=== PATIENT | male | born 1960 | race Caucasian/White ===

== ENCOUNTER 2019-05-02 03:11 | Emergency (ER) | payer OTHER, SELFPAY ==
--- NOTE | ~2019-05-02 | CT_ITS ---
EXAMINATION: CT soft tissue neck w con EXAM DATE: 05/02/2019 04:17 INDICATION: Left facial swelling. TECHNIQUE: Spiral CT of the neck was performed following intravenous injection of 75 mL Omnipaque 350 . Axial, coronal and sagittal images were reviewed. The dose-length product (DLP) for this examinat ion was 674.71 mGy-cm. The exposure was tailored according to patient size (auto mA exposure control ), and iterative reconstruction (ASIR) was used as additional dose reduction technique. There is no prior study for comparison. FINDINGS: The thyroid gland is unremarkable. There is edema within and surrounding the left parotid gland. The parotid duct is normal in caliber, no evidence of parotic duct stone. There are bilateral parotid calcifications. No abscess. There is no cervical lymphadenopathy. There are no masses iden tified. The airway is unremarkable. Parapharyngeal and pre-glottic fat planes are preserved. The arteries and veins enhance normally. There is mild bilateral carotid bulb arterial sclerosis without stenosis, no evidence of venous thrombosis. The orbits are unremarkable. Visualized sinuses and ma stoid air cells are well aerated. Borderline size prevascular and right lower paratracheal lymph nodes, some with calcifications. Also scattered numerous peribronchovascular distribution lung nodules along with regions of pleural thicke zaynab with calcification, scarring. Overall findings most consistent with sarcoidosis. There is mild e mphysema. There is cervical spondylosis. IMPRESSION: 1. Left parotiditis. Scattered parotid calcifications but no obstructing stone. 2. Lung findings suspicious for sarcoidosis, or possibly other granulomatous process. Reviewed, dictated and finalized at location [facility]. ET PLATE PREPARATION SUPERVISOR IMPRESSION: 1. Left parotiditis. Scattered parotid calcifications but no obstructing stone . 2. Lung findings suspicious for sarcoidosis, or possibly other granulomatous p rocess.
[2019-05-02 03:20] VITALS: BP 184/93; PULSE 102; RESP 20; TEMP 36.5; O2SAT 99
[2019-05-02] MEDS: MORPHINE SULFATE 4 MG/ML INJ IV PUSH (03:44)
[2019-05-02 04:02] LABS: Estimated CRCL calculation 162 ml/min; Estimated Glomerular Filt Rate > 60
[2019-05-02 04:14] VITALS: TEMP 36.5
--- NOTE | 2019-05-02 04:20 | ED.GENADULT ---
HPI - General Adult General Chief complaint: Skin/Abscess/Foreign Body Stated complaint: LEFT SIDE FACIAL SWELLING Time Seen by Provider: 05/02/19 03:33 History of Present Illness HPI narrative: Patient is a 58-year-old male who presents ER with left-sided facial swelling. Sudden onset this evening. Associated with pain. Denies any discomfort in his teeth or sensitivity to food/water.. No difficulty breathing or swallowing. He does have known esophageal varices so will be banded next few days. Denies fever/chills/sweats. Left-sided facial swelling and pain is worsened by opening his mouth and with direct palpation. No erythema. Has not had similar symptoms. Related Data Home Medications Medication Instructions Recorded Confirmed albuterol sulfate INHALATION 04/06/19 budesonide-formoterol [Symbicort] INHALATION 04/06/19 bumetanide 04/06/19 diclofenac sodium PO 04/06/19 furosemide 04/06/19 gabapentin 04/06/19 insulin glargine [Basaglar KwikPen unit SUBCUT 04/06/19 U-100 Insulin] tiotropium bromide [Spiriva with INHALATION 04/06/19 HandiHaler] Allergies Allergy/AdvReac Type Severity Reaction Status Date / Time No Known Allergies Allergy Verified 05/02/19 03:26 Review of Systems Review of Systems: All systems reviewed & are unremarkable except as noted in HPI and below Constitutional: Constitutional: Denies chills, Denies fever(s) and Denies weakness ENT: Denies dysphagia and Denies sore throat Comments: left facial swelling. No dental pain Respiratory: Respiratory: Denies cough and Denies dyspnea Gastrointestinal: Gastrointestinal: Denies nausea and Denies vomiting [facility] Past Medical History Medical History (Updated 05/02/19 @ 05:50 by Rob Liao MD) Cirrhosis of liver COPD (chronic obstructive pulmonary disease) Diabetes type 2, controlled Esophageal varices Hepatitis C Surgical History Surgical History (Updated 05/02/19 @ 04:22 by Rob Liao MD) History of esophagogastroduodenoscopy (EGD) Social History Social History Smoking status: Current every day smoker Alcohol intake: current Gender identity (if verbalized by the patient): Male Exam Narrative: Exam Narrative: GENERAL: Well-appearing, well-nourished, and in no acute distress. HEAD: Normocephalic, atraumatic. ENT: Mucous membranes moist. No tenderness around the teeth with direct palpation. Normal posterior oropharynx with midline uvula no edema. Left facial swelling and tenderness near the parotid and angle of the mandible. Mild left submandibular discomfort. NECK: Supple. EXTREMITIES: Normal range of motion. Normal strength. NEURO: Alert and oriented x3. Course Course Emergency Course: Informed of results. Cefazolin IV given. D/c with norco and augmentin. F/u with PCP. Vital Signs Vital signs: Vital Signs Temperature 97.7 F 05/02/19 03:20 Pulse Rate 102 H 05/02/19 03:20 Respiratory Rate 20 05/02/19 03:20 Blood Pressure 184/93 H 05/02/19 03:20 Pulse Oximetry 99 05/02/19 03:20 Temperature 97.7 F 05/02/19 04:14 Pulse Rate 102 H 05/02/19 03:20 Respiratory Rate 05/02/19 03:20 Blood Pressure 184/93 H 05/02/19 03:20 Pulse Oximetry 99 05/02/19 03:20 Medical Decision Making Vital Signs Vital Signs: Vital Signs Temperature 97.7 F 05/02/19 03:20 Pulse Rate 102 H 05/02/19 03:20 Respiratory Rate 20 05/02/19 03:20 Blood Pressure 184/93 H 05/02/19 03:20 Pulse Oximetry 99 05/02/19 03:20 Temperature 97.7 F 05/02/19 04:14 Pulse Rate 102 H 05/02/19 03:20 Respiratory Rate 05/02/19 03:20 Blood Pressure 184/93 H 05/02/19 03:20 Pulse Oximetry 99 05/02/19 03:20 Lab Data Result diagrams: 05/02/19 03:43 Labs: Lab Results 05/02/19 Range/Units 03:43 Creatinine 0.60 L (0.7-1.3) mg/dL Estim Creat Clear Calc 162 ml/min Estimated GFR > 60 (
[2019-05-02] MEDS: SODIUM CHLORIDE 0.9% IV 500 ML 999 ML IV CONT (04:56)
[2019-05-02 06:04] VITALS: BP 178/91; PULSE 91; RESP 16; O2SAT 100
== END 2019-05-02 06:06 | disposition home or self-care (01) ==
PROVIDERS: Emergency Provider Emergency Medicine
DX: K11.20 Sialoadenitis, unspecified (principal); K74.60 Unspecified cirrhosis of liver; J44.9 Chronic obstructive pulmonary disease, unspecified; E11.9 Type 2 diabetes mellitus without complications; I85.00 Esophageal varices without bleeding; F17.200 Nicotine dependence, unspecified, uncomplicated; Z79.4 Long term (current) use of insulin; Z86.19 Personal history of other infectious and parasitic diseases
CPT/HCPCS: 36415; 70491; 82565; 96365; 96375; 99284; J0690; J2270; J7040; Q9967

== ENCOUNTER 2019-09-04 10:47 | Outpatient (CLI) | payer OTHER, SELFPAY ==
[2019-09-04 11:36] LABS: Basophils Percent Auto 0.5 % (0.2-1.2); Eosinophils Absolute Auto 0.1 K/mm3 (0-0.3); Eosinophils Percent Auto 3.5 % (0-4.4); Hematocrit 33.5 % (42.0-52.0); Hemoglobin 10.1 g/dL (14.0-18.0); Immature Granulocyte Absolute 0.02 K/mm3 (0.00-0.031); Immature Granulocyte Percent A 0.5 % (0-0.5); Immature Platelet Fraction Pct 5.3 % (0.9-11.2); Lymphocytes Absolute Auto 0.46 K/mm3 (0.9-3.2); Lymphocytes Percent Auto 12.4 % (18.3-44.2); Mean Corpuscular HGB Conc 30.1 g/dl (32-36); Mean Corpuscular Hemoglobin 22.1 pg (26-34); Mean Corpuscular Volume 73.1 fl (80-100); Mean Platelet Volume 10.5 fl (7.4-10.4); Monocytes Absolute Auto 0.4 K/mm3 (0.1-0.6); Monocytes Percent Auto 11.6 % (2.6-8.5); Neutrophils Absolute Auto 2.7 K/mm3 (1.3-6.7); Neutrophils Percent Auto 71.5 % (45.5-73.1); Platelet Count Result 136 k/mm3 (150-375); Red Blood Count 4.58 M/mm3 (4.6-6.20); Red Cell Distribution Width 17.4 % (11.5-14.5); White Blood Count 3.7 K/mm3 (4.5-10.0)
== END 2019-09-04 10:48 | disposition home or self-care (01) ==
LOC: ANHLAB 10:50
PROVIDERS: PCP Emergency Medicine; Visit Provider Internal Medicine Hematology & Oncology
DX: D61.818 Other pancytopenia (principal)
CPT/HCPCS: 36415; 85025; 85055

== ENCOUNTER 2019-09-13 21:44 | Emergency (ER) | payer OTHER, SELFPAY ==
[2019-09-13 21:52] VITALS: BP 151/94; PULSE 103; RESP 28; TEMP 37.7; O2SAT 98
--- NOTE | 2019-09-13 21:52 | PC.NURSE ---
Addendum entered by Aneta Mercado RN 09/13/19 21:58: pt friend winston states hes not interested in any updates on pt but states if we NEED to call him for any reason we can. [phone] Original Note: with any updates, call pt's friend winston [phone].
--- NOTE | 2019-09-13 22:00 | ECG_ITS ---
Measurements Intervals Christine Rate: 99 P: 58 NH: 191 QRS: -87 QRSD: 153 T: 63 QT: 356 QTc: 459 Interpretive Statements SINUS RHYTHM LEFT AXIS DEVIATION RIGHT BUNDLE BRANCH BLOCK BASELINE ARTIFACT- I, II ABNORMAL ECG Electronically Signed On 09-14-2019 7:10:07 CDT by Shahid Mcginnis D.O.
--- NOTE | 2019-09-13 22:00 | ED.GENADULT ---
HPI - General Adult General Chief complaint: Unspecified Stated complaint: been on a sanders Time Seen by Provider: 09/13/19 21:48 History of Present Illness HPI narrative: He reports that he is here because he used methamphatamines. I then asked how I could help him and he pretended to fall asleep. After a brief period He then turned to me and said he was here for an anxiety attack. is that good enough? Then he started intentionally hyperventilating. He then began pretending to sleep again. History limited by cooperation. Related Data Home Medications Medication Instructions Recorded Confirmed albuterol sulfate INHALATION 04/06/19 budesonide-formoterol [Symbicort] INHALATION 04/06/19 bumetanide 04/06/19 diclofenac sodium PO 04/06/19 furosemide 04/06/19 gabapentin 04/06/19 insulin glargine [Basaglar KwikPen unit SUBCUT 04/06/19 U-100 Insulin] tiotropium bromide [Spiriva with INHALATION 04/06/19 HandiHaler] Allergies Allergy/AdvReac Type Severity Reaction Status Date / Time No Known Allergies Allergy Verified 05/02/19 03:26 Review of Systems Review of Systems: ROS unobtainable: Yes other (patient cooperation) PMFSH Past Medical History Medical History Cirrhosis of liver COPD (chronic obstructive pulmonary disease) Diabetes type 2, controlled Esophageal varices Hepatitis C Surgical History Surgical History History of esophagogastroduodenoscopy (EGD) Family History Family History Father Family history of pancreatic cancer Other Diabetes mellitus Hypertension Social History Social History Smoking status: Current every day smoker Alcohol intake: current Gender identity (if verbalized by the patient): Male Exam Const: General: no acute distress and alert Nutritional Appearance: well nourished Orientation/consciousness: patient oriented x3 HENMT: Head: normal to inspection Eyes: Pupils: Equal, round and reactive pupils present EOM: EOMs intact bilaterally Resp: Effort & Inspection: normal respiratory effort Auscultation: clear to auscultation bilaterally Cardio: Rate: regular rate Rhythm: regular rhythm Neuro: General: patient oriented x3, moves all extremities and CN's II-XI intact bilaterally Speech: normal speech Gait exam (Neuro): Normal gait present Extrem: General: edema bilateral Course Vital Signs Vital signs: Vital Signs Temperature 37.7 C H 09/13/19 21:52 Pulse Rate 103 H 09/13/19 21:52 Respiratory Rate 28 H 09/13/19 21:52 Blood Pressure 151/94 H 09/13/19 21:52 Pulse Oximetry 98 09/13/19 21:52 Temperature 37.7 C H 09/13/19 21:52 Pulse Rate 92 09/13/19 23:20 Respiratory Rate 09/13/19 23:20 Blood Pressure 154/84 H 09/13/19 23:20 Pulse Oximetry 98 09/13/19 23:20 Medical Decision Making MDM Narrative Medical decision making narrative: He does not seem to have any particular complain that needs to be evaluated. He appears to be looking for a place to sleep. Medical Records Medical records reviewed: Yes I reviewed the patient's medical records. Vital Signs Vital Signs: Vital Signs Temperature 37.7 C H 09/13/19 21:52 Pulse Rate 103 H 09/13/19 21:52 Respiratory Rate 28 H 09/13/19 21:52 Blood Pressure 151/94 H 09/13/19 21:52 Pulse Oximetry 98 09/13/19 21:52 Temperature 37.7 C H 09/13/19 21:52 Pulse Rate 92 09/13/19 23:20 Respiratory Rate 09/13/19 23:20 Blood Pressure 154/84 H 09/13/19 23:20 Pulse Oximetry 98 09/13/19 23:20 Lab Data Lab results reviewed: Yes I reviewed the patient's lab results. Discharge Plan Discharge Clinical Impression: Malingering Patient Disposition: Home, Self-Care Condition: Stable Prescriptions: No Action
[2019-09-13 23:20] VITALS: BP 154/84; PULSE 92; RESP 20; O2SAT 98
--- NOTE | 2019-09-13 23:30 | PC.NURSE ---
Pt taken to car via wheelchair by ED security.
== END 2019-09-13 23:20 | disposition home or self-care (01) ==
PROVIDERS: Emergency Provider Emergency Medicine; PCP Emergency Medicine
DX: Z76.5 Malingerer [conscious simulation] (principal); K74.60 Unspecified cirrhosis of liver; J44.9 Chronic obstructive pulmonary disease, unspecified; E11.9 Type 2 diabetes mellitus without complications; Z86.19 Personal history of other infectious and parasitic diseases; I45.10 Unspecified right bundle-branch block; Z79.4 Long term (current) use of insulin; Z79.84 Long term (current) use of oral hypoglycemic drugs
CPT/HCPCS: 93005; 99283

== ENCOUNTER 2020-05-01 15:07 | Inpatient (IN) | payer OTHER, SELFPAY ==
[2020-05-01] VITALS (16 sets, daily range): BP systolic 94–136; BP diastolic 49–78; PULSE 87–120; RESP 16–35; TEMP 36.3–38.5; O2SAT 92–99; BMI 34.9
--- NOTE | ~2020-05-01 | CT_ITS ---
EXAMINATION: CTA chest PE protocol EXAM DATE: 05/02/2020 11:28 INDICATION: Shortness of breath. COVID positive. Pneumonia. TECHNIQUE: Spiral CTA of the chest (pulmonary arteries) was performed with 200 cc Omnipaque 350 intr avenous contrast injection. Images were acquired during the pulmonary arterial phase. The patient w as injected and reimaged due to suboptimal pulmonary arterial opacification on the initial scan Coron al maximum intensity projection 3D-reconstructions were created by the technologist on dedicated work station. Axial, coronal and sagittal reformatted images were reviewed. The dose-length product (DLP ) for this examination was 1460.49 mGy-cm. The exposure was tailored according to patient size (aut o mA exposure control), and iterative reconstruction (ASIR) was used as additional dose reduction douglas hnique. Comparison is made to prior examination from 11/02/2018. FINDINGS: There are no pulmonary emboli in the 1st through 3rd order (central and interlobar) pulmon yasmani arteries. Some loss of attenuation in the left basilar segmental pulmonary arteries without evid ence of respiratory motion in these areas. No Intraluminal filling defects suspected. No thoracic ao rtic dissection. There is extensive left basilar, small to moderate right basilar patchy airspace disease, regions of confluence and substantially more regions of groundglass density, consistent with acute infectious pr ocess such as COVID pneumonia. There is subsegmental airspace disease in the right upper lobe which i s new compared to 2016, but most likely chronic process, likely different etiology from the basilar o pacities. Differential diagnosis for this includes silicosis, bronchoalveolar cell cancer, cryptogeni c organizing pneumonia, bacterial pneumonia. The numerous tree-in-bud distribution nodules which were previously present appear unchanged, chronic. There are scattered bilateral pleural plaques. There is trace left pleural effusion. Tracheobronchia l tree is patent. Mediastinal lymphadenopathy, largest probably in the paratracheal location but th is is obscured by dense artifact from the SVC contrast. Lymph nodes likely up to about 2 cm in size. Mildly enlarged prevascular lymph nodes as well. There is no pneumothorax. Heart normal in size. There is mild coronary arterial calcification, arterial sclerosis. Nodular cirrhotic liver. Cholecys tectomy. Splenomegaly. Portal vein measuring up to 20 mm, consistent with portal hypertension. There is moderate thoracic spondylosis without osteoblastic or osteolytic lesions identified. IMPRESSION: 1. Limited left basilar segmental evaluation, but no pulmonary emboli are suspected. 2. Extensive left basilar linear, small to moderate right basilar airspace disease likely acute infe ctious process. Could be COVID pneumonia. 3. Right upper lobe airspace disease with large region of confluence than on prior study. Reticulono dular opacities. Could be silicosis. Right upper lobe cryptogenic organizing pneumonia or bronchoalve olar cell cancer not excludable. 4. Chronic mediastinal lymphadenopathy with mild interval increase which could be superimposed react dari enlargement. Can't exclude malignancy. 5. Scattered bilateral pleural plaques. Possible asbestos exposure. 6. Trace left pleural effusion. 7. Cirrhosis, splenomegaly and portal hypertension. Reviewed, dictated and finalized at location A. TECHNICIAN IMPRESSION: 1. Limited left basilar segmental evaluation, but no pulmonary emboli are susp ected. 2. Extensive left basilar linear, small to moderate right basilar airspace dis ease likely acute infectious process. Could be COVID pneumonia. 3. Right upper lobe airspace disease with large region of confluence than on p rior study. R
--- NOTE | ~2020-05-01 | CT_ITS ---
EXAMINATION: CT brain wo con DATE: 05/01/2020 16:21 INDICATION: Altered mental state TECHNIQUE: Computed tomography (CT) of the head was performed without intravenous contrast. The mA wa s adjusted according to patient size. Iterative reconstruction technique was employed. Exam dose: 60 5.33 mGy-cm total exam DLP. COMPARISON: 07/14/2016 CT brain FINDINGS: There are chronic prominent bilateral frontal areas of encephalomalacia. No intracranial mass lesion or hemorrhage, midline shift or mass effect is evident. No subdural or ep idural hematoma is detected. Intracranial cerebral atherosclerosis. There is nonspecific diminished attenuation of the cerebral wh ite matter, likely due to chronic small vessel ischemic changes. No fracture or bone destruction of the cranial vault. There is patchy bilateral ethmoid soft tissue thickening. The mastoid air cells are normally develope d and aerated. IMPRESSION: Bilateral chronic frontal encephalomalacia; no acute intracranial finding or significant change since 07/14/2016 Reviewed, dictated and finalized at Location [facility]. Reviewed, dictated and finalized at location A. CULTURAL ENGINEERING TECHNICIANS
--- NOTE | ~2020-05-01 | XR_ITS ---
EXAMINATION: XR chest 1V portable DATE: 05/01/2020 15:36 INDICATION: Shortness of breath. Cough. TECHNIQUE: A single frontal view of the chest was obtained on 2 radiographs. COMPARISON: Chest 2 views 04/06/2019, neck CT 05/02/2019, chest CT 11/02/2018, 10/23/2015 FINDINGS: There are widespread nodules in the lungs, many of which are chronic, but some of which may be new. There are chronic airspace opacities in right upper lobe. There are new airspace opacities a t left lung base. No pleural effusion or pneumothorax. The heart size is normal. Calcified hilar and mediastinal lymph nodes are consistent with old granulomatous disease. IMPRESSION: 1. Worsened diffuse lung disease, worst at left lung base, consistent with pneumonia superimposed on chronic lung disease. Reviewed, dictated and finalized at location A. BENCH OPERATOR HELPER IMPRESSION: 1. Worsened diffuse lung disease, worst at left lung base, consistent with pneu monia superimposed on chronic lung disease.
--- NOTE | 2020-05-01 15:14 | ECG_ITS ---
Measurements Intervals Mozelle Rate: 119 P: 64 CO: 155 QRS: 270 QRSD: 157 T: 73 QT: 334 QTc: 471 Interpretive Statements SINUS TACHYCARDIA EXTREME RIGHT AXIS DEVIATION RIGHT BUNDLE BRANCH BLOCK ABNORMAL ECG Electronically Signed On 05-01-2020 15:46:37 VENDING MACHINE ASSEMBLER by Shahid Mcginnis D.O.
[2020-05-01 15:36] LABS: Basophils Percent Auto 0.2 % (0.2-1.2); Hematocrit 40.6 % (42.0-52.0); Hemoglobin 12.5 g/dL (14.0-18.0); Immature Granulocyte Absolute 0.03 K/mm3 (0.00-0.031); Immature Granulocyte Percent A 0.5 % (0-0.5); Immature Platelet Fraction Pct 5.8 % (0.9-11.2); Lymphocytes Absolute Auto 0.22 K/mm3 (0.9-3.2); Mean Corpuscular HGB Conc 30.8 g/dl (32-36); Mean Corpuscular Hemoglobin 22.6 pg (26-34); Mean Corpuscular Volume 73.4 fl (80-100); Monocytes Absolute Auto 0.4 K/mm3 (0.1-0.6); Monocytes Percent Auto 6.8 % (2.6-8.5); Neutrophils Absolute Auto 4.9 K/mm3 (1.3-6.7); Neutrophils Percent Auto 88.5 % (45.5-73.1); Platelet Count Result 87 k/mm3 (150-375); Red Blood Count 5.53 M/mm3 (4.6-6.20); Red Cell Distribution Width 19.7 % (11.5-14.5); White Blood Count 5.5 K/mm3 (4.5-10.0)
--- NOTE | 2020-05-01 15:41 | ED.SOB ---
HPI - SOB/Dyspnea General Chief Complaint: Shortness of Breath/Dyspnea Stated Complaint: SOB, CP Time Seen by Provider: 05/01/20 15:27 History of Present Illness HPI Narrative: 59 yo male w/ h/o htn, DM, COPD brought in by EMS from urgent care for SOB. He has reportedly been SOB for a few days. He was seen at urgent care today and found to have low O2 saturation. Additionally he has been having pleuritic chest pain. Found to be febrile during triage. He has been homeless and living in his truck. He has not taken any of his medications for quite some time. He is a very poor historian. Related Data Home Medications Medication Instructions Recorded Confirmed albuterol sulfate INHALATION 04/06/19 budesonide-formoterol [Symbicort] INHALATION 04/06/19 bumetanide 04/06/19 diclofenac sodium PO 04/06/19 furosemide 04/06/19 gabapentin 04/06/19 insulin glargine [Basaglar KwikPen unit SUBCUT 04/06/19 U-100 Insulin] tiotropium bromide [Spiriva with INHALATION 04/06/19 HandiHaler] Allergies Allergy/AdvReac Type Severity Reaction Status Date / Time No Known Allergies Allergy Verified 05/01/20 15:32 Review of Systems Review of Systems: ROS unobtainable: Yes unobtainable due to mental status Constitutional: Constitutional: Reports fever(s) and Reports weakness Cardiovascular: Cardiovascular: Reports chest pain Respiratory: Respiratory: Reports cough and Reports dyspnea Gastrointestinal: Gastrointestinal: Reports nausea Neurologic: Reports weakness [facility] Past Medical History Medical History (Updated 05/01/20 @ 17:10 by Brad Chatterjee MD) Cirrhosis of liver COPD (chronic obstructive pulmonary disease) Diabetes type 2, controlled Esophageal varices Hepatitis C Surgical History Surgical History History of esophagogastroduodenoscopy (EGD) Family History Family History Father Family history of pancreatic cancer Other Diabetes mellitus Hypertension Social History Social History Smoking status: Current every day smoker Alcohol intake: current Gender identity (if verbalized by the patient): Male Sexual Orientation (if Verbalized by the Patient): Straight or Heterosexual Exam Const: General: alert and ill appearing Nutritional Appearance: obese Other: Oriented x2 . HENMT: Head: normal to inspection Eyes: Pupils: Equal, round and reactive pupils present Neck: Neck: normal visual inspection Chest: Chest palpation & inspection: normal inspection of the chest Resp: Effort & Inspection: tachypneic Auscultation: crackles Cardio: Rate: tachycardic Rhythm: regular rhythm GI: Inspection: non-distended GI Palp: Yes Soft to palpation Skin: General skin exam: normal color Neuro: General: moves all extremities, no focal motor deficits and CN's II-XI intact bilaterally Speech: Abnormal speech present slurred Extrem: General: edema bilateral Course Vital Signs Vital signs: Vital Signs Temperature 38.5 C H 05/01/20 15:06 Pulse Rate 120 H 05/01/20 15:06 Respiratory Rate 16 05/01/20 15:06 Blood Pressure 136/78 05/01/20 15:06 Pulse Oximetry 94 05/01/20 15:06 Temperature 38.5 C H 05/01/20 15:06 Pulse Rate 107 H 05/01/20 16:49 Respiratory Rate 35 H 05/01/20 16:49 Blood Pressure 104/57 L 05/01/20 16:49 Pulse Oximetry 97 05/01/20 16:49 MDM - SOB/Dyspnea Differential Diagnosis Differential diagnosis: Likely acute exacerbation of chronic obstructive airways disease, congestive heart failure, community acquired pneumonia and other (COVID-19) Medical Records Attestation: I reviewed the patient's medical records. Lab Data Attestation: I reviewed the patient's lab results. Result diagrams: 05/01/20 15:24 05/01/20 15:24 Labs: Lab Results 04/05
[2020-05-01] MEDS: SODIUM CHLORIDE 0.9% IV 1,000 ML 999 ML IV CONT ×2 (15:46→20:48)
[2020-05-01 15:48] LABS: Alanine Aminotransferase 31 U/L (4-50); Albumin Level 2.8 g/dL (3.5-5.1); Alkaline Phosphatase 123 U/L (38-126); Anion Gap 3 mmol/L (8-16); Aspartate Amino Transferase 57 U/L (17-59); Blood Urea Nitrogen 16 mg/dL (9-20); Calcium 7.8 mg/dL (8.4-10.2); Carbon Dioxide 29 mmol/L (22-30); Chloride 91 mmol/L (98-107); Estimated CRCL calculation 117 ml/min; Estimated Glomerular Filt Rate > 60; Ethanol < 10 mg/dL (<10); Glucose 302 mg/dL (75-110); Potassium 4.1 mmol/L (3.4-5.0); Sodium 123 mmol/L (137-145)
--- NOTE | 2020-05-01 15:49 | PC.NURSE ---
Pt states he is unable to provide a u/a at this time, declines straight cath. Fluids infusing and given urinal, pt states he will continue to try and alert RN when he is able to provide one.
[2020-05-01 15:50] LABS: Ovalocytes 1+ (NORMAL); Platelet Estimate Decreased (Adequate)
[2020-05-01 15:52] LABS: Prothrombin Time 14.1 Seconds (11.1-14.7)
[2020-05-01 15:54] LABS: Partial Thromboplastin Time 38.8 SECONDS (22.3-36.8)
[2020-05-01 15:57] LABS: Alveolar/Arterial O2 Gradient 87.3 mmHg; Base Excess ABG 0.9 mEq/l (+/-2.0); Fractional Inspired Oxygen 28 %; HCO3 ABG 24.7 mEq/l (22.0-26.0); Oxygen Content ABG 15.6 %vol (16.0-22.0); Oxygen Saturation ABG 94.6 % (95.0-100.0); Oxyhemoglobin 93.2 % THb (90.0-100.0); PCO2 ABG 36.8 mmHg (35.0-45.0); PO2 ABG 68.9 mmHg (80.0-100.0); PO2 FiO2 Ratio Arterial Blood 2.46 %; Total Hemoglobin 11.9 g/dL (12.0-18.0); pH ABG 7.445 (7.350-7.450)
[2020-05-01 15:58] LABS: Device NASAL CANNULA; Site Drawn LEFT BRACHIAL
[2020-05-01 16:01] LABS: NT Pro B Type Natriuretic Pept 2690 PG/ML (5-100); Troponin I 0.066 ng/mL (0.000-0.034)
[2020-05-01 16:09] LABS: CRP 16.6 mg/dL (<1.0)
[2020-05-01 16:21] LABS: Add Urine Microscopic? YES; Appearance Urine Clear (Clear); Bilirubin Urine Negative (Negative); Blood Urine 1+ (Negative); Color Urine Amber (Yellow); Glucose Urine UA 3+ mg/dL (Negative); Ketones Urine Negative (Negative); Leukocyte Esterase Ur Negative LEU/UL (Negative); Mucus Urine Rare /lpf; Nitrate Urine Negative (Negative); Protein Urine 3+ mg/dL (Negative); Specific Grav Ur 1.028 (1.001-1.035); Squamous Epithelial Cell Urine Rare /hpf (Few)
[2020-05-01 17:49] LABS: Ammonia 41 umol/L (9-30)
[2020-05-01 18:32] LABS: Reflex Lactic Acid Yes or No Add Lactic
[2020-05-01 19:33] LABS: Lactic Acid 2.3 mmol/L (0.7-2.1)
--- NOTE | 2020-05-01 20:28 | PC.NURSE ---
advised hospitalist of pt bp.and dr. ragsdale
[2020-05-01 20:58] LABS: Troponin I 0.093 ng/mL (0.000-0.034)
[2020-05-01 21:42] LABS: SARS-CoV-2 RNA PCR Positive
[2020-05-01 22:57] LABS: Glucose Point of Care 211 (65-105)
--- NOTE | 2020-05-01 23:32 | PM.IMHP ---
H&P: HPI History of Present Illness Date/Time: 05/01/20 23:32 Chief Complaint: Shortness of breath Narrative: Maxim Babb is a 59 year old male who has a history liver disease with cirrhosis of the liver and chronic thrombocytopenia. Is reported that the patient is homeless and lives in his truck. The patient denies having any exposure to COVID and stated that his symptoms started approximately 5 days ago. From urgent care due to his shortness of breath. He was found to have low oxygen levels. He has been having pleuritic chest pain he was found to be afebrile during triage. The patient was a very poor historian however his ammonia levels found to be 41. Patient's 1st troponin was 0.093 Accu-Chek was 211 lactic 2.3. BNP was noted to be 2690. Patient was tested for COVID-19 and found to be positive today. Platelets 87. The patient went answer some questions and then fall back asleep. Were drawn his pH was normal PO2 was low at 60.9. Patient had been placed on O2 2 L per nasal cannula. Azithromycin and Rocephin in the emergency room he was given 2 L of IV fluids IV Tylenol and albuterol inhaler. The patient is being admitted to inpatient on 05/01/2020. Review of Systems Review of Systems: All systems reviewed & are unremarkable except as noted in HPI and below Constitutional: Constitutional: Reports as per HPI and Reports no additional constitutional complaints Eyes: Eyes: Reports as per HPI and Reports no additional eye complaints ENT: Reports system reviewed and no additional complaints, except as documented and Reports Normal hearing present Cardiovascular: Cardiovascular: Reports no additional cardiovascular complaints Respiratory: Respiratory: Reports no additional respiratory complaints and Reports no additional respiratory complaints Gastrointestinal: Gastrointestinal: Reports as per HPI and Reports no additional gastrointestinal complaints Musculoskeletal: Musculoskeletal: Reports no additional musculoskeletal complaints Integumentary/Breasts: Skin/Breast: Reports system reviewed and no additional complaints, except as docu and Reports as per HPI Neurologic: Reports system reviewed and no additional complaints, except as documented, Reports as per HPI and Reports Normal hearing present Psychiatric: Psychiatric: Reports no additional psychiatric complaints and Reports as per HPI Endocrine: Endocrine: Reports no additional endocrine complaints Hematologic/Lymphatic: Hematologic/Lymphatic: Reports no additional hematologic/lymphatic complaints Allergic/Immunologic: Allergic/Immunologic: Reports no additional allergic/immunologic complaints [facility] Past Medical History Medical History (Updated 05/02/20 @ 00:00 by Lashawn Pope NP) Cirrhosis of liver COPD (chronic obstructive pulmonary disease) Diabetes type 2, controlled Esophageal varices Hepatitis C Thrombocytopenia Surgical History Surgical History (Updated 05/01/20 @ 23:50 by Lashawn Pope NP) H/O cardiac catheterization H/O hernia repair History of esophagogastroduodenoscopy (EGD) Family History Family History Father Family history of pancreatic cancer Other Diabetes mellitus Hypertension Social History Social History Smoking status: Former smoker Tobacco type: cigarettes Alcohol intake: never Substance use: never Gender identity (if verbalized by the patient): Male Sexual Orientation (if Verbalized by the Patient): Straight or Heterosexual Spiritual care concerns: No Meds Home Medications and Allergies Home Medications Medication Instructions Recorded Confirmed Type albuterol sulfate 2 puff INHALATION TID 04/06/19 05/01/20 History budesonide-formoterol [Symbicort] 2 puff INHALATION BID 04/06/19 05/01/20 History bumetanide 2 mg PO BID 04/06/19 05/01/20 History insulin glargine [Basaglar AnaisPen
[2020-05-02] VITALS (18 sets, daily range): BP systolic 103–146; BP diastolic 53–79; PULSE 79–108; RESP 18–22; TEMP 36.1–36.6; O2SAT 75–100
[2020-05-02 00:06] LABS: Troponin I 0.078 ng/mL (0.000-0.034)
--- NOTE | 2020-05-02 00:55 | ADMIMU ---
This patient, Maxim Babb, was admitted to IMU status, and placed in IMU Room 213-01 on05/01/20 at 2205. Patient/family oriented to hospital policies and general routines including ID bracelet, bed and alarms, visiting hours, pain management, procedures, bathroom and other care routines, personal items, smoking policy, room service/diet, and visiting hours. Information on how to activate the Rapid Response Team has been discussed. Patient/Family are encouraged to report perceived risks to care and to ask questions if they do not understand what they are told or what they should do.
[2020-05-02] MEDS: guaiFENesin/DEXTROMETHORPHAN 10 ML UDC PO (01:43)
[2020-05-02] MEDS: LACTULOSE 20 GM/30 ML UDC PO ×2 (01:43→17:58)
[2020-05-02] MEDS: ALBUTEROL SULFATE (*SP) AEROSOL 1 PUFF 2 PUFF INHALATION ×4 (03:12→20:25)
[2020-05-02] MEDS: SALINE 0.65% NAS SOLN 44 ML BTL 1 SPRAY NASAL ×2 (03:29→10:19)
--- NOTE | 2020-05-02 08:06 | PC.NURSE ---
05/02/20 0500 Incentive spirometer placed in room. Attempted to explain usage to patient but pt requests to sleep. Elvia in respiratory notified.
[2020-05-02 08:15] LABS: Glucose Point of Care 172 (65-105)
--- NOTE | 2020-05-02 09:00 | PC.NURSE ---
0900 Patient's oxygen saturation decreased to 75% Patient drowsy and mumbling words. Placed patient on 5L nasal cannula and saturation increased to 91%. Dr Rodriguez called and made aware of patient's change in mentation and oxygen needs. ABG ordered.
[2020-05-02 09:19] LABS: Alveolar/Arterial O2 Gradient 148.7 mmHg; Base Excess ABG 4.1 mEq/l (+/-2.0); Fractional Inspired Oxygen 40 %; HCO3 ABG 28.5 mEq/l (22.0-26.0); Oxygen Saturation ABG 97.1 % (95.0-100.0); Oxyhemoglobin 95.7 % THb (90.0-100.0); PCO2 ABG 41.9 mmHg (35.0-45.0); PO2 ABG 88.3 mmHg (80.0-100.0); PO2 FiO2 Ratio Arterial Blood 2.21 %; Total Hemoglobin 11.8 g/dL (12.0-18.0)
[2020-05-02 09:20] LABS: Device NASAL CANNULA; Modified Allen's Test Pass; Site Drawn RIGHT RADIAL
[2020-05-02] MEDS: INSULIN GLARGINE (*BKC) 100 UNITS/ML 50 UNITS SUB-Q ×2 (10:20→17:58)
[2020-05-02] MEDS: DEXAMETHASONE SOD PHOS INJ 4 MG/ML VIAL 6 MG IV PUSH (10:21)
[2020-05-02] MEDS: BUMETANIDE 1 MG TABLET 2 MG PO ×2 (10:22→17:58)
[2020-05-02 12:03] LABS: Glucose Point of Care 160 (65-105)
--- NOTE | 2020-05-02 14:08 | PM.IMPN ---
Progress Note: A&P Assessment and Plan (1) Confusion: Code(s): R41.0 - Disorientation, unspecified Status: Acute Assessment and Plan: Multifactorial secondary to acute metabolic encephalopathy most likely related hepatic encephalopathy and COVID-19 infection Lactulose avoid high-protein diet (2) Pneumonia due to COVID-19 virus: Code(s): U07.1 - COVID-19; J12.82 - Pneumonia due to coronavirus disease 2019 Status: Acute Assessment and Plan: Was not started on remdesivir at this time due to his history of cirrhosis of the liver. Continue with Decadron. Robitussin and incentive spirometer. Encourage the patient to bob a prone position for 30 minutes to 2 hours rotating [id number] non the back. Will get ID evaluation may benefit from convalescent plasma (3) COPD (chronic obstructive pulmonary disease): Code(s): J44.9 - Chronic obstructive pulmonary disease, unspecified Status: Acute Assessment and Plan: With acute exacerbation inhaler treatment steroid (4) Diabetes type 2, controlled: Code(s): E11.9 - Type 2 diabetes mellitus without complications Status: Acute Assessment and Plan: Continue with Glyburide and hold metformin. Uncontrolled adjust the dose of insulin (5) Elevated troponin: Code(s): R77.8 - Other specified abnormalities of plasma proteins Status: Acute Assessment and Plan: High risk for fall anticoagulation as patient also has thrombocytopenia Currently does not have chest pain most likely elevated troponin secondary to demand ischemia NSTEMI type 2 Echo once hemodynamically stable (6) Thrombocytopenia: Code(s): D69.6 - Thrombocytopenia, unspecified Status: Chronic Assessment and Plan: Probably related to liver cirrhosis monitor. (7) Sepsis: Code(s): A41.9 - Sepsis, unspecified organism Status: Acute Assessment and Plan: Patient's lactic was elevated. Most likely related to COVID-19 improved (8) Acute respiratory failure with hypoxia: Code(s): J96.01 - Acute respiratory failure with hypoxia Status: Acute Assessment and Plan: Multifactorial secondary to COVID-19 pneumonia and COPD exacerbation inhaler treatment management as above Subjective Date/time seen: 05/02/20 14:08 Interval history: Patient seen and examined Patient is homeless have history of liver cirrhosis diabetes presented to the urgent care which shortness of breath was found to have hypoxia patient also has pleuritic chest pain COVID-19 test was done was positive patient received steroid but did not receive remdisever due to liver cirrhosis Patient feels weak short of breath Patient denies fever headache chest pain I am seeing the patient for shortness of breath Exam Narrative: Exam Narrative: Alert Chest scattered crackles Abdomen nontender nondistended CVS S1 + S2 Minimal Lower extremity edema Objective Data Vital Signs Vital Signs: Vital Signs - 24 hr 05/01/20 15:06 05/01/20 15:16 05/01/20 15:46 Temperature 101.3 F H Pulse Rate 120 H 120 H 113 H Respiratory Rate 16 27 H Blood Pressure 136/78 121/70 Pulse Oximetry 94 92 97 05/01/20 16:49 05/01/20 16:59 05/01/20 17:01 Temperature Pulse Rate 107 H 109 H 108 H Respiratory Rate 35 H 21 H 20 Blood Pressure 104/57 L 104/57 L 94/66 L Pulse Oximetry 97 96 96 05/01/20 17:16 05/01/20 18:15 05/01/20 18:41 Temperature 97.4 F L 97.4 F L Pulse Rate 100 105 H Respiratory Rate 20 32 H Blood Pressure 111/75 103/50 L Pulse Oximetry 94 94 05/01/20 19:30 05/01/20 20:27 05/01/20 20:48 Temperature Pulse Rate 96 95 91 Respiratory Rate 22 H 24 H 22 H Blood Pressure 98/61 L 96/61 L 100/61 Pulse Oximetry 97 96 95 05/01/20 21:04 05/01/20 22:05 05/01/20 22:58 Temperature 97.8 F Pulse Rate 87 93 89 Respiratory Rate 21 H 18 Blood Pressure 116/69 Pulse Oximetry 97 99 05/01/20 23:40 05/02/20
[2020-05-02 16:50] LABS: Glucose Point of Care 314 (65-105)
--- NOTE | 2020-05-02 17:22 | WPDINFPN2 ---
Progress Note: A&P Assessment and Plan (1) Pneumonia due to COVID-19 virus: Code(s): U07.1 - COVID-19; J12.82 - Pneumonia due to coronavirus disease 2019 Status: Acute Assessment and Plan: Viral pneumonia due to CoVid 19 REC Dexamethasone # 2/10, remdesivir # 1/5, no CCP Subjective Date/time seen: 05/02/20 17:22 Objective Data Vital Signs Vital Signs: Vital Signs - 24 hr 05/01/20 18:15 05/01/20 18:41 05/01/20 19:30 Temperature 36.3 C L Pulse Rate 105 H 96 Respiratory Rate 32 H 22 H Blood Pressure 103/50 L 98/61 L Pulse Oximetry 94 97 05/01/20 20:27 05/01/20 20:48 05/01/20 21:04 Temperature Pulse Rate 95 91 87 Respiratory Rate 24 H 22 H 21 H Blood Pressure 96/61 L 100/61 Pulse Oximetry 96 95 97 05/01/20 22:05 05/01/20 22:58 05/01/20 23:40 Temperature 36.6 C 36.4 C Pulse Rate 93 89 94 Respiratory Rate 18 18 Blood Pressure 116/69 101/49 L Pulse Oximetry 99 96 05/02/20 00:00 05/02/20 02:00 05/02/20 02:45 Temperature Pulse Rate 94 93 Respiratory Rate Blood Pressure Pulse Oximetry 95 05/02/20 03:13 05/02/20 03:20 05/02/20 03:34 Temperature Pulse Rate 89 89 Respiratory Rate 20 Blood Pressure Pulse Oximetry 99 95 05/02/20 04:00 05/02/20 06:00 05/02/20 08:00 Temperature 36.3 C L 36.1 C L Pulse Rate 87 88 83 Respiratory Rate 18 20 Blood Pressure 109/60 103/53 L Pulse Oximetry 99 97 05/02/20 09:00 05/02/20 09:15 05/02/20 10:00 Temperature Pulse Rate 80 Respiratory Rate Blood Pressure Pulse Oximetry 75 L 94 05/02/20 12:00 05/02/20 14:00 05/02/20 16:00 Temperature 36.6 C 36.1 C L Pulse Rate 106 H 108 H 90 Respiratory Rate 20 20 Blood Pressure 140/79 130/61 Pulse Oximetry 100 100 Intake/Output Intake/Output: Intake & Output 04/29/20 04/30/20 05/01/20 05/02/20 23:59 23:59 23:59 23:59 Intake Total 1400 730 Output Total 3665 Balance 1400 -2935 Meds/Results Medications: Active Medications Generic Name Dose Route Start Last Admin Trade Name Freq PRN Reason Stop Dose Admin Albuterol 2 puff 05/02/20 02:00 05/02/20 13:48 Albuterol Sulfate (*Sp) Aerosol 1 Puff INHALATION 2 puff Q6HRT WILTON Administration Budesonide/Formoterol Fumarate 2 puff 05/02/20 08:00 05/02/20 10:20 Budesonide/Form 160-4.5 Mcg (*Sp) INHALATION 2 puff Q12HRT WILTON Administration Bumetanide 2 mg 05/02/20 09:00 05/02/20 10:22 Bumetanide 1 Mg Tablet PO 2 mg BID WILTON Administration Dexamethasone Sodium Phosphate 6 mg 05/02/20 09:00 05/02/20 10:21 Dexamethasone Sod Phos Inj 4 Mg/Ml Vial IV PUSH 05/11/20 09:01 6 mg DAILY WILTON Administration Dextrose 12.5 gm 05/01/20 23:22 Dextrose 50% 25 Gm/50 Ml Syringe IV PUSH PRN PRN Hypoglycemia Protocol Glucagon 1 mg 05/01/20 23:22 Glucagon For Inj 1 Mg Vial IM PRN PRN Hypoglycemia Protocol Glucose 15 gm 05/01/20 23:22 Glucose Oral Gel 15 Gm Of Glucse In 37.5 Gm Tube PO PRN PRN Hypoglycemia Protocol Glyburide 10 mg 05/02/20 08:00 05/02/20 09:50 Glyburide 5 Mg Tablet PO Not Given BIDWM WILTON Guaifenesin/Dextromethorphan 10 ml 05/02/20 00:03 05/02/20 01:43 Guaifenesin/Dextromethorphan 10 Ml Udc PO 10 ml Q4H PRN Administration Cough Dextrose 1,000 mls @ 100 mls/hr 05/01/20 23:22 Dextrose 5% 1,000 Ml IVPB PRN PRN Hypoglycemia Protocol Insulin Aspart 3 - 6 units 05/02/20 08:00 05/02/20 12:01 Insulin Aspart (*Bkc) 100 Units/Ml SUB-Q Not Given TIDWM WILTON Protocol Insulin Aspart 5 units 05/02/20 17:00 Insulin Aspart (*Bkc) 100 Units/Ml SUB-Q TIDWM WILTON Insulin Glargine 50 units 05/02/20 09:00 05/02/20 10:20 Insulin Glargine (*Bkc) 100 Units/Ml SUB-Q 50 units BID WILTON Administration Lactulose 20 gm 05/02/20 00:25 05/02/20 01:43 Lactulose 20 Gm/30 Ml Udc PO 20 gm QAM WILTON Administration
[2020-05-02] MEDS: glyBURIDE 5 MG TABLET 10 MG PO (17:58)
[2020-05-02] MEDS: REMDESIVIR 200 MG/NS 250 ML 200 MG/250 ML BAG 250 MG IVPB (17:59)
[2020-05-02] MEDS: INSULIN ASPART (*BKC) 100 UNITS/ML SUB-Q ×2 (17:59)
--- NOTE | 2020-05-02 18:05 | CONS_ITS ---
DATE OF CONSULTATION: 05/02/2020 REASON FOR CONSULTATION: Coronavirus infection. HISTORY OF PRESENT ILLNESS: A 59-year-old male who has not had prior coronavirus testing. He presented to the hospital yesterday with 5 days of dyspnea, cough, loss of taste and smell, generalized weakness. No sputum production. His assay was positive. He has been given dexamethasone and consultation requested regarding convalescent plasma. He has been on no antimicrobials for any purpose. He has also had chest pain. ALLERGIES: NONE KNOWN. PRESENT MEDICATIONS: Home medication list reviewed. He is on no other immunosuppressants. HABITS: No alcohol. Ex-smoker. PAST MEDICAL HISTORY: Cirrhosis, hernia repair, EGD, type 2 diabetes mellitus, COPD, esophageal varices. He reports 5 separate treatment courses for hepatitis C, but cannot provide me any details about his most recent treatment course or the outcome. He reports he was to have an appointment with his specialist, not me, about 2 weeks ago, but could not keep that appointment. REVIEW OF SYSTEMS: Respiratory, constitutional, ENT, GI, skin otherwise negative. FAMILY HISTORY: Not pertinent to his present illness. SOCIAL HISTORY: He is homeless and unemployed. PHYSICAL EXAMINATION: GENERAL: Middle-aged male, appears older than his actual age. Mild respiratory distress. VITAL SIGNS: Afebrile today, but on arrival here was 38.5, 90, 20, 130/61, saturation 100%, but earlier today was down to 75%, on presentation was 94%. SKIN: No generalized rashes. NODES: He has no cervical adenopathy. EENT: Conjunctivae are clear and mucous membranes well hydrated. NECK: No meningismus. LUNGS: Coarse breath sounds at both lung bases. Otherwise, clear. CARDIAC: Regular rate and rhythm. No murmur, gallop, or rub. ABDOMEN: Nontender, soft. No organomegaly. No masses. EXTREMITIES: No clubbing, cyanosis, edema. LABORATORY DATA: His coronavirus assay was positive. White count was 5.5, hemoglobin 12.5, platelets 87. His transaminases normal. Differential is normal. Prothrombin time normal. Blood gases reviewed. He has hyponatremia. Glucose 302, A1c 9.0%. CRP 17. BNP 2690. Albumin 2.8. Urinalysis does not suggest infection. ASSESSMENT: 1. Acute coronavirus infection with viral pneumonia and hypoxemia, although transient. 2. Chronic hepatitis C. 3. Diabetes mellitus, not optimally controlled. RECOMMENDATIONS: 1. We will add remdesivir to his medication regimen. 2. Agree with corticosteroids. 3. Not in need of any antibacterials. He was given single doses of ceftriaxone and azithromycin. Thank you very much for asking me to see him. JHONATAN REGAN M.D. CONSTRUCTION INSPECTOR CONSTRUCTION INSPECTOR D I MT: Melvi
[2020-05-02 21:02] LABS: Glucose Point of Care 363 (65-105)
[2020-05-03] VITALS (15 sets, daily range): BP systolic 107–132; BP diastolic 43–78; PULSE 79–147; RESP 18–21; TEMP 36–36.6; O2SAT 88–97
[2020-05-03] MEDS: ALBUTEROL SULFATE (*SP) AEROSOL 1 PUFF 2 PUFF INHALATION ×4 (02:42→20:40)
[2020-05-03 04:50] LABS: Immature Granulocyte Absolute 0.01 K/mm3 (0.00-0.031); Immature Granulocyte Percent A 0.4 % (0-0.5); Lymphocytes Absolute Auto 0.21 K/mm3 (0.9-3.2); Lymphocytes Percent Auto 9.1 % (18.3-44.2); Mean Corpuscular HGB Conc 31.4 g/dl (32-36); Mean Corpuscular Hemoglobin 22.7 pg (26-34); Mean Corpuscular Volume 72.3 fl (80-100); Monocytes Absolute Auto 0.2 K/mm3 (0.1-0.6); Monocytes Percent Auto 8.7 % (2.6-8.5); Neutrophils Absolute Auto 1.9 K/mm3 (1.3-6.7); Neutrophils Percent Auto 81.8 % (45.5-73.1); Platelet Count Result 78 k/mm3 (150-375); Red Blood Count 4.84 M/mm3 (4.6-6.20); Red Cell Distribution Width 19.3 % (11.5-14.5); White Blood Count 2.3 K/mm3 (4.5-10.0)
--- NOTE | 2020-05-03 05:12 | ECG_ITS ---
Measurements Intervals [place] Rate: 145 P: 96 DE: 89 QRS: -83 QRSD: 157 T: 80 QT: 317 QTc: 493 Interpretive Statements SINUS TACHYCARDIA WITH SHORT DE INTERVAL, POSSIBLE ATRIAL FLUTTER RIGHT BUNDLE BRANCH BLOCK LEFT ANTERIOR FASCICULAR BLOCK ABNORMAL ECG Electronically Signed On 05-03-2020 6:57:44 COMPOSING MACHINE OPERATOR by Shahid Mcginnis D.O.
[2020-05-03 05:27] LABS: Lactic Acid Reflex 1.5 mmol/L (0.7-2.1)
[2020-05-03 05:31] LABS: Alanine Aminotransferase 21 U/L (4-50); Albumin Level 2.4 g/dL (3.5-5.1); Alkaline Phosphatase 92 U/L (38-126); Anion Gap -1 mmol/L (8-16); Aspartate Amino Transferase 30 U/L (17-59); Bilirubin,Total 0.4 mg/dL (0.2-1.3); Blood Urea Nitrogen 22 mg/dL (9-20); CRP 18.6 mg/dL (<1.0); Calcium 7.5 mg/dL (8.4-10.2); Carbon Dioxide 36 mmol/L (22-30); Chloride 95 mmol/L (98-107); Estimated CRCL calculation 129 ml/min; Estimated Glomerular Filt Rate > 60; Glucose 213 mg/dL (75-110); Lactate Dehydrogenase 585 U/L (313-618); Lipase 82 U/L (23-300); Magnesium 1.2 mg/dL (1.6-2.3); Potassium 3.1 mmol/L (3.4-5.0); Sodium 130 mmol/L (137-145)
[2020-05-03] MEDS: SODIUM CHLORIDE 0.9% IV 500 ML IV CONT (05:40)
--- NOTE | 2020-05-03 05:57 | ECG_ITS ---
Measurements Intervals [place] Rate: 91 P: SD: 0 QRS: -79 QRSD: 160 T: 68 QT: 385 QTc: 474 Interpretive Statements ECTOPIC ATRIAL RHYTHM ATRIAL PREMATURE COMPLEXES RIGHT BUNDLE BRANCH BLOCK LEFT ANTERIOR FASCICULAR BLOCK BASELINE ARTIFACT- I, II, AVR, AVL, AVF, V3 ABNORMAL ECG Electronically Signed On 05-03-2020 7:01:46 HOG RAISER by Shahid Mcginnis D.O.
[2020-05-03 06:36] LABS: Thyroid Stimulating Hormone Reflex 0.325 uIU/mL (0.465-4.68)
[2020-05-03 07:30] LABS: Free T4 Free Thyroxine Reflex 1.12 ng/dL (0.78-2.19)
[2020-05-03] MEDS: DEXAMETHASONE SOD PHOS INJ 4 MG/ML VIAL 6 MG IV PUSH (08:04)
[2020-05-03] MEDS: LACTULOSE 20 GM/30 ML UDC PO (08:08)
[2020-05-03] MEDS: glyBURIDE 5 MG TABLET 10 MG PO ×2 (08:10→16:13)
[2020-05-03] MEDS: guaiFENesin/DEXTROMETHORPHAN 10 ML UDC PO (08:14)
[2020-05-03 08:24] LABS: Glucose Point of Care 141 (65-105)
[2020-05-03 08:50] LABS: Total Triiodothyronine (T3) 0.67 NG/ML (0.97-1.69)
--- NOTE | 2020-05-03 09:10 | PC.NURSE ---
Around 0500, pt's heart rate elevated to 140's (no clear p wave, but regular) when he had been SR in the 80's prior with occasional pac's, EKG obtained and Dr Becker notified. Upon his review of the EKG, he ordered a 500 ml bolus. By the time RN began bolus, HR was back in 80's but looked more irregular. EKG obtained per MD order after notifying Dr Becker again and MD notified that repeat EKG was at desk for review. No further orders at this time. Pt had no complaints.
[2020-05-03] MEDS: BUMETANIDE 1 MG TABLET 2 MG PO ×2 (09:19→16:13)
[2020-05-03] MEDS: INSULIN ASPART (*BKC) 100 UNITS/ML SUB-Q ×5 (09:25→17:34)
[2020-05-03] MEDS: INSULIN GLARGINE (*BKC) 100 UNITS/ML 25 UNITS SUB-Q ×2 (09:26→17:34)
[2020-05-03] MEDS: oxyCODONE/ACETAMINOPHEN (*CRX) 5-325 MG TABLET 1 TABLET PO ×2 (10:28→18:50)
--- NOTE | 2020-05-03 11:25 | PM.IMPN ---
Progress Note: A&P Assessment and Plan (1) Confusion: Code(s): R41.0 - Disorientation, unspecified Status: Acute Assessment and Plan: Multifactorial secondary to acute metabolic encephalopathy most likely related hepatic encephalopathy and COVID-19 infection Lactulose avoid high-protein diet (2) Pneumonia due to COVID-19 virus: Code(s): U07.1 - COVID-19; J12.82 - Pneumonia due to coronavirus disease 2018 Status: Acute Assessment and Plan: remdesivir started on 05/02/2020. Continue with 05/02/2020 Decadron. Robitussin and incentive spirometer. Encourage the patient to bob a prone position for 30 minutes to 2 hours rotating [id number] non the back. ID recommendation appreciated (3) COPD (chronic obstructive pulmonary disease): Code(s): J44.9 - Chronic obstructive pulmonary disease, unspecified Status: Acute Assessment and Plan: With acute exacerbation inhaler treatment steroid (4) Diabetes type 2, controlled: Code(s): E11.9 - Type 2 diabetes mellitus without complications Status: Acute Assessment and Plan: Continue with Glyburide and hold metformin. Better control patient was homeless unsure about the dose of insulin decrease the dose of Lantus to 25 units from 50 units (5) Elevated troponin: Code(s): R77.8 - Other specified abnormalities of plasma proteins Status: Acute Assessment and Plan: High risk for fall anticoagulation as patient also has thrombocytopenia Currently does not have chest pain most likely elevated troponin secondary to demand ischemia NSTEMI type 2 Echo once hemodynamically stable (6) Thrombocytopenia: Code(s): D69.6 - Thrombocytopenia, unspecified Status: Chronic Assessment and Plan: Probably related to liver cirrhosis monitor. (7) Sepsis: Code(s): A41.9 - Sepsis, unspecified organism Status: Acute Assessment and Plan: Patient's lactic was elevated. Most likely related to COVID-19 improved (8) Acute respiratory failure with hypoxia: Code(s): J96.01 - Acute respiratory failure with hypoxia Status: Acute Assessment and Plan: Multifactorial secondary to COVID-19 pneumonia and COPD exacerbation inhaler treatment management as above Subjective Date/time seen: 05/03/20 11:25 Interval history: Patient seen and examined Patient is homeless have history of liver cirrhosis diabetes presented to the urgent care which shortness of breath was found to have hypoxia patient also has pleuritic chest pain COVID-19 test was done was positive patient received steroid remdisever infectious disease recommendation appreciated Patient feels weak short of breath Patient denies fever headache chest pain I am seeing the patient for shortness of breath Exam Narrative: Exam Narrative: Alert Chest scattered crackles Abdomen nontender nondistended CVS S1 + S2 Minimal Lower extremity edema Objective Data Vital Signs Vital Signs: Vital Signs - 24 hr 05/02/20 12:00 05/02/20 14:00 05/02/20 16:00 Temperature 97.9 F 96.9 F L Pulse Rate 106 H 108 H 88 Respiratory Rate 20 20 Blood Pressure 140/79 130/61 Pulse Oximetry 100 100 05/02/20 18:00 05/02/20 20:00 05/02/20 22:00 Temperature 97.5 F L Pulse Rate 79 83 102 H Respiratory Rate 22 H Blood Pressure 146/69 H Pulse Oximetry 91 05/03/20 00:00 05/03/20 02:00 05/03/20 04:00 Temperature 97.5 F L 97.5 F L Pulse Rate 88 79 84 Respiratory Rate 21 H 20 Blood Pressure 109/60 115/43 L Pulse Oximetry 96 97 05/03/20 05:00 05/03/20 05:15 05/03/20 06:00 Temperature Pulse Rate 147 H 89 Respiratory Rate Blood Pressure 107/77 Pulse Oximetry 88 L 05/03/20 08:00 Temperature 97 F L Pulse Rate 94 Respiratory Rate 20 Blood Pressure 115/78 Pulse Oximetry 97 Intake/Output Intake/Output: Intake & Output 04/30/20 05/01/20 05/02/20 05/03/20 23:59 23:59 23:59 23:59
[2020-05-03 11:44] LABS: Glucose Point of Care 286 (65-105)
[2020-05-03] MEDS: POTASSIUM CHLORIDE 20 MEQ PACKET (FOR LIQUID) 40 MEQ PO ×2 (11:53→15:47)
[2020-05-03 15:16] LABS: Magnesium 1.2 mg/dL (1.6-2.3)
[2020-05-03] MEDS: METOPROLOL SUCCINATE EXT REL 50 MG TABCR PO (15:48)
[2020-05-03] MEDS: MAGNESIUM SULF 2 GM/WATER 50ML 2 GM/50 ML BAG IVPB (17:34)
[2020-05-03 17:44] LABS: Glucose Point of Care 399 (65-105)
[2020-05-03 20:09] LABS: Glucose Point of Care 420 (65-105)
[2020-05-03] MEDS: APIXABAN 5 MG TABLET PO (20:38)
[2020-05-03] MEDS: REMDESIVIR 100 MG/NS 250 ML 100 MG/250 ML BAG 250 MG IVPB (20:39)
[2020-05-03] MEDS: PREGABALIN (*CRX) 75 MG CAPSULE 150 MG PO (20:39)
[2020-05-03] MEDS: INSULIN ASPART (*BKC) 100 UNITS/ML 8 UNITS SUB-Q (21:28)
[2020-05-03 23:36] LABS: Glucose Point of Care 395 (65-105)
[2020-05-04] VITALS (13 sets, daily range): BP systolic 106–141; BP diastolic 64–86; PULSE 61–100; RESP 18–20; TEMP 36.2–36.9; O2SAT 93–98
[2020-05-04] MEDS: ALBUTEROL SULFATE (*SP) AEROSOL 1 PUFF 2 PUFF INHALATION ×4 (02:18→22:15)
[2020-05-04] MEDS: guaiFENesin/DEXTROMETHORPHAN 10 ML UDC PO ×2 (03:18→08:55)
[2020-05-04 03:55] LABS: Glucose Point of Care 226 (65-105)
[2020-05-04 04:57] LABS: Alanine Aminotransferase 21 U/L (4-50); Estimated CRCL calculation 128 ml/min; Estimated Glomerular Filt Rate > 60
[2020-05-04 08:02] LABS: Glucose Point of Care 219 (65-105)
[2020-05-04] MEDS: APIXABAN 5 MG TABLET PO (08:54)
[2020-05-04] MEDS: glyBURIDE 5 MG TABLET 10 MG PO ×2 (08:54→17:19)
[2020-05-04] MEDS: BUMETANIDE 1 MG TABLET 2 MG PO ×2 (08:54→17:19)
[2020-05-04] MEDS: DEXAMETHASONE SOD PHOS INJ 4 MG/ML VIAL 6 MG IV PUSH (08:55)
[2020-05-04] MEDS: METOPROLOL SUCCINATE EXT REL 50 MG TABCR PO (08:55)
[2020-05-04] MEDS: LACTULOSE 20 GM/30 ML UDC PO (08:55)
[2020-05-04] MEDS: PREGABALIN (*CRX) 75 MG CAPSULE 150 MG PO ×2 (09:00→22:15)
[2020-05-04] MEDS: oxyCODONE/ACETAMINOPHEN (*CRX) 5-325 MG TABLET 1 TABLET PO ×2 (09:00→22:40)
[2020-05-04] MEDS: INSULIN GLARGINE (*BKC) 100 UNITS/ML 25 UNITS SUB-Q ×2 (09:12→17:16)
[2020-05-04] MEDS: INSULIN ASPART (*BKC) 100 UNITS/ML SUB-Q ×6 (09:13→17:15)
[2020-05-04 09:30] LABS: Anion Gap 0 mmol/L (8-16); Blood Urea Nitrogen 21 mg/dL (9-20); Calcium 7.5 mg/dL (8.4-10.2); Carbon Dioxide 33 mmol/L (22-30); Chloride 97 mmol/L (98-107); Estimated CRCL calculation 148 ml/min; Estimated Glomerular Filt Rate > 60; Glucose 247 mg/dL (75-110); Magnesium 1.2 mg/dL (1.6-2.3); Potassium 3.6 mmol/L (3.4-5.0); Sodium 130 mmol/L (137-145)
[2020-05-04] MEDS: POTASSIUM CHLORIDE 20 MEQ TABLET 40 MEQ PO (10:54)
[2020-05-04] MEDS: MAGNESIUM SULF 4 GM/WATER100ML 4 GM/100 ML BAG IVPB (11:05)
[2020-05-04 11:23] LABS: Glucose Point of Care 250 (65-105)
--- NOTE | 2020-05-04 11:43 | PM.CNCAR ---
Assessment and Plan Assessment and plan (1) Atrial fibrillation: Code(s): I48.91 - Unspecified atrial fibrillation Status: Acute Assessment and Plan: New diagnosis post admission. Heart rate reasonably controlled on Toprol XL 50 mg daily. CHADS2 Vasc score 2, Ideally, systemic A/C advised, however, patient high risk for bleeding due to pancytopenia, significant thrombocytopenia, reported history of esophageal varices, cirrhosis as well as limited social network and homeless status. -follow platelet count, H&H. Would hold off on systemic anticoagulation and anti platelet therapy for now until further clarification with regards to etiology of pancytopenia and more directly thrombocytopenia. Patient at significant risk for bleeding. Given circumstances, cardioversion would not be best management due to bleeding complication risk. As such, heart rate control strategy with beta-ashlyn therapy advised. Discussed with patient embolic stroke risk, bleeding risk with medical therapy. Patient verbalized understanding. Continue telemetry for now. Monitor Mg and K+ closely and keep around 2.0 and 4.0 respectively. Pt remains at elevated CVA risk if A.Fib persists yet likely even higher bleeding risk. COVID isolation precautions. 2D echo. (2) Pneumonia due to COVID-19 virus: Code(s): U07.1 - COVID-19; J12.82 - Pneumonia due to coronavirus disease 2018 Status: Acute Assessment and Plan: Close clinical observation and management per primary service. No doubt COVID contributing to atrial fibrillation yet pt has traditional risk factors as well. On Remdesivir, Dexamethasone started today. (3) Elevated troponin: Code(s): R77.8 - Other specified abnormalities of plasma proteins Status: Acute Assessment and Plan: Most likely non [place] troponin elevation secondary to COVID-19 although coronary status remains unknown unlikely acute coronary syndrome and/or plaque rupture given relatively flat trend without clear ischemic symptoms. Depending on patient's clinical course and response to therapy may consider ischemic evaluation in the future. 2D echocardiogram to assess LV function, wall motion abnormalities, chamber size, valve pathology pulmonary pressures. (4) Acute respiratory failure with hypoxia: Code(s): J96.01 - Acute respiratory failure with hypoxia Status: Acute Assessment and Plan: Close clinical observation. Currently relatively stable at present but I am worried may change rapidly depending upon his response to therapy and his comorbidities. Management per primary service. (5) Thrombocytopenia: Code(s): D69.6 - Thrombocytopenia, unspecified Status: Chronic Assessment and Plan: Severe, and downward trend increasing bleeding risk. Hold off on antiplatelet and anticoagulant therapy. Discontinue apixaban for now. INR 1.0 at admission. (6) Pancytopenia: Code(s): D61.818 - Other pancytopenia Status: Acute Assessment and Plan: Risk for bleeding complication and life-threatening consequences exceed embolic stroke risk at this time from atrial fibrillation. Discontinue apixaban. Hold off on aspirin until trend clarified. (7) Hypomagnesemia: Code(s): E83.42 - Hypomagnesemia Status: Acute Assessment and Plan: Quite low at 1.2 at presentation contributing to development of arrhythmias. Replete to keep around 2.0. Likely secondary to chronic Bumex. Follow potassium closely, stable at 3.6. (8) Cirrhosis of liver: Code(s): K74.60 - Unspecified cirrhosis of liver Status: Acute Assessment and Plan: CTA at presentation reveals cirrhosis with splenomegaly and portal hypertension. Given reported history of esophageal varices risk for subsequent bleed with anticoagulation likely exceeds benefit at this time. Details of this history unknown at present. (9) Diabetes type 2, controlled: Code(s): E11.9
--- NOTE | 2020-05-04 15:24 | PM.IMPN ---
Progress Note: A&P Assessment and Plan (1) Confusion: Code(s): R41.0 - Disorientation, unspecified Status: Acute Assessment and Plan: Multifactorial secondary to acute metabolic encephalopathy most likely related hepatic encephalopathy and COVID-19 infection Lactulose avoid high-protein diet 05/04/20 15:24 Patient is a 59-year-old male with history of liver cirrhosis secondary to alcohol abuse which he stop drinking 7 years ago unfortunately patient is homeless and lives in his truck developed shortness of breath initially was seen at an urgent care and was sent to emergency department for further evaluation his positive COVID-19 patient was started on dexamethasone on 05/02 and patient was seen by Dr. fernandes and started the patient Remdesivir on 05/03 patient states is feeling much better compared to when he arrived is not a short of breath, patient is found to new onset atrial fibrillation patient seen by apple checker rate is controlled with Toprol 50 mg XL, patient CHADS2 Vasc score 2 requiring systematic anticoagulation however patient has a thrombocytopenia most likely secondary to liver cirrhosis, patient is high risk of bleeding with anticoagulation, patient is aware of risk of bleeding and cerebral stroke, will continue to monitor the patient, while in the hospital patient remains afebrile and on room air will continue to monitor and further recommendation to follow (2) Pneumonia due to COVID-19 virus: Code(s): U07.1 - COVID-19; J12.82 - Pneumonia due to coronavirus disease 2018 Status: Acute Assessment and Plan: remdesivir started on 05/02/2020. Continue with 05/02/2020 Decadron. Robitussin and incentive spirometer. Encourage the patient to bob a prone position for 30 minutes to 2 hours rotating [id number] non the back. ID recommendation appreciated (3) COPD (chronic obstructive pulmonary disease): Code(s): J44.9 - Chronic obstructive pulmonary disease, unspecified Status: Acute Assessment and Plan: With acute exacerbation inhaler treatment steroid (4) Diabetes type 2, controlled: Code(s): E11.9 - Type 2 diabetes mellitus without complications Status: Acute Assessment and Plan: Continue with Glyburide and hold metformin. Better control patient was homeless unsure about the dose of insulin decrease the dose of Lantus to 25 units from 50 units (5) Elevated troponin: Code(s): R77.8 - Other specified abnormalities of plasma proteins Status: Acute Assessment and Plan: High risk for fall anticoagulation as patient also has thrombocytopenia Currently does not have chest pain most likely elevated troponin secondary to demand ischemia NSTEMI type 2 Echo once hemodynamically stable (6) Thrombocytopenia: Code(s): D69.6 - Thrombocytopenia, unspecified Status: Chronic Assessment and Plan: Probably related to liver cirrhosis monitor. (7) Sepsis: Code(s): A41.9 - Sepsis, unspecified organism Status: Acute Assessment and Plan: Patient's lactic was elevated. Most likely related to COVID-19 improved (8) Acute respiratory failure with hypoxia: Code(s): J96.01 - Acute respiratory failure with hypoxia Status: Acute Assessment and Plan: Multifactorial secondary to COVID-19 pneumonia and COPD exacerbation inhaler treatment management as above Subjective Date/time seen: 05/04/20 15:24 Patient is a 59-year-old male with history of liver cirrhosis secondary to alcohol abuse which he stop drinking 7 years ago unfortunately patient is homeless and lives in his truck developed shortness of breath initially was seen at an urgent care and was sent to emergency department for further evaluation his positive COVID-19 patient was started on dexamethasone on 05/02 and patient was seen by Dr. fernandes and started the patient Remdesivir on 05/03 patient states is feeling much better compared to when he arrive
--- NOTE | 2020-05-04 16:15 | PC.NURSE ---
This patient, Maxim Babb, was transferred to [324 ] on 05/04/20 at 1605. Personal belongings sent with patient. Report given to [Damaris ]. Appropriate documentation sent with patient.
[2020-05-04 16:56] LABS: Anion Gap 1 mmol/L (8-16); Blood Urea Nitrogen 22 mg/dL (9-20); Calcium 7.6 mg/dL (8.4-10.2); Carbon Dioxide 34 mmol/L (22-30); Chloride 95 mmol/L (98-107); Estimated CRCL calculation 128 ml/min; Estimated Glomerular Filt Rate > 60; Glucose 421 mg/dL (75-110); Magnesium 1.6 mg/dL (1.6-2.3); Potassium 3.8 mmol/L (3.4-5.0); Sodium 130 mmol/L (137-145)
[2020-05-04 18:03] LABS: Glucose Point of Care 426 (65-105)
--- NOTE | 2020-05-04 18:45 | PC.NURSE ---
1610 pt arrived from [facility], a/o x3, on r/a. no distress noted placed in room 324 on droplet isolation.
[2020-05-04] MEDS: REMDESIVIR 100 MG/NS 250 ML 100 MG/250 ML BAG 250 MG IVPB (22:16)
[2020-05-04 22:51] LABS: Glucose Point of Care 279 (65-105)
[2020-05-05] VITALS (8 sets, daily range): BP systolic 116–130; BP diastolic 63–84; PULSE 73–97; RESP 18–20; TEMP 36.1–37.1; O2SAT 90–98
[2020-05-05] MEDS: ALBUTEROL SULFATE (*SP) AEROSOL 1 PUFF 2 PUFF INHALATION ×4 (02:03→20:55)
[2020-05-05 06:53] LABS: Hematocrit 37.6 % (42.0-52.0); Hemoglobin 11.5 g/dL (14.0-18.0); Immature Granulocyte Absolute 0.01 K/mm3 (0.00-0.031); Immature Granulocyte Percent A 0.5 % (0-0.5); Immature Platelet Fraction Pct 5.6 % (0.9-11.2); Lymphocytes Percent Auto 15.1 % (18.3-44.2); Mean Corpuscular HGB Conc 30.6 g/dl (32-36); Mean Corpuscular Volume 71.9 fl (80-100); Mean Platelet Volume 10.4 fl (7.4-10.4); Monocytes Absolute Auto 0.2 K/mm3 (0.1-0.6); Monocytes Percent Auto 10.6 % (2.6-8.5); Neutrophils Absolute Auto 1.5 K/mm3 (1.3-6.7); Neutrophils Percent Auto 73.8 % (45.5-73.1); Platelet Count Result 100 k/mm3 (150-375); Red Blood Count 5.23 M/mm3 (4.6-6.20); Red Cell Distribution Width 19.3 % (11.5-14.5)
[2020-05-05 07:04] LABS: Alanine Aminotransferase 32 U/L (4-50); Albumin Level 2.6 g/dL (3.5-5.1); Alkaline Phosphatase 114 U/L (38-126); Anion Gap 1 mmol/L (8-16); Aspartate Amino Transferase 43 U/L (17-59); Bilirubin,Total 0.4 mg/dL (0.2-1.3); Blood Urea Nitrogen 22 mg/dL (9-20); Calcium 7.7 mg/dL (8.4-10.2); Carbon Dioxide 36 mmol/L (22-30); Chloride 98 mmol/L (98-107); Estimated CRCL calculation 147 ml/min; Estimated Glomerular Filt Rate > 60; Glucose 161 mg/dL (75-110); Magnesium 1.2 mg/dL (1.6-2.3); Potassium 3.3 mmol/L (3.4-5.0); Sodium 135 mmol/L (137-145)
[2020-05-05 07:46] LABS: Anisocytosis 1+ (NORMAL); Ovalocytes 1+ (NORMAL); Platelet Estimate Decreased (Adequate)
[2020-05-05] MEDS: MAGNESIUM SULF 2 GM/WATER 50ML 2 GM/50 ML BAG IVPB (09:09)
[2020-05-05] MEDS: PREGABALIN (*CRX) 75 MG CAPSULE 150 MG PO ×2 (09:10→20:16)
[2020-05-05] MEDS: POTASSIUM CHLORIDE 20 MEQ TABLET 40 MEQ PO (09:10)
[2020-05-05] MEDS: MAGNESIUM OXIDE 400 MG TABLET PO (09:11)
[2020-05-05] MEDS: DEXAMETHASONE SOD PHOS INJ 4 MG/ML VIAL 6 MG IV PUSH (09:11)
[2020-05-05] MEDS: LACTULOSE 20 GM/30 ML UDC PO (09:11)
[2020-05-05] MEDS: BUMETANIDE 1 MG TABLET 2 MG PO ×2 (09:11→17:27)
[2020-05-05] MEDS: glyBURIDE 5 MG TABLET 10 MG PO ×2 (09:11→17:26)
[2020-05-05] MEDS: METOPROLOL SUCCINATE EXT REL 50 MG TABCR PO (09:14)
[2020-05-05 09:18] LABS: Glucose Point of Care 162 (65-105)
[2020-05-05] MEDS: INSULIN ASPART (*BKC) 100 UNITS/ML SUB-Q ×6 (09:19→21:11)
[2020-05-05] MEDS: INSULIN GLARGINE (*BKC) 100 UNITS/ML 25 UNITS SUB-Q ×2 (09:20→17:28)
--- NOTE | 2020-05-05 11:47 | WPDINFPN2 ---
Progress Note: A&P Assessment and Plan (1) Pneumonia due to COVID-19 virus: Code(s): U07.1 - COVID-19; J12.82 - Pneumonia due to coronavirus disease 2019 Status: Acute Assessment and Plan: 1. Viral pneumonia due to CoVid 19, doing well 2. DM 3. Obesity REC Dexamethasone # 5/10, remdesivir # 4/5, through tomorrow evening dose. He is tolerating his remdesivir. no CCP Subjective Date/time seen: 05/05/20 11:47 Interval history: no dyspnea , no sputum, no f/c/s Exam Narrative: Exam Narrative: afebrile Const: General: no acute distress Resp: Effort & Inspection: normal respiratory effort Auscultation: clear to auscultation bilaterally Cardio: Rate: regular rate Rhythm: regular rhythm Heart sounds: no gallops and no murmurs GI: Inspection: non-distended GI Palp: Yes Soft to palpation, No Tenderness to palpation present (GI) and No Guarding due to palpation present (GI) Skin: General skin exam: normal color and no rashes or lesions noted Objective Data Vital Signs Vital Signs: Vital Signs - 24 hr 05/04/20 12:00 05/04/20 14:00 05/04/20 16:00 Temperature 36.9 C Pulse Rate 82 87 86 Respiratory Rate 20 Blood Pressure 141/79 H Pulse Oximetry 93 05/04/20 18:00 05/04/20 20:00 05/04/20 23:54 Temperature 36.3 C L 36.2 C L Pulse Rate 61 84 85 Respiratory Rate 18 18 Blood Pressure 126/81 106/64 Pulse Oximetry 95 95 05/05/20 00:00 05/05/20 04:00 05/05/20 08:00 Temperature 36.1 C L 37.1 C Pulse Rate 84 82 76 Respiratory Rate 18 20 Blood Pressure 122/72 117/65 Pulse Oximetry 96 97 05/05/20 09:14 05/05/20 10:20 Temperature Pulse Rate 80 Respiratory Rate Blood Pressure Pulse Oximetry 90 Intake/Output Intake/Output: Intake & Output 05/02/20 05/03/20 05/04/20 05/05/20 23:59 23:59 23:59 23:59 Intake Total 730 3785 2874 650 Output Total 4090 3500 1625 400 Balance -3360 285 1249 250 Meds/Results Medications: Active Medications Generic Name Dose Route Start Last Admin Trade Name Freq PRN Reason Stop Dose Admin Albuterol 2 puff 05/02/20 02:00 05/05/20 09:14 Albuterol Sulfate (*Sp) Aerosol 1 Puff INHALATION 2 puff Q6HRT WILTON Administration Budesonide/Formoterol Fumarate 2 puff 05/02/20 08:00 05/05/20 09:12 Budesonide/Form 160-4.5 Mcg (*Sp) INHALATION 2 puff Q12HRT WILTON Administration Bumetanide 2 mg 05/02/20 09:00 05/05/20 09:11 Bumetanide 1 Mg Tablet PO 2 mg BID WILTON Administration Dexamethasone Sodium Phosphate 6 mg 05/02/20 09:00 05/05/20 09:11 Dexamethasone Sod Phos Inj 4 Mg/Ml Vial IV PUSH 05/11/20 09:01 6 mg DAILY WILTON Administration Dextrose 12.5 gm 05/01/20 23:22 Dextrose 50% 25 Gm/50 Ml Syringe IV PUSH PRN PRN Hypoglycemia Protocol Glucagon 1 mg 05/01/20 23:22 Glucagon For Inj 1 Mg Vial IM PRN PRN Hypoglycemia Protocol Glucose 15 gm 05/01/20 23:22 Glucose Oral Gel 15 Gm Of Glucse In 37.5 Gm Tube PO PRN PRN Hypoglycemia Protocol Glyburide 10 mg 05/02/20 08:00 05/05/20 09:11 Glyburide 5 Mg Tablet PO 10 mg BIDWM WILTON Administration Guaifenesin/Dextromethorphan 10 ml 05/02/20 00:03 05/04/20 08:55 Guaifenesin/Dextromethorphan 10 Ml Udc PO 10 ml Q4H PRN Administration Cough Dextrose 1,000 mls @ 100 mls/hr 05/01/20 23:22 Dextrose 5% 1,000 Ml IVPB PRN PRN Hypoglycemia Protocol Remdesivir 100 mg in 250 mls @ 250 mls/hr 05/03/20 22:00 05/04/20 23:16 IVPB 05/06/20 22:01 Infused Q24H WILTON Infusion Insulin Aspart 3 - 6 units 05/02/20 08:00 05/05/20 09:18 Insulin Aspart (*Bkc) 100 Units/Ml SUB-Q Not Given TIDWM [facility] Protocol Insulin Aspart 5 units 05/02/20 17:00 05/05/20 09:19 Insulin Aspart (*Bkc) 100 Units/Ml SUB-Q 5 units TIDWM [facility] Administration Insulin Glargine 25 units 05/03/20 09:10 05/05/20 09:20 Insulin Glargine (*Bkc) 100 Units/Ml SUB-Q 25 u
[2020-05-05 12:25] LABS: Glucose Point of Care 243 (65-105)
--- NOTE | 2020-05-05 14:32 | PM.IMPN ---
Progress Note: A&P Assessment and Plan (1) Confusion: Code(s): R41.0 - Disorientation, unspecified Status: Acute Assessment and Plan: Multifactorial secondary to acute metabolic encephalopathy most likely related hepatic encephalopathy and COVID-19 infection Lactulose avoid high-protein diet 05/05/20 14:32 Patient is a 59-year-old male with history of liver cirrhosis secondary to alcohol abuse which he stop drinking 7 years ago unfortunately patient is homeless and lives in his truck developed shortness of breath initially was seen at an urgent care and was sent to emergency department for further evaluation his positive COVID-19 patient was started on dexamethasone on 05/02 and patient was seen by Dr. fernandes and started the patient Remdesivir on 05/03 patient states is feeling much better compared to when he arrived is not a short of breath, patient is found to new onset atrial fibrillation patient seen by welt rander rate is controlled with Toprol 50 mg XL, patient CHADS2 Vasc score 2 requiring systematic anticoagulation however patient has a thrombocytopenia most likely secondary to liver cirrhosis, patient is high risk of bleeding with anticoagulation, patient is aware of risk of bleeding and cerebral stroke, will continue to monitor the patient, while in the hospital patient remains afebrile and on room air will continue to monitor and further recommendation to follow. 05/05 patient with new onset atrial fibrillation his rate is controlled with Toprol 50 mg XL, patient is positive for COVID-19 is being treated with dexamethasone 07/21 and Remdesivir 06/06, he has not a any fever while in the hospital however his required 4 L of oxygen, patient states is feeling tired and low energy, denies any fever or chills denies any shortness of breath, will continue to monitor patient, the patient remains clinically stable, if patient does not have any fever for 2 days and does not require oxygen more than 6 L we may discharge the patient is okay with Dr. fernandes, however patient is homeless and home day care provider is working to find the placed for the patient. (2) Pneumonia due to COVID-19 virus: Code(s): U07.1 - COVID-19; J12.82 - Pneumonia due to coronavirus disease 2019 Status: Acute Assessment and Plan: remdesivir started on 05/02/2020. Continue with 05/02/2020 Decadron. Robitussin and incentive spirometer. Encourage the patient to bob a prone position for 30 minutes to 2 hours rotating [id number] non the back. ID recommendation appreciated (3) COPD (chronic obstructive pulmonary disease): Code(s): J44.9 - Chronic obstructive pulmonary disease, unspecified Status: Acute Assessment and Plan: With acute exacerbation inhaler treatment steroid (4) Diabetes type 2, controlled: Code(s): E11.9 - Type 2 diabetes mellitus without complications Status: Acute Assessment and Plan: Continue with Glyburide and hold metformin. Better control patient was homeless unsure about the dose of insulin decrease the dose of Lantus to 25 units from 50 units (5) Elevated troponin: Code(s): R77.8 - Other specified abnormalities of plasma proteins Status: Acute Assessment and Plan: High risk for fall anticoagulation as patient also has thrombocytopenia Currently does not have chest pain most likely elevated troponin secondary to demand ischemia NSTEMI type 2 Echo once hemodynamically stable (6) Thrombocytopenia: Code(s): D69.6 - Thrombocytopenia, unspecified Status: Chronic Assessment and Plan: Probably related to liver cirrhosis monitor. (7) Sepsis: Code(s): A41.9 - Sepsis, unspecified organism Status: Acute Assessment and Plan: Patient's lactic was elevated. Most likely related to COVID-19 improved (8) Acute respiratory failure with hypoxia: Code(s): J96.01 - Acute respiratory failure with hypoxia Status: Acute Assessm
[2020-05-05 17:17] LABS: Anion Gap 5 mmol/L (8-16); Blood Urea Nitrogen 22 mg/dL (9-20); Calcium 7.8 mg/dL (8.4-10.2); Carbon Dioxide 34 mmol/L (22-30); Chloride 93 mmol/L (98-107); Estimated CRCL calculation 128 ml/min; Estimated Glomerular Filt Rate > 60; Glucose 402 mg/dL (75-110); Magnesium 1.2 mg/dL (1.6-2.3); Potassium 3.6 mmol/L (3.4-5.0); Sodium 132 mmol/L (137-145)
[2020-05-05 17:48] LABS: Glucose Point of Care 342 (65-105)
[2020-05-05] MEDS: oxyCODONE/ACETAMINOPHEN (*CRX) 5-325 MG TABLET 1 TABLET PO (20:21)
[2020-05-05 20:30] LABS: Glucose Point of Care 433 (65-105)
[2020-05-05] MEDS: REMDESIVIR 100 MG/NS 250 ML 100 MG/250 ML BAG 250 MG IVPB (21:09)
[2020-05-06] VITALS (7 sets, daily range): BP systolic 103–139; BP diastolic 68–85; PULSE 77–102; RESP 18–20; TEMP 36.3–36.7; O2SAT 96–100
[2020-05-06] MEDS: ALBUTEROL SULFATE (*SP) AEROSOL 1 PUFF 2 PUFF INHALATION ×4 (01:24→21:19)
[2020-05-06 01:26] LABS: Glucose Point of Care 239 (65-105)
[2020-05-06 06:28] LABS: Hematocrit 39.5 % (42.0-52.0); Hemoglobin 12.4 g/dL (14.0-18.0); Immature Granulocyte Absolute 0.04 K/mm3 (0.00-0.031); Immature Granulocyte Percent A 1.7 % (0-0.5); Immature Platelet Fraction Pct 6.7 % (0.9-11.2); Lymphocytes Absolute Auto 0.33 K/mm3 (0.9-3.2); Lymphocytes Percent Auto 13.9 % (18.3-44.2); Mean Corpuscular HGB Conc 31.4 g/dl (32-36); Mean Corpuscular Volume 73.4 fl (80-100); Monocytes Absolute Auto 0.3 K/mm3 (0.1-0.6); Monocytes Percent Auto 10.5 % (2.6-8.5); Neutrophils Absolute Auto 1.8 K/mm3 (1.3-6.7); Neutrophils Percent Auto 73.9 % (45.5-73.1); Platelet Count Result 119 k/mm3 (150-375); Red Blood Count 5.38 M/mm3 (4.6-6.20); Red Cell Distribution Width 19.2 % (11.5-14.5); White Blood Count 2.4 K/mm3 (4.5-10.0)
[2020-05-06 06:36] LABS: Alanine Aminotransferase 45 U/L (4-50); Albumin Level 2.5 g/dL (3.5-5.1); Alkaline Phosphatase 122 U/L (38-126); Anion Gap 3 mmol/L (8-16); Aspartate Amino Transferase 51 U/L (17-59); Bilirubin,Total 0.5 mg/dL (0.2-1.3); Blood Urea Nitrogen 20 mg/dL (9-20); Calcium 7.4 mg/dL (8.4-10.2); Carbon Dioxide 36 mmol/L (22-30); Chloride 97 mmol/L (98-107); Estimated CRCL calculation 147 ml/min; Estimated Glomerular Filt Rate > 60; Glucose 165 mg/dL (75-110); Potassium 3.3 mmol/L (3.4-5.0); Sodium 136 mmol/L (137-145)
[2020-05-06] MEDS: LACTULOSE 20 GM/30 ML UDC PO (07:48)
[2020-05-06] MEDS: BUMETANIDE 1 MG TABLET 2 MG PO ×2 (07:48→16:45)
[2020-05-06] MEDS: DEXAMETHASONE SOD PHOS INJ 4 MG/ML VIAL 6 MG IV PUSH (07:48)
[2020-05-06] MEDS: MAGNESIUM OXIDE 400 MG TABLET PO (07:48)
[2020-05-06] MEDS: METOPROLOL SUCCINATE EXT REL 50 MG TABCR PO (07:49)
[2020-05-06] MEDS: PREGABALIN (*CRX) 75 MG CAPSULE 150 MG PO ×2 (07:54→21:14)
[2020-05-06] MEDS: glyBURIDE 5 MG TABLET 10 MG PO ×2 (07:54→16:45)
[2020-05-06] MEDS: INSULIN GLARGINE (*BKC) 100 UNITS/ML 30 UNITS SUB-Q ×2 (07:58→17:18)
[2020-05-06] MEDS: INSULIN ASPART (*BKC) 100 UNITS/ML SUB-Q ×5 (08:00→17:18)
[2020-05-06] MEDS: POTASSIUM CHLORIDE 20 MEQ TABLET 40 MEQ PO (08:44)
[2020-05-06] MEDS: MAGNESIUM SULFATE 3GM/D5W100ML 3 GM/100 ML BAG IVPB (08:44)
[2020-05-06] MEDS: oxyCODONE/ACETAMINOPHEN (*CRX) 5-325 MG TABLET 1 TABLET PO ×3 (09:46→21:15)
--- NOTE | 2020-05-06 11:37 | WPDINFPN2 ---
Progress Note: A&P Assessment and Plan (1) Pneumonia due to COVID-19 virus: Code(s): U07.1 - COVID-19; J12.82 - Pneumonia due to coronavirus disease 2019 Status: Acute Assessment and Plan: 1. Viral pneumonia due to CoVid 19, doing well. LFTs normal except for low albumin 2. DM 3. Obesity REC Dexamethasone # 6/10, remdesivir # 5/5, through todays's evening dose. He is tolerating his remdesivir. no CCP. He is homeless, but I reassured him that Social Service will do as much as possible for him. Will sign off, thanks Subjective Date/time seen: 05/06/20 11:37 Interval history: upset about perceived lack of discharge planning Exam Narrative: Exam Narrative: afebrile. Room air Const: General: comfortable and no acute distress Eyes: General: appearance normal, both eyes and all related structures Resp: Effort & Inspection: normal respiratory effort Auscultation: clear to auscultation bilaterally Cardio: Rate: regular rate Rhythm: regular rhythm Heart sounds: no gallops and no murmurs Skin: General skin exam: normal color and no rashes or lesions noted Objective Data Vital Signs Vital Signs: Vital Signs - 24 hr 05/05/20 12:00 05/05/20 16:00 05/05/20 20:00 Temperature 36.1 C L 36.6 C 37.1 C Pulse Rate 88 96 73 Respiratory Rate 20 20 18 Blood Pressure 116/71 130/63 127/84 Pulse Oximetry 97 98 97 05/06/20 00:00 05/06/20 03:47 05/06/20 04:00 Temperature 36.7 C 36.5 C Pulse Rate 87 84 77 Respiratory Rate 18 18 Blood Pressure 125/71 105/68 Pulse Oximetry 97 96 05/06/20 08:00 Temperature 36.6 C Pulse Rate 91 Respiratory Rate 20 Blood Pressure 119/70 Pulse Oximetry 97 Intake/Output Intake/Output: Intake & Output 05/03/20 05/04/20 05/05/20 05/06/20 23:59 23:59 23:59 23:59 Intake Total 3785 2874 3860 820 Output Total 3500 1625 400 Balance 285 1249 3460 820 Meds/Results Medications: Active Medications Generic Name Dose Route Start Last Admin Trade Name Freq PRN Reason Stop Dose Admin Albuterol 2 puff 05/02/20 02:00 05/06/20 07:54 Albuterol Sulfate (*Sp) Aerosol 1 Puff INHALATION 2 puff Q6HRT WILTON Administration Budesonide/Formoterol Fumarate 2 puff 05/02/20 08:00 05/06/20 07:54 Budesonide/Form 160-4.5 Mcg (*Sp) INHALATION 2 puff Q12HRT WILTON Administration Bumetanide 2 mg 05/02/20 09:00 05/06/20 07:48 Bumetanide 1 Mg Tablet PO 2 mg BID WILTON Administration Dexamethasone Sodium Phosphate 6 mg 05/02/20 09:00 05/06/20 07:48 Dexamethasone Sod Phos Inj 4 Mg/Ml Vial IV PUSH 05/11/20 09:01 6 mg DAILY WILTON Administration Dextrose 12.5 gm 05/01/20 23:22 Dextrose 50% 25 Gm/50 Ml Syringe IV PUSH PRN PRN Hypoglycemia Protocol Glucagon 1 mg 05/01/20 23:22 Glucagon For Inj 1 Mg Vial IM PRN PRN Hypoglycemia Protocol Glucose 15 gm 05/01/20 23:22 Glucose Oral Gel 15 Gm Of Glucse In 37.5 Gm Tube PO PRN PRN Hypoglycemia Protocol Glyburide 10 mg 05/02/20 08:00 05/06/20 07:54 Glyburide 5 Mg Tablet PO 10 mg BIDWM WILTON Administration Guaifenesin/Dextromethorphan 10 ml 05/02/20 00:03 05/04/20 08:55 Guaifenesin/Dextromethorphan 10 Ml Udc PO 10 ml Q4H PRN Administration Cough Dextrose 1,000 mls @ 100 mls/hr 05/01/20 23:22 Dextrose 5% 1,000 Ml IVPB PRN PRN Hypoglycemia Protocol Remdesivir 100 mg in 250 mls @ 250 mls/hr 05/03/20 22:00 05/05/20 22:09 IVPB 05/06/20 22:01 Infused Q24H WILTON Infusion Insulin Aspart 3 - 6 units 05/02/20 08:00 05/06/20 07:59 Insulin Aspart (*Bkc) 100 Units/Ml SUB-Q Not Given TIDWM [facility] Protocol Insulin Aspart 5 units 05/02/20 17:00 05/06/20 08:00 Insulin Aspart (*Bkc) 100 Units/Ml SUB-Q 5 units TIDWM WIL[facility] Administration Insulin Glargine 30 units 05/06/20 09:00 05/06/20 07:58 Insulin Glargine (*Bkc) 100 Units/Ml SUB-Q 30 units BID WILTON Administration Lactulose 2
[2020-05-06 12:04] LABS: Glucose Point of Care 224 (65-105)
[2020-05-06 13:35] LABS: Anion Gap 2 mmol/L (8-16); Blood Urea Nitrogen 24 mg/dL (9-20); Calcium 7.7 mg/dL (8.4-10.2); Carbon Dioxide 36 mmol/L (22-30); Chloride 94 mmol/L (98-107); Estimated CRCL calculation 113 ml/min; Estimated Glomerular Filt Rate > 60; Glucose 258 mg/dL (75-110); Magnesium 1.3 mg/dL (1.6-2.3); Potassium 4.2 mmol/L (3.4-5.0); Sodium 132 mmol/L (137-145)
--- NOTE | 2020-05-06 13:41 | ECG_ITS ---
Measurements Intervals [place] Rate: 92 P: TN: 0 QRS: -78 QRSD: 140 T: 21 QT: 376 QTc: 466 Interpretive Statements ATRIAL FIBRILLATION RIGHT BUNDLE BRANCH BLOCK ANTERIOR INFARCT, AGE INDETERMINATE BASELINE ARTIFACT- I, II, III, AVR, AVL, AVF ABNORMAL ECG Electronically Signed On 05-06-2020 16:46:16 WAITER by Shahid Mcginnis D.O.
[2020-05-06] MEDS: MAGNESIUM SULF 2 GM/WATER 50ML 2 GM/50 ML BAG IVPB (14:40)
--- NOTE | 2020-05-06 15:59 | PM.IMPN ---
Progress Note: A&P Assessment and Plan (1) Confusion: Code(s): R41.0 - Disorientation, unspecified Status: Acute Assessment and Plan: Multifactorial secondary to acute metabolic encephalopathy most likely related hepatic encephalopathy and COVID-19 infection Lactulose avoid high-protein diet 05/06/20 15:59 Patient is a 59-year-old male with history of liver cirrhosis secondary to alcohol abuse which he stop drinking 7 years ago unfortunately patient is homeless and lives in his truck developed shortness of breath initially was seen at an urgent care and was sent to emergency department for further evaluation his positive COVID-19 patient was started on dexamethasone on 05/02 and patient was seen by Dr. fernandes and started the patient Remdesivir on 05/03 patient states is feeling much better compared to when he arrived is not a short of breath, patient is found to new onset atrial fibrillation patient seen by cardroom manager rate is controlled with Toprol 50 mg XL, patient CHADS2 Vasc score 2 requiring systematic anticoagulation however patient has a thrombocytopenia most likely secondary to liver cirrhosis, patient is high risk of bleeding with anticoagulation, patient is aware of risk of bleeding and cerebral stroke, will continue to monitor the patient, while in the hospital patient remains afebrile and on room air will continue to monitor and further recommendation to follow. 2/ patient with new onset atrial fibrillation his rate is controlled with Toprol 50 mg XL, patient is positive for COVID-19 is being treated with dexamethasone 07/21 and Remdesivir 06/06, he has not a any fever while in the hospital however his required 4 L of oxygen, patient states is feeling tired and low energy, denies any fever or chills denies any shortness of breath, will continue to monitor patient, the patient remains clinically stable, if patient does not have any fever for 2 days and does not require oxygen more than 6 L we may discharge the patient is okay with Dr. fernandes, however patient is homeless and care clinician is working to find the placed for the patient. 2/ patient with new onset atrial fibrillation rate is controlled with Toprol 50 mg XL, patient be seen by cardroom manager, patient continue to hypokalemia and hypomagnesemia it seems patient has total body depletion potassium and magnesium patient is being supplemented will continue to monitor, patient with thrombocytopenia most likely secondary to liver cirrhosis with long history of alcohol abuse, patient is platelets are trending up while in the hospital, patient is COVID positive on dexamethasone /10 and Remdesivir 4/5 patient remains on room air and no fever, patient was seen by Dr. fernandes recommending continue dexamethasone and will complete the 5 day course of remdesivir, if patient remains clinically stable will discharge the patient tomorrow, unfortunately patient is homeless and care clinician is working to find him a place will continue to monitor and further recommendation to follow (2) Pneumonia due to COVID-19 virus: Code(s): U07.1 - COVID-19; J12.82 - Pneumonia due to coronavirus disease 2019 Status: Acute Assessment and Plan: remdesivir started on 05/02/2020. Continue with 05/02/2020 Decadron. Robitussin and incentive spirometer. Encourage the patient to bob a prone position for 30 minutes to 2 hours rotating [id number] non the back. ID recommendation appreciated (3) COPD (chronic obstructive pulmonary disease): Code(s): J44.9 - Chronic obstructive pulmonary disease, unspecified Status: Acute Assessment and Plan: With acute exacerbation inhaler treatment steroid (4) Diabetes type 2, controlled: Code(s): E11.9 - Type 2 diabetes mellitus without complications Status: Acute Assessment and Plan: Continue with Glyburide and hold metformin. Better control patient was homeless unsure about the dose of insulin decrease the dos
[2020-05-06 17:35] LABS: Glucose Point of Care 398 (65-105)
[2020-05-06] MEDS: REMDESIVIR 100 MG/NS 250 ML 100 MG/250 ML BAG 250 MG IVPB (21:16)
[2020-05-06 21:29] LABS: Glucose Point of Care 349 (65-105)
[2020-05-06 22:15] LABS: Glucose Point of Care 152 (65-105)
[2020-05-07] VITALS (8 sets, daily range): BP systolic 105–118; BP diastolic 68–76; PULSE 65–87; RESP 18; TEMP 36.3–37.1; O2SAT 95–100
[2020-05-07] MEDS: ALBUTEROL SULFATE (*SP) AEROSOL 1 PUFF 2 PUFF INHALATION ×3 (02:27→15:55)
[2020-05-07 06:46] LABS: Basophils Percent Auto 0.4 % (0.2-1.2); Eosinophils Percent Auto 1.1 % (0-4.4); Hematocrit 38.2 % (42.0-52.0); Hemoglobin 11.7 g/dL (14.0-18.0); Immature Granulocyte Absolute 0.05 K/mm3 (0.00-0.031); Immature Granulocyte Percent A 1.8 % (0-0.5); Immature Platelet Fraction Pct 6.1 % (0.9-11.2); Lymphocytes Absolute Auto 0.39 K/mm3 (0.9-3.2); Mean Corpuscular HGB Conc 30.6 g/dl (32-36); Mean Corpuscular Volume 71.8 fl (80-100); Mean Platelet Volume 10.3 fl (7.4-10.4); Monocytes Absolute Auto 0.3 K/mm3 (0.1-0.6); Monocytes Percent Auto 9.4 % (2.6-8.5); Neutrophils Percent Auto 73.3 % (45.5-73.1); Platelet Count Result 141 k/mm3 (150-375); Red Blood Count 5.32 M/mm3 (4.6-6.20); Red Cell Distribution Width 18.6 % (11.5-14.5); White Blood Count 2.8 K/mm3 (4.5-10.0)
[2020-05-07 06:54] LABS: Alanine Aminotransferase 41 U/L (4-50); Albumin Level 2.4 g/dL (3.5-5.1); Alkaline Phosphatase 124 U/L (38-126); Anion Gap 2 mmol/L (8-16); Aspartate Amino Transferase 37 U/L (17-59); Bilirubin,Total 0.5 mg/dL (0.2-1.3); Blood Urea Nitrogen 19 mg/dL (9-20); Calcium 7.6 mg/dL (8.4-10.2); Carbon Dioxide 37 mmol/L (22-30); Chloride 98 mmol/L (98-107); Estimated CRCL calculation 127 ml/min; Estimated Glomerular Filt Rate > 60; Glucose 91 mg/dL (75-110); Magnesium 1.5 mg/dL (1.6-2.3); Potassium 3.3 mmol/L (3.4-5.0); Sodium 137 mmol/L (137-145)
[2020-05-07] MEDS: MAGNESIUM SULF 2 GM/WATER 50ML 2 GM/50 ML BAG IVPB (08:35)
[2020-05-07] MEDS: POTASSIUM CHLORIDE 20 MEQ TABLET 40 MEQ PO (08:36)
[2020-05-07] MEDS: PREGABALIN (*CRX) 75 MG CAPSULE 150 MG PO (08:36)
[2020-05-07 08:38] LABS: Glucose Point of Care 52 (65-105)
[2020-05-07 08:38] LABS: Glucose Point of Care 47 (65-105)
[2020-05-07] MEDS: BUMETANIDE 1 MG TABLET 2 MG PO (08:49)
[2020-05-07] MEDS: MAGNESIUM OXIDE 400 MG TABLET PO (08:49)
[2020-05-07] MEDS: DEXAMETHASONE SOD PHOS INJ 4 MG/ML VIAL 6 MG IV PUSH (08:50)
[2020-05-07] MEDS: LACTULOSE 20 GM/30 ML UDC PO (08:53)
[2020-05-07] MEDS: METOPROLOL SUCCINATE EXT REL 50 MG TABCR PO (08:53)
[2020-05-07] MEDS: glyBURIDE 5 MG TABLET 10 MG PO (08:54)
[2020-05-07] MEDS: oxyCODONE/ACETAMINOPHEN (*CRX) 5-325 MG TABLET 1 TABLET PO (09:00)
[2020-05-07 09:04] LABS: Glucose Point of Care 83 (65-105)
--- NOTE | 2020-05-07 09:16 | PC.NURSE ---
Called Dr Gonzalez. Notified him of low blood sugar this moring from bedside check of 52,Pt stated he felt fine. Gave 8oz of oragne juice and rechecked in 15 min. Blood sugar increased to 83 and breakfast tray arrived. Pt is alert and asymptomatic for hypoglycemia. Orders recieved to hold all morning insulin.
[2020-05-07 13:00] LABS: Glucose Point of Care 214 (65-105)
[2020-05-07 13:31] LABS: Anion Gap 2 mmol/L (8-16); Blood Urea Nitrogen 21 mg/dL (9-20); Calcium 7.6 mg/dL (8.4-10.2); Carbon Dioxide 36 mmol/L (22-30); Chloride 94 mmol/L (98-107); Estimated CRCL calculation 112 ml/min; Estimated Glomerular Filt Rate > 60; Glucose 226 mg/dL (75-110); Magnesium 1.6 mg/dL (1.6-2.3); Potassium 4.3 mmol/L (3.4-5.0); Sodium 132 mmol/L (137-145)
[2020-05-07] MEDS: INSULIN ASPART (*BKC) 100 UNITS/ML SUB-Q ×2 (13:36→13:37)
--- NOTE | 2020-05-07 13:53 | PM.DS ---
DS: Admitting Diagnosis Admitting Diagnosis Admitting Diagnosis: Chief Complaint: Shortness of breath DS: Discharge Diagnosis Discharge Diagnosis (1) Confusion: Code(s): R41.0 - Disorientation, unspecified Status: Acute Assessment and Plan: Multifactorial secondary to acute metabolic encephalopathy most likely related hepatic encephalopathy and COVID-19 infection Lactulose avoid high-protein diet 05/06/20 15:59 Patient is a 59-year-old male with history of liver cirrhosis secondary to alcohol abuse which he stop drinking 7 years ago unfortunately patient is homeless and lives in his truck developed shortness of breath initially was seen at an urgent care and was sent to emergency department for further evaluation his positive COVID-19 patient was started on dexamethasone on 05/02 and patient was seen by Dr. fernandes and started the patient Remdesivir on 05/03 patient states is feeling much better compared to when he arrived is not a short of breath, patient is found to new onset atrial fibrillation patient seen by housekeeper hospital rate is controlled with Toprol 50 mg XL, patient CHADS2 Vasc score 2 requiring systematic anticoagulation however patient has a thrombocytopenia most likely secondary to liver cirrhosis, patient is high risk of bleeding with anticoagulation, patient is aware of risk of bleeding and cerebral stroke, will continue to monitor the patient, while in the hospital patient remains afebrile and on room air will continue to monitor and further recommendation to follow. 2/ patient with new onset atrial fibrillation his rate is controlled with Toprol 50 mg XL, patient is positive for COVID-19 is being treated with dexamethasone 07/21 and Remdesivir 06/06, he has not a any fever while in the hospital however his required 4 L of oxygen, patient states is feeling tired and low energy, denies any fever or chills denies any shortness of breath, will continue to monitor patient, the patient remains clinically stable, if patient does not have any fever for 2 days and does not require oxygen more than 6 L we may discharge the patient is okay with Dr. fernandes, however patient is homeless and healthcare science specialist is working to find the placed for the patient. 2 patient with new onset atrial fibrillation rate is controlled with Toprol 50 mg XL, patient be seen by housekeeper hospital, patient continue to hypokalemia and hypomagnesemia it seems patient has total body depletion potassium and magnesium patient is being supplemented will continue to monitor, patient with thrombocytopenia most likely secondary to liver cirrhosis with long history of alcohol abuse, patient is platelets are trending up while in the hospital, patient is COVID positive on dexamethasone /10 and Remdesivir / patient remains on room air and no fever, patient was seen by Dr. fernandes recommending continue dexamethasone and will complete the 5 day course of remdesivir, if patient remains clinically stable will discharge the patient tomorrow, unfortunately patient is homeless and healthcare science specialist is working to find him a place will continue to monitor and further recommendation to follow (2) Pneumonia due to COVID-19 virus: Code(s): U07.1 - COVID-19; J12.82 - Pneumonia due to coronavirus disease 2018 Status: Acute Assessment and Plan: remdesivir started on 05/02/2020. Continue with 05/02/2020 Decadron. Robitussin and incentive spirometer. Encourage the patient to bob a prone position for 30 minutes to 2 hours rotating [id number] non the back. ID recommendation appreciated (3) COPD (chronic obstructive pulmonary disease): Code(s): J44.9 - Chronic obstructive pulmonary disease, unspecified Status: Acute Assessment and Plan: With acute exacerbation inhaler treatment steroid (4) Diabetes type 2, controlled: Code(s): E11.9 - Type 2 diabetes mellitus without complications Status: Acute Assessment and Plan: Continue with Glyb
--- NOTE | 2020-05-07 14:17 | PC.NURSE ---
Dr. Gonzalez requesting copy of discharge summary to be sent to primary doctor. Dr. Caceres's office notified. They state that he is no longer a patient there since October 2019. Keely in case coordination states that patient is to go through [facility] and she will help patient with follow up and appointments. Patient has [facility] number in his phone. Dr. Gonzalez notified. ok to discharge. No new orders.
== END 2020-05-07 16:40 | disposition home or self-care (01) | DRG 720 ==
LOC: ANHED 17:10 → ANHIMU 20:10 → ANH3MEDSUR 05-04 16:41
PROVIDERS: Emergency Medicine; Family Medicine; Internal Medicine; Internal Medicine Infectious Disease; Nurse Practitioner; Admitting Provider Family Medicine; Emergency Provider Emergency Medicine; PCP Emergency Medicine; Visit Provider Family Medicine
DX: A41.89 Other specified sepsis (principal); U07.1 COVID-19; J12.82 Pneumonia due to coronavirus disease 2019; R65.21 Severe sepsis with septic shock; J96.01 Acute respiratory failure with hypoxia; D69.6 Thrombocytopenia, unspecified; J44.0 Chronic obstructive pulmonary disease with (acute) lower respiratory infection; J44.1 Chronic obstructive pulmonary disease with (acute) exacerbation; R77.8 Other specified abnormalities of plasma proteins; E11.9 Type 2 diabetes mellitus without complications; R41.0 Disorientation, unspecified; K74.60 Unspecified cirrhosis of liver; B18.2 Chronic viral hepatitis C; Z79.4 Long term (current) use of insulin; Z79.899 Other long term (current) drug therapy
CPT/HCPCS: 36415; 36600; 70450; 71045; 71275; 80048; 80053; 80307; 81001; 82140; 82565; 82805; 82948; 83036; 83605; 83615; 83690; 83735; 83880; 84439; 84443; 84460; 84480; 84484; 85025; 85055; 85610; 85730; 86140; 87040; 93005; 94640; 96365; 96367; 96375; 99291; A9270; C9803; J0131; J0456; J0696; J1100; J1815; J3475; J7030; J7040; Q9967; U0003; U0005

== ENCOUNTER 2020-06-20 11:51 | Emergency (ER) | payer OTHER, SELFPAY ==
[2020-06-20 11:54] VITALS: BP 173/99; PULSE 100; RESP 18; TEMP 36.5; O2SAT 96
[2020-06-20 11:57] VITALS: BP 165/104; PULSE 102; RESP 18; TEMP 36.6; O2SAT 99
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
[2020-06-20 12:47] LABS: Basophils Percent Auto 1.2 % (0.2-1.2); Eosinophils Absolute Auto 0.2 K/mm3 (0-0.3); Eosinophils Percent Auto 6.2 % (0-4.4); Hematocrit 33.4 % (42.0-52.0); Hemoglobin 10.3 g/dL (14.0-18.0); Lymphocytes Absolute Auto 0.34 K/mm3 (0.9-3.2); Mean Corpuscular HGB Conc 30.8 g/dl (32-36); Mean Corpuscular Hemoglobin 23.5 pg (26-34); Mean Corpuscular Volume 76.1 fl (80-100); Mean Platelet Volume 9.3 fl (7.4-10.4); Monocytes Absolute Auto 0.4 K/mm3 (0.1-0.6); Monocytes Percent Auto 15.2 % (2.6-8.5); Neutrophils Absolute Auto 1.5 K/mm3 (1.3-6.7); Neutrophils Percent Auto 63.4 % (45.5-73.1); Platelet Count Result 138 k/mm3 (150-375); Red Blood Count 4.39 M/mm3 (4.6-6.20); Red Cell Distribution Width 17.3 % (11.5-14.5); White Blood Count 2.4 K/mm3 (4.5-10.0)
[2020-06-20 12:50] LABS: Add Urine Microscopic? YES; Appearance Urine Clear (Clear); Bacteria Urine Trace /hpf; Bilirubin Urine Negative (Negative); Blood Urine 1+ (Negative); Color Urine Yellow (Yellow); Glucose Urine UA 3+ mg/dL (Negative); Ketones Urine Negative (Negative); Leukocyte Esterase Ur Negative LEU/UL (Negative); Nitrate Urine Negative (Negative); Protein Urine 2+ mg/dL (Negative); Specific Grav Ur 1.014 (1.001-1.035); Urobilinogen Urine Negative mg/dL (<2.0); WBC Urine 0-3 /hpf
[2020-06-20 13:04] LABS: Alanine Aminotransferase 24 U/L (4-50); Albumin Level 3.1 g/dL (3.5-5.1); Alkaline Phosphatase 135 U/L (38-126); Anion Gap 2 mmol/L (8-16); Aspartate Amino Transferase 33 U/L (17-59); Bilirubin,Total 0.7 mg/dL (0.2-1.3); Blood Urea Nitrogen 13 mg/dL (9-20); Calcium 8.3 mg/dL (8.4-10.2); Carbon Dioxide 30 mmol/L (22-30); Chloride 98 mmol/L (98-107); Estimated CRCL calculation 129 ml/min; Estimated Glomerular Filt Rate > 60; Glucose 403 mg/dL (75-110); Sodium 130 mmol/L (137-145)
[2020-06-20 13:17] LABS: Potassium 4.3 mmol/L (3.4-5.0)
[2020-06-20 13:42] VITALS: BP 146/92; PULSE 111; RESP 18; O2SAT 100
[2020-06-20] MEDS: INSULIN HUMAN REGULAR (*BKC) 100 UNITS/ML 8 UNITS SUB-Q (14:01)
[2020-06-20] MEDS: SODIUM CHLORIDE 0.9% IV 1,000 ML 999 ML IV CONT (14:09)
[2020-06-20 15:21] LABS: Glucose Point of Care 266 (65-105)
[2020-06-20 15:36] VITALS: BP 155/105; PULSE 105; RESP 16; O2SAT 100
== END 2020-06-20 15:36 | disposition home or self-care (01) ==
PROVIDERS: Emergency Provider Emergency Medicine; PCP Emergency Medicine
DX: E11.65 Type 2 diabetes mellitus with hyperglycemia (principal); R30.0 Dysuria; Z91.14 Patient's other noncompliance with medication regimen; J44.9 Chronic obstructive pulmonary disease, unspecified; K74.60 Unspecified cirrhosis of liver; Z86.19 Personal history of other infectious and parasitic diseases; Z87.891 Personal history of nicotine dependence; Z79.4 Long term (current) use of insulin
CPT/HCPCS: 36415; 80053; 81001; 82948; 85025; 96360; 99283; J1815; J7030

== ENCOUNTER 2020-10-18 04:36 | Emergency (ER) | payer OTHER, SELFPAY ==
--- NOTE | ~2020-10-18 | XR_ITS ---
EXAMINATION: XR chest 2V DATE: 10/18/2020 05:21 INDICATION: Shortness of breath. TECHNIQUE: frontal and lateral views of the chest were obtained. COMPARISON: Chest radiograph dated and CT dated 05/02/2020 FINDINGS: Again seen are bilateral patchy regions of reticulonodular opacities at the periphery of both lungs w hich appears similar in distribution and appearance but with some decrease since the prior study most likely representing residual chronic COVID lung disease. No pleural effusion or pneumothorax. Small calcified nodule at the right posterior sulcus consistent with old granulomatous disease. Cardiomedia stinal silhouette is normal. Mild thoracic spondylosis with chronic mild anterior wedging at T11 and T12. IMPRESSION: 1. Similar appearance and distribution but with significant interval improvement of patchy regions of reticulonodular opacities at the periphery of both lungs most likely representing residual chronic C OVID lung disease. Reviewed, dictated and finalized at location A. IMPRESSION: 1. Similar appearance and distribution but with significant interval improvemen t of patchy regions of reticulonodular opacities at the periphery of both lungs most likely representing residual chronic COVID lung disease.
[2020-10-18 04:38] VITALS: BP 133/80; PULSE 88; RESP 22; TEMP 36.6
--- NOTE | 2020-10-18 05:00 | ECG_ITS ---
Measurements Intervals [place] Rate: 102 P: 72 [place]: 204 QRS: -82 QRSD: 156 T: 86 QT: 375 QTc: 490 Interpretive Statements SINUS TACHYCARDIA ATRIAL PREMATURE COMPLEXES LEFT AXIS DEVIATION BORDERLINE AV CONDUCTION DELAY RIGHT BUNDLE BRANCH BLOCK BASELINE ARTIFACT- I, II, AVR, AVL ABNORMAL ECG Electronically Signed On 10-19-2020 20:41:45 CDT by Shahid Mcginnis D.O.
--- NOTE | 2020-10-18 05:09 | PC.NURSE ---
screaming at fuel quality tech, did not want any test finally agreed for CXR
[2020-10-18 05:30] LABS: Hemoglobin 10.4 g/dL (14.0-18.0); Mean Corpuscular HGB Conc 30.6 g/dL (32.0-36.0); Mean Corpuscular Hemoglobin 23.7 pg (27.0-31.0); Mean Corpuscular Volume 77.6 fL (78.0-102.0); Mean Platelet Volume 9.2 fl (8.7-11.0); Platelet Count Result 133 K/mm3 (150-420); Red Blood Count 4.38 M/mm3 (4.70-6.10); Red Cell Distribution Width 17.1 % (11.6-14.4); White Blood Count 2.8 K/mm3 (4.8-10.8)
--- NOTE | 2020-10-18 05:35 | PC.NURSE ---
EKG completed, patient refusing to have collected, verbally abusive to staff
--- NOTE | 2020-10-18 05:36 | ED.LOWEXIN ---
HPI - Extremity Injury (Lower) General Chief Complaint: Extremity Injury, Lower Stated Complaint: SWOLLEN LEGS Source: patient Mode of arrival: ambulatory Limitations: no limitations and other (he appears to be intoxicated. ) History of Present Illness HPI Narrative: Patient comes in with swollen legs requesting a refill on his bumex, which he takes for swelling. Legs have been swollen bilaterally moderately severely in an ongoing fashion for the past several days as he has been out of his diuretic. Place: home Severity: moderate Relieving factors: rest and other (elevation of legs) Exacerbating factors: other (hanging legs in dependent fashion causes edema to increase) Related Data Home Medications Medication Instructions Recorded Confirmed Basaglar KwikPen U-100 Insulin 50 unit SUBCUT BID 04/06/19 10/18/20 Spiriva with HandiHaler 1 cap INHALATION DAILY 04/06/19 10/18/20 albuterol sulfate 2 puff INHALATION TID 04/06/19 10/18/20 budesonide-formoterol [Symbicort] 2 puff INHALATION BID 04/06/19 10/18/20 bumetanide 2 mg PO BID 04/06/19 10/18/20 glyburide 10 mg PO BID 05/01/20 10/18/20 Allergies Allergy/AdvReac Type Severity Reaction Status Date / Time No Known Allergies Allergy Verified 06/20/20 11:58 Review of Systems Constitutional: Constitutional: Reports no additional constitutional complaints Eyes: Eyes: Reports no additional eye complaints ENT: Reports system reviewed and no additional complaints, except as documented Cardiovascular: Cardiovascular: Reports no additional cardiovascular complaints Respiratory: Respiratory: Reports no additional respiratory complaints Gastrointestinal: Gastrointestinal: Reports no additional gastrointestinal complaints Genitourinary: Genitourinary: Reports no additional male genitourinary complaints Musculoskeletal: Musculoskeletal: Reports no additional musculoskeletal complaints Integumentary/Breasts: Skin/Breast: Reports system reviewed and no additional complaints, except as docu Neurologic: Reports system reviewed and no additional complaints, except as documented Psychiatric: Psychiatric: Reports no additional psychiatric complaints Endocrine: Endocrine: Reports no additional endocrine complaints Hematologic/Lymphatic: Hematologic/Lymphatic: Reports no additional hematologic/lymphatic complaints Allergic/Immunologic: Allergic/Immunologic: Reports no additional allergic/immunologic complaints PMFSH Past Medical History Medical History Cirrhosis of liver COPD (chronic obstructive pulmonary disease) Diabetes type 2, controlled Esophageal varices Hepatitis C Thrombocytopenia Surgical History Surgical History H/O cardiac catheterization H/O hernia repair History of esophagogastroduodenoscopy (EGD) Family History Family History Father Family history of pancreatic cancer Other Diabetes mellitus Hypertension Social History Social History Smoking status: Former smoker Tobacco type: cigarettes Alcohol intake: former Substance use: never Gender identity (if verbalized by the patient): Male Spiritual care concerns: No Exam Const: General: no acute distress and alert Limitations: altered mental status HENMT: Head: normal to inspection Ears: external ears normal General nose exam: Normal external nose present Mouth: Yes Normal oral and palatal mucosa present Throat: posterior oropharynx normal Eyes: Conjunctivae: conjunctivae normal Neck: Neck: no lymphadenopathy Chest: Chest palpation & inspection: normal inspection of the chest Resp: Effort & Inspection: normal respiratory effort Auscultation: clear to auscultation bilaterally Cardio: Rate: regular rate Rhythm: regular rhythm GI: GI Palp: Yes Soft to palpation (nontender)
[2020-10-18 05:41] LABS: Ammonia 23 umol/L (11-32)
[2020-10-18 05:47] LABS: Lactic Acid Reflex 1.1 mmol/L (0.4-2.0)
[2020-10-18 05:50] LABS: Anisocytosis 1+ (NORMAL); Band Neutrophils Percent 0 % (0-6); Eosinophils Absolute Manual 0.16 K/mm3 (0.02-0.5); Eosinophils Percent Manual 6 % (1-6); Lymphocytes Absolute Manual 0.33 K/mm3 (1.1-4.5); Lymphocytes Percent Manual 12 % (18-44); Monocytes Absolute Manual 0.22 K/mm3 (0.1-0.90); Monocytes Percent Manual 8 % (3-9); Neutrophils Absolute Manual 2.07 K/mm3 (1.3-6.7); Neutrophils Percent Manual 74 % (46-73); Total Cells Counted 100
[2020-10-18 05:51] LABS: Microcytosis 1+ (NORMAL)
[2020-10-18 05:54] LABS: Alanine Aminotransferase 41 U/L (16-63); Albumin Level 2.6 g/dL (3.4-5.0); Alkaline Phosphatase 142 U/L (46-116); Anion Gap 6 mmol/L (8-16); Aspartate Amino Transferase 30 U/L (15-37); Bilirubin,Total 0.5 mg/dL (0.00-1.00); Blood Urea Nitrogen 23 mg/dL (7-18); Carbon Dioxide 28 mmol/L (21-32); Chloride 106 mmol/L (98-108); Estimated CRCL calculation 97 ml/min; Estimated Glomerular Filt Rate > 60; Glucose 217 mg/dL (70-99); NT Pro B Type Natriuretic Pept 374 pg/mL (0-125); Osmolality Calculated 300 mOsm/kg (285-295); Potassium 4.6 mmol/L (3.5-5.1); Sodium 140 mmol/L (136-145); Total Protein 6.9 g/dL (6.4-8.2); Troponin I 21.8 ng/L (0.00-60.4)
[2020-10-18 05:55] LABS: Ethanol < 3 mg/dL (0-6); Magnesium 1.6 mg/dL (1.8-2.4)
[2020-10-18 06:49] VITALS: BP 132/80; PULSE 88; RESP 18; TEMP 36.1; O2SAT 94
== END 2020-10-18 06:50 | disposition home or self-care (01) ==
PROVIDERS: Emergency Provider Emergency Medicine
DX: R60.9 Edema, unspecified (principal)
CPT/HCPCS: 36415; 71046; 80053; 80307; 82140; 83605; 83735; 83880; 84484; 85025; 93005; 99283; 99284

== ENCOUNTER 2020-10-27 15:23 | Emergency (ER) | payer OTHER, SELFPAY ==
[2020-10-27] VITALS (8 sets, daily range): BP systolic 108–168; BP diastolic 77–117; PULSE 77–108; RESP 12–20; TEMP 37.4; O2SAT 98–99
--- NOTE | 2020-10-27 15:39 | ECG_ITS ---
Measurements Intervals [place] Rate: 105 P: 47 [place]: 186 QRS: -88 QRSD: 166 T: 74 QT: 383 QTc: 507 Interpretive Statements SINUS TACHYCARDIA ATRIAL PREMATURE COMPLEX RIGHT BUNDLE BRANCH BLOCK LEFT ANTERIOR FASCICULAR BLOCK ABNORMAL ECG Electronically Signed On 10-28-2020 8:06:07 CDT by Shahid Mcginnis D.O.
[2020-10-27 15:42] LABS: Glucose Point of Care 167 mg/dl (65-105)
[2020-10-27 15:53] LABS: Basophils Percent Auto 0.3 % (0.2-1.2); Eosinophils Absolute Auto 0.1 K/mm3 (0-0.3); Eosinophils Percent Auto 1.9 % (0-4.4); Hematocrit 33.9 % (42.0-52.0); Hemoglobin 10.4 g/dL (14.0-18.0); Immature Granulocyte Absolute 0.01 K/mm3 (0.00-0.031); Immature Granulocyte Percent A 0.3 % (0-0.5); Lymphocytes Absolute Auto 0.24 K/mm3 (0.9-3.2); Lymphocytes Percent Auto 7.6 % (18.3-44.2); Mean Corpuscular HGB Conc 30.7 g/dl (32-36); Mean Corpuscular Hemoglobin 23.7 pg (26-34); Mean Corpuscular Volume 77.2 fl (80-100); Mean Platelet Volume 9.4 fl (7.4-10.4); Monocytes Absolute Auto 0.4 K/mm3 (0.1-0.6); Monocytes Percent Auto 12.9 % (2.6-8.5); Neutrophils Absolute Auto 2.4 K/mm3 (1.3-6.7); Platelet Count Result 150 k/mm3 (150-375); Red Blood Count 4.39 M/mm3 (4.6-6.20); Red Cell Distribution Width 17.3 % (11.5-14.5); White Blood Count 3.2 K/mm3 (4.5-10.0)
[2020-10-27 16:07] LABS: Anion Gap 7 mmol/L (8-16); Blood Urea Nitrogen 23 mg/dL (9-20); Calcium 8.8 mg/dL (8.4-10.2); Carbon Dioxide 29 mmol/L (22-30); Chloride 104 mmol/L (98-107); Estimated CRCL calculation 96 ml/min; Estimated Glomerular Filt Rate > 60; Glucose 165 mg/dL (65-110); Potassium 3.7 mmol/L (3.4-5.0); Sodium 140 mmol/L (137-145)
--- NOTE | 2020-10-27 18:59 | ED.GENADULT ---
HPI - General Adult General Chief complaint: Syncope Stated complaint: CONFUSION/NEAR SYNCOPE Time Seen by Provider: 10/27/20 15:28 History of Present Illness HPI narrative: Patient is a 60-year-old male who presents ER with reports of dizziness. Patient reports he has been outside in the heat and may have been overwhelmed by it. He reports he did get lightheaded while he was at the [employer] store. He cannot report any aggravating or alleviating factors related to this. He denies fevers or chills or sweats. No productive cough or chest pain or chest pressure. No racing the heart. No focal weakness of an arm or leg. Patient is not particularly active and participating with his history and physical. Related Data Home Medications Medication Instructions Recorded Confirmed Basaglar KwikPen U-100 Insulin 50 unit SUBCUT BID 04/06/19 10/18/20 Spiriva with HandiHaler 1 cap INHALATION DAILY 04/06/19 10/18/20 albuterol sulfate 2 puff INHALATION TID 04/06/19 10/18/20 budesonide-formoterol [Symbicort] 2 puff INHALATION BID 04/06/19 10/18/20 bumetanide 2 mg PO BID 04/06/19 10/18/20 glyburide 10 mg PO BID 05/01/20 10/18/20 Allergies Allergy/AdvReac Type Severity Reaction Status Date / Time No Known Allergies Allergy Verified 06/20/20 11:58 Review of Systems Review of Systems: All systems reviewed & are unremarkable except as noted in HPI and below Constitutional: Constitutional: Denies chills, Denies fever(s) and Denies weakness Eyes: Eyes: Denies change in vision ENT: Denies nasal congestion and Denies sore throat Cardiovascular: Cardiovascular: Denies chest pain, Denies rapid heart rate and Denies radiating jaw, neck or arm pain Respiratory: Respiratory: Denies cough, Denies dyspnea and Denies wheezing Gastrointestinal: Gastrointestinal: Denies abdominal pain, Denies nausea and Denies vomiting Neurologic: Denies dizziness, Denies headache(s), Denies focal weakness and Denies numbness PMFSH Past Medical History Medical History Cirrhosis of liver COPD (chronic obstructive pulmonary disease) Diabetes type 2, controlled Esophageal varices Hepatitis C Thrombocytopenia Surgical History Surgical History H/O cardiac catheterization H/O hernia repair History of esophagogastroduodenoscopy (EGD) Family History Family History Father Family history of pancreatic cancer Other Diabetes mellitus Hypertension Social History Social History Smoking status: Former smoker Tobacco type: cigarettes Alcohol intake: former Substance use: never Gender identity (if verbalized by the patient): Male Spiritual care concerns: No Exam Narrative: Exam Narrative: GENERAL: Well-appearing, well-nourished, and in no acute distress. HEAD: Normocephalic, atraumatic. EYES: PERRL and EOMI. CHEST: Clear to auscultation. No respiratory distress. HEART: Regular rate and rhythm. Normal peripheral pulses. ABDOMEN: Soft, nontender, nondistended, normal active bowel sounds. EXTREMITIES: Normal range of motion. 3+ edema. SKIN: Warm, dry, no rash. NEURO: Alert and oriented x3. PSYCH: Normal mood and affect. Course Course Emergency Course: Patient resting comfortably. No longer reporting dizziness. No orthostasis. Discharge home. Vital Signs Vital signs: Vital Signs Temperature 99.4 F 10/27/20 15:44 Pulse Rate 105 H 10/27/20 15:44 Respiratory Rate 14 10/27/20 15:44 Blood Pressure 108/84 10/27/20 15:44 Pulse Oximetry 99 10/27/20 15:44 Temperature 99.4 F 10/27/20 15:44 Pulse Rate 99 10/27/20 18:25 Respiratory Rate 12 10/27/20 18:25 Blood Pressure 150/100 H 10/27/20 18:25 Pulse Oximetry 99 10/27/20 18:25 Medical Decision Making Vital Signs Vital Signs: Vital Signs Temperature 9
== END 2020-10-27 19:23 | disposition home or self-care (01) ==
PROVIDERS: Emergency Provider Emergency Medicine
DX: R42 Dizziness and giddiness (principal); K74.60 Unspecified cirrhosis of liver; J44.9 Chronic obstructive pulmonary disease, unspecified; E11.9 Type 2 diabetes mellitus without complications; Z86.19 Personal history of other infectious and parasitic diseases; Z79.4 Long term (current) use of insulin; Z87.891 Personal history of nicotine dependence; R00.0 Tachycardia, unspecified; I49.1 Atrial premature depolarization; I45.2 Bifascicular block
CPT/HCPCS: 36415; 80048; 82948; 85025; 93005; 99284

== ENCOUNTER 2020-11-11 21:27 | Emergency (ER) | payer OTHER, SELFPAY ==
--- NOTE | ~2020-11-11 | XR_ITS ---
EXAMINATION: XR chest 1V portable DATE: 11/11/2020 23:16 INDICATION: Shortness of breath and weakness TECHNIQUE: frontal view of the chest was obtained. COMPARISON: Chest radiograph dated 10/18/2020 FINDINGS: And seen is a subtle reticulonodular pattern at the periphery of both lungs which can be seen dating back to CT and radiographs dated 10/23/2015. No new airspace opacities, pulmonary edema, pleural effus ion or pneumothorax. The cardiomediastinal silhouette is normal. IMPRESSION: 1. Chronic subtle peripheral predominant reticulonodular pattern at both lungs which as detailed on C T report dated 10/23/2015 with differential including silicosis, sarcoidosis or other atheromatous dis ease. Reviewed, dictated and finalized at location A. IMPRESSION: 1. Chronic subtle peripheral predominant reticulonodular pattern at both lungs which as detailed on CT report dated 10/23/2015 with differential including sili cosis, sarcoidosis or other atheromatous disease.
--- NOTE | ~2020-11-11 | CT_ITS ---
EXAMINATION: CT brain wo con DATE: 11/11/2020 23:15 INDICATION: Altered mental status with headache, confusion and dizziness TECHNIQUE: Computed tomography (CT) of the head was performed without intravenous contrast. Sagittal and coronal reconstructions were performed. The mA was adjusted according to patient size. Iterative reconstruction technique was employed. The dose-length product was 681.00 mGy-cm. COMPARISON: head CT dated 05/01/2020 FINDINGS: Again seen are regions of encephalomalacia along the anterior aspect of the bilateral frontal lobes, likely sequela of chronic infarcts. No acute intracranial hemorrhage, acute infarction or abnormal ex tra axial fluid collection. Ventricles are normal and symmetric. No mass/mass effect. Moderate mucosa l thickening the left maxillary sinus and mild mucosal thickening the bilateral ethmoid sinuses. The orbits and mastoid air cells are normal. IMPRESSION: 1. No acute intracranial process. 2. Regions of encephalomalacia at the anterior aspect of the bilateral frontal lobes likely sequela o f chronic infarcts. Reviewed, dictated and finalized at location A. IMPRESSION: 1. No acute intracranial process. 2. Regions of encephalomalacia at the anterior aspect of the bilateral frontal lobes likely sequela of chronic infarcts.
[2020-11-11 21:40] VITALS: PULSE 88
[2020-11-11 21:46] VITALS: BP 137/87; PULSE 88; RESP 24; TEMP 36.1; O2SAT 93
--- NOTE | 2020-11-11 22:34 | ECG_ITS ---
Measurements Intervals [place] Rate: 86 P: 51 [place]: 184 QRS: -82 QRSD: 176 T: 80 QT: 427 QTc: 511 Interpretive Statements SINUS RHYTHM POSSIBLE LEFT ATRIAL ENLARGEMENT LEFT AXIS DEVIATION RIGHT BUNDLE BRANCH BLOCK ABNORMAL ECG Electronically Signed On 11-12-2020 7:44:24 CDT by Shahid Mcginnis D.O.
[2020-11-11 22:35] VITALS: BP 148/91; PULSE 88; RESP 22; O2SAT 100
--- NOTE | 2020-11-11 22:36 | PC.NURSE ---
Patient awakes to voice, remains in a stupor. VSS, pt now 100% on 2 L NC compared to 88% on RA while sleeping. patient stated he was unable to urinate and was OK with straight cath, urine returned is orange in color, ERP made aware. Continue to await ERP orders
[2020-11-11] MEDS: methylPREDNISolone SOD SUCC 125 MG VIAL IV PUSH (22:56)
[2020-11-11] MEDS: SODIUM CHLORIDE 0.9% IV 500 ML 999 ML IV CONT (22:56)
[2020-11-11 22:59] LABS: Base Excess ABG 1.6 mmol/L (0-2); HCO3 ABG 28.8 mmol/L (23-29); Oxygen Content ABG 16.5 %vol (16.0-22.0); Oxygen Saturation ABG 95.4 % (95-97); Oxyhemoglobin 94.6 % (94-100); PCO2 ABG 57.1 mmHg (35-45); PO2 ABG 88.6 mmHg (80-90); Total Hemoglobin 12.3 g/dL (12.0-18.0); pH ABG 7.32 (7.35-7.45)
[2020-11-11 23:02] LABS: Device NASAL CANNULA; Modified Allen's Test Pass; Site Drawn RIGHT RADIAL
[2020-11-11 23:03] LABS: Hematocrit 37.4 % (40.0-54.0); Hemoglobin 11.4 g/dL (14.0-18.0); Mean Corpuscular HGB Conc 30.5 g/dL (32.0-36.0); Mean Corpuscular Hemoglobin 24.7 pg (27.0-31.0); Mean Platelet Volume 9.4 fl (8.7-11.0); Platelet Count Result 159 K/mm3 (150-420); Red Blood Count 4.62 M/mm3 (4.70-6.10); White Blood Count 3.9 K/mm3 (4.8-10.8)
[2020-11-11 23:06] LABS: Add Urine Microscopic? YES; Appearance Urine Cloudy (Clear); Bilirubin Urine 2+ (Negative); Blood Urine 1+ (Negative); Color Urine Dark Yellow (Yellow); Glucose Urine UA Negative (Negative); Ketones Urine Negative (Negative); Leukocyte Esterase Ur Negative (Negative); Nitrate Urine Positive (Negative); Protein Urine 3+ (Negative); Specific Grav Ur >= 1.030 (1.010-1.020); pH Urine 6.5 (5.0-8.0)
[2020-11-11 23:14] LABS: Bacteria Urine 3+ /hpf
[2020-11-11 23:17] VITALS: BP 168/85; PULSE 88; RESP 22; O2SAT 98
[2020-11-11 23:23] LABS: Lactic Acid Reflex 0.9 mmol/L (0.4-2.0)
[2020-11-11 23:25] LABS: Band Neutrophils Percent 0 % (0-6); Basophils Absolute Manual 0.03 K/mm3 (0-0.1); Basophils Percent Manual 1 % (0-1); Eosinophils Percent Manual 0 % (1-6); Lymphocytes Absolute Manual 0.39 K/mm3 (1.1-4.5); Lymphocytes Percent Manual 10 % (18-44); Monocytes Absolute Manual 0.35 K/mm3 (0.1-0.90); Monocytes Percent Manual 9 % (3-9); Neutrophils Absolute Manual 3.12 K/mm3 (1.3-6.7); Neutrophils Percent Manual 80 % (46-73); Platelet Estimate Adequate (Adequate); Total Cells Counted 100
--- NOTE | 2020-11-11 23:27 | PC.NURSE ---
Report received, pt sleeping, VSS.
[2020-11-11 23:28] LABS: Alanine Aminotransferase 33 U/L (16-63); Albumin Level 2.8 g/dL (3.4-5.0); Alkaline Phosphatase 145 U/L (46-116); Anion Gap 8 mmol/L (8-16); Aspartate Amino Transferase 23 U/L (15-37); Bilirubin,Total 0.9 mg/dL (0.00-1.00); Blood Urea Nitrogen 30 mg/dL (7-18); Calcium 8.6 mg/dL (8.5-10.1); Carbon Dioxide 28 mmol/L (21-32); Chloride 107 mmol/L (98-108); Creatine Kinase 81 U/L (39-308); Estimated Glomerular Filt Rate 46; Glucose 178 mg/dL (70-99); Osmolality Calculated 306 mOsm/kg (285-295); Potassium 4.2 mmol/L (3.5-5.1); Sodium 143 mmol/L (136-145); Total Protein 7.6 g/dL (6.4-8.2); Troponin I 39.5 ng/L (0.00-60.4)
[2020-11-11 23:29] LABS: Amphetamine Screen Urine Positive (Negative); Barbiturate Screen Urine Negative (Negative); Benzodiazepines Screen Urine Negative (Negative); Cannabinoid Screen Urine Negative (Negative); Cocaine Screen Urine Negative (Negative); Methadone Screen Urine Negative (Negative); Opiate Screen Urine Negative (Negative); Phencyclidine Screen Urine Negative (Negative)
[2020-11-11 23:30] LABS: Ethanol < 3 mg/dL (0-6)
[2020-11-11 23:45] VITALS: PULSE 98; RESP 18; O2SAT 97
[2020-11-11] MEDS: IPRATROPIUM 0.5 MG/ALBUTEROL SULFATE 2.5 MG AMPUL.NEB 3 ML INHALATION (23:52)
[2020-11-12] VITALS: PULSE 90; RESP 20; O2SAT 99
--- NOTE | 2020-11-12 00:34 | ED.AMS ---
HPI - Altered Mental Status General Chief Complaint: Altered Mental Status Stated Complaint: AMB Time Seen by Provider: 11/11/20 21:29 Source: patient, EMS and RN notes reviewed Mode of arrival: EMS Limitations: no limitations History of Present Illness HPI narrative: Pt came via ambulance for being very sleepy. Pt denied any acute pain or SOB. Onset (ago): unknown Severity: mild Context: drug abuse Associated symptoms: denies other symptoms Related Data Allergies Allergy/AdvReac Type Severity Reaction Status Date / Time No Known Allergies Allergy Verified 06/20/20 11:58 Review of Systems Review of Systems: All systems reviewed & are unremarkable except as noted in HPI and below Constitutional: Constitutional: Reports as per HPI and Reports no additional constitutional complaints Eyes: Eyes: Reports as per HPI and Reports no additional eye complaints ENT: Reports system reviewed and no additional complaints, except as documented and Reports as per HPI Cardiovascular: Cardiovascular: Reports as per HPI and Reports no additional cardiovascular complaints Respiratory: Respiratory: Reports as per HPI and Reports no additional respiratory complaints Gastrointestinal: Gastrointestinal: Reports as per HPI and Reports no additional gastrointestinal complaints Genitourinary: Genitourinary: Reports no additional male genitourinary complaints and Reports as per HPI Musculoskeletal: Musculoskeletal: Reports no additional musculoskeletal complaints and Reports as per HPI Integumentary/Breasts: Skin/Breast: Reports system reviewed and no additional complaints, except as docu and Reports as per HPI Neurologic: Reports system reviewed and no additional complaints, except as documented and Reports as per HPI Psychiatric: Psychiatric: Reports no additional psychiatric complaints and Reports as per HPI Endocrine: Endocrine: Reports no additional endocrine complaints and Reports as per HPI Hematologic/Lymphatic: Hematologic/Lymphatic: Reports no additional hematologic/lymphatic complaints and Reports as per HPI Allergic/Immunologic: Allergic/Immunologic: Reports no additional allergic/immunologic complaints and Reports as per HPI PMFSH Past Medical History Medical History Cirrhosis of liver COPD (chronic obstructive pulmonary disease) Diabetes type 2, controlled Esophageal varices Hepatitis C Thrombocytopenia Surgical History Surgical History H/O cardiac catheterization H/O hernia repair History of esophagogastroduodenoscopy (EGD) Family History Family History Father Family history of pancreatic cancer Other Diabetes mellitus Hypertension Social History Social History Smoking status: Former smoker Tobacco type: cigarettes Alcohol intake: former Substance use: never Gender identity (if verbalized by the patient): Male Spiritual care concerns: No Exam Const: General: no acute distress and alert (Pt was sleepy but arousable and conversational. He participated in his exa) Nutritional Appearance: obese Orientation/consciousness: patient oriented x3 HENMT: Head: normal to inspection Ears: external ears normal and TM's normal bilaterally General nose exam: Normal external nose present and Normal nares present Mouth: Yes lip normal and Yes moist mucous membranes Teeth and gingiva: dentition normal (no acute abnormality.) Throat: posterior oropharynx normal Eyes: Conjunctivae: conjunctivae normal Pupils: Equal, round and reactive pupils present EOM: EOMs intact bilaterally Neck: Neck: normal visual inspection and no lymphadenopathy Chest: Chest palpation & inspection: normal inspection of the chest Resp: Effort & Inspection: normal respiratory effort Auscultation: clear to
[2020-11-12] MEDS: cefTRIAXone 1 GM VIAL IM (00:59)
[2020-11-12 01:00] VITALS: BP 144/75; PULSE 90; RESP 20; TEMP 36.6; O2SAT 97
[2020-11-13 01:01] LABS: Glucose Point of Care 199 mg/dl (65-105)
== END 2020-11-12 01:20 | disposition home or self-care (01) ==
PROVIDERS: Emergency Provider Emergency Medicine
DX: N39.0 Urinary tract infection, site not specified (principal); J44.9 Chronic obstructive pulmonary disease, unspecified
CPT/HCPCS: 36415; 36600; 70450; 71045; 80053; 80307; 81001; 82550; 82805; 82948; 83605; 84484; 85025; 93005; 94640; 96361; 96372; 96374; 99283; 99284; J0696; J2930; J7040

== ENCOUNTER 2020-11-30 16:33 | Inpatient (IN) | payer OTHER, SELFPAY ==
--- NOTE | ~2020-11-30 | XR_ITS ---
XR foot RT min 3V DATE: 11/30/2020 18:47 INDICATION: Right foot pain. Diabetes mellitus. TECHNIQUE: Portable three-view examination COMPARISON: None FINDINGS: Soft tissue swelling. Plantar calcaneal enthesopathy. No fracture or dislocation, periosteal reaction or bone destruction. IMPRESSION: Soft tissue swelling Plantar calcaneal enthesopathy Reviewed, dictated and finalized at location A.
--- NOTE | ~2020-11-30 | CT_ITS ---
EXAMINATION: CT foot RT wo/w con DATE: 12/02/2020 15:31 INDICATION: Right foot osteomyelitis. TECHNIQUE: Computed tomography (CT) of the right foot and ankle was performed without and with 100 mL Omnipaque 350 intravenous contrast. Automated exposure control and iterative reconstruction techniqu e were employed. The dose-length product was 188.31 mGy-cm. COMPARISON: Right foot MRI 12/01/2020, radiograph 09/30/2020 FINDINGS: Bone alignment is normal. There is an old fracture of anterior process of calcaneus with no nunion. There is mild osteoarthritis of first metatarsophalangeal joint, subtalar joint, ankle joint, and many of the midfoot joints and interphalangeal joints. There are erosions in talus and calcaneus bordering the sinus tarsi. There is an enthesophyte at plantar aspect of the canal tuberosity. There is widespread subcutaneous edema of the foot. IMPRESSION: 1. Erosions in talus and calcaneus bordering the sinus tarsi, consistent with gout versus osteomyelit is. Reviewed, dictated and finalized at location A. IMPRESSION: 1. Erosions in talus and calcaneus bordering the sinus tarsi, consistent with g out versus osteomyelitis.
--- NOTE | ~2020-11-30 | MR_ITS ---
EXAMINATION: MR foot RT wo/w con DATE: 12/01/2020 12:20 INDICATION: Right foot pain with puncture wound TECHNIQUE: Magnetic resonance imaging (MRI) of the right mid and hind foot was performed without and with 20 mL Multihance intravenous contrast. Sequences included axial, sagittal and coronal T1-weighte d FSE and T2-weighted FS FSE, axial T1-weighted FS FSE and postcontrast T1-weighted FS FSE. COMPARISON: None FINDINGS: Some degree of motion artifact on all sequences which overall moderately limits evaluation. There is marrow edema and enhancement at the talus and calcaneus centered about the sinus Tarsi and subtalar j oint. There is geographic loss of T1 fat signal throughout the sustentaculum cesar. There is a small t ibiotalar and subtalar joint effusion. Additional small joint effusion at the talonavicular and calca neocuboid joints. Subarticular cystic change along the proximal articular surface of the cuboid. Serge tional marrow edema and enhancement without definitive loss of T1 fat signal at the base of the third metatarsal. Small amount of fluid extending along the normal-appearing peroneal and posterior tibial tendons consistent with mild tenosynovitis. Evaluation of the stabilizing ligaments is significantly limited by motion however the anterior talofibular ligament does appear attenuated and likely sequel a of chronic partial tear. No abscess. There is prominent subcutaneous edema about the ankle and visu alized mid and hindfoot relatively sparing the plantar aspect of the foot. IMPRESSION: 1. Evaluation moderately limited by significant motion artifact on multiple sequences. 2. Prominent marrow signal changes at the talus and calcaneus centered about the sinus Tarsi and subt alar joint suggestive marrow fat signal loss which is suspicious for osteomyelitis. Given the limitat ions due to motion artifact would consider CT for further assessment for cortical erosion or osteolys is which would improve specificity. 3. Nonspecific tibiotalar, subtalar and to a lesser degree talonavicular and calcaneocuboid joint eff usions. Cannot exclude septic arthritis particularly at the subtalar joint given the associated marro w signal changes. 4. Marrow edema at the base of the fourth metatarsal without definitive T1 signal loss to more specif ically suggest osteomyelitis this could be related to either reactive edema related to osteoarthritis at the tarsometatarsal joint or insufficiency fracture. No definitive fracture line appreciated waterman bob assessment is significantly limited by motion. CT would also be helpful to assess for fracture at this location. 5. Likely osteoarthritis related subarticular cystic change along the proximal articular surface of t he cuboid. 6. Mild tibialis posterior and peroneal tenosynovitis. 7. 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 Reviewed, dictated and finalized at location A. IMPRESSION: 1. Evaluation moderately limited by significant motion artifact on multiple seq uences. 2. Prominent marrow signal changes at the talus and calcaneus centered about th e sinus Tarsi and subtalar joint suggestive marrow fat signal loss which is natalie picious for osteomyelitis. Given the limitations due to motion artifact would c onsider CT for further assessment for cortical erosion or osteolysis which woul d improve specificity. 3. Nonspecific tibiotalar, subtalar and to a lesser degree talonavicular and ca lcaneocuboid joint effusions. Cannot exclude septic arthritis particularly at t he subtalar joint given the associated marrow signal changes. 4. Marrow edema at the base of the fourth metatarsal without definitive T1 sign al loss to more specifically suggest osteomyelitis this could be related to eit her reactive edema r
[2020-11-30 16:39] VITALS: BP 154/77; PULSE 91; RESP 20; TEMP 36.9; O2SAT 100
--- NOTE | 2020-11-30 18:01 | PC.NURSE ---
pt refuses to put on a gown or be hooked to a monitor. states I am just here for you to look at my foot and tell me if it infected. If it is get me antibiotics! pt education on process. verbalizes understanding.
[2020-11-30 18:26] LABS: Basophils Percent Auto 0.7 % (0.2-1.2); Eosinophils Absolute Auto 0.1 K/mm3 (0-0.3); Eosinophils Percent Auto 7.9 % (0-4.4); Hematocrit 31.6 % (42.0-52.0); Hemoglobin 9.4 g/dL (14.0-18.0); Lymphocytes Absolute Auto 0.29 K/mm3 (0.9-3.2); Lymphocytes Percent Auto 19.1 % (18.3-44.2); Mean Corpuscular HGB Conc 29.7 g/dl (32-36); Mean Corpuscular Hemoglobin 24.2 pg (26-34); Mean Corpuscular Volume 81.2 fl (80-100); Mean Platelet Volume 10.1 fl (7.4-10.4); Monocytes Absolute Auto 0.2 K/mm3 (0.1-0.6); Monocytes Percent Auto 12.5 % (2.6-8.5); Neutrophils Absolute Auto 0.9 K/mm3 (1.3-6.7); Neutrophils Percent Auto 59.8 % (45.5-73.1); Platelet Count Result 103 k/mm3 (150-375); Red Blood Count 3.89 M/mm3 (4.6-6.20); Red Cell Distribution Width 16.7 % (11.5-14.5)
--- NOTE | 2020-11-30 18:28 | ED.EXTPRO ---
HPI - Extremity Problem General Chief complaint: Wound/Laceration Stated complaint: swelling in legs/wound infection Time Seen by Provider: 11/30/20 17:58 Source: patient Mode of arrival: ambulatory Limitations: no limitations History of Present Illness HPI Narrative: Patient is a 60-year-old male complaining of right foot wound, states that he noticed drainage yesterday but does not know when the wound started since he claims that he is not able to see the bottom of his foot because I am fat . Patient states that he is diabetic but was unable to fill his Lantus for weeks until today. Denies any chest pain, shortness of breath, abdominal pain, nausea, vomiting, fever or chills. Related Data Allergies Allergy/AdvReac Type Severity Reaction Status Date / Time No Known Allergies Allergy Verified 11/30/20 17:53 Review of Systems Review of Systems: All systems reviewed & are unremarkable except as noted in HPI and below Constitutional: Constitutional: Denies body ache(s), Denies chills, Denies excessive sweating, Denies fatigue, Denies fever(s), Denies headache(s), Denies lethargy, Denies malaise, Denies weakness and Denies weight loss Eyes: Eyes: Denies blurry vision, Denies change in vision and Denies loss of vision ENT: Denies dizziness, Denies ear discharge, Denies headache(s), Denies lip swelling, Denies epistaxis, Denies nasal congestion, Denies neck pain, Denies throat swelling and Denies tongue swelling Cardiovascular: Cardiovascular: Denies chest pain, Denies chest pain at rest, Denies chest pain with activity, Denies diaphoresis, Denies rapid heart rate, Denies edema, Denies irregular heart rhythm, Denies lightheadedness, Denies palpitations, Denies dyspnea and Denies dyspnea on exertion Respiratory: Respiratory: Denies chest congestion, Denies cough, Denies hemoptysis, Denies dyspnea and Denies dyspnea on exertion Gastrointestinal: Gastrointestinal: Denies abdominal pain, Denies melena, Denies hematochezia, Denies diarrhea, Denies nausea, Denies vomiting and Denies hematemesis Musculoskeletal: Musculoskeletal: Denies abnormal gait, Denies deformity, Denies limited range of motion, Denies neck pain and Denies numbness Neurologic: Denies Abnormal speech present, Denies abnormal gait, Denies confusion, Denies dizziness, Denies headache(s), Denies focal weakness, Denies loss of vision, Denies numbness, Denies Other visual disturbances, Denies Sensory deficit (Neuro) and Denies weakness Psychiatric: Psychiatric: Denies confusion, Denies depression, Denies auditory hallucinations, Denies homicidal ideation and Denies suicidal ideation Endocrine: Endocrine: Denies cold intolerance, Denies excessive sweating, Denies fatigue, Denies heat intolerance and Denies palpitations Hematologic/Lymphatic: Hematologic/Lymphatic: Denies easy bleeding and Denies easy bruising Allergic/Immunologic: Allergic/Immunologic: Denies lip swelling, Denies throat swelling and Denies tongue swelling PMFSH Past Medical History Medical History Cirrhosis of liver COPD (chronic obstructive pulmonary disease) Diabetes type 2, controlled Esophageal varices Hepatitis C Thrombocytopenia Surgical History Surgical History H/O cardiac catheterization H/O hernia repair History of esophagogastroduodenoscopy (EGD) Family History Family History Father Family history of pancreatic cancer Other Diabetes mellitus Hypertension Social History Social History Smoking status: Former smoker Tobacco type: cigarettes Alcohol intake: former Substance use: never Gender identity (if verbalized by the patient): Male Spiritual care concerns: No Exam Const: General: cooperative, comfortable, no acute distress, well developed, alert
[2020-11-30 18:33] LABS: White Blood Count 1.5 K/mm3 (4.5-10.0)
[2020-11-30 18:34] LABS: Hypochromasia 1+ (NORMAL); Platelet Estimate Adequate (Adequate)
[2020-11-30 18:35] LABS: Alanine Aminotransferase 24 U/L (4-50); Albumin Level 2.9 g/dL (3.5-5.1); Alkaline Phosphatase 118 U/L (38-126); Anion Gap 4 mmol/L (8-16); Aspartate Amino Transferase 31 U/L (17-59); Bilirubin,Total 0.5 mg/dL (0.2-1.3); Blood Urea Nitrogen 19 mg/dL (9-20); Calcium 7.8 mg/dL (8.4-10.2); Carbon Dioxide 26 mmol/L (22-30); Chloride 106 mmol/L (98-107); Estimated CRCL calculation 115 ml/min; Estimated Glomerular Filt Rate > 60; Glucose 166 mg/dL (65-110); Potassium 3.7 mmol/L (3.4-5.0); Sodium 136 mmol/L (137-145)
--- NOTE | 2020-11-30 19:45 | PC.NURSE ---
this rn went into room to introduce self to pt. pt immediately states i have a list of concerns and needs. he then states dari been here 4 fucking hours without a pillow and i need to be raised up in bed. this rn states sorry, sir, i just got here 10 minutes ago but i will gladly get you a pillow. this rn raised him up in bed and left room to find pillow at this time.
--- NOTE | 2020-11-30 20:00 | PC.NURSE ---
pt given pillow at this time. pt refused to dress into gown or vitals.
--- NOTE | 2020-11-30 20:17 | PM.IMHP ---
H&P: HPI History of Present Illness Date/Time: 11/30/20 20:17 this is a 60-year-old male homeless diabetic patient who presented to the emergency room today with complaints of right foot pain. The patient stated that he has right foot pain and had some drainage coming from his foot today. Patient also stated that he has some neuropathy and typically cannot feel his foot but today he felt pain on that foot. The patient did not notice any blister on the right foot although it looks like there may have been a blister there. The patient has pancytopenia and there is no redness noted to his right foot. I did speak to my collaborative concerning the wound and even though it is not very convincing for an infection it looks like there may be a puncture wound there and it was felt that it was best to admit the patient overnight as he has leukopenia. It is felt that the patient could not be discharged to home on oral medication as he is homeless and tells me that he probably would not follow-up with a physician. The patient is also diabetic and he stated that he has not been able to fill his Lantus until today. The patient has a malodorous scent coming from his body however it is difficult to determine if his his body habitus or foot. His white count is 1.5. The patient does have a history of pancytopenia felt that this is due to his past history of alcoholism. His H&H is 9.4 and 31.6. Platelet count 103. His blood sugar was noted to be 166. The patient stated that he feels achy and fatigued. Patient was recently here and treated for urinary tract infection and was sent home on a 10 day course of Bactrim. The patient finished at Bactrim approximately 9 days ago. The patient was given Zosyn in the emergency room. As per antibiotic stewardship the patient was placed on Primaxin and vancomycin. The foot x-ray was read as soft tissue swelling. Plantar calcaneal enthesopathy. The patient is being admitted to inpatient services on the date of service of 11/30/2020. Chief Complaint: right foot pain Review of Systems Review of Systems: All systems reviewed & are unremarkable except as noted in HPI and below Constitutional: Constitutional: Reports as per HPI and Reports no additional constitutional complaints Eyes: Eyes: Reports as per HPI and Reports no additional eye complaints ENT: Reports system reviewed and no additional complaints, except as documented and Reports Normal hearing present Cardiovascular: Cardiovascular: Reports no additional cardiovascular complaints Respiratory: Respiratory: Reports no additional respiratory complaints and Reports no additional respiratory complaints Gastrointestinal: Gastrointestinal: Reports as per HPI and Reports no additional gastrointestinal complaints Musculoskeletal: Musculoskeletal: Reports no additional musculoskeletal complaints Integumentary/Breasts: Skin/Breast: Reports system reviewed and no additional complaints, except as docu and Reports as per HPI Neurologic: Reports system reviewed and no additional complaints, except as documented, Reports as per HPI and Reports Normal hearing present Psychiatric: Psychiatric: Reports no additional psychiatric complaints and Reports as per HPI Endocrine: Endocrine: Reports no additional endocrine complaints Hematologic/Lymphatic: Hematologic/Lymphatic: Reports no additional hematologic/lymphatic complaints Allergic/Immunologic: Allergic/Immunologic: Reports no additional allergic/immunologic complaints [facility] Past Medical History Medical History (Updated 11/30/20 @ 20:47 by Lashawn Pope NP) Cirrhosis of liver COPD (chronic obstructive pulmonary disease) Diabetes type 2, controlled Esophageal varices Hepatitis C Pancytopenia Thrombocytopenia Surgical History Surgical History H/O cardiac catheterization H/O hernia repair History of esophagogastroduodenoscopy (EGD) Family History Fami
--- NOTE | 2020-11-30 20:45 | PC.NURSE ---
this rn went into pt room to start IV and start antibiotic. when this RN asked pt to lay on his back to i could place IV he states fuck you. this RN then said excuse me? pt then states again fuck you even louder. I then tell pt that thats inappropriate and uncalled for. pt then states what? I said francisco caballero. this RN again asked pt to lay on his back to place IV. he states fucking finally. youd think you would have done that when i first got here. this rn again informed pt that i gopt here at [address] and was[address] to place IV. This RN placed IV in pt's right AC. pt yelled OW and stated that hurt, you did that on fucking purpose, you're out to get me, take that shit out! 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 this RN took IV out per pt request, left the room. charge nurse was told of situation and went into pt room to talk to pt.
[2020-11-30 21:40] VITALS: BP 143/84; PULSE 91; RESP 18; TEMP 36.4; O2SAT 99; BMI 35.8
[2020-11-30 21:41] VITALS: BMI 36.0
--- NOTE | 2020-11-30 21:55 | ADMGEN ---
This patient, Maxim Babb, was admitted to [facility] Surg Room 301-01. Patient/family oriented to hospital policies and general routines including ID bracelet, bed and alarms, visiting hours, pain management, procedures, bathroom and other care routines, personal items, smoking policy, room service/diet, and visiting hours. Information on how to activate the Rapid Response Team has been discussed. Patient/Family are encouraged to report perceived risks to care and to ask questions if they do not understand what they are told or what they should do.
[2020-11-30 22:00] VITALS: O2SAT 96
[2020-12-01] MEDS: LACTATED RINGERS 1,000 ML 125 ML IV CONT ×3 (00:05→20:28)
--- NOTE | 2020-12-01 05:34 | PC.NURSE ---
Pt. has been noncompliant and refusing care. Pt. gets upset when anyone walks in the room.
[2020-12-01 05:46] VITALS: BP 148/77; PULSE 76; RESP 18; TEMP 36.7; O2SAT 100
[2020-12-01 06:42] LABS: Basophils Percent Auto 0.5 % (0.2-1.2); Eosinophils Absolute Auto 0.1 K/mm3 (0-0.3); Eosinophils Percent Auto 6.9 % (0-4.4); Hematocrit 34.3 % (42.0-52.0); Hemoglobin 10.2 g/dL (14.0-18.0); Immature Granulocyte Absolute 0.01 K/mm3 (0.00-0.031); Immature Granulocyte Percent A 0.5 % (0-0.5); Lymphocytes Percent Auto 15.9 % (18.3-44.2); Mean Corpuscular HGB Conc 29.7 g/dl (32-36); Mean Corpuscular Hemoglobin 24.2 pg (26-34); Mean Corpuscular Volume 81.3 fl (80-100); Mean Platelet Volume 10.4 fl (7.4-10.4); Monocytes Absolute Auto 0.3 K/mm3 (0.1-0.6); Monocytes Percent Auto 13.2 % (2.6-8.5); Neutrophils Absolute Auto 1.2 K/mm3 (1.3-6.7); Platelet Count Result 110 k/mm3 (150-375); Red Blood Count 4.22 M/mm3 (4.6-6.20); Red Cell Distribution Width 16.8 % (11.5-14.5)
[2020-12-01 07:02] LABS: Lactic Acid Reflex 0.9 mmol/L (0.7-2.1)
[2020-12-01 07:07] LABS: Alanine Aminotransferase 27 U/L (4-50); Albumin Level 2.9 g/dL (3.5-5.1); Alkaline Phosphatase 128 U/L (38-126); Anion Gap 3 mmol/L (8-16); Aspartate Amino Transferase 38 U/L (17-59); Bilirubin,Total 0.6 mg/dL (0.2-1.3); Blood Urea Nitrogen 14 mg/dL (9-20); Calcium 7.7 mg/dL (8.4-10.2); Carbon Dioxide 28 mmol/L (22-30); Chloride 106 mmol/L (98-107); Estimated CRCL calculation 130 ml/min; Estimated Glomerular Filt Rate > 60; Glucose 174 mg/dL (65-110); Lactate Dehydrogenase 497 U/L (313-618); Magnesium 1.8 mg/dL (1.6-2.3); Potassium 4.1 mmol/L (3.4-5.0); Sodium 137 mmol/L (137-145)
[2020-12-01 07:30] LABS: White Blood Count 1.9 K/mm3 (4.5-10.0)
[2020-12-01 07:31] LABS: Ovalocytes 1+ (NORMAL)
[2020-12-01 07:52] LABS: Glucose Point of Care 140 mg/dl (65-105)
[2020-12-01 12:36] LABS: Glucose Point of Care 156 mg/dl (65-105)
--- NOTE | 2020-12-01 13:18 | PM.IMPN ---
Progress Note: A&P Assessment and Plan (1) Diabetic infection of right foot: Code(s): E11.628 - Type 2 diabetes mellitus with other skin complications; L08.9 - Local infection of the skin and subcutaneous tissue, unspecified Status: Acute Assessment and Plan: lymphedema to BLE plus leukopenia /pancytopenia Lactate normal, LDH normal, No financial means to treat his infection or get follow-up visits physicians to ensure healing. patient is homeless and has already stated that he cannot get the appropriate treatment. The patient stated that he felt some drainage from his foot. None noted at this time - unable to get a wound culture. Patient on Primaxin and vancomycin IV wound nurse consulted Skin care instructions placed for lotion to BLE and bacitracin to cracks on bottom of right foot. Blood and urine cultures pending. RIGHT FOOT MRI: Small amount of fluid extending along the normal-appearing peroneal and posterior tibial tendons consistent with mild tenosynovitis. Evaluation of the stabilizing ligaments is significantly limited by motion however the anterior talofibular ligament does appear attenuated and likely sequela of chronic partial tear. There is prominent subcutaneous edema about the ankle and visualized mid and hindfoot relatively sparing the plantar aspect of the foot. IMPRESSION: 1. Evaluation moderately limited by significant motion artifact on multiple sequences. 2. Prominent marrow signal changes at the talus and calcaneus centered about the sinus Tarsi and subtalar joint suggestive marrow fat signal loss which is suspicious for osteomyelitis. Given the limitations due to motion artifact would consider CT for further assessment for cortical erosion or osteolysis which would improve specificity. 3. Nonspecific tibiotalar, subtalar and to a lesser degree talonavicular and calcaneocuboid joint effusions. Cannot exclude septic arthritis particularly at the subtalar joint given the associated marrow signal changes. 4. Marrow edema at the base of the fourth metatarsal without definitive T1 signal loss to more specifically suggest osteomyelitis this could be related to either reactive edema related to osteoarthritis at the tarsometatarsal joint or insufficiency fracture. No definitive fracture line appreciated however assessment is significantly limited by motion. CT would also be helpful to assess for fracture at this location. 5. Likely osteoarthritis related subarticular cystic change along the proximal articular surface of the cuboid. 6. Mild tibialis posterior and peroneal tenosynovitis. 7. 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 Ordered CT w/wo right foot (2) Pancytopenia: Code(s): D61.818 - Other pancytopenia Status: Chronic Assessment and Plan: This appears to be chronic. Improved from 1.5-1.9 today Patient's leukocytes are lower than typical. Most likely related to his history of alcoholism. Discuss with patient if he wants a hematology/oncology consultation if not improving to normal. Did have a recent UTI and was receiving Bactrim (3) Cirrhosis of liver: Code(s): K74.60 - Unspecified cirrhosis of liver Status: Acute Assessment and Plan: History of alcoholism. and positive amphetamines. Head CT:1.No acute intracranial process.2.Regions of encephalomalacia at the anterior aspect of the bilateral frontal lobes likely sequela of chronic infarcts. No sign of DTs at this time, no tachycardia, no anxiety LFTs normal (4) COPD (chronic obstructive pulmonary disease): Qualifiers: COPD type: unspecified COPD Qualified Code(s): J44.9 - Chronic obstructive pulmonary disease, unspecified Code(s): J44.9 - Chronic obstructive pulmonary disease, unspecified Status: Chronic Assessment and Plan: Continue with patient's inhalers. Stable respiratory status at this time on room with no shortness of breath or dyspnea CXR showed:1. Chr
[2020-12-01 14:00] VITALS: BP 163/94; PULSE 74; RESP 16; TEMP 35.8; O2SAT 100
[2020-12-01 16:28] VITALS: O2SAT 93
[2020-12-01] MEDS: ALBUTEROL SULFATE (*SP) INHALER 2 PUFF INHALATION (16:37)
[2020-12-01 16:42] LABS: Glucose Point of Care 162 mg/dl (65-105)
[2020-12-01] MEDS: BACITRACIN/POLYMYXIN B OINT 15 GM TUBE 1 APPLIC TOPICAL (16:43)
[2020-12-01] MEDS: BUMETANIDE 1 MG TABLET 2 MG PO (16:43)
[2020-12-01] MEDS: INSULIN GLARGINE (*BKC) 100 UNITS/ML 10 UNITS SUB-Q (20:34)
[2020-12-01 21:07] LABS: Add Urine Microscopic? YES; Appearance Urine Clear (Clear); Bilirubin Urine Negative (Negative); Blood Urine 1+ (Negative); Color Urine Colorless (Yellow); Glucose Urine UA 1+ mg/dL (Negative); Ketones Urine Negative (Negative); Leukocyte Esterase Ur Negative LEU/UL (NEGATIVE); Mucus Urine Rare /lpf; Nitrate Urine Negative (Negative); Protein Urine 1+ mg/dL (Negative); Urobilinogen Urine Negative mg/dL (<2.0); WBC Urine 0-3 /hpf (0-3)
[2020-12-01 21:09] LABS: Specific Grav Ur 1.004 (1.001-1.035)
[2020-12-01 21:47] VITALS: BP 161/93; PULSE 89; RESP 18; TEMP 36.4; O2SAT 100
[2020-12-01 22:00] LABS: Glucose Point of Care 207 mg/dl (65-105)
[2020-12-02 05:58] VITALS: BP 114/57; PULSE 84; RESP 18; TEMP 36.7; O2SAT 96
[2020-12-02] MEDS: THIAMINE HCL 100 MG TABLET PO (08:01)
[2020-12-02] MEDS: BUMETANIDE 1 MG TABLET 2 MG PO ×2 (08:01→16:28)
[2020-12-02] MEDS: THERAPEUTIC MULTIVITAMINS/MINERALS TAB (*BKC) 1 TABLET PO (08:01)
[2020-12-02 08:02] VITALS: PULSE 100
[2020-12-02] MEDS: METOPROLOL SUCCINATE EXT REL 50 MG TABCR PO (08:02)
[2020-12-02] MEDS: FOLIC ACID 1 MG TABLET PO (08:03)
[2020-12-02] MEDS: BACITRACIN/POLYMYXIN B OINT 15 GM TUBE 1 APPLIC TOPICAL (08:03)
[2020-12-02 08:18] LABS: Glucose Point of Care 174 mg/dl (65-105)
[2020-12-02 09:12] LABS: Hematocrit 36.3 % (42.0-52.0); Hemoglobin 11.1 g/dL (14.0-18.0); Mean Corpuscular HGB Conc 30.6 g/dl (32-36); Mean Corpuscular Hemoglobin 24.6 pg (26-34); Mean Corpuscular Volume 80.3 fl (80-100); Mean Platelet Volume 10.2 fl (7.4-10.4); Platelet Count Result 118 k/mm3 (150-375); Red Blood Count 4.52 M/mm3 (4.6-6.20); Red Cell Distribution Width 16.5 % (11.5-14.5); White Blood Count 2.2 K/mm3 (4.5-10.0)
[2020-12-02 09:30] LABS: Anion Gap 4 mmol/L (8-16); Blood Urea Nitrogen 12 mg/dL (9-20); Calcium 8.3 mg/dL (8.4-10.2); Carbon Dioxide 32 mmol/L (22-30); Chloride 99 mmol/L (98-107); Estimated CRCL calculation 149 ml/min; Estimated Glomerular Filt Rate > 60; Glucose 222 mg/dL (65-110); Potassium 3.9 mmol/L (3.4-5.0); Sodium 135 mmol/L (137-145)
[2020-12-02 09:41] LABS: Vancomycin Trough 12.6 ug/mL (10.0-20.0)
--- NOTE | 2020-12-02 11:17 | PM.IMPN ---
Progress Note: A&P Assessment and Plan (1) Diabetic infection of right foot: Code(s): E11.628 - Type 2 diabetes mellitus with other skin complications; L08.9 - Local infection of the skin and subcutaneous tissue, unspecified Status: Acute Assessment and Plan: Patient is a 60-year-old man who is homeless with a history of diabetes, liver cirrhosis, COPD, pancytopenia, who presents to the emergency room with complaints of right foot pain, drainage from a wound on the bottom of his foot. Patient was recently here on 11/12/2020 and diagnosed with a urinary tract infection and sent with 10 days of Bactrim which the patient states he took in full and finished 9 days ago. Foot XR showed Soft tissue swelling. Plantar calcaneal enthesopathy. Concerned with the patient's foot symptoms, open wounds, leukopenia and was admitted for IV antibiotics. MRI foot was completed which showed moderate limitation due to motion artifact. It did show prominent marrow signal changes at the talus and calcaneus centered about the sinus Tarsi and subtalar joint suggestive marrow fat signal loss which is suspicious for osteomyelitis. Recommended CT for further evaluation. Nonspecific tibiotalar, subtalar and to a lesser degree talonavicular and calcaneocuboid joint effusions. Cannot exclude septic arthritis particularly at the subtalar joint given the associated marrow signal changes. Marrow edema at the base of the fourth metatarsal without definitive T1 signal loss to more specifically suggest osteomyelitis this could be related to either reactive edema related to osteoarthritis at the tarsometatarsal joint or insufficiency fracture. No definitive fracture line appreciated however assessment is significantly limited by motion. CT would also be helpful to assess for fracture at this location. Patient states his foot is feeling better with broad-spectrum IV antibiotics since arrival. Leukopenia is improving with a white count 2200 today. Surgery was consulted and I have discussed with her nurse practitioner plans for CT scan of the patient's foot at this time. Will talk to her about what the CT scan shows to see if this patient would be better evaluated by an orthopedic surgeon instead of surgery. Continue monitoring. (2) Pancytopenia: Code(s): D61.818 - Other pancytopenia Status: Chronic Assessment and Plan: This appears to be chronic in nature and possibly due to his history of alcoholism. Pancytopenia improved to: WBC 2200, H&H 11/36%, Plt 118,000 today. Continue IV antibiotics. He will need follow-up with a concession worker as an outpatient. Continue monitoring. (3) Cirrhosis of liver: Code(s): K74.60 - Unspecified cirrhosis of liver Status: Acute Assessment and Plan: History of alcoholism. and positive amphetamines. No sign of DTs at this time, no tachycardia, no anxiety LFTs normal. No need for further monitoring at this time. (4) COPD (chronic obstructive pulmonary disease): Qualifiers: COPD type: unspecified COPD Qualified Code(s): J44.9 - Chronic obstructive pulmonary disease, unspecified Code(s): J44.9 - Chronic obstructive pulmonary disease, unspecified Status: Chronic Assessment and Plan: Continue with patient's inhalers. Stable respiratory status at this time on room with no shortness of breath or dyspnea Continue monitoring. (5) Diabetes type 2, controlled: Code(s): E11.9 - Type 2 diabetes mellitus without complications Status: Chronic Assessment and Plan: Patient's hemoglobin A1c is 8%. Continue patient's Lantus 10 units at night. Continue monitoring glucose ACHS. Sliding scale insulin. Hypoglycemic protocol in place.
[2020-12-02 11:59] LABS: Glucose Point of Care 266 mg/dl (65-105)
[2020-12-02] MEDS: INSULIN ASPART (*BKC) 100 UNITS/ML SUB-Q (11:59)
[2020-12-02 14:00] VITALS: BP 139/86; PULSE 86; RESP 14; TEMP 37.4; O2SAT 98
[2020-12-02 16:49] LABS: Glucose Point of Care 118 mg/dl (65-105)
[2020-12-02] MEDS: INSULIN GLARGINE (*BKC) 100 UNITS/ML 10 UNITS SUB-Q (20:50)
[2020-12-02 21:27] VITALS: BP 118/71; PULSE 85; RESP 18; TEMP 36.7; O2SAT 97
[2020-12-02 22:59] LABS: Glucose Point of Care 195 mg/dl (65-105)
[2020-12-03 05:30] VITALS: BP 118/72; PULSE 72; RESP 18; TEMP 37.1; O2SAT 95
[2020-12-03 08:23] VITALS: PULSE 64
[2020-12-03] MEDS: THERAPEUTIC MULTIVITAMINS/MINERALS TAB (*BKC) 1 TABLET PO (08:23)
[2020-12-03] MEDS: THIAMINE HCL 100 MG TABLET PO (08:23)
[2020-12-03] MEDS: BUMETANIDE 1 MG TABLET 2 MG PO (08:23)
[2020-12-03] MEDS: FOLIC ACID 1 MG TABLET PO (08:23)
[2020-12-03] MEDS: METOPROLOL SUCCINATE EXT REL 50 MG TABCR PO (08:23)
[2020-12-03] MEDS: BACITRACIN/POLYMYXIN B OINT 15 GM TUBE 1 APPLIC TOPICAL (08:23)
[2020-12-03] MEDS: ENOXAPARIN 40 MG/0.4 ML SYRINGE SUB-Q (08:23)
[2020-12-03 08:35] LABS: Glucose Point of Care 163 mg/dl (65-105)
[2020-12-03 08:59] LABS: Basophils Percent Auto 0.9 % (0.2-1.2); Eosinophils Absolute Auto 0.2 K/mm3 (0-0.3); Eosinophils Percent Auto 6.6 % (0-4.4); Hemoglobin 12.7 g/dL (14.0-18.0); Immature Granulocyte Absolute 0.01 K/mm3 (0.00-0.031); Immature Granulocyte Percent A 0.3 % (0-0.5); Lymphocytes Absolute Auto 0.66 K/mm3 (0.9-3.2); Lymphocytes Percent Auto 18.9 % (18.3-44.2); Mean Corpuscular HGB Conc 30.2 g/dl (32-36); Mean Corpuscular Hemoglobin 24.4 pg (26-34); Mean Corpuscular Volume 80.6 fl (80-100); Mean Platelet Volume 10.1 fl (7.4-10.4); Monocytes Absolute Auto 0.4 K/mm3 (0.1-0.6); Monocytes Percent Auto 11.4 % (2.6-8.5); Neutrophils Absolute Auto 2.2 K/mm3 (1.3-6.7); Neutrophils Percent Auto 61.9 % (45.5-73.1); Platelet Count Result 184 k/mm3 (150-375); Red Blood Count 5.21 M/mm3 (4.6-6.20); Red Cell Distribution Width 16.5 % (11.5-14.5); White Blood Count 3.5 K/mm3 (4.5-10.0)
[2020-12-03 09:08] LABS: Anion Gap 4 mmol/L (8-16); Blood Urea Nitrogen 15 mg/dL (9-20); Calcium 8.5 mg/dL (8.4-10.2); Carbon Dioxide 34 mmol/L (22-30); Chloride 96 mmol/L (98-107); Estimated CRCL calculation 115 ml/min; Estimated Glomerular Filt Rate > 60; Glucose 167 mg/dL (65-110); Potassium 3.7 mmol/L (3.4-5.0); Sodium 134 mmol/L (137-145)
[2020-12-03 10:26] LABS: Uric Acid 7.4 mg/dL (3.5-8.5)
[2020-12-03 11:04] LABS: Vancomycin Trough 20.7 ug/mL (10.0-20.0)
[2020-12-03 12:34] LABS: Glucose Point of Care 251 mg/dl (65-105)
[2020-12-03] MEDS: INSULIN ASPART (*BKC) 100 UNITS/ML SUB-Q (12:34)
[2020-12-03 14:00] VITALS: BP 136/88; PULSE 69; RESP 24; TEMP 36.4; O2SAT 96
--- NOTE | 2020-12-03 14:06 | PM.CNGS ---
Assessment and Plan Assessment and plan (1) Wound of foot: Code(s): S91.309A - Unspecified open wound, unspecified foot, initial encounter Status: Acute Assessment and Plan: Right foot without any signs of cellulitis or open infected wounds. There is a small crack in the midfoot that is superficial, stable, dry, and does not have any signs of infection. No indications for surgery or debridement. Reviewed imaging. Would recommend treating for gout, and Orthopedic referral. Thank you for the consultation. (2) Lymphedema: Code(s): I89.0 - Lymphedema, not elsewhere classified Status: Acute Assessment and Plan: Lymphedema could be managed by outpatient wound clinic at [facility]. Wound care at [facility] does not manage lymphedema. Would recommend compression and follow-up with PCP for further referral. (3) Type 2 diabetes mellitus: Code(s): E11.9 - Type 2 diabetes mellitus without complications Status: Acute (4) Pancytopenia: Code(s): D61.818 - Other pancytopenia Status: Chronic (5) Cirrhosis of liver: Code(s): K74.60 - Unspecified cirrhosis of liver Status: Acute (6) COPD (chronic obstructive pulmonary disease): Qualifiers: COPD type: unspecified COPD Qualified Code(s): J44.9 - Chronic obstructive pulmonary disease, unspecified Code(s): J44.9 - Chronic obstructive pulmonary disease, unspecified Status: Chronic Additional Plan I have discussed the patient's case and plan of care with Dr. Garcia. History of Present Illness Consult details Consult date: 12/03/20 Reason for consult: wound care (Right foot wound) Requesting physician: Razia Yancey PA-C Narrative: This is a 60-year-old homeless uncontrolled diabetic patient who presented to the emergency room with complaints of right foot pain. Denies any recent trauma or known previous wounds. He does not recall stepping on anything or noticing wounds previously. He reports living out of his truck. Due to the right foot pain, he came to the ER for evaluation. Labs in the ER showed leukopenia and anemia. He does have a past history of alcoholism. He was admitted primarily for the leukopenia and further evaluation of the right foot. Foot x-ray showed soft tissue swelling and plantar calcaneal enthesopathy. Our service has been consulted for the right foot wound. Wound care nurses were consulted and saw the patient. Right foot MRI was limited due to significant motion artifact and CT was recommended. Therefore, CT was done yesterday and suggested erosions in talus and calcaneus bordering the sinus tarsi. WBC count has come up to 3.5. He was started on IV antibiotics for potential infected right foot wound. Our service was consulted for surgical evaluation of the right foot wound. He is now seen on the medical floor. He reports pain and only has pain on palpation of the plantar aspect of the forefoot. He has no other complaints. Review of Systems Review of Systems: All systems reviewed & are unremarkable except as noted in HPI and below PMFSH Past Medical History Medical History Cirrhosis of liver COPD (chronic obstructive pulmonary disease) Diabetes type 2, controlled Esophageal varices Hepatitis C Pancytopenia Thrombocytopenia Surgical History Surgical History H/O cardiac catheterization H/O hernia repair History of esophagogastroduodenoscopy (EGD) Family History Family History Father Family history of pancreatic cancer Other Diabetes mellitus Hypertension Social History Social History Social History: The patient is homeless and states that he lives in his truck. The patient stated he has raised 7 children. The patient is a recovering alcoholic Smoking pa
--- NOTE | 2020-12-03 15:22 | PM.DS ---
DS: Admitting Diagnosis Admitting Diagnosis Foot wound DS: Discharge Diagnosis Discharge Diagnosis (1) Diabetic infection of right foot: Code(s): E11.628 - Type 2 diabetes mellitus with other skin complications; L08.9 - Local infection of the skin and subcutaneous tissue, unspecified Status: Acute Assessment and Plan: Patient is a 60-year-old man who is homeless with a history of diabetes, liver cirrhosis, COPD, pancytopenia, who presents to the emergency room with complaints of right foot pain, drainage from a wound on the bottom of his foot. Patient was recently here on 11/12/2020 and diagnosed with a urinary tract infection and sent with 10 days of Bactrim which the patient states he took in full and finished 9 days ago. Foot XR showed Soft tissue swelling. Plantar calcaneal enthesopathy. Concerned with the patient's foot symptoms, open wounds, leukopenia and was admitted for IV antibiotics. MRI foot was completed which showed moderate limitation due to motion artifact. It did show prominent marrow signal changes at the talus and calcaneus centered about the sinus Tarsi and subtalar joint suggestive marrow fat signal loss which is suspicious for osteomyelitis. Recommended CT for further evaluation. Nonspecific tibiotalar, subtalar and to a lesser degree talonavicular and calcaneocuboid joint effusions. Cannot exclude septic arthritis particularly at the subtalar joint given the associated marrow signal changes. Marrow edema at the base of the fourth metatarsal without definitive T1 signal loss to more specifically suggest osteomyelitis this could be related to either reactive edema related to osteoarthritis at the tarsometatarsal joint or insufficiency fracture. No definitive fracture line appreciated however assessment is significantly limited by motion. CT scan of foot showed Erosions in talus and calcaneus bordering the sinus tarsi, consistent with gout versus osteomyelitis. Discussed with Surgery who was consulted and they feel after reviewing imaging and discussing with the patient that this appears to be Gout. Recommend treatment for gout and further evaluation with orthopedic provider at discharge. At this time, the patient has been able to get around without much pain or discomfort. No signs of infection during my examination, warmth or erythema. IV Abx will be stopped at this time. Given information for Ortho suggestion clerk to follow up with. The patient did have some tenderness with palpation of his 1st metatarsaophalangeal joint which is not where the possible Osteomyelitis was stated on MRI/CT. He has no tenderness to palpation of heel, ankle at this time. Started on Allopurinol and Prednisone taper for acute gout flare. Discussed refraining from alcohol and staying hydrated which could cause more gout flares. Follow-up with primary care provider within 1 week. Return to ER warnings given. Patient understands and agrees the plan all questions answered. during my encounter with the patient he told me that prior to coming in he has been living in his truck and is homeless for last 9 months. He states he had an encounter with the police and decided to come to the emergency room. He said he tried telling them anything so I could be admitted and get off my feet for few days. He has been walking to the bathroom multiple times today without any issues. Denies any worsening pain at this time. (2) Pancytopenia: Code(s): D61.818 - Other pancytopenia Status: Chronic Assessment and Plan: This appears to be chronic in nature and possibly due to his history of alcoholism. Pancytopenia improved to: WBC 3400, H&H 12/42%, Plt 184,000 today. (3) Cirrhosis of liver: Code(s): K74.60 - Unspecified cirrhosis of liver Status: Acute Assessment and Plan: History of alcoholism. and positive amphetamines. Recomm
== END 2020-12-03 15:33 | disposition home or self-care (01) | DRG 420 ==
LOC: ANHED 19:42 → ANH3MED 20:12 → ANH3MEDSUR 20:13
PROVIDERS: Nurse Practitioner; Admitting Provider Internal Medicine Nephrology; Emergency Provider Emergency Medicine; Visit Provider Physician Assistant
DX: E11.628 Type 2 diabetes mellitus with other skin complications (principal); L08.9 Local infection of the skin and subcutaneous tissue, unspecified; S91.301A Unspecified open wound, right foot, initial encounter; I89.0 Lymphedema, not elsewhere classified; M10.9 Gout, unspecified; D61.818 Other pancytopenia; J44.9 Chronic obstructive pulmonary disease, unspecified; K74.60 Unspecified cirrhosis of liver; F10.21 Alcohol dependence, in remission; E66.9 Obesity, unspecified; R31.29 Other microscopic hematuria; Z59.0 Homelessness; Z79.4 Long term (current) use of insulin; Z79.899 Other long term (current) drug therapy; Z87.891 Personal history of nicotine dependence
CPT/HCPCS: 36415; 73630; 73702; 73720; 80048; 80053; 80202; 81001; 82948; 83036; 83605; 83615; 83735; 84443; 84550; 85025; 85027; 85060; 87086; 94640; 96361; 96365; 96366; 96367; 99285; A9270; A9577; G0378; G0379; J0743; J1650; J1815; J2543; J3370; J7120; Q9967

== ENCOUNTER 2020-12-10 23:07 | Emergency (ER) | payer OTHER, SELFPAY ==
--- NOTE | ~2020-12-10 | XR_ITS ---
EXAMINATION: XR chest 1V portable DATE: 12/11/2020 01:28 INDICATION: Pulmonary edema. TECHNIQUE: A single frontal view of the chest was obtained. COMPARISON: Chest single view 11/11/2020, chest CT 05/02/2020, 11/02/18 FINDINGS: There are innumerable chronic nodules throughout the lungs bilaterally with a peripheral an d upper lung predominance. There is chronic nodular pleural thickening on the left. There is a superi mposed acute interstitial pattern in the lungs. No pleural effusion or pneumothorax. The heart size i s normal. IMPRESSION: 1. Acute interstitial pattern in the lungs which may be mild pulmonary edema. 2. Chronic nodules in the lungs with a peripheral and upper lung predominance and chronic left-sided nodular pleural thickening. The differential diagnosis includes silicosis/pneumoconiosis and sarcoid. Reviewed, dictated and finalized at location A. IMPRESSION: 1. Acute interstitial pattern in the lungs which may be mild pulmonary edema. 2. Chronic nodules in the lungs with a peripheral and upper lung predominance a nd chronic left-sided nodular pleural thickening. The differential diagnosis in cludes silicosis/pneumoconiosis and sarcoid.
[2020-12-10 23:09] VITALS: BP 154/86; PULSE 83; RESP 16; TEMP 36.5; O2SAT 96
--- NOTE | 2020-12-10 23:20 | PC.NURSE ---
pt repeatedly asking for food. pt informed that he may not eat or drink until he is seen by a provider. pt states My blood sugar is low, i need to eat. slate splitter offered to check his blood sugar and patient stated They already took it, it 144 thats low i need food
[2020-12-11 00:34] VITALS: BP 145/91; PULSE 95; RESP 18; O2SAT 99
--- NOTE | 2020-12-11 00:35 | PC.NURSE ---
Pt states he was in this hospital a few days ago and released. Diag w/ fluid on the legs and concern for bone infection. Pt falling asleep during assessment, snoring, equal chest rise and fall. VSS.
--- NOTE | 2020-12-11 01:05 | ECG_ITS ---
Measurements Intervals [place] Rate: 102 P: 41 IA: 187 QRS: -83 QRSD: 161 T: 85 QT: 392 QTc: 512 Interpretive Statements SINUS TACHYCARDIA ATRIAL PREMATURE COMPLEXES RIGHT BUNDLE BRANCH BLOCK LEFT ANTERIOR FASCICULAR BLOCK ANTEROSEPTAL INFARCT, AGE INDETERMINATE ABNORMAL ECG Electronically Signed On 12-11-2020 6:31:41 CDT by Shahid Mcginnis D.O.
--- NOTE | 2020-12-11 01:15 | ED.GENADULT ---
HPI - General Adult General Chief complaint: Unspecified Stated complaint: walking x 3 days, sob, tired, so Time Seen by Provider: 12/11/20 00:56 Source: patient History of Present Illness HPI narrative: Patient presents with fatigue shortness of breath and foot pain. Patient was recently admitted and discharged few days ago for COPD exacerbation. He reports he is homeless and has been walking around feels tired and has increasing shortness of breath. Reports his bilateral legs hurt starting from his feet. Pain is achy, constant, worse with walking around. He denies fever, cough, chest pain Related Data Home Medications Medication Instructions Recorded Confirmed Lantus Solostar U-100 Insulin 54 unit SUBCUT HS 12/01/20 12/01/20 bumetanide 2 mg PO BID 12/01/20 12/01/20 glyburide 10 mg PO BID 12/01/20 12/01/20 metformin 1,000 mg PO BID 12/01/20 12/01/20 metoprolol succinate 50 mg PO DAILY 12/01/20 12/01/20 pen needle, diabetic [TRUEplus Pen 12/01/20 12/01/20 Needle] Allergies Allergy/AdvReac Type Severity Reaction Status Date / Time No Known Allergies Allergy Verified 12/11/20 00:37 Review of Systems Review of Systems: CONSTITUTIONAL: Denies fever, chills, or sweats. EYES: Denies visual changes, redness, or discharge. ENT: Denies rhinorrhea, congestion, sore throat, or otalgia. CARDIOVASCULAR: Denies chest pain, palpitations, or edema. RESPIRATORY: Patient reports shortness of breath GASTROINTESTINAL: Denies abdominal pain, nausea, vomiting, or diarrhea. GENITOURINARY: Denies dysuria or hematuria. SKIN: Denies rash or itching. MUSCULOSKELETAL: Denies back pain, joint pain, or myalgia. NEUROLOGIC: Denies headache, numbness, dizziness, or weakness. PSYCHIATRIC: Denies anxiety or depression. All systems reviewed & are unremarkable except as noted in HPI and below PMFSH Past Medical History Medical History Cirrhosis of liver COPD (chronic obstructive pulmonary disease) Diabetes type 2, controlled Esophageal varices Hepatitis C Pancytopenia Thrombocytopenia Surgical History Surgical History H/O cardiac catheterization H/O hernia repair History of esophagogastroduodenoscopy (EGD) Family History Family History Father Family history of pancreatic cancer Other Diabetes mellitus Hypertension Social History Social History Social History: The patient is homeless and states that he lives in his truck. The patient stated he has raised 7 children. The patient is a recovering alcoholic Smoking packs per day: 0.5 Smoking cigarettes per day: 10.0 Smoking status: Former smoker Tobacco type: cigarettes Alcohol intake: never Substance use: never Substance use type: does not use Gender identity (if verbalized by the patient): Male Spiritual care concerns: No Exam Narrative: GENERAL: Well-appearing, well-nourished, and in no acute distress. HEAD: Normocephalic, atraumatic. EYES: PERRLA and EOMI. ENT: Nares clear, no rhinorrhea or epistaxis. Mucous membranes moist. NECK: Supple. No masses. No JVD CHEST: Clear to auscultation. No respiratory distress. No wheezes rales or rhonchi HEART: Regular rate and rhythm. No murmur heard. Normal peripheral pulses. ABDOMEN: Soft, nontender, nondistended, normal active bowel sounds. EXTREMITIES: Normal range of motion. 3+ pitting edema symmetric up to the knees SKIN: Warm, dry, no rash. NEURO: No focal deficits. Alert and oriented x3. PSYCH: Normal mood and affect. Course Reevaluation(s) Reevaluation #1: Patient is sleeping comfortably easily woken. Results reviewed with patient. His work-up is similar to his recent blood work does not appear to be any acute changes. Chest x-ray was clinically unremarkable. Patient reports he i
[2020-12-11 01:19] VITALS: BP 144/95; PULSE 99; RESP 17; O2SAT 100
--- NOTE | 2020-12-11 01:19 | PC.NURSE ---
Discussed u/a order w/ pt and he states he is unable to void at this time, will cont to try. Given urinal and call light. Declined straight cath.
[2020-12-11 01:22] LABS: Basophils Percent Auto 0.6 % (0.2-1.2); Eosinophils Absolute Auto 0.2 K/mm3 (0-0.3); Hematocrit 34.5 % (42.0-52.0); Hemoglobin 10.9 g/dL (14.0-18.0); Immature Granulocyte Absolute 0.01 K/mm3 (0.00-0.031); Immature Granulocyte Percent A 0.3 % (0-0.5); Lymphocytes Absolute Auto 0.43 K/mm3 (0.9-3.2); Lymphocytes Percent Auto 13.6 % (18.3-44.2); Mean Corpuscular HGB Conc 31.6 g/dl (32-36); Mean Corpuscular Volume 79.1 fl (80-100); Mean Platelet Volume 10.2 fl (7.4-10.4); Monocytes Absolute Auto 0.4 K/mm3 (0.1-0.6); Monocytes Percent Auto 12.3 % (2.6-8.5); Neutrophils Absolute Auto 2.2 K/mm3 (1.3-6.7); Neutrophils Percent Auto 68.2 % (45.5-73.1); Platelet Count Result 121 k/mm3 (150-375); Red Blood Count 4.36 M/mm3 (4.6-6.20); Red Cell Distribution Width 15.6 % (11.5-14.5); White Blood Count 3.2 K/mm3 (4.5-10.0)
[2020-12-11 01:37] LABS: Alanine Aminotransferase 32 U/L (4-50); Albumin Level 3.1 g/dL (3.5-5.1); Alkaline Phosphatase 149 U/L (38-126); Anion Gap 2 mmol/L (8-16); Aspartate Amino Transferase 48 U/L (17-59); Bilirubin,Total 0.7 mg/dL (0.2-1.3); Blood Urea Nitrogen 25 mg/dL (9-20); Calcium 8.4 mg/dL (8.4-10.2); Carbon Dioxide 33 mmol/L (22-30); Chloride 100 mmol/L (98-107); Estimated CRCL calculation 91 ml/min; Estimated Glomerular Filt Rate > 60; Glucose 208 mg/dL (65-110); Potassium 3.6 mmol/L (3.4-5.0); Sodium 135 mmol/L (137-145)
[2020-12-11 01:46] LABS: NT Pro B Type Natriuretic Pept 516 pg/mL (5-100)
[2020-12-11 01:48] LABS: Troponin I 0.024 ng/mL (0.000-0.034)
[2020-12-11] MEDS: SODIUM CHLORIDE 0.9% IV 500 ML 999 ML IV CONT (02:55)
[2020-12-11 03:09] VITALS: BP 155/99; PULSE 79; RESP 17; O2SAT 98
[2020-12-11 03:18] LABS: Add Urine Microscopic? YES; Appearance Urine Clear (Clear); Bilirubin Urine Negative (Negative); Blood Urine 2+ (Negative); Color Urine Yellow (Yellow); Glucose Urine UA Negative (Negative); Ketones Urine Negative (Negative); Leukocyte Esterase Ur Negative LEU/UL (Negative); Nitrate Urine Negative (Negative); Protein Urine 2+ mg/dL (Negative); RBC Urine 0-2 /hpf (0-2); Specific Grav Ur 1.008 (1.001-1.035); Urobilinogen Urine Negative mg/dL (<2.0); WBC Urine 0-3 /hpf
[2020-12-11 04:33] VITALS: BP 154/101; PULSE 70; RESP 18; O2SAT 96
[2020-12-11 05:54] VITALS: BP 149/97; PULSE 88; RESP 15; O2SAT 9
== END 2020-12-11 07:25 | disposition home or self-care (01) ==
PROVIDERS: Emergency Provider Emergency Medicine
DX: M79.605 Pain in left leg (principal); R60.9 Edema, unspecified; D64.9 Anemia, unspecified; I10 Essential (primary) hypertension; J44.9 Chronic obstructive pulmonary disease, unspecified; E11.9 Type 2 diabetes mellitus without complications; Z86.19 Personal history of other infectious and parasitic diseases; Z87.891 Personal history of nicotine dependence; Z59.0 Homelessness
CPT/HCPCS: 36415; 71045; 80053; 81001; 83880; 84484; 85025; 93005; 96360; 99284; J7040

== ENCOUNTER 2020-12-31 11:12 | Emergency (ER) | payer OTHER, SELFPAY ==
--- NOTE | ~2020-12-31 | XR_ITS ---
XR chest 1V portable 12/31/2020 12:06 Indication: Shortness of breath Procedure: AP portable chest Comparison: 12/11/2020 Findings: Improving patchy bilateral airspace disease, compatible with resolving pneumonia. No signif icant effusion. No pneumothorax. Heart size normal. No acute osseous abnormality. Impression: 1: Improving patchy bilateral pneumonia. Reviewed, dictated and finalized at location A. Impression: 1: Improving patchy bilateral pneumonia.
[2020-12-31 11:11] VITALS: BP 165/87; PULSE 96; RESP 16; TEMP 36.9; O2SAT 96
--- NOTE | 2020-12-31 11:20 | ECG_ITS ---
Measurements Intervals [place] Rate: 86 P: 65 IN: 191 QRS: -83 QRSD: 148 T: 70 QT: 393 QTc: 472 Interpretive Statements SINUS RHYTHM LEFT AXIS DEVIATION RIGHT BUNDLE BRANCH BLOCK ABNORMAL ECG Electronically Signed On 12-31-2020 12:10:55 CDT by Shahid Mcginnis D.O.
--- NOTE | 2020-12-31 11:29 | ED.PSYCH ---
HPI - Psych General Chief Complaint: Psychiatric Symptoms <Emerson Coronel MD - Last Filed: 01/02/21 05:32> Stated Complaint: SI/HI <Emerson Coronel MD - Last Filed: 01/02/21 05:32> Time Seen by Provider: 12/31/20 11:16 <Emerson Coronel MD - Last Filed: 01/02/21 05:32> History of Present Illness HPI Narrative: Patient referred to the ER by police for SI and HI. Patient was has been feeling unwell for very long time does not know what else to do. He states he just does not want to wake up or even be around anymore. Has had the symptoms over the past 5 days and is getting progressively worse. He reports he does want to hurt himself and came here for help <Emerson Coronel MD - Last Filed: 01/02/21 05:32> Related Data Home Medications: Home Medications Medication Instructions Recorded Confirmed Lantus Solostar U-100 Insulin 54 unit SUBCUT HS 12/01/20 12/01/20 bumetanide 2 mg PO BID 12/01/20 12/01/20 glyburide 10 mg PO BID 12/01/20 12/01/20 metformin 1,000 mg PO BID 12/01/20 12/01/20 metoprolol succinate 50 mg PO DAILY 12/01/20 12/01/20 pen needle, diabetic [TRUEplus Pen 12/01/20 12/01/20 Needle] <Emerson Coronel MD - Last Filed: 01/02/21 05:32> Allergies/Adverse Reactions: Allergies Allergy/AdvReac Type Severity Reaction Status Date / Time No Known Allergies Allergy Verified 12/11/20 00:37 <Emerson Coronel MD - Last Filed: 01/02/21 05:32> Review of Systems Review of Systems: CONSTITUTIONAL: Denies fever, chills, or sweats. EYES: Denies visual changes, redness, or discharge. ENT: Denies rhinorrhea, congestion, sore throat, or otalgia. CARDIOVASCULAR: Denies chest pain, palpitations, or edema. RESPIRATORY: Denies cough or dyspnea. GASTROINTESTINAL: Denies abdominal pain, nausea, vomiting, or diarrhea. GENITOURINARY: Denies dysuria or hematuria. SKIN: Denies rash or itching. MUSCULOSKELETAL: Denies back pain, joint pain, or myalgia. NEUROLOGIC: Denies headache, numbness, dizziness, or weakness. PSYCHIATRIC: Denies anxiety or depression. <Emerson Coronel MD - Last Filed: 01/02/21 05:32> All systems reviewed & are unremarkable except as noted in HPI and below <Emerson Coronel MD - Last Filed: 01/02/21 05:32> [facility] Past Medical History Medical History: Medical History Cirrhosis of liver COPD (chronic obstructive pulmonary disease) Diabetes type 2, controlled Esophageal varices Hepatitis C Pancytopenia Thrombocytopenia <Emerson Coronel MD - Last Filed: 01/02/21 05:32> Surgical History Surgical History: Surgical History H/O cardiac catheterization H/O hernia repair History of esophagogastroduodenoscopy (EGD) <Emerson Coronel MD - Last Filed: 01/02/21 05:32> Family History Family History: Family History Father Family history of pancreatic cancer Other Diabetes mellitus Hypertension <Emerson Coronel MD - Last Filed: 01/02/21 05:32> Social History Social History: Social History Social History: The patient is homeless and states that he lives in his truck. The patient stated he has raised 7 children. The patient is a recovering alcoholic Smoking packs per day: 0.5 Smoking cigarettes per day: 10.0 Smoking status: Former smoker Tobacco type: cigarettes Alcohol intake: never Substance use: never Substance use type: amphetamines Gender identity (if verbalized by the patient): Male Spiritual care concerns: No <Emerson Coronel MD - Last Filed: 01/02/21 05:32> Exam Narrative: GENERAL: Disheveled no acute distress HEAD: Normocephalic, atraumatic. EYES: PERRLA and EOMI. ENT: Nares clear, no rhinorrhea or epistaxis. Mucous membranes moist. NECK: Supple. No masses. No JVD CHEST
[2020-12-31 12:20] LABS: Basophils Percent Auto 0.4 % (0.2-1.2); Eosinophils Absolute Auto 0.1 K/mm3 (0-0.3); Eosinophils Percent Auto 3.1 % (0-4.4); Hematocrit 37.1 % (42.0-52.0); Hemoglobin 11.8 g/dL (14.0-18.0); Immature Granulocyte Absolute 0.02 K/mm3 (0.00-0.031); Immature Granulocyte Percent A 0.8 % (0-0.5); Lymphocytes Absolute Auto 0.28 K/mm3 (0.9-3.2); Lymphocytes Percent Auto 10.8 % (18.3-44.2); Mean Corpuscular HGB Conc 31.8 g/dl (32-36); Mean Corpuscular Hemoglobin 25.6 pg (26-34); Mean Corpuscular Volume 80.5 fl (80-100); Mean Platelet Volume 10.2 fl (7.4-10.4); Monocytes Absolute Auto 0.2 K/mm3 (0.1-0.6); Monocytes Percent Auto 8.1 % (2.6-8.5); Neutrophils Percent Auto 76.8 % (45.5-73.1); Platelet Count Result 124 k/mm3 (150-375); Red Blood Count 4.61 M/mm3 (4.6-6.20); Red Cell Distribution Width 16.3 % (11.5-14.5); White Blood Count 2.6 K/mm3 (4.5-10.0)
[2020-12-31 12:27] LABS: Alanine Aminotransferase 62 U/L (4-50); Albumin Level 3.2 g/dL (3.5-5.1); Alkaline Phosphatase 144 U/L (38-126); Anion Gap 3 mmol/L (8-16); Aspartate Amino Transferase 66 U/L (17-59); Bilirubin,Total 0.6 mg/dL (0.2-1.3); Blood Urea Nitrogen 17 mg/dL (9-20); Calcium 8.5 mg/dL (8.4-10.2); Carbon Dioxide 34 mmol/L (22-30); Chloride 100 mmol/L (98-107); Estimated CRCL calculation 106 ml/min; Estimated Glomerular Filt Rate > 60; Glucose 308 mg/dL (65-110); Potassium 3.8 mmol/L (3.4-5.0); Sodium 137 mmol/L (137-145)
[2020-12-31 12:29] LABS: Acetaminophen < 10 ug/mL (10-30); Ethanol < 10 mg/dL (<10); Salicylate < 1.0 mg/dL (2-20)
[2020-12-31 12:30] LABS: Add Urine Microscopic? YES; Appearance Urine Clear (Clear); Bilirubin Urine Negative (Negative); Blood Urine 1+ (Negative); Color Urine Yellow (Yellow); Glucose Urine UA 3+ mg/dL (Negative); Ketones Urine Negative (Negative); Leukocyte Esterase Ur Negative LEU/UL (Negative); Mucus Urine Rare /lpf; Nitrate Urine Negative (Negative); Protein Urine 2+ mg/dL (Negative); Specific Grav Ur 1.021 (1.001-1.035); WBC Urine 0-3 /hpf
[2020-12-31 12:37] LABS: Amphetamine Screen Urine Negative (Negative); Barbiturate Screen Urine Negative (Negative); Benzodiazepines Screen Urine Negative (Negative); Cannabinoid Screen Urine Negative (Negative); Cocaine Screen Urine Negative (Negative); Methadone Screen Urine Negative (Negative); Opiate Screen Urine Negative (Negative); Phencyclidine Screen Urine Negative (Negative)
[2020-12-31 12:58] LABS: Thyroid Stimulating Hormone 0.768 uIU/mL (0.465-4.680)
[2020-12-31] MEDS: ACETAMINOPHEN 500 MG TABLET 1000 MG PO (17:13)
--- NOTE | 2020-12-31 17:30 | PC.NURSE ---
Received a phone call from [facility] inquiring about our PCR covid test. [facility] requires a PCR test and an open medical bed along with a psych incase the patient should test positive at [facility]. We are to call back in the morning to see if there is a medical bed available. [phone].
--- NOTE | 2020-12-31 18:16 | PC.NURSE ---
Received call from Kwadwo at [facility] requesting patient's chart and negative covid test to be faxed over.
[2020-12-31 18:51] LABS: EDCOVIDSCREEN Negative (Negative)
--- NOTE | 2020-12-31 20:53 | PC.NURSE ---
Spoke to Rosanne from crisis checking in on bed placement status. She will check back in tomorrow.
[2020-12-31 23:00] VITALS: BP 140/77; PULSE 99; RESP 14; O2SAT 97
--- NOTE | 2020-12-31 23:35 | PC.NURSE ---
Assumed care of pt. at this time. Report from SANJEEV Khoury
[2021-01-01 00:33] VITALS: BP 140/90; PULSE 88; RESP 19; O2SAT 97
[2021-01-01 01:00] VITALS: BP 139/88; PULSE 68; RESP 14; O2SAT 94
[2021-01-01 04:00] VITALS: BP 147/89; PULSE 68; RESP 14; O2SAT 95
--- NOTE | 2021-01-01 09:15 | PC.NURSE ---
Addendum entered by Candelaria Ferrell RN 01/01/21 10:10: Continuation of note: RN apologized that he feels that way, explained that the room dedicated as a safe room for patients experiencing suicidal thoughts and that the door must stay open with a sitter in view for his safety as well. staff psychiatrist made aware that patient is wanting to move rooms however none available. RN apologized to patient and explained this. Recliner chair removed from room for patient safety after stating that he would find a way to kill himself in that room. Original Note: RN was called to room per patient request. Pt expressed feelings of being belittled and on display due to being in a psych-safe room. States he came here for help and doesn't feel like he is getting it. Patient reports he would rather be than stay in that room. Patient reports that he is not going to kill himself and wants to be in a different room. Patient then proceeded to say if he had to stay in that room, that he is extremely resourceful and promises that he can find a way to kill himself in his current room.
[2021-01-01 17:17] VITALS: BP 169/105; PULSE 82; RESP 17; TEMP 37; O2SAT 99
[2021-01-01 17:46] VITALS: BP 129/98
[2021-01-01] MEDS: IBUPROFEN 600 MG TABLET PO (20:51)
--- NOTE | 2021-01-01 21:44 | PC.NURSE ---
Talked to [facility] and faxed over labs, negative covid test, and doctor note stating pt is medically cleared per request.
[2021-01-02 06:11] VITALS: BP 141/85; PULSE 88; RESP 16; O2SAT 97
--- NOTE | 2021-01-02 08:44 | PC.NURSE ---
Pt requesting placement at a drug rehabilitation center. Pt told that could be possible at a later time but he is being placed for his suicidal thoughts at this time. Pt states well that can change in 12 hours. Pt states he is no longer suicidal.
[2021-01-02 08:49] VITALS: BP 147/96; PULSE 92; RESP 18; TEMP 36.9; O2SAT 100
--- NOTE | 2021-01-02 11:50 | PC.NURSE ---
Pt accepted at [facility] by Dr. Garcia. Report called to [place] room number [id number]
[2021-01-02 13:15] VITALS: BP 158/93; PULSE 87; RESP 18; TEMP 36.6; O2SAT 98
== END 2021-01-02 13:17 ==
PROVIDERS: Emergency Medicine; Emergency Provider Emergency Medicine
DX: R45.851 Suicidal ideations (principal); Z20.822 Contact with and (suspected) exposure to COVID-19; K74.60 Unspecified cirrhosis of liver; J44.9 Chronic obstructive pulmonary disease, unspecified; E11.9 Type 2 diabetes mellitus without complications; Z86.19 Personal history of other infectious and parasitic diseases; Z87.891 Personal history of nicotine dependence; Z59.0 Homelessness; I45.10 Unspecified right bundle-branch block; Z79.4 Long term (current) use of insulin
CPT/HCPCS: 36415; 71045; 80053; 80307; 81001; 84443; 85025; 87426; 93005; 99285; A9270; C9803

== ENCOUNTER 2021-02-01 21:10 | Emergency (ER) | payer OTHER, SELFPAY ==
--- NOTE | ~2021-02-01 | CT_ITS ---
EXAMINATION: CT brain wo con INDICATION: Headache COMPARISON: 11/11/2020 TECHNIQUE: Standard unenhanced head CT. The dose-length product (DLP) was 681.00 mGy-cm. The mA was a djusted according to patient size. Iterative reconstruction technique was employed. FINDINGS: There is no intracranial hemorrhage, acute infarction, or abnormal mass lesion. There are a reas of prior infarction in the frontal lobes. The ventricles are normal. There is no abnormal mass e ffect or midline shift. The patterson-white matter differentiation is normal. The basal cisterns are paten t. The orbits are normal. There is mild mucosal thickening of the paranasal sinuses. IMPRESSION: 1. Areas of prior infarction without acute intracranial abnormality. Reviewed, dictated and finalized at location B.
[2021-02-01 21:12] VITALS: PULSE 108; RESP 20; TEMP 37; O2SAT 99
[2021-02-01 21:17] VITALS: BP 127/80
--- NOTE | 2021-02-01 22:56 | ED.LOWEXIN ---
HPI - Extremity Injury (Lower) General Chief Complaint: Extremity Injury, Lower Stated Complaint: headache, feet pain s/p walking 12 hours Time Seen by Provider: 02/01/21 21:13 Source: patient and EMS History of Present Illness HPI Narrative: 60-year-old male states bilateral foot pain after walking for 12 hours and 25 miles prior to arrival. Patient states he went to [place] but he got beat up and when the police were called they sent him here. Patient complaining of left eye contusion, no LOC, no other complaints except sore feet. No fever, no vomiting, no headache, no new onset of focal weakness. Facial pain worse with palpation improves with nothing. Denies other injury. Related Data Home Medications Medication Instructions Recorded Confirmed Lantus Solostar U-100 Insulin 54 unit SUBCUT HS 12/01/20 12/01/20 bumetanide 2 mg PO BID 12/01/20 12/01/20 glyburide 10 mg PO BID 12/01/20 12/01/20 metformin 1,000 mg PO BID 12/01/20 12/01/20 metoprolol succinate 50 mg PO DAILY 12/01/20 12/01/20 pen needle, diabetic [TRUEplus Pen 12/01/20 12/01/20 Needle] Allergies Allergy/AdvReac Type Severity Reaction Status Date / Time No Known Allergies Allergy Verified 12/11/20 00:37 Review of Systems Review of Systems: CONSTITUTIONAL: no fever, no confusion EYES: no vision changes, R suborbital contusion, pain ENT: no rhinorrhea, no sore throat, no difficulty swallowing CARDIOVASCULAR: no chest pain, positive B foot edema, no palpitations RESPIRATORY: no cough, no shortness of breath, no hemoptysis GASTROINTESTINAL: no abdominal pain, no nausea, no vomiting, no diarrhea GENITOURINARY: no flank pain, no dysuria, no hematuria SKIN: no rash, facial contusion MUSCULOSKELETAL: no back pain, no trauma. NEUROLOGIC: positive headache, no dizziness, no focal weakness PSYCHIATRIC: No hallucinations, no suicidal ideation [facility] Past Medical History Medical History Cirrhosis of liver COPD (chronic obstructive pulmonary disease) Diabetes type 2, controlled Esophageal varices Hepatitis C Pancytopenia Thrombocytopenia Surgical History Surgical History H/O cardiac catheterization H/O hernia repair History of esophagogastroduodenoscopy (EGD) Family History Family History Father Family history of pancreatic cancer Other Diabetes mellitus Hypertension Social History Social History Social History: The patient is homeless and states that he lives in his truck. The patient stated he has raised 7 children. The patient is a recovering alcoholic Smoking packs per day: 0.5 Smoking cigarettes per day: 10.0 Smoking status: Former smoker Tobacco type: cigarettes Alcohol intake: never Substance use: never Substance use type: amphetamines Gender identity (if verbalized by the patient): Male Spiritual care concerns: No Exam Narrative: General: alert, afebrile, answering all questions Head: normocephalic, L suborbital contusion, no orbital stepoffs Eyes: EOMI bilaterally, anicteric, B injection ENT: dry mucous membranes, oropharynx patent, no rhinorrhea Neck: supple, trachea midline Chest: equal chest rise bilaterally, no chest wall trauma noted CV: tachycardia, regular rate, no LIZET B, calf size equal bilaterally EXT: B foot edema without erythema or rubor DP 2+ B no deformity noted, moving all extremities equally Skin: warm, dry, no pallor Neuro: alert, oriented x 3; CN 2-12 grossly intact Psych: affect appropriate, thought content normal Course Course Emergency Course: 60-year-old male sent by PD for facial contusion and complaints of bilateral foot pain. Patient has a history of walking miles at a time and foot swelling. Complaining of left periorbital contusion without any other complaint.
[2021-02-01 23:28] VITALS: BP 128/87; PULSE 106; RESP 18; O2SAT 96
[2021-02-02 00:17] VITALS: BP 124/86; PULSE 106; RESP 18; O2SAT 98
== END 2021-02-02 00:21 | disposition home or self-care (01) ==
PROVIDERS: Emergency Provider Emergency Medicine
DX: S05.12XA Contusion of eyeball and orbital tissues, left eye, initial encounter (principal); K74.60 Unspecified cirrhosis of liver; J44.9 Chronic obstructive pulmonary disease, unspecified; E11.9 Type 2 diabetes mellitus without complications; Z86.19 Personal history of other infectious and parasitic diseases; Z79.84 Long term (current) use of oral hypoglycemic drugs; Z79.4 Long term (current) use of insulin; Z87.891 Personal history of nicotine dependence; F10.20 Alcohol dependence, uncomplicated; Z59.00 Homelessness unspecified; Y09 Assault by unspecified means; Y90.9 Presence of alcohol in blood, level not specified
CPT/HCPCS: 70450; 99284

== ENCOUNTER 2021-03-30 23:34 | Emergency (ER) | payer OTHER, SELFPAY ==
[2021-03-30 23:51] VITALS: BP 168/96; PULSE 100; RESP 20; TEMP 36.1; O2SAT 95
--- NOTE | 2021-03-31 01:19 | PC.NURSE ---
Pt gathered his belongings and ambulated out of ED c steady, even, unassisted gait. no s/s of distress. speech clear. resps even/nonlabored.
== END 2021-03-31 01:21 | disposition left against medical advice (07) ==
LOC: ANHED 03-31 01:19
DX: R06.02 Shortness of breath (principal)
CPT/HCPCS: 99199

== ENCOUNTER 2021-08-09 18:56 | Inpatient (IN) | payer OTHER, SELFPAY ==
[2021-08-09] VITALS (8 sets, daily range): BP systolic 100–183; BP diastolic 49–106; PULSE 95–117; RESP 14–30; TEMP 36.9–39.5; O2SAT 92–100; BMI 33.9
--- NOTE | ~2021-08-09 | NM_ITS ---
EXAMINATION: NM karo stress w perfusion DATE: 08/12/2021 10:02 INDICATION: Cardiac wall motion abnormality TECHNIQUE: Rest images were obtained following intravenous administration of 11.2 mCi Tc99m tetrofosm in (Myoview). The patient was infused intravenously with Lexiscan (Regadenoson). Then, 35.2 mCi Tc99m tetrofosmin (Myoview) was administered intravenously, and stress images were obtained. Data was mary nstructed into short axis and horizontal and vertical long axis SPECT images. Gated SPECT images were also obtained. COMPARISON: None. FINDINGS: Small mild to moderate perfusion defect at the apical inferior and mid inferoseptal segment s which appears more prominent on the rest than on the stress images which could represent either inf arct or diaphragmatic attenuation artifact. No reversible ischemia. There is left ventricular enlarge ment with calculated end-diastolic volume of 193 mm. No wall motion abnormalities identified with bor derline decreased left ventricular ejection fraction measuring 44%. IMPRESSION: 1. Equivocal small mild to moderate severity infarct versus diaphragmatic attenuation artifact at the apical inferior and mid inferoseptal segments. 2. Mild left ventricular enlargement with borderline decreased left ventricular ejection fraction amarilys suring 44%. Reviewed, dictated and finalized at location A. IMPRESSION: 1. Equivocal small mild to moderate severity infarct versus diaphragmatic atten uation artifact at the apical inferior and mid inferoseptal segments. 2. Mild left ventricular enlargement with borderline decreased left ventricular ejection fraction measuring 44%.
--- NOTE | ~2021-08-09 | US_ITS ---
US renal BI DATE: 08/10/2021 14:03 INDICATION: Hematuria TECHNIQUE: Real-time imaging of kidneys and urinary bladder COMPARISON: 12/21/2018 CT abdomen FINDINGS: Right kidney measures 12.4 cm length, left kidney 13.8 cm length. No renal mass lesion or h ydronephrosis is detected. Ascites is noted. The bladder is unremarkable. IMPRESSION: No significant abnormality Reviewed, dictated and finalized at Location A. Reviewed, dictated and finalized at location B. IMPRESSION: No significant abnormality
--- NOTE | ~2021-08-09 | XR_ITS ---
XR foot RT 2V DATE: 08/10/2021 13:25 INDICATION: Wound to the third metatarsal, third toe TECHNIQUE: 2 views COMPARISON: None FINDINGS: There is diffuse osteopenia. Prominent plantar calcaneal enthesopathy, without associated erosive change or periostitis. There is mild osteoarthritis at the first metatarsophalangeal joint and at the calcaneocuboid joint. No fracture or dislocation, periosteal reaction or bone destruction is evident. There is soft tissue swelling of the third digit. No radiopaque foreign body is detected. IMPRESSION: Soft tissue swelling of third digit Osteopenia Osteoarthritis Plantar calcaneal enthesopathy Reviewed, dictated and finalized at location B.
--- NOTE | ~2021-08-09 | XR_ITS ---
EXAMINATION: XR chest 1V portable Exam Date/Time: 08/09/2021 19:13 CDT CLINICAL HISTORY: sob Comparison: X-ray chest 12/31/2020, CTA chest 05/02/2020. RESULT: Lines, tubes, and devices: None. Lungs and pleura: Increased diffuse reticular pattern, increased linear atelectasis/scar in the righ t lung base. Right lateral costophrenic angle blunting. Stable peripheral plaques, nodular and subseg mental opacities. Cardiomediastinal silhouette: Stable cardiomediastinal silhouette. Other: No acute osseous or upper abdominal finding. IMPRESSION: Pulmonary findings may represent interstitial edema and a small right pleural effusion, overlying chr onic reticulonodular disease. Reviewed, dictated and finalized at location K. IMPRESSION: Pulmonary findings may represent interstitial edema and a small right pleural e ffusion, overlying chronic reticulonodular disease.
--- NOTE | ~2021-08-09 | US_ITS ---
EXAMINATION: US soft tissue upper back DATE: 08/10/2021 14:04 INDICATION: Right posterior back pain in the region of the scapula TECHNIQUE: Multiple grayscale and Doppler ultrasound images of the region of concern at the posterior right thorax were obtained. COMPARISON: None FINDINGS/IMPRESSION: Normal appearance to the soft tissues at the posterior right chest wall at the region of concern. No abnormal masses or fluid collections identified. Reviewed, dictated and finalized at location A.
--- NOTE | ~2021-08-09 | US_ITS ---
EXAMINATION: US abdomen limited DATE: 08/13/2021 14:57 INDICATION: Elevated transaminase, history of hepatitis C TECHNIQUE: Multiple grayscale and Doppler ultrasound images of the abdomen were obtained. COMPARISON: None available FINDINGS: The pancreas is obscured by bowel gas. The liver demonstrates increased echogenicity and he terogeneous echotexture. There is nodularity of the liver surface. Normal hepatopetal flow in the joe n portal vein. The gallbladder is surgically absent. The normal common bile duct measures 6 mm. There is a small volume of ascites. Incidental splenomegaly is noted with the spleen measuring 22.5 cm. IMPRESSION: 1. Cirrhosis with splenomegaly and small lipoma of ascites. Reviewed, dictated and finalized at location A.
--- NOTE | ~2021-08-09 | CT_ITS ---
EXAMINATION: CT lumbar spine wo con DATE: 08/10/2021 13:34 INDICATION: Low back pain TECHNIQUE: Computed tomography (CT) of the lumbar spine was performed without intravenous contrast. T he dose-length product (DLP) was 1344.83 mGy-cm. Iterative reconstruction was used. COMPARISON: MRI, 11/28/2018 FINDINGS: There are 2 mm of retrolisthesis of L5 on S1. There is severe loss of intervertebral disc s pace height at L5-S1. There is mild loss of intervertebral disc space height at L1-2. The vertebral b erin heights are normal. There is no fracture. There is moderate facet osteoarthritis at L4-5 and L5-S 1. There are moderate posterior disc bulges at L4-5 and L5-S1. A small volume of ascites is noted. Th ere is mild retroperitoneal lymphadenopathy. IMPRESSION: 1. Severe lumbar spondylosis without acute findings or significant interval change. 2. Small volume of ascites and mild retroperitoneal lymphadenopathy of unclear etiology. Reviewed, dictated and finalized at location A. IMPRESSION: 1. Severe lumbar spondylosis without acute findings or significant interval shanti nge. 2. Small volume of ascites and mild retroperitoneal lymphadenopathy of unclear etiology.
--- NOTE | 2021-08-09 19:09 | ECG_ITS ---
Measurements Intervals [place] Rate: 120 P: 67 OR: 150 QRS: -80 QRSD: 161 T: 83 QT: 342 QTc: 484 Interpretive Statements SINUS TACHYCARDIA RIGHT BUNDLE BRANCH BLOCK LEFT ANTERIOR FASCICULAR BLOCK BASELINE ARTIFACT- I, AVL, V3 ABNORMAL ECG Electronically Signed On 08-10-2021 16:45:30 CDT by Shahid Mcginnis D.O.
[2021-08-09 19:32] LABS: Basophils Percent Auto 0.4 % (0.2-1.2); Eosinophils Absolute Auto 0.2 K/mm3 (0-0.3); Eosinophils Percent Auto 4.5 % (0-4.4); Hematocrit 38.4 % (42.0-52.0); Hemoglobin 11.6 g/dL (14.0-18.0); Immature Granulocyte Absolute 0.02 K/mm3 (0.00-0.031); Immature Granulocyte Percent A 0.4 % (0-0.5); Lymphocytes Absolute Auto 0.32 K/mm3 (0.9-3.2); Lymphocytes Percent Auto 6.3 % (18.3-44.2); Mean Corpuscular HGB Conc 30.2 g/dl (32-36); Mean Corpuscular Hemoglobin 24.4 pg (26-34); Mean Corpuscular Volume 80.7 fl (80-100); Monocytes Absolute Auto 0.3 K/mm3 (0.1-0.6); Monocytes Percent Auto 6.7 % (2.6-8.5); Neutrophils Absolute Auto 4.2 K/mm3 (1.3-6.7); Neutrophils Percent Auto 81.7 % (45.5-73.1); Platelet Count Result 159 k/mm3 (150-375); Red Blood Count 4.76 M/mm3 (4.6-6.20); Red Cell Distribution Width 16.8 % (11.5-14.5); White Blood Count 5.1 K/mm3 (4.5-10.0)
[2021-08-09 19:34] LABS: Appearance Urine Clear (Clear); Bilirubin Urine 2+ (Negative); Blood Urine 2+ (Negative); Color Urine Amber (Yellow); Glucose Urine UA 3+ mg/dL (Negative); Ketones Urine Negative (Negative); Leukocyte Esterase Ur Negative LEU/UL (Negative); Nitrate Urine Negative (Negative); Protein Urine 3+ mg/dL (Negative); Specific Grav Ur 1.025 (1.001-1.035); Urobilinogen Urine >=8.0 mg/dL (<2.0)
[2021-08-09 19:42] LABS: Alanine Aminotransferase 28 U/L (6-50); Albumin Level 2.8 g/dL (3.5-5.1); Alkaline Phosphatase 231 U/L (38-126); Anion Gap 4 mmol/L (8-16); Aspartate Amino Transferase 37 U/L (17-59); Bilirubin,Total 1.1 mg/dL (0.2-1.3); Blood Urea Nitrogen 20 mg/dL (9-20); Calcium 7.5 mg/dL (8.4-10.2); Carbon Dioxide 27 mmol/L (22-30); Chloride 97 mmol/L (98-107); Estimated Glomerular Filt Rate > 60; Glucose 329 mg/dL (65-110); INR 1.2; Lactic Acid Reflex 2.5 mmol/L (0.7-2.0); Potassium 4.2 mmol/L (3.4-5.0); Prothrombin Time 14.4 Seconds (11.1-14.7); Sodium 128 mmol/L (137-145)
[2021-08-09 19:43] LABS: Lipase 193 U/L (23-300); Partial Thromboplastin Time 34.2 SECONDS (22.3-36.8)
[2021-08-09 19:44] LABS: Add Urine Microscopic? YES; CRP 5.8 mg/dL (<1.0); Mucus Urine Rare /lpf; RBC Urine 21-50 /hpf (0-2); Squamous Epithelial Cell Urine Rare /hpf (Few); WBC Urine 0-3 /hpf
--- NOTE | 2021-08-09 19:51 | ED.GENADULT ---
HPI - General Adult General Chief complaint: Fever Stated complaint: heart racing, sob Time Seen by Provider: 08/09/21 19:21 Source: patient and RN notes reviewed Mode of arrival: ambulatory Limitations: no limitations History of Present Illness HPI narrative: 61-year-old male presented to the emergency department for worsening febrile illness over the last 4 to 5 days. Patient states he began feeling sick approximately 5 days ago. Patient does report decreased p.o. intake and subjective fever. Patient does report increased shortness of breath but denies any chest pain. Patient states his legs are less swollen than normal. Patient states that he had previously been on Bumex and was switched to Lasix and feels this is not working as well. The switch occurred a few months ago. Patient states he has not taken any of his home medications in the last 5 to 6 days due to not feeling well. Related Data Home Medications Medication Instructions Recorded Confirmed Lantus Solostar U-100 Insulin 54 unit SUBCUT HS 12/01/20 08/09/21 bumetanide 2 mg PO BID 12/01/20 08/09/21 glyburide 10 mg PO BID 12/01/20 08/09/21 metformin 1,000 mg PO BID 12/01/20 08/09/21 metoprolol succinate 50 mg PO DAILY 12/01/20 08/09/21 pen needle, diabetic [TRUEplus Pen 12/01/20 08/09/21 Needle] Allergies Allergy/AdvReac Type Severity Reaction Status Date / Time No Known Allergies Allergy Verified 03/30/21 23:54 Review of Systems Review of Systems: CONSTITUTIONAL: Subjective fever. EYES: Denies visual changes, redness, or discharge. ENT: Denies rhinorrhea, congestion, sore throat, or otalgia. CARDIOVASCULAR: Denies chest pain, palpitations, or edema. RESPIRATORY: Shortness of breath GASTROINTESTINAL: Denies abdominal pain, nausea, vomiting, or diarrhea. GENITOURINARY: Denies dysuria or hematuria. SKIN: Denies rash or itching. MUSCULOSKELETAL: Denies back pain, joint pain, or myalgia. NEUROLOGIC: Denies headache, numbness, or weakness. [facility] Past Medical History Medical History Cirrhosis of liver COPD (chronic obstructive pulmonary disease) Diabetes type 2, controlled Esophageal varices Hepatitis C Pancytopenia Thrombocytopenia Surgical History Surgical History H/O cardiac catheterization H/O hernia repair History of esophagogastroduodenoscopy (EGD) Family History Family History Father Family history of pancreatic cancer Other Diabetes mellitus Hypertension Social History Social History Social History: The patient is homeless and states that he lives in his truck. The patient stated he has raised 7 children. The patient is a recovering alcoholic Smoking status: Former smoker Second hand tobacco smoke exposure: Yes Alcohol intake: never Substance use: current Substance use type: amphetamines Last use: pt states last use about 5 days ago Gender identity (if verbalized by the patient): Male Spiritual care concerns: No Exam Narrative: APPEARANCE: Ill-appearing HEAD: normocephalic, atraumatic. EYES: PERRLA/EOMI, conjunctivae clear. NOSE: Normal no drainage NECK: Supple. No adenopathy, no masses. RESPIRATORY: Airway patent, respirations nonlabored. Clear to auscultation bilaterally, no rales, rhonchi, wheezing. CARDIOVASCULAR: Tachycardia ABDOMINAL: Soft, nontender, nondistended, normal bowel sounds MUSCULOSKELETAL: Moves all extremities. Strength/ROM intact. Lower extremity edema (better than baseline per patient) NEURO: Alert. Cranial nerves II through XII intact. Grossly intact SKIN: Warm, dry. Normal Color Course Course Emergency Course: Upon arrival to the ED patient had a temperature of 103.1. Patient was treated with p.o. ibuprofen and IV Tylenol. Patient's sodium was 128, patie
[2021-08-09 19:53] LABS: NT Pro B Type Natriuretic Pept 4740 pg/mL (5-100)
[2021-08-09 20:01] LABS: Troponin I 0.036 ng/mL (0.000-0.034)
[2021-08-09] MEDS: SODIUM CHLORIDE 0.9% IV 1,000 ML 150 ML IV CONT (20:06)
[2021-08-09] MEDS: HYDROmorphone HCL INJ (*CRX) 1 MG/ML SYR 0.5 MG IV PUSH (20:24)
[2021-08-09 20:27] LABS: SARS-CoV-2 RNA PCR Negative
[2021-08-09] MEDS: IBUPROFEN 400 MG TABLET 800 MG PO (21:02)
[2021-08-09] MEDS: FUROSEMIDE INJ 40 MG/4 ML VIAL IV PUSH (21:36)
[2021-08-09 22:29] LABS: Reflex Lactic Acid Yes or No Add Lactic
--- NOTE | 2021-08-09 23:29 | ADMGEN ---
This patient, Maxim Babb, was admitted to [facility] Surg Room 324-02. Patient/family oriented to hospital policies and general routines including ID bracelet, bed and alarms, visiting hours, pain management, procedures, bathroom and other care routines, personal items, smoking policy, room service/diet, and visiting hours. Information on how to activate the Rapid Response Team has been discussed. Patient/Family are encouraged to report perceived risks to care and to ask questions if they do not understand what they are told or what they should do.
[2021-08-09 23:30] LABS: Lactic Acid 1.4 mmol/L (0.7-2.0)
[2021-08-09 23:55] LABS: Glucose Point of Care 254 mg/dl (65-105)
[2021-08-10] VITALS (14 sets, daily range): BP systolic 116–133; BP diastolic 57–73; PULSE 77–97; RESP 16–21; TEMP 36.7–37.4; O2SAT 81–97
--- NOTE | 2021-08-10 | ECHO_ITS ---
Patient Info Name: Maxim Babb Age: 61 years : 1960 Gender: Male Ht: 73 in Wt: 257 lbs BSA: 2.49 m2 HR: 86 bpm BP: 116 / 57 mmHg Heart Rhythm: Sinus Rhythm Technical Quality: Good Exam Date: 08/10/2021 3:35 PM Exam Location: [facility] Pulmonary Exam Room: 303 Patient Status: Outpatient Admit Date: 08/09/2021 Staff Ordering Physician: Eber Rossi MD [employer] Architect: Vivi Atkins RDCS Attending Provider: Eber Rossi MD Referring Physician: Flo NEW; Exam Type: CA echo doppler color flow Study Info Indications - chf Complete two-dimensional, color flow and Doppler transthoracic echocardiogram is performed. Summary 1. Complete two-dimensional, color flow and Doppler transthoracic echocardiogram is performed. 2. Left ventricular chamber dimension is normal. 3. Left ventricular systolic function is mildly reduced, estimated at 50-55% with hypokinesis of the apical lateral wall.. 4. There is moderately increased left ventricular wall thickness. 5. Left ventricular septal wall motion is abnormal with septal motion related to bundle branch block. 6. The left ventricular diastolic function is grade II diastolic dysfunction. 7. Right ventricular systolic function is [id number] reduced. 8. Right ventricular chamber dimension is normal. 9. Left atrial chamber dimension is severely enlarged. 10. There is mild aortic valve stenosis with a peak velocity of 235 cm/s, mean gradient of 13 mmHg, and aortic valve area of 1.6 cm2. 11. There is mild mitral valve regurgitation. 12. There is trace tricuspid valve regurgitation. 13. Mild pulmonary hypertension, estimated pulmonary arterial systolic pressure is 36 mmHg. Left Ventricle Left ventricular chamber dimension is normal. Left ventricular systolic function is mildly reduced, estimated at 50-55% with hypokinesis of the apical lateral wall.. There is moderately increased left ventricular wall thickness. Left ventricular septal wall motion is abnormal with septal motion related to bundle branch block. The left ventricular diastolic function is grade II diastolic dysfunction. Right Ventricle Right ventricular chamber dimension is normal. Right ventricular systolic function is [id number] reduced. Linear artifact in right ventricle suggestive of catheter(s), pacemaker lead(s), or ICD lead(s). Left Atria Left atrial chamber dimension is severely enlarged. Right Atria Right atrial chamber dimension is mildly enlarged. Aortic Valve The aortic valve is probable trileaflet. There is mild aortic valve stenosis with a peak velocity of 235 cm/s, mean gradient of 13 mmHg, and aortic valve area of 1.6 cm2. There is no aortic valve regurgitation. There is mild aortic valve calcification. Pulmonic Valve The pulmonic valve is not well visualized. Mitral Valve The mitral valve has thickened leaflets. There is mild mitral valve regurgitation. The mitral valve annulus is moderately calcified. Tricuspid Valve The tricuspid valve leaflets are normal. There is trace tricuspid valve regurgitation. Mild pulmonary hypertension, estimated pulmonary arterial systolic pressure is 36 mmHg. Pericardium/Pleural The pericardium appears normal. There is no pericardial effusion. Inferior Vena Cava Normal inferior vena cava with >50% collapse upon inspiration consistent with normal right atrial pressure, 5 mmHg. Aorta The aortic root size at the sinus of Valsalva is normal. Th
--- NOTE | 2021-08-10 01:54 | PM.IMHP ---
H&P: HPI History of Present Illness Date/Time: 08/10/21 01:54 Chief Complaint: Shortness of breath. Narrative: This is a 61-year-old male with past medical history significant for COPD/emphysema, hypertension, type 2 diabetes mellitus, tobacco dependence, PANCYTOPENIA, CHRONIC ELEVATION OF TROPONINS, FORMER ALCOHOLIC, CHRONIC BILATERAL LOWER EXTREMITY LYMPHEDEMA, former IV drug user, methamphetamine, paroxysmal atrial fibrillation. Patient is also homeless. Patient presents to the emergency room due to fevers, chills, generalized malaise ,body aches and pains, shortness of breath, cough ,for the last 3 days or so. In emergency room patient had a fever of 103. Preliminary workup was significant for an elevated brain natriuretic peptide of 4,000, sodium of 128, chest x-ray was significant for reticulonodular pattern and interstitial pulmonary edema patient tested negative for COVID-19. Decision was made to admit the patient for further evaluation, management and treatment. Review of Systems Review of Systems: Fevers, chills, shortness of breath, muscle aches and pains, generalized malaise. Constitutional: Constitutional: Reports chills, Reports fatigue, Reports fever(s), Reports lethargy, Reports malaise, Reports poor appetite and Reports weakness Eyes: Eyes: Denies change in vision ENT: Denies dysphagia, Denies vertigo, Denies dizziness, Denies nasal congestion, Denies nasal discharge, Denies nasal obstruction and Denies odynophagia Cardiovascular: Cardiovascular: Reports leg edema, Denies radiating jaw, neck or arm pain, Denies palpitations and Reports dyspnea on exertion Respiratory: Respiratory: Reports cough and Reports dyspnea Gastrointestinal: Gastrointestinal: Denies abdominal pain, Denies dyspepsia, Denies heartburn, Denies diarrhea, Denies nausea and Denies vomiting Genitourinary: Genitourinary: Denies dysuria Musculoskeletal: Musculoskeletal: Reports back pain, Reports myalgias and Denies arthralgias Integumentary/Breasts: Skin/Breast: Denies rash Neurologic: Denies focal weakness and Denies Sensory deficit (Neuro) Psychiatric: Psychiatric: Reports no additional psychiatric complaints and Reports as per HPI Endocrine: Endocrine: Denies cold intolerance, Denies flushing, Denies heat intolerance, Denies polyphagia, Denies polydipsia and Denies palpitations Hematologic/Lymphatic: Hematologic/Lymphatic: Reports no additional hematologic/lymphatic complaints and Reports as per HPI Allergic/Immunologic: Allergic/Immunologic: Reports no additional allergic/immunologic complaints and Reports as per HPI [facility] Past Medical History Medical History (Updated 08/10/21 @ 03:57 by Eber Rossi MD) Cirrhosis of liver COPD (chronic obstructive pulmonary disease) Diabetes type 2, controlled Esophageal varices Hepatitis C Pancytopenia Thrombocytopenia Surgical History Surgical History H/O cardiac catheterization H/O hernia repair History of esophagogastroduodenoscopy (EGD) Family History Family History Father Family history of pancreatic cancer Other Diabetes mellitus Hypertension Social History Social History Social History: The patient is homeless and states that he lives in his truck. The patient stated he has raised 7 children. The patient is a recovering alcoholic Smoking status: Former smoker Second hand tobacco smoke exposure: Yes Alcohol intake: never Substance use: current Substance use type: amphetamines Last use: pt states last use about 5 days ago Gender identity (if verbalized by the patient): Male Spiritual care concerns: No Meds Home Medications and Allergies Home Medications Medication Instructions Recorded Confirmed Type albuterol sulfate 2 puff INHALATION QID #8.5 g 11/12/20 08/09/21 Rx Lantus
[2021-08-10] MEDS: SODIUM CHLORIDE 0.9% IV 1,000 ML 100 ML IV CONT (03:42)
[2021-08-10 06:34] LABS: Basophils Percent Auto 0.3 % (0.2-1.2); Eosinophils Absolute Auto 0.3 K/mm3 (0-0.3); Eosinophils Percent Auto 8.9 % (0-4.4); Hematocrit 31.9 % (42.0-52.0); Hemoglobin 10.1 g/dL (14.0-18.0); Immature Granulocyte Absolute 0.01 K/mm3 (0.00-0.031); Immature Granulocyte Percent A 0.3 % (0-0.5); Lymphocytes Absolute Auto 0.18 K/mm3 (0.9-3.2); Lymphocytes Percent Auto 5.3 % (18.3-44.2); Mean Corpuscular HGB Conc 31.7 g/dl (32-36); Mean Platelet Volume 10.1 fl (7.4-10.4); Monocytes Absolute Auto 0.5 K/mm3 (0.1-0.6); Monocytes Percent Auto 13.9 % (2.6-8.5); Neutrophils Absolute Auto 2.4 K/mm3 (1.3-6.7); Neutrophils Percent Auto 71.3 % (45.5-73.1); Platelet Count Result 122 k/mm3 (150-375); Red Blood Count 4.04 M/mm3 (4.6-6.20); Red Cell Distribution Width 16.6 % (11.5-14.5); White Blood Count 3.4 K/mm3 (4.5-10.0)
[2021-08-10 06:47] LABS: Anion Gap 2 mmol/L (8-16); Blood Urea Nitrogen 21 mg/dL (9-20); Calcium 7.2 mg/dL (8.4-10.2); Carbon Dioxide 27 mmol/L (22-30); Chloride 101 mmol/L (98-107); Creatine Kinase 35 U/L (55-170); Estimated CRCL calculation 113 ml/min; Estimated Glomerular Filt Rate > 60; Glucose 173 mg/dL (65-110); Magnesium 1.6 mg/dL (1.6-2.3); Phosphorus 3.8 mg/dL (2.5-4.5); Potassium 3.6 mmol/L (3.4-5.0); Sodium 130 mmol/L (137-145)
[2021-08-10 07:00] LABS: Troponin I 0.038 ng/mL (0.000-0.034)
[2021-08-10] MEDS: ALBUTEROL SULFATE NEB 2.5 MG/0.5 ML INH INHALATION ×2 (08:11→19:50)
[2021-08-10] MEDS: METOPROLOL SUCCINATE EXT REL 50 MG TABCR PO (08:18)
[2021-08-10] MEDS: allopurinoL 100 MG TABLET PO (08:18)
[2021-08-10] MEDS: FUROSEMIDE INJ 40 MG/4 ML VIAL IV PUSH (08:19)
[2021-08-10] MEDS: BACITRACIN/POLYMYXIN B OINT 15 GM TUBE 1 APPLIC TOPICAL (08:19)
[2021-08-10] MEDS: IPRATROPIUM BR 0.02% INH SOLN 0.5 MG/2.5 ML VIAL INHALATION ×2 (08:31→19:50)
[2021-08-10 08:39] LABS: Hemoglobin A1C 7.8 % (<5.7)
[2021-08-10 08:46] LABS: Hepatitis B Surface Antigen Negative (Negative)
[2021-08-10 08:51] LABS: HAV RESULT Negative (Negative); Hepatitis B Core IgM Result Negative (Negative)
[2021-08-10 09:04] LABS: Hepatitis C Virus Antibody Reactive (Negative)
[2021-08-10 09:07] LABS: Appearance Urine Clear (Clear); Bilirubin Urine Negative (Negative); Blood Urine 1+ (Negative); Color Urine Yellow (Yellow); Glucose Urine UA Negative (Negative); Ketones Urine Negative (Negative); Leukocyte Esterase Ur Negative LEU/UL (NEGATIVE); Nitrate Urine Negative (Negative); Protein Urine 2+ mg/dL (Negative); pH Urine 6.5 (5.0-9.0)
[2021-08-10 09:16] LABS: RBC Urine 0-2 /hpf (0-2); WBC Urine 0-3 /hpf (0-3)
[2021-08-10 09:17] LABS: Add Urine Microscopic? YES
[2021-08-10 09:25] LABS: Amphetamine Screen Urine Negative (Negative); Barbiturate Screen Urine Negative (Negative); Benzodiazepines Screen Urine Negative (Negative); Cannabinoid Screen Urine Negative (Negative); Cocaine Screen Urine Negative (Negative); Methadone Screen Urine Negative (Negative); Opiate Screen Urine Negative (Negative); Phencyclidine Screen Urine Negative (Negative)
[2021-08-10] MEDS: ACETAMINOPHEN 325 MG TABLET 650 MG PO ×2 (09:34→17:19)
--- NOTE | 2021-08-10 12:05 | PM.IMPN ---
Progress Note: A&P Assessment and Plan (1) Fever and chills: Code(s): R50.9 - Fever, unspecified Status: Acute Assessment and Plan: Supportive care with Tylenol and anti emetics (2) COPD (chronic obstructive pulmonary disease): Qualifiers: COPD type: unspecified COPD Qualified Code(s): J44.9 - Chronic obstructive pulmonary disease, unspecified Code(s): J44.9 - Chronic obstructive pulmonary disease, unspecified Status: Chronic Assessment and Plan: Schedule breathing treatments q.6 hours (3) Elevated brain natriuretic peptide (BNP) level: Code(s): R79.89 - Other specified abnormal findings of blood chemistry Status: Acute Assessment and Plan: Monitor vital signs, I&Os, BUN/creatinine, daily weights, neuro status and patient is a fall risk Monitor serum electrolytes, Keep serum Potassium>4 and serum Magnesium>2 and CBC Obtain an Echocardiogram Lasix 40 mg IV q12H Consult cardiology for further management, appreciate assistance and recommendations (4) Hyponatremia: Code(s): E87.1 - Hypo-osmolality and hyponatremia Status: Acute Assessment and Plan: Continue furosemide, fluid restriction of 1200 cc within 24 hours Monitor serum electrolytes (5) Lymphedema: Code(s): I89.0 - Lymphedema, not elsewhere classified Status: Acute Assessment and Plan: Chronic Compression stockings (6) Cirrhosis of liver: Code(s): K74.60 - Unspecified cirrhosis of liver Status: Acute Assessment and Plan: Unchanged Follow-up in outpatient setting (7) Type 2 diabetes mellitus: Code(s): E11.9 - Type 2 diabetes mellitus without complications Status: Acute Assessment and Plan: Insulin Lispro sliding scale, Accu-checks qAc and HS and Hold oral hypoglycemics Continue Lantus HgbA1c 7.8 (8) Microscopic hematuria: Code(s): R31.29 - Other microscopic hematuria Status: Acute Assessment and Plan: Patient has had chronic microscopic hematuria for significant amount of time. He has not followed up as an outpatient. Will order a renal ultrasound. Also discussed with the patient about compliance with medication and follow-up appointments (9) Hepatitis C: Code(s): B19.20 - Unspecified viral hepatitis C without hepatic coma Status: Acute Assessment and Plan: Follow-up in outpatient setting Patient is a IV drug user (10) Pancytopenia: Code(s): D61.818 - Other pancytopenia Status: Chronic Assessment and Plan: Unchanged (11) Sepsis due to other etiology: Code(s): A41.89 - Other specified sepsis Status: Acute Assessment and Plan: Monitor I&Os, vital signs, neuro status and patient is a fall risk Monitor serum electrolytes, CBC, WBC, temperature curve and follow cultures Hold IV fluid resuscitation, patient has interstitial edema noted on chest x-ray and 2+ pitting edema IV Vancomycin, consult pharmacy to dose, send Vancomycin trough levels before 4th dose, and Cefepime 1 gram IV q8H Patient is pancytopenic, fever greater than 101 0.5 upon admission, tachycardic, elevated lactic acid Patient is an IV drug user. Patient reported he used approximately 6 days ago, injected methamphetamines. Obtain echocardiogram, review for possible vegetation on valves Obtain MRSA swab P.r.n. Tylenol, Zofran, and melatonin (12) Back pain: Code(s): M54.9 - Dorsalgia, unspecified Status: Acute Assessment and Plan: Patient complains of back pain to the right posterior side, will obtain a renal ultrasound as the patient also has hematuria. Patient also complains of mid and upper back pain. Will obtain an ultrasound to check soft tissue due to swelling in the area as well as a CT of the lumbar spine (13) Wound of foot: Code(s): S91.309A - Unspecified open wound, unspecified foot, initial encounter Status: Acute Assessment an
[2021-08-10 12:09] LABS: Glucose Point of Care 307 mg/dl (65-105)
--- NOTE | 2021-08-10 12:10 | ECG_ITS ---
Measurements Intervals [place] Rate: 77 P: 69 KS: 203 QRS: -73 QRSD: 158 T: 77 QT: 424 QTc: 481 Interpretive Statements SINUS RHYTHM VENTRICULAR PREMATURE COMPLEX RIGHT BUNDLE BRANCH BLOCK LEFT ANTERIOR FASCICULAR BLOCK ABNORMAL ECG Electronically Signed On 08-10-2021 15:51:38 CDT by Shahid Mcginnis D.O.
[2021-08-10] MEDS: INSULIN ASPART (*BKC) 100 UNITS/ML SUB-Q ×2 (12:25→18:59)
--- NOTE | 2021-08-10 12:25 | PM.CNCAR ---
Assessment and Plan Assessment and plan (1) Elevated troponin: Code(s): R77.8 - Other specified abnormalities of plasma proteins Status: Acute Assessment and Plan: Very minimally elevated, flat curve, atypical chest pain with shortness of breath presented in setting of febrile illness and sepsis. Patient quite hypertensive at presentation blood pressure 183/106 now much improved. This is a type 2 infarction not consistent with acute coronary syndrome and/or plaque rupture. Review of the record indicates history of minimally elevated troponins 1st noted in setting of COVID infection. Ischemic evaluation reasonable for further clarification with regards to presentation suggestive of sepsis advised. Telemetry. Aspirin 81 mg daily reasonable, however, given pancytopenia need to monitor platelets very closely. DVT prophylaxis. -Agree with 2D Echo. Recommendations to follow after review. (2) Shortness of breath: Code(s): R06.02 - Shortness of breath Status: Acute Assessment and Plan: Evidence of hypoxia on room air intermittently, abnormal chest x-ray with reticulonodular disease and interstitial edema. He has been started on IV antibiotics at primary service. - Patient admits he has not been compliant with medications the exception of his Bumex. He states he has not been eating or drinking well for several days prior to admission. BNP 4740 yet clinically he does not appear to be significantly volume overloaded with exception of lower extremity edema and unremarkable lung exam with exception diminished breath sounds. - Continue beta-ashlyn, diuresis, accurate input and output, daily weight. Monitor renal function and electrolytes closely. Expected transition to oral diuresis depending on patient's clinical course and response to therapy within 24 hours. Echocardiogram pending. (3) Sepsis: Code(s): A41.9 - Sepsis, unspecified organism Status: Acute Assessment and Plan: Febrile illness documented 103? F resolved, pancytopenia started on IV antibiotics cefepime and vancomycin. (4) Atrial fibrillation: Code(s): I48.91 - Unspecified atrial fibrillation Status: Acute Assessment and Plan: Currently sinus rhythm. Right bundle branch block chronic no new significant changes. (5) COPD (chronic obstructive pulmonary disease): Qualifiers: COPD type: unspecified COPD Qualified Code(s): J44.9 - Chronic obstructive pulmonary disease, unspecified Code(s): J44.9 - Chronic obstructive pulmonary disease, unspecified Status: Chronic Assessment and Plan: Per primary service, O2 supplementation, bronchodilator therapy is appropriate. (6) Pancytopenia: Code(s): D61.818 - Other pancytopenia Status: Chronic Assessment and Plan: As above. (7) Type 2 diabetes mellitus: Code(s): E11.9 - Type 2 diabetes mellitus without complications Status: Acute Assessment and Plan: Management per primary service. History of Present Illness History of Present Illness Consult date/time: Date of service: 08/10/21 12:25 Cardiology consultation at the request of Germania Alvarez for opinion regarding shortness of breath, elevated troponin Requesting physician: Germania Alvarez, [employer] TE[employer] Consult reason: shortness of breath and Other (Elevated troponin) Reason For Visit: Pneumonia, Fever Narrative: Patient is a pleasant 61-year-old male with past medical history significant for COPD, hypertension, type 2 diabetes mellitus, tobacco abuse, pancytopenia, history of alcoholism, lymphedema for polysubstance abuse, paroxysmal atrial fibrillation 1st noted during COVID earlier this year who is homeless living out of his truck who presented to the emergency department with complaints of progressive weakness, fatigue, chills, myalgias frequent cough, shortness of breath with associated mild brief chest pain. In the ER he had documented fever 103? F
[2021-08-10] MEDS: FLUTICASONE PROPIONATE 0.05% NA SPR 16 GM BTL (*BKC) 2 SPRAY NASAL (12:31)
[2021-08-10 13:40] LABS: Influenza Control Positive
[2021-08-10 17:41] LABS: Glucose Point of Care 259 mg/dl (65-105)
[2021-08-10] MEDS: traMADol HCL (*CRX) 25 MG TABLET PO (18:58)
[2021-08-10] MEDS: FUROSEMIDE INJ 40 MG/4 ML VIAL (21:45)
[2021-08-10 23:04] LABS: Glucose Point of Care 163 mg/dl (65-105)
[2021-08-11] VITALS (13 sets, daily range): BP systolic 106–132; BP diastolic 86–88; PULSE 78–93; RESP 18–22; TEMP 36.8–37; O2SAT 95–99
[2021-08-11] MEDS: ALBUTEROL SULFATE NEB 2.5 MG/0.5 ML INH INHALATION ×4 (01:24→20:20)
[2021-08-11] MEDS: IPRATROPIUM BR 0.02% INH SOLN 0.5 MG/2.5 ML VIAL INHALATION ×4 (01:24→20:21)
[2021-08-11 08:04] LABS: Glucose Point of Care 165 mg/dl (65-105)
--- NOTE | 2021-08-11 08:43 | PM.PNCARD ---
Progress Note: A&P Assessment and Plan (1) Elevated troponin: Code(s): R77.8 - Other specified abnormalities of plasma proteins <CHARLEEN Morales - Last Filed: 08/11/21 13:11> Status: Acute <CHARLEEN Morales - Last Filed: 08/11/21 13:11> Assessment and Plan: Very minimally elevated, flat curve, atypical chest pain with shortness of breath presented in setting of febrile illness and sepsis. Patient quite hypertensive at presentation blood pressure 183/106 now much improved. This is a type 2 infarction not consistent with acute coronary syndrome and/or plaque rupture. 2D echo did show apical lateral hypokinesis, ischemic evaluation is recommended. Will proceed with a lexiscan stress test tomorrow. Further recommendations to follow. <CHARLEEN Morales - Last Filed: 08/11/21 13:11> (2) Shortness of breath: Code(s): R06.02 - Shortness of breath <CHARLEEN Morales - Last Filed: 08/11/21 13:11> Status: Acute <CHARLEEN Morales - Last Filed: 08/11/21 13:11> Assessment and Plan: Evidence of hypoxia on room air intermittently, abnormal chest x-ray with reticulonodular disease and interstitial edema. He has been started on IV antibiotics at primary service. Echo showed mildly reduced LV systolic function, EF 50-55% with hypokinesis of the apical lateral wall. He has grade II diastolic dysfunction. He has mild - moderate RV systolic dysfunction. Severe LAE. Mild (peak velocity 235 cm/s, mean gradient 13 mmHg, MARIELOS 1.6 cm2). Mild PHTN, PASP 36 Continue metoprolol Continue diuresis with furosemide, shift to p.o. today. He is not volume overloaded on exam. Accurate I&O Daily weight Monitor renal function and electrolytes with daily BMP <CHARLEEN Morales - Last Filed: 08/11/21 13:11> (3) Sepsis: Code(s): A41.9 - Sepsis, unspecified organism <CHARLEEN Morales - Last Filed: 08/11/21 13:11> Status: Acute <SHEN MoralesC - Last Filed: 08/11/21 13:11> Assessment and Plan: Febrile illness documented 103? F resolved, pancytopenia started on IV antibiotics cefepime and vancomycin. <CHARLEEN Morales - Last Filed: 08/11/21 13:11> (4) Atrial fibrillation: Code(s): I48.91 - Unspecified atrial fibrillation <CHARLEEN Morales - Last Filed: 08/11/21 13:11> Status: Acute <SHEN MoralesC - Last Filed: 08/11/21 13:11> Assessment and Plan: Currently sinus rhythm. Right bundle branch block chronic no new significant changes. <CHARLEEN Morales - Last Filed: 08/11/21 13:11> (5) COPD (chronic obstructive pulmonary disease): Qualifiers: COPD type: unspecified COPD Qualified Code(s): J44.9 - Chronic obstructive pulmonary disease, unspecified <SHEN MoralesC - Last Filed: 08/11/21 13:11> Code(s): J44.9 - Chronic obstructive pulmonary disease, unspecified <SHEN MoralesC - Last Filed: 08/11/21 13:11> Status: Chronic <SHEN MoralesC - Last Filed: 08/11/21 13:11> Assessment and Plan: Per primary service, O2 supplementation, bronchodilator therapy is appropriate. <CHARLEEN Morales - Last Filed: 08/11/21 13:11> (6) Pancytopenia: Code(s): D61.818 - Other pancytopenia <CHARLEEN Morales - Last Filed: 08/11/21 13:11> Status: Chronic <SHEN MoralesC - Last Filed: 08/11/21 13:11> Assessment and Plan: As above. <CHARLEEN Morales - Last Filed: 08/11/21 13:11> (7) Type 2 diabetes mellitus: Code(s): E11.9 - Type 2 diabetes mellitus without complications <CHARLEEN Morales - Last Filed: 08/11/21 13:11> Status: Acute <CHARLEEN Morales - Last Filed: 08/11/21 13:11> Assessment and Plan: Management per primary service. <CHARLEEN Morales - Last Filed: 08/11/21 13:11> Additional Plan Att
[2021-08-11] MEDS: ACETAMINOPHEN 325 MG TABLET 650 MG PO (08:54)
[2021-08-11] MEDS: allopurinoL 100 MG TABLET PO (08:54)
[2021-08-11] MEDS: FUROSEMIDE INJ 40 MG/4 ML VIAL IV PUSH ×2 (08:55→16:51)
[2021-08-11] MEDS: FLUTICASONE PROPIONATE 0.05% NA SPR 16 GM BTL (*BKC) 2 SPRAY NASAL (08:55)
[2021-08-11] MEDS: METOPROLOL SUCCINATE EXT REL 50 MG TABCR PO (09:18)
--- NOTE | 2021-08-11 10:19 | PM.IMPN ---
Progress Note: A&P Assessment and Plan (1) Fever and chills: Code(s): R50.9 - Fever, unspecified Status: Acute Assessment and Plan: Supportive care with Tylenol and anti emetics (2) COPD (chronic obstructive pulmonary disease): Qualifiers: COPD type: unspecified COPD Qualified Code(s): J44.9 - Chronic obstructive pulmonary disease, unspecified Code(s): J44.9 - Chronic obstructive pulmonary disease, unspecified Status: Chronic Assessment and Plan: Schedule breathing treatments q.6 hours (3) Elevated brain natriuretic peptide (BNP) level: Code(s): R79.89 - Other specified abnormal findings of blood chemistry Status: Acute Assessment and Plan: Monitor vital signs, I&Os, BUN/creatinine, daily weights, neuro status and patient is a fall risk Monitor serum electrolytes, Keep serum Potassium>4 and serum Magnesium>2 and CBC Obtain an Echocardiogram Lasix 40 mg IV q12H Consult cardiology for further management, appreciate assistance and recommendations 2/2 acute systolic and diastolic congestive heart failure (4) Hyponatremia: Code(s): E87.1 - Hypo-osmolality and hyponatremia Status: Acute Assessment and Plan: Continue furosemide, fluid restriction of 1200 cc within 24 hours Monitor serum electrolytes (5) Lymphedema: Code(s): I89.0 - Lymphedema, not elsewhere classified Status: Acute Assessment and Plan: Chronic Compression stockings (6) Cirrhosis of liver: Code(s): K74.60 - Unspecified cirrhosis of liver Status: Acute Assessment and Plan: Unchanged Follow-up in outpatient setting (7) Type 2 diabetes mellitus: Code(s): E11.9 - Type 2 diabetes mellitus without complications Status: Acute Assessment and Plan: Insulin Lispro sliding scale, Accu-checks qAc and HS and Hold oral hypoglycemics Continue Lantus HgbA1c 7.8 (8) Microscopic hematuria: Code(s): R31.29 - Other microscopic hematuria Status: Acute Assessment and Plan: Patient has had chronic microscopic hematuria for significant amount of time. He has not followed up as an outpatient. Will order a renal ultrasound. Also discussed with the patient about compliance with medication and follow-up appointments (9) Hepatitis C: Code(s): B19.20 - Unspecified viral hepatitis C without hepatic coma Status: Acute Assessment and Plan: Follow-up in outpatient setting Patient is a IV drug user (10) Pancytopenia: Code(s): D61.818 - Other pancytopenia Status: Chronic Assessment and Plan: Unchanged (11) Sepsis due to other etiology: Code(s): A41.89 - Other specified sepsis Status: Acute Assessment and Plan: Monitor I&Os, vital signs, neuro status and patient is a fall risk Monitor serum electrolytes, CBC, WBC, temperature curve and follow cultures Hold IV fluid resuscitation, patient has interstitial edema noted on chest x-ray and 2+ pitting edema IV Vancomycin, consult pharmacy to dose, send Vancomycin trough levels before 4th dose, and Cefepime 1 gram IV q8H Patient is pancytopenic, fever greater than 101.5 upon admission, tachycardic, elevated lactic acid Patient is an IV drug user. Patient reported he used approximately 6 days ago, injected methamphetamines. Pending MRSA swab P.r.n. Tylenol, Zofran, and melatonin (12) Back pain: Code(s): M54.9 - Dorsalgia, unspecified Status: Acute Assessment and Plan: Patient complains of back pain to the right posterior side, will obtain a renal ultrasound as the patient also has hematuria. Patient also complains of mid and upper back pain. CT of the lumbar spine revealed lumbar spine spondylosis without acute fracture as well as ascites and retroperitoneal lymphadenopathy Renal ultrasound negative Ultrasound soft tissue negative for acute findings (13) Wound of foot: Code(s): S91.309A - Un
[2021-08-11 11:55] LABS: Glucose Point of Care 208 mg/dl (65-105)
[2021-08-11] MEDS: INSULIN ASPART (*BKC) 100 UNITS/ML SUB-Q (12:04)
[2021-08-11 14:44] LABS: Hematocrit 33.4 % (42.0-52.0); Hemoglobin 10.1 g/dL (14.0-18.0); Mean Corpuscular HGB Conc 30.2 g/dl (32-36); Mean Corpuscular Hemoglobin 24.8 pg (26-34); Mean Corpuscular Volume 82.1 fl (80-100); Mean Platelet Volume 9.6 fl (7.4-10.4); Platelet Count Result 129 k/mm3 (150-375); Red Blood Count 4.07 M/mm3 (4.6-6.20); White Blood Count 2.9 K/mm3 (4.5-10.0)
[2021-08-11 14:56] LABS: Anion Gap 2 mmol/L (8-16); Blood Urea Nitrogen 21 mg/dL (9-20); Calcium 7.4 mg/dL (8.4-10.2); Carbon Dioxide 30 mmol/L (22-30); Chloride 100 mmol/L (98-107); Estimated CRCL calculation 101 ml/min; Estimated Glomerular Filt Rate > 60; Glucose 244 mg/dL (65-110); Potassium 3.7 mmol/L (3.4-5.0); Sodium 132 mmol/L (137-145)
[2021-08-11] MEDS: LORazepam INJ (*CRX) 2 MG/ML VIAL 0.5 MG IV PUSH (15:36)
[2021-08-11 17:08] LABS: Glucose Point of Care 189 mg/dl (65-105)
[2021-08-11 18:02] LABS: Appearance Urine Clear (Clear); Bilirubin Urine Negative (Negative); Color Urine Yellow (Yellow); Glucose Urine UA Negative (Negative); Ketones Urine Negative (Negative); Leukocyte Esterase Ur Negative LEU/UL (NEGATIVE); Nitrate Urine Negative (Negative); Protein Urine Trace mg/dL (Negative); Specific Grav Ur 1.025 (1.001-1.035); Urobilinogen Urine 0.2 mg/dL (<2.0)
[2021-08-11 18:10] LABS: Add Urine Microscopic? YES; Blood Urine Trace-Intact (Negative)
[2021-08-11 18:15] LABS: Mucus Urine Rare /lpf; RBC Urine 0-2 /hpf (0-2); WBC Urine 0-3 /hpf (0-3)
[2021-08-11] MEDS: LORazepam INJ (*CRX) 2 MG/ML VIAL IV PUSH (23:25)
[2021-08-12] VITALS (9 sets, daily range): BP systolic 120; BP diastolic 75; PULSE 75–88; RESP 16–18; TEMP 36.7–36.9; O2SAT 95
--- NOTE | 2021-08-12 00:21 | PC.NURSE ---
Pt refused accucheck and insulin. Pt states I cannot have food or fluids so my sugar is fine . Upon assessment teletypewriter installer noticed IV was infiltrated. Pt states I do not want another one. Naval Designer spoke with Kellie Venegas RN and she talked to pt about new IV. Pt agreed to new IV site but still refused accucheck and insulin.
[2021-08-12 01:17] LABS: Vancomycin Trough 11.6 ug/mL (10.0-20.0)
[2021-08-12] MEDS: IPRATROPIUM BR 0.02% INH SOLN 0.5 MG/2.5 ML VIAL INHALATION ×3 (02:07→20:24)
[2021-08-12] MEDS: ALBUTEROL SULFATE NEB 2.5 MG/0.5 ML INH INHALATION ×3 (02:07→20:24)
[2021-08-12 06:33] LABS: Basophils Percent Auto 0.6 % (0.2-1.2); Eosinophils Absolute Auto 0.3 K/mm3 (0-0.3); Eosinophils Percent Auto 8.8 % (0-4.4); Hematocrit 36.4 % (42.0-52.0); Immature Granulocyte Absolute 0.02 K/mm3 (0.00-0.031); Immature Granulocyte Percent A 0.6 % (0-0.5); Lymphocytes Percent Auto 11.3 % (18.3-44.2); Mean Corpuscular HGB Conc 30.2 g/dl (32-36); Mean Corpuscular Hemoglobin 24.6 pg (26-34); Mean Corpuscular Volume 81.3 fl (80-100); Mean Platelet Volume 9.6 fl (7.4-10.4); Monocytes Absolute Auto 0.5 K/mm3 (0.1-0.6); Monocytes Percent Auto 12.7 % (2.6-8.5); Neutrophils Absolute Auto 2.3 K/mm3 (1.3-6.7); Platelet Count Result 142 k/mm3 (150-375); Red Blood Count 4.48 M/mm3 (4.6-6.20); Red Cell Distribution Width 16.9 % (11.5-14.5); White Blood Count 3.5 K/mm3 (4.5-10.0)
[2021-08-12 06:45] LABS: Alanine Aminotransferase 24 U/L (6-50); Albumin Level 2.4 g/dL (3.5-5.1); Alkaline Phosphatase 211 U/L (38-126); Anion Gap 1 mmol/L (8-16); Aspartate Amino Transferase 31 U/L (17-59); Bilirubin,Total 0.7 mg/dL (0.2-1.3); Blood Urea Nitrogen 19 mg/dL (9-20); Calcium 7.7 mg/dL (8.4-10.2); Carbon Dioxide 33 mmol/L (22-30); Chloride 99 mmol/L (98-107); Estimated CRCL calculation 128 ml/min; Estimated Glomerular Filt Rate > 60; Glucose 175 mg/dL (65-110); Magnesium 1.5 mg/dL (1.6-2.3); Potassium 3.8 mmol/L (3.4-5.0); Sodium 133 mmol/L (137-145)
[2021-08-12 07:49] LABS: Glucose Point of Care 162 mg/dl (65-105)
--- NOTE | 2021-08-12 09:07 | PM.PNCARD ---
Progress Note: A&P Assessment and Plan (1) Elevated troponin: Code(s): R77.8 - Other specified abnormalities of plasma proteins <CHARLEEN Morales - Last Filed: 08/12/21 10:24> Status: Acute <CHARLEEN Morales - Last Filed: 08/12/21 10:24> Assessment and Plan: Very minimally elevated, flat curve, atypical chest pain with shortness of breath presented in setting of febrile illness and sepsis. Patient quite hypertensive at presentation blood pressure 183/106 now much improved. This is a type 2 infarction not consistent with acute coronary syndrome and/or plaque rupture. 2D echo did show apical lateral hypokinesis, ischemic evaluation is recommended. Underwent lexiscan stress test this morning. Further recommendations when results are available. <CHARLEEN Morales - Last Filed: 08/12/21 10:24> (2) Shortness of breath: Code(s): R06.02 - Shortness of breath <CHARLEEN Morales - Last Filed: 08/12/21 10:24> Status: Acute <CHARLEEN Morales - Last Filed: 08/12/21 10:24> Assessment and Plan: Evidence of hypoxia on room air intermittently, abnormal chest x-ray with reticulonodular disease and interstitial edema. He has been started on IV antibiotics by primary service. Echo showed mildly reduced LV systolic function, EF 50-55% with hypokinesis of the apical lateral wall. He has grade II diastolic dysfunction. He has mild - moderate RV systolic dysfunction. Severe LAE. Mild (peak velocity 235 cm/s, mean gradient 13 mmHg, MARIELOS 1.6 cm2). Mild PHTN, PASP 36 Continue metoprolol Continue p.o. furosemide Accurate I&O Daily weight Monitor renal function and electrolytes with daily BMP <CHARLEEN Morales - Last Filed: 08/12/21 10:24> (3) Sepsis: Code(s): A41.9 - Sepsis, unspecified organism <CHARLEEN Morales - Last Filed: 08/12/21 10:24> Status: Acute <CHARLEEN Morales - Last Filed: 08/12/21 10:24> Assessment and Plan: Febrile illness documented 103? F resolved, pancytopenia started on IV antibiotics cefepime and vancomycin. <CHARLEEN Morales - Last Filed: 08/12/21 10:24> (4) Atrial fibrillation: Code(s): I48.91 - Unspecified atrial fibrillation <CHARLEEN Morales - Last Filed: 08/12/21 10:24> Status: Acute <CHARLEEN Morales - Last Filed: 08/12/21 10:24> Assessment and Plan: Currently sinus rhythm. Right bundle branch block chronic no new significant changes. <CHARLEEN Morales - Last Filed: 08/12/21 10:24> (5) COPD (chronic obstructive pulmonary disease): Qualifiers: COPD type: unspecified COPD Qualified Code(s): J44.9 - Chronic obstructive pulmonary disease, unspecified <CHARLEEN Morales - Last Filed: 08/12/21 10:24> Code(s): J44.9 - Chronic obstructive pulmonary disease, unspecified <CHARLEEN Morales - Last Filed: 08/12/21 10:24> Status: Chronic <CHARLEEN Morales - Last Filed: 08/12/21 10:24> Assessment and Plan: Per primary service, O2 supplementation, bronchodilator therapy is appropriate. <CHARLEEN Morales - Last Filed: 08/12/21 10:24> (6) Pancytopenia: Code(s): D61.818 - Other pancytopenia <CHARLEEN Morales - Last Filed: 08/12/21 10:24> Status: Chronic <CHARLEEN Morales - Last Filed: 08/12/21 10:24> Assessment and Plan: As above. <CHARLEEN Morales - Last Filed: 08/12/21 10:24> (7) Type 2 diabetes mellitus: Code(s): E11.9 - Type 2 diabetes mellitus without complications <CHARLEEN Morales - Last Filed: 08/12/21 10:24> Status: Acute <CHARLEEN Morales - Last Filed: 08/12/21 10:24> Assessment and Plan: Management per primary service. <CHARLEEN Morales - Last Filed: 08/12/21 10:24> Additional Plan Attending Addendum: I agree with the above documentation a
[2021-08-12] MEDS: METOPROLOL SUCCINATE EXT REL 50 MG TABCR PO (10:00)
[2021-08-12] MEDS: allopurinoL 100 MG TABLET PO (10:00)
[2021-08-12] MEDS: FUROSEMIDE INJ 40 MG/4 ML VIAL IV PUSH ×2 (10:00→17:29)
[2021-08-12] MEDS: FLUTICASONE PROPIONATE 0.05% NA SPR 16 GM BTL (*BKC) 2 SPRAY NASAL (10:01)
[2021-08-12 11:16] LABS: Glucose Point of Care 148 mg/dl (65-105)
--- NOTE | 2021-08-12 13:11 | EST_ITS ---
Patient Info Name: Maxim Babb Age: 61 years : 1960 Gender: Male Ht: 73 in Wt: 257 lbs BSA: 2.49 m2 HR: 74 bpm BP: 135 / 87 mmHg Heart Rhythm: Sinus Rhythm Exam Date: 08/12/2021 8:43 AM Exam Location: [facility] Stress Patient Status: Outpatient Admit Date: 08/09/2021 Staff Ordering Physician: Mónica Garcia Attending Provider: Melissa Díaz PA-C Exercise Technologist: aDmaris Andrea CT Nurse: mónica garcia Exam Type: CA stress karo w NM Study Info Indications R07.9 - Chest pain, unspecified A regadenoson stress test was performed. Summary 1. Occasional PVCs during Lexiscan administration. 2. No abnormal ST/T wave changes with Lexiscan administration. 3. Please correlate with nuclear medicine images, reported separately. 4. Self-limited chest pain and SOB with Lexiscan. Protocol: Lexiscan Stress ECG Details Stage: REST Duration (min): 0 min : 53 sec HR (bpm): 77 SBP (mmHg): 135 DBP (mmHg): 87 Stage: REST Duration (min): 3 min : 3 sec HR (bpm): 80 SBP (mmHg): 135 DBP (mmHg): 87 Stage: REST Duration (min): 3 min : 41 sec HR (bpm): 75 SBP (mmHg): 135 DBP (mmHg): 87 Stage: REST Duration (min): 11 min : 32 sec HR (bpm): 79 SBP (mmHg): 135 DBP (mmHg): 87 Stage: REST Duration (min): 13 min : 43 sec HR (bpm): 79 SBP (mmHg): 135 DBP (mmHg): 87 Stage: STAGE 1 Duration (min): 1 min : 0 sec HR (bpm): 81 SBP (mmHg): 138 DBP (mmHg): 91 Stage: RECOVERY Duration (min): 1 min : 0 sec HR (bpm): 89 SBP (mmHg): 138 DBP (mmHg): 91 Stage: RECOVERY Duration (min): 2 min : 0 sec HR (bpm): 87 SBP (mmHg): 138 DBP (mmHg): 91 Stage: RECOVERY Duration (min): 3 min : 0 sec HR (bpm): 85 SBP (mmHg): 138 DBP (mmHg): 88 Stage: RECOVERY Duration (min): 3 min : 13 sec HR (bpm): 84 SBP (mmHg): 138 DBP (mmHg): 88 Rest HR: 79 bpm Peak HR: 89 bpm Rest Sys BP: 135 mmHg Peak Sys BP: 138 mmHg Max Pred HR: 159 bpm % Max Pred HR: 56 % Target HR: 135 bpm Max RPP: 12,282 bpm*mmHg BP Response: Normal blood pressure response Termination Reason: Completed protocol Cardiac Symptoms: Shortness of breath, Chest discomfort Total Time: 1 min : 0 sec Rest [place] BP: 87 mmHg Peak [place] BP: 91 mmHg Total Dose: 0.4 mg Resting ECG Normal sinus rhythm, RBBB, PVC. Stress ECG No abnormal ST/T wave changes with Lexiscan administration. Arrhythmias Occasional PVCs during Lexiscan administration. Report Signatures
[2021-08-12 13:21] LABS: Hepatitis C RNA, Quant PCR <15 IU/mL
--- NOTE | 2021-08-12 16:55 | PC.NURSE ---
Patient refused 1400 vitals as well at 1700 accu check. Hospitalist will be notified.
--- NOTE | 2021-08-12 17:47 | PC.NURSE ---
Patient finally agreed to taking 1700 scheduled lasix. Still refusing vitals and accu checks until he gets ativan or fluid restriction is lifted.
--- NOTE | 2021-08-12 18:01 | PM.IMPN ---
Progress Note: A&P Assessment and Plan (1) Acute combined systolic and diastolic congestive heart failure: Code(s): I50.41 - Acute combined systolic (congestive) and diastolic (congestive) heart failure Status: Acute Assessment and Plan: Patient's last weight was 08/09 at 257 lb. 1852 mL in/6600 mL out. Echo showed mildly reduced LV systolic function, EF 50-55% with hypokinesis of the apical lateral wall. He has grade II diastolic dysfunction. He has mild - moderate RV systolic dysfunction. Severe LAE. Mild Lexiscan stress test showed an equivocal small mild to moderate severity infarct versus diaphragmatic attenuation artifact at the apical inferior and mid inferior septal segments. Mild left ventricular enlargement with borderline decreased LVEF measuring 44%. Patient did report self-limited chest pain and shortness of breath with the test, and occasional PVCs were seen. Cardiology advises patient will likely benefit from a cardiac catheterization as an outpatient, however are cautious about intervention and subsequent DAPT daily burden, as patient is not compliant with medications. We do appreciate further Cardiology recommendations at this point. Medication adjustments by Cardiology tomorrow likely DC metoprolol and start carvedilol. Recommend outpatient follow-up for cardiac catheterization due to abnormal stress test. Daily weights Daily I & Os Continue Lasix 40mg IV BID, consider discontinuation tomorrow, pending Cardiology consultation. Monitor Potassium and electrolytes as below. (2) Sepsis due to other etiology: Code(s): A41.89 - Other specified sepsis Status: Acute Assessment and Plan: Patient is afebrile today. WBC 3.5 (patient has pancytopenia). VSS. On admission, patient with fever greater than 101.5, tachycardic, elevated lactic acid (repeat normal), pancytopenia, with history of IV drug use in the past week. Chest x-ray showed pulmonary findings may represent interstitial edema and small right pleural effusion, overlying chronic reticulonodular disease. COVID negative Blood culture showed no growth today MRSA swab negative Influenza a/B antigen negative UA without evidence of infection (negative nitrates, leuk esterase, white blood cells, red blood cells, trace urine blood) HIV pending Empiric vancomycin & cefepime started on 08/10, will continue for now. Continue current supportive care with Tylenol and anti-emetics Sputum culture Mycoplasma DNA PCR Chlamydia Pneumoniae PCR (3) Electrolyte abnormality: Code(s): E87.8 - Other disorders of electrolyte and fluid balance, not elsewhere classified Status: Acute Assessment and Plan: Sodium 133 today. Continue furosemide, fluid restriction of 1200 cc within 24 hours AM CMP Calcium 7.7 today Oscal b.i.d. 500 Will recheck levels in a.m. Magnesium 1.5. (1.6) 2 g IV push bolus once Mag sulfate Recheck levels in a.m. (4) COPD (chronic obstructive pulmonary disease): Qualifiers: COPD type: unspecified COPD Qualified Code(s): J44.9 - Chronic obstructive pulmonary disease, unspecified Code(s): J44.9 - Chronic obstructive pulmonary disease, unspecified Status: Chronic Assessment and Plan: Patient saturating between 94-99 % on room air for the past 2 days. No new oxygen requirements, no orthopnea. Exam is unremarkable. Patient is only on albuterol at home. Albuterol breathing treatments q.6 hours p.r.n. (5) Lymphedema: Code(s): I89.0 - Lymphedema, not elsewhere classified Status: Acute Assessment and Plan: Chronic, present on exam today, patient refused to wear his socks. Compression stockings ordered and available for patient (6) Type 2 diabetes mellitus: Code(s): E11.9 - Type 2 diabetes mellitus without complications Status: Acute Assessment and Plan: Glucose 175 today. A1c 7.
[2021-08-12] MEDS: CALCIUM CARBONATE (OSCAL) 500 MG TABLET PO (18:39)
[2021-08-12 20:22] LABS: Glucose Point of Care 181 mg/dl (65-105)
[2021-08-12] MEDS: MAGNESIUM SULF 2 GM/WATER 50ML 2 GM/50 ML BAG IVPB (20:41)
[2021-08-12] MEDS: INSULIN GLARGINE (*BKC) 100 UNITS/ML 54 UNITS SUB-Q (21:16)
[2021-08-12] MEDS: ACETAMINOPHEN 325 MG TABLET 650 MG PO (21:25)
[2021-08-13] VITALS (11 sets, daily range): BP systolic 121–163; BP diastolic 62–81; PULSE 64–86; RESP 16–18; TEMP 36.4–36.9; O2SAT 94–96
[2021-08-13] MEDS: ALBUTEROL SULFATE NEB 2.5 MG/0.5 ML INH INHALATION ×3 (02:22→20:41)
[2021-08-13] MEDS: IPRATROPIUM BR 0.02% INH SOLN 0.5 MG/2.5 ML VIAL INHALATION ×3 (02:22→20:41)
[2021-08-13 07:12] LABS: Basophils Percent Auto 0.7 % (0.2-1.2); Eosinophils Absolute Auto 0.2 K/mm3 (0-0.3); Eosinophils Percent Auto 8.3 % (0-4.4); Hematocrit 35.5 % (42.0-52.0); Immature Granulocyte Absolute 0.02 K/mm3 (0.00-0.031); Immature Granulocyte Percent A 0.7 % (0-0.5); Lymphocytes Absolute Auto 0.43 K/mm3 (0.9-3.2); Lymphocytes Percent Auto 14.9 % (18.3-44.2); Mean Corpuscular Hemoglobin 24.5 pg (26-34); Mean Corpuscular Volume 79.1 fl (80-100); Mean Platelet Volume 9.8 fl (7.4-10.4); Monocytes Absolute Auto 0.4 K/mm3 (0.1-0.6); Monocytes Percent Auto 12.8 % (2.6-8.5); Neutrophils Absolute Auto 1.8 K/mm3 (1.3-6.7); Neutrophils Percent Auto 62.6 % (45.5-73.1); Platelet Count Result 157 k/mm3 (150-375); Red Blood Count 4.49 M/mm3 (4.6-6.20); Red Cell Distribution Width 16.4 % (11.5-14.5); White Blood Count 2.9 K/mm3 (4.5-10.0)
[2021-08-13 07:20] LABS: Alanine Aminotransferase 22 U/L (6-50); Albumin Level 2.5 g/dL (3.5-5.1); Alkaline Phosphatase 206 U/L (38-126); Anion Gap 2 mmol/L (8-16); Aspartate Amino Transferase 29 U/L (17-59); Bilirubin,Total 0.5 mg/dL (0.2-1.3); Blood Urea Nitrogen 19 mg/dL (9-20); Calcium 7.9 mg/dL (8.4-10.2); Carbon Dioxide 35 mmol/L (22-30); Chloride 99 mmol/L (98-107); Estimated CRCL calculation 108 ml/min; Estimated Glomerular Filt Rate > 60; Glucose 148 mg/dL (65-110); Potassium 3.5 mmol/L (3.4-5.0); Sodium 136 mmol/L (137-145)
[2021-08-13 08:22] LABS: Magnesium 1.6 mg/dL (1.6-2.3)
[2021-08-13 08:27] LABS: Glucose Point of Care 142 mg/dl (65-105)
[2021-08-13] MEDS: METOPROLOL SUCCINATE EXT REL 50 MG TABCR PO (08:27)
[2021-08-13] MEDS: allopurinoL 100 MG TABLET PO (08:27)
[2021-08-13] MEDS: CALCIUM CARBONATE (OSCAL) 500 MG TABLET PO ×2 (08:28→17:15)
[2021-08-13] MEDS: FUROSEMIDE INJ 40 MG/4 ML VIAL IV PUSH (08:29)
[2021-08-13] MEDS: FLUTICASONE PROPIONATE 0.05% NA SPR 16 GM BTL (*BKC) 2 SPRAY NASAL (08:30)
[2021-08-13] MEDS: THIAMINE HCL 100 MG TABLET PO (08:42)
[2021-08-13] MEDS: FOLIC ACID 1 MG TABLET PO (08:42)
--- NOTE | 2021-08-13 10:22 | PM.PNCARD ---
Progress Note: A&P Assessment and Plan (1) Elevated troponin: Code(s): R77.8 - Other specified abnormalities of plasma proteins <CHARLEEN Morales - Last Filed: 08/13/21 12:02> Status: Acute <Nicole TaylorBautista CHARLEEN Garcia - Last Filed: 08/13/21 12:02> Assessment and Plan: Very minimally elevated, flat curve, atypical chest pain with shortness of breath presented in setting of febrile illness and sepsis. Patient quite hypertensive at presentation blood pressure 183/106 now much improved. This is a type 2 infarction not consistent with acute coronary syndrome and/or plaque rupture. 2D echo did show apical lateral hypokinesis, ischemic evaluation is recommended. Lexiscan stress test showed equivocal small mild to moderate severity infarct versus diaphragmatic attenuation artifact at the apical inferior and mid inferoseptal segments. Will add ASA, statin to regimen Discussed the concept of undergoing coronary angiogram to treat any obstructive CAD. Explained that this would require commitment to DAPT in order for treatment to be successful. Concern for compliance with medical regimen - pt. states he has not been able to take his medications as prescribed recently due to instability in his living situation. Because of this, not appropriate to proceed with [facility] at this time. Can revisit this as an outpatient. <CHARLEEN Morales - Last Filed: 08/13/21 12:02> (2) Shortness of breath: Code(s): R06.02 - Shortness of breath <CHARLEEN Morales - Last Filed: 08/13/21 12:02> Status: Acute <CHARLEEN Morales - Last Filed: 08/13/21 12:02> Assessment and Plan: Evidence of hypoxia on room air intermittently, abnormal chest x-ray with reticulonodular disease and interstitial edema. He has been started on IV antibiotics by primary service. Echo showed mildly reduced LV systolic function, EF 50-55% with hypokinesis of the apical lateral wall. He has grade II diastolic dysfunction. He has mild - moderate RV systolic dysfunction. Severe LAE. Mild (peak velocity 235 cm/s, mean gradient 13 mmHg, MARIELOS 1.6 cm2). Mild PHTN, PASP 36 Continue metoprolol Continue p.o. furosemide Accurate I&O Daily weight Monitor renal function and electrolytes with daily BMP <CHARLEEN Morales - Last Filed: 08/13/21 12:02> (3) Sepsis: Code(s): A41.9 - Sepsis, unspecified organism <CHARLEEN Morales - Last Filed: 08/13/21 12:02> Status: Acute <CHARLEEN Morales - Last Filed: 08/13/21 12:02> Assessment and Plan: Febrile illness documented 103? F resolved, pancytopenia started on IV antibiotics cefepime and vancomycin. <CHARLEEN Morales - Last Filed: 08/13/21 12:02> (4) Atrial fibrillation: Code(s): I48.91 - Unspecified atrial fibrillation <CHARLEEN Morales - Last Filed: 08/13/21 12:02> Status: Acute <CHARLEEN Morales - Last Filed: 08/13/21 12:02> Assessment and Plan: Currently sinus rhythm. Right bundle branch block chronic no new significant changes. <CHARLEEN Morales - Last Filed: 08/13/21 12:02> (5) COPD (chronic obstructive pulmonary disease): Qualifiers: COPD type: unspecified COPD Qualified Code(s): J44.9 - Chronic obstructive pulmonary disease, unspecified <CHARLENE Morales - Last Filed: 08/13/21 12:02> Code(s): J44.9 - Chronic obstructive pulmonary disease, unspecified <CHARLEEN Morales - Last Filed: 08/13/21 12:02> Status: Chronic <CHARLEEN Morales - Last Filed: 08/13/21 12:02> Assessment and Plan: Per primary service, O2 supplementation, bronchodilator therapy is appropriate. <CHARLEEN Morales - Last Filed: 08/13/21 12:02> (6) Pancytopenia: Code(s): D61.818 - Other pancytopenia <CHARLEEN Morales - Last Filed: 08/13/21 12:02> Status: Chronic <Nicole Garcia, CHARLEEN - Last Filed
[2021-08-13 12:01] LABS: Glucose Point of Care 173 mg/dl (65-105)
--- NOTE | 2021-08-13 14:33 | PM.DS ---
DS: Admitting Diagnosis Discharge Date 08/14/2021 1200 Admitting Diagnosis Fever/ malaise DS: Discharge Diagnosis Discharge Diagnosis (1) Acute combined systolic and diastolic congestive heart failure: Code(s): I50.41 - Acute combined systolic (congestive) and diastolic (congestive) heart failure Status: Acute Assessment and Plan: Patient's last weight 233, down from 235 lb. He is having good output. Echo showed mildly reduced LV systolic function, EF 50-55% with hypokinesis of the apical lateral wall. He has grade II diastolic dysfunction. He has mild - moderate RV systolic dysfunction. Severe LAE. Mild . Lexiscan stress test showed an equivocal small mild to moderate severity infarct versus diaphragmatic attenuation artifact at the apical inferior and mid inferior septal segments. Mild left ventricular enlargement with borderline decreased LVEF measuring 44%. Patient did report self-limited chest pain and shortness of breath with the test, and occasional PVCs were seen. Cardiology advises patient will likely benefit from a cardiac catheterization as an outpatient, however, are cautious about intervention and subsequent DAPT daily burden, as patient is not compliant with medications. This was discussed with the patient. Patient and cardiology agreed to initiate a statin and aspirin daily and are ok for discharge of this patient. Recommend outpatient follow-up for cardiac catheterization due to abnormal stress test. Transition to PO lasix 10mg daily. Patient is euvolemic. Renal functions are normal. F/U with primary for repeat renal function testing. (2) Sepsis due to other etiology: Code(s): A41.89 - Other specified sepsis Status: Acute Assessment and Plan: Patient is afebrile today. Patient has pancytopenia. VSS. On admission, patient with fever greater than 101.5, tachycardic, elevated lactic acid (repeat normal), pancytopenia, with history of IV drug use in the past week. Chest x-ray showed pulmonary findings may represent interstitial edema and small right pleural effusion, overlying chronic reticulonodular disease. COVID negative Blood culture showed no growth today MRSA swab negative Influenza a/B antigen negative UA without evidence of infection (negative nitrates, leuk esterase, white blood cells, red blood cells, trace urine blood) HIV negative No bacterial source of infection, likely viral in nature. Sputum culture pending Mycoplasma DNA PCR pending Chlamydia Pneumoniae PCR pending Will follow up with these results. (3) Electrolyte abnormality: Code(s): E87.8 - Other disorders of electrolyte and fluid balance, not elsewhere classified Status: Acute Assessment and Plan: Sodium 135 today. Calcium 8.1 today. Patient has improved his overall course and is doing quite well. (4) COPD (chronic obstructive pulmonary disease): Qualifiers: COPD type: unspecified COPD Qualified Code(s): J44.9 - Chronic obstructive pulmonary disease, unspecified Code(s): J44.9 - Chronic obstructive pulmonary disease, unspecified Status: Chronic Assessment and Plan: Patient saturating between 94-99 % on room air for the past 2 days. No new oxygen requirements, no orthopnea. Exam is unremarkable. Patient is only on albuterol at home. Continue home inhaler therapy. (5) Lymphedema: Code(s): I89.0 - Lymphedema, not elsewhere classified Status: Acute Assessment and Plan: Chronic, present on exam today, patient refused to wear his socks. Compression stockings ordered and available for patient (6) Type 2 diabetes mellitus: Code(s): E11.9 - Type 2 diabetes mellitus without complications Status: Acute Assessment and Plan: Glucose 148 today. A1c 7.8. Glyburide and metformin on hold during stay. Insulin Lispro sliding scale, Accu-checks qAc and HS Continue Lantus 54 unit
[2021-08-13] MEDS: ATORVASTATIN 40 MG TABLET PO (14:56)
--- NOTE | 2021-08-13 15:04 | PCRCNOTE ---
Window of time for administration has passed. See next scheduled administration.
--- NOTE | 2021-08-13 15:07 | PM.IMPN ---
Progress Note: A&P Assessment and Plan (1) Acute combined systolic and diastolic congestive heart failure: Code(s): I50.41 - Acute combined systolic (congestive) and diastolic (congestive) heart failure Status: Acute Assessment and Plan: Patient's last weight 235, down from 257 lb. He is having good output. Echo showed mildly reduced LV systolic function, EF 50-55% with hypokinesis of the apical lateral wall. He has grade II diastolic dysfunction. He has mild - moderate RV systolic dysfunction. Severe LAE. Mild . Lexiscan stress test showed an equivocal small mild to moderate severity infarct versus diaphragmatic attenuation artifact at the apical inferior and mid inferior septal segments. Mild left ventricular enlargement with borderline decreased LVEF measuring 44%. Patient did report self-limited chest pain and shortness of breath with the test, and occasional PVCs were seen. Cardiology advises patient will likely benefit from a cardiac catheterization as an outpatient, however, are cautious about intervention and subsequent DAPT daily burden, as patient is not compliant with medications. Patient and cardiology agreed to initiate a statin and aspirin daily and are ok for discharge of this patient. Recommend outpatient follow-up for cardiac catheterization due to abnormal stress test. Daily weights Daily I & Os Transition to PO lasix 20mg daily. Patient is euvolemic. Renal functions are normal. Monitor Potassium and electrolytes as below. (2) Sepsis due to other etiology: Code(s): A41.89 - Other specified sepsis Status: Acute Assessment and Plan: Patient is afebrile today. WBC 3.5 (patient has pancytopenia). VSS. On admission, patient with fever greater than 101.5, tachycardic, elevated lactic acid (repeat normal), pancytopenia, with history of IV drug use in the past week. Chest x-ray showed pulmonary findings may represent interstitial edema and small right pleural effusion, overlying chronic reticulonodular disease. COVID negative Blood culture showed no growth today MRSA swab negative Influenza a/B antigen negative UA without evidence of infection (negative nitrates, leuk esterase, white blood cells, red blood cells, trace urine blood) HIV pending D/C Antibiotics at this time, no source of infection, likely viral in nature. Continue current supportive care with Tylenol and anti-emetics Sputum culture pending Mycoplasma DNA PCR pending Chlamydia Pneumoniae PCR pending (3) Electrolyte abnormality: Code(s): E87.8 - Other disorders of electrolyte and fluid balance, not elsewhere classified Status: Acute Assessment and Plan: Sodium 136 today. Continue fluid restriction, continue lasix PO now, at reduced dose. AM CMP Calcium 7.9 today Oscal b.i.d. 500 Will recheck levels in a.m. Magnesium 1.6 (1.5) (1.6) 2 g IV push bolus once Mag sulfate Recheck levels in a.m. (4) COPD (chronic obstructive pulmonary disease): Qualifiers: COPD type: unspecified COPD Qualified Code(s): J44.9 - Chronic obstructive pulmonary disease, unspecified Code(s): J44.9 - Chronic obstructive pulmonary disease, unspecified Status: Chronic Assessment and Plan: Patient saturating between 94-99 % on room air for the past 2 days. No new oxygen requirements, no orthopnea. Exam is unremarkable. Patient is only on albuterol at home. Albuterol breathing treatments q.6 hours p.r.n. (5) Lymphedema: Code(s): I89.0 - Lymphedema, not elsewhere classified Status: Acute Assessment and Plan: Chronic, present on exam today, patient refused to wear his socks. Compression stockings ordered and available for patient (6) Type 2 diabetes mellitus: Code(s): E11.9 - Type 2 diabetes mellitus without complications Status: Acute Assessment and Plan: Glucose 148 today. A1c 7.8. Glyburid
[2021-08-13] MEDS: MAGNESIUM SULF 2 GM/WATER 50ML 2 GM/50 ML BAG IVPB (17:11)
[2021-08-13 17:13] LABS: Glucose Point of Care 151 mg/dl (65-105)
[2021-08-13 17:40] LABS: HIV DNA PCR (Qual) Not Detected (Not Detected)
[2021-08-13] MEDS: INSULIN GLARGINE (*BKC) 100 UNITS/ML 54 UNITS SUB-Q (20:26)
[2021-08-13] MEDS: ACETAMINOPHEN 325 MG TABLET 650 MG PO (20:27)
[2021-08-13 21:38] LABS: Glucose Point of Care 244 mg/dl (65-105)
[2021-08-14] MEDS: ALBUTEROL SULFATE NEB 2.5 MG/0.5 ML INH INHALATION ×2 (02:39→07:38)
[2021-08-14] MEDS: IPRATROPIUM BR 0.02% INH SOLN 0.5 MG/2.5 ML VIAL INHALATION ×2 (02:40→07:38)
[2021-08-14 02:42] VITALS: PULSE 77; RESP 15
[2021-08-14 02:46] VITALS: PULSE 77; RESP 15
[2021-08-14 05:49] VITALS: BP 107/55; PULSE 80; RESP 16; TEMP 36.1; O2SAT 93
[2021-08-14 06:30] LABS: Basophils Percent Auto 0.7 % (0.2-1.2); Eosinophils Absolute Auto 0.3 K/mm3 (0-0.3); Eosinophils Percent Auto 6.4 % (0-4.4); Hematocrit 38.2 % (42.0-52.0); Hemoglobin 11.3 g/dL (14.0-18.0); Immature Granulocyte Absolute 0.03 K/mm3 (0.00-0.031); Immature Granulocyte Percent A 0.7 % (0-0.5); Lymphocytes Absolute Auto 0.55 K/mm3 (0.9-3.2); Mean Corpuscular HGB Conc 29.6 g/dl (32-36); Mean Corpuscular Hemoglobin 24.1 pg (26-34); Mean Corpuscular Volume 81.6 fl (80-100); Mean Platelet Volume 10.2 fl (7.4-10.4); Monocytes Absolute Auto 0.6 K/mm3 (0.1-0.6); Monocytes Percent Auto 13.5 % (2.6-8.5); Neutrophils Absolute Auto 2.8 K/mm3 (1.3-6.7); Neutrophils Percent Auto 65.7 % (45.5-73.1); Platelet Count Result 179 k/mm3 (150-375); Red Blood Count 4.68 M/mm3 (4.6-6.20); Red Cell Distribution Width 16.3 % (11.5-14.5); White Blood Count 4.2 K/mm3 (4.5-10.0)
[2021-08-14 06:42] LABS: Alanine Aminotransferase 24 U/L (6-50); Albumin Level 2.5 g/dL (3.5-5.1); Alkaline Phosphatase 240 U/L (38-126); Anion Gap 1 mmol/L (8-16); Aspartate Amino Transferase 39 U/L (17-59); Bilirubin,Total 0.6 mg/dL (0.2-1.3); Blood Urea Nitrogen 19 mg/dL (9-20); Calcium 8.1 mg/dL (8.4-10.2); Carbon Dioxide 34 mmol/L (22-30); Chloride 100 mmol/L (98-107); Estimated CRCL calculation 122 ml/min; Estimated Glomerular Filt Rate > 60; Glucose 77 mg/dL (65-110); Potassium 3.8 mmol/L (3.4-5.0); Sodium 135 mmol/L (137-145)
[2021-08-14 07:08] LABS: Cholesterol 129 mg/dL (0-200); HDL Direct 23 mg/dL; Triglycerides 56 mg/dL (<150)
[2021-08-14 07:23] LABS: LDL Cholesterol Direct 82 mg/dL
[2021-08-14 07:39] VITALS: PULSE 69; RESP 12
[2021-08-14 07:43] VITALS: PULSE 72; RESP 12
[2021-08-14 08:34] LABS: Glucose Point of Care 73 mg/dl (65-105)
[2021-08-14] MEDS: ATORVASTATIN 20 MG TABLET PO (09:08)
[2021-08-14] MEDS: THIAMINE HCL 100 MG TABLET PO (09:08)
[2021-08-14 09:09] VITALS: PULSE 77
[2021-08-14] MEDS: ASPIRIN 81 MG ENTERIC TABLET PO (09:09)
[2021-08-14] MEDS: allopurinoL 100 MG TABLET PO (09:09)
[2021-08-14] MEDS: METOPROLOL SUCCINATE EXT REL 50 MG TABCR PO (09:09)
[2021-08-14] MEDS: FUROSEMIDE 20 MG TABLET PO (09:10)
[2021-08-14] MEDS: CALCIUM CARBONATE (OSCAL) 500 MG TABLET PO (09:10)
[2021-08-14] MEDS: FOLIC ACID 1 MG TABLET PO (09:10)
[2021-08-14] MEDS: FLUTICASONE PROPIONATE 0.05% NA SPR 16 GM BTL (*BKC) 2 SPRAY NASAL (09:10)
[2021-08-14 12:40] LABS: Glucose Point of Care 155 mg/dl (65-105)
--- NOTE | 2021-08-16 15:34 | PC.NURSE ---
Patient's pharmacy called to clarify medication dosage. Medications clarified.
== END 2021-08-14 12:33 | disposition home or self-care (01) | DRG 720 ==
LOC: ANHED 21:10 → ANH3MEDSUR 21:45
PROVIDERS: Internal Medicine Cardiovascular Disease; Nurse Practitioner Family; Student in an Organized Health Care Education/Training Program; Admitting Provider Internal Medicine; Emergency Provider Emergency Medicine; Visit Provider Internal Medicine
DX: A41.89 Other specified sepsis (principal); B34.9 Viral infection, unspecified; I11.0 Hypertensive heart disease with heart failure; I50.41 Acute combined systolic (congestive) and diastolic (congestive) heart failure; I21.A1 Myocardial infarction type 2; I45.10 Unspecified right bundle-branch block; J44.9 Chronic obstructive pulmonary disease, unspecified; D61.818 Other pancytopenia; E11.9 Type 2 diabetes mellitus without complications; E87.1 Hypo-osmolality and hyponatremia; Z20.822 Contact with and (suspected) exposure to COVID-19; I48.0 Paroxysmal atrial fibrillation; I89.0 Lymphedema, not elsewhere classified; B19.20 Unspecified viral hepatitis C without hepatic coma; I25.10 Atherosclerotic heart disease of native coronary artery without angina pectoris; K74.60 Unspecified cirrhosis of liver; R31.29 Other microscopic hematuria; E66.9 Obesity, unspecified; Z68.30 Body mass index [BMI] 30.0-30.9, adult; Z79.84 Long term (current) use of oral hypoglycemic drugs; Z59.02 Unsheltered homelessness; Z87.891 Personal history of nicotine dependence; M54.9 Dorsalgia, unspecified; S91.301A Unspecified open wound, right foot, initial encounter; Z91.14 Patient's other noncompliance with medication regimen; Z79.52 Long term (current) use of systemic steroids; R09.02 Hypoxemia; I49.3 Ventricular premature depolarization
CPT/HCPCS: 36415; 71045; 72131; 73620; 76604; 76705; 76775; 78452; 80048; 80053; 80061; 80074; 80202; 80307; 81001; 82550; 82948; 83036; 83605; 83690; 83735; 83880; 84100; 84484; 85025; 85027; 85610; 85730; 86140; 86710; 87040; 87081; 87522; 87535; 87804; 93005; 93017; 93306; 94640; 96360; 96361; A9270; A9502; C9803; G0378; G0379; J0131; J0456; J0692; J0696; J1170; J1815; J1940; J2060; J2785; J3370; J3475; J7030; U0003; U0005

== ENCOUNTER 2021-08-29 08:18 | Emergency (ER) | payer OTHER, SELFPAY ==
--- NOTE | ~2021-08-29 | XR_ITS ---
XR chest 1V portable DATE: 08/29/2021 08:57 INDICATION: Cough, chest pain. Pneumonia. TECHNIQUE: Portable AP chest on 08/29/2021 at 0846 hours COMPARISON: 08/09/2021 portable AP chest at 1916 hours FINDINGS: Persistent patchy bilateral infiltrates scattered throughout both lungs. There is mild impr ovement in the right lower lung but otherwise little interval change since 08/19/2021. Normal heart size. Minimal right pleural effusion may be present. No left pleural effusion. IMPRESSION: Persistent patchy bilateral pulmonary infiltrates, with mild improvement in right lower l abran Reviewed, dictated and finalized at location A. IMPRESSION: Persistent patchy bilateral pulmonary infiltrates, with mild improv ement in right lower lung
[2021-08-29 08:17] VITALS: BP 140/87; PULSE 88; RESP 18; TEMP 36.7; O2SAT 100
--- NOTE | 2021-08-29 08:25 | ECG_ITS ---
Measurements Intervals [place] Rate: 84 P: 65 NH: 218 QRS: -83 QRSD: 164 T: 76 QT: 416 QTc: 493 Interpretive Statements SINUS RHYTHM WITH FIRST DEGREE AV BLOCK RIGHT BUNDLE BRANCH BLOCK LEFT ANTERIOR FASCICULAR BLOCK ABNORMAL ECG Electronically Signed On 08-30-2021 15:10:16 CDT by Shahid Mcginnis D.O.
[2021-08-29 08:34] VITALS: PULSE 83
[2021-08-29] MEDS: FUROSEMIDE INJ 40 MG/4 ML VIAL IV PUSH (08:54)
--- NOTE | 2021-08-29 09:15 | ED.CHESTPAIN ---
HPI - Chest Pain General Chief Complaint: Chest Pain Stated Complaint: dyspnea with chest pain History of Present Illness HPI narrative: 61-year-old male presents here stating that he is not feeling well, he is complaining of bilateral lower extremity swelling, and some mild shortness of breath. 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 Symptoms have been ongoing for him multiple months at this point. No fevers or chills, no chest pain other than some mild tightness, no cough. He tells me that he is hungry. Related Data Home Medications Medication Instructions Recorded Confirmed glyburide 5 mg tablet 10 mg PO BID 12/01/20 08/09/21 Allergies Allergy/AdvReac Type Severity Reaction Status Date / Time No Known Allergies Allergy Verified 08/29/21 08:26 Review of Systems Review of Systems: CONST: No fever. HEENT: No sore throat C/V: Chest tightness RESP: Shortness of breath GI: Hungry : No dysuria. M/S: Bilateral lower extremity swelling SKIN: No rash. NEURO: [No headache or focal numbness or weakness] PSYCH: [No depression] [facility] Past Medical History Medical History Cirrhosis of liver COPD (chronic obstructive pulmonary disease) Diabetes type 2, controlled Esophageal varices Hepatitis C Pancytopenia Thrombocytopenia Surgical History Surgical History H/O cardiac catheterization H/O hernia repair History of esophagogastroduodenoscopy (EGD) Family History Family History Father Family history of pancreatic cancer Other Diabetes mellitus Hypertension Social History Social History Social History: The patient is homeless and states that he lives in his truck. The patient stated he has raised 7 children. The patient is a recovering alcoholic Smoking status: Former smoker Second hand tobacco smoke exposure: Yes Alcohol intake: never Substance use: current Substance use type: amphetamines Last use: pt states last use about 5 days ago Gender identity (if verbalized by the patient): Male Spiritual care concerns: No Exam Narrative: EXAMINATION OF ORGAN SYSTEMS/BODY AREAS: Constitutional: Vital signs per nursing GENERAL:[No acute distress, non-toxic appearing.] HEAD: Normal with no signs of head trauma. EYES: EOMI, conjunctiva normal ENT: Hearing grossly intact LUNGS: Nonlabored breathing. HEART: [Regular rate and rhythm] ABD: [Soft], nondistended EXT: Bilateral lower extremity edema pitting, with several blisters, no erythema or tenderness SKIN: per above NEURO: [Alert and oriented x 3. No gross focal sensory or strength deficits.] PSYCH: Normal affect Course Vital Signs Vital signs: Vital Signs Temperature 98.0 F 08/29/21 08:17 Pulse Rate 88 08/29/21 08:17 Respiratory Rate 18 08/29/21 08:17 Blood Pressure 140/87 08/29/21 08:17 Pulse Oximetry 100 08/29/21 08:17 Oxygen Delivery Room Air 08/29/21 08:17 Temperature 98.0 F 08/29/21 08:17 Pulse Rate 85 08/29/21 09:24 Respiratory Rate 15 08/29/21 09:24 Blood Pressure 149/99 H 08/29/21 09:24 Pulse Oximetry 100 08/29/21 09:24 Oxygen Delivery Room Air 08/29/21 08:17 MDM - Chest Pain MDM Narrative Medical decision making narrative: 61-year-old male with history of CHF, homelessness, pneumonia, presents here with chronic difficulty breathing and lower extremity edema, 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
[2021-08-29 09:24] VITALS: BP 149/99; PULSE 85; RESP 15; O2SAT 100
[2021-08-29 11:11] VITALS: BP 150/96; PULSE 87; RESP 15; O2SAT 100
== END 2021-08-29 11:12 | disposition home or self-care (01) ==
PROVIDERS: Emergency Provider Emergency Medicine
DX: I50.9 Heart failure, unspecified (principal); K74.60 Unspecified cirrhosis of liver; J44.9 Chronic obstructive pulmonary disease, unspecified; E11.9 Type 2 diabetes mellitus without complications; Z59.02 Unsheltered homelessness; F10.20 Alcohol dependence, uncomplicated; Z86.19 Personal history of other infectious and parasitic diseases; Z87.891 Personal history of nicotine dependence; Z87.01 Personal history of pneumonia (recurrent); Z79.4 Long term (current) use of insulin; Z79.84 Long term (current) use of oral hypoglycemic drugs; I44.0 Atrioventricular block, first degree; I45.2 Bifascicular block
CPT/HCPCS: 71045; 93005; 96374; 99284; J1940

== ENCOUNTER 2021-09-29 15:08 | Inpatient (IN) | payer OTHER, SELFPAY ==
[2021-09-29] VITALS (14 sets, daily range): BP systolic 109–158; BP diastolic 61–93; PULSE 79–105; RESP 17–26; TEMP 36.6; O2SAT 96–100; BMI 31.1
--- NOTE | ~2021-09-29 | MR_ITS ---
EXAMINATION: MR foot RT wo con DATE: 10/06/2021 08:53 INDICATION: Third toe infection TECHNIQUE: Magnetic resonance imaging (MRI) of the right fore/mid foot was performed without intraven ous contrast. Sequences included sagittal T1-weighted FSE, sagittal T2-weighted FS FSE, coronal PD-we ighted FS FSE, coronal T1-weighted FSE, axial PD-weighted FS FSE, and axial PD-weighted FSE. COMPARISON: Right foot radiographs dated 10/05/2021 FINDINGS: Increased fluid signal loss of the normal T1 hyperintense marrow fat signal throughout the right thir d distal phalanx and at the head of the middle phalanx. Corresponding osteolysis seen at the base of the distal talus on the prior radiographs. Findings are consistent with septic arthritis at the third distal interphalangeal joint and associated osteomyelitis at the head of the middle phalanx and more advanced throughout the distal phalanx. Small ulceration at the plantar aspect of the third distal p halanx with surrounding soft tissue edema. No abscess. No other lesions suspicious for osteomyelitis. There is soft tissue and marrow edema surrounding a nondisplaced low signal intensity fracture lines across the proximal metaphyses of the second-fourth metatarsals. No associated joint effusions to sug gest septic arthritis. Mild osteoarthritis at several of the tarsal metatarsal joints with mild subar ticular edema-like signal change along the distal articular surfaces of the fifth metatarsal bones. T here is also mild osteoarthritis at the first metatarsophalangeal joint. Mild fatty atrophy and edema of the intrinsic musculature of the foot consistent with acute on chronic innervation changes in the setting of diabetes. Visualized portions of the flexor and extensor tendons appear normal. Stabilizi ng ligaments appear unremarkable although assessment is significantly limited by diffuse soft tissue edema about the fore and midfoot as well as small amount of motion artifact on multiple sequences. IMPRESSION: 1. Likely septic arthritis at the third distal interphalangeal joint with possible colitis at the hea d of the third middle phalanx and more advanced with osteolysis at the third distal phalanx. 2. Nondisplaced extra-articular likely stress/insufficiency fractures at the base of the second-fourt h metatarsals. Reviewed, dictated and finalized at location A. IMPRESSION: 1. Likely septic arthritis at the third distal interphalangeal joint with possi ble colitis at the head of the third middle phalanx and more advanced with oste olysis at the third distal phalanx. 2. Nondisplaced extra-articular likely stress/insufficiency fractures at the ba se of the second-fourth metatarsals.
--- NOTE | ~2021-09-29 | US_ITS ---
EXAMINATION: US venous doppler [facility] DATE: 09/30/2021 08:50 INDICATION: Bilateral lower limb swelling TECHNIQUE: Jaing scale images without and with compression and Doppler images of the bilateral lower e xtremity veins were obtained. COMPARISON: None FINDINGS: The bilateral peroneal veins are nonvisualized. The right common femoral vein, profunda femoral vein, femoral vein, popliteal vein, posterior tibial veins, and greater saphenous vein are patent. The left common femoral vein, profunda femoral vein, femoral vein, popliteal vein, posterior tibial v eins, and greater saphenous vein are patent. IMPRESSION: 1. Patent bilateral lower extremity veins. No evidence of deep venous thrombosis. Bilateral peroneal veins not visualized. Reviewed, dictated and finalized at location A. IMPRESSION: 1. Patent bilateral lower extremity veins. No evidence of deep venous thrombosi s. Bilateral peroneal veins not visualized.
--- NOTE | ~2021-09-29 | US_ITS ---
EXAMINATION: US art doppler w press LE BI DATE: 10/06/2021 08:27 CDT INDICATION: Infection right third toe TECHNIQUE: Segmental pressures and plethysmographic and Doppler waveforms of the brachial and lower e xtremity arteries were obtained. COMPARISON: None. FINDINGS: Right and left brachial artery pressures of 103 mm Hg and 112 mm Hg, respectively, are concordant (no rmal difference <= 30 mmHg). The right high-thigh pressure index is 1.42 (normal > 1.2). The right ankle-brachial index (ROB) is 1 .14 (normal >= 0.9-1.0). The right great toe-brachial index (TBI) is 1.13 (normal >= 0.60). The right lower extremity segmental pressure gradients are normal (normal gradients <= 20-30 mmHg between devyn cent levels on the same leg or the same levels on the two legs). Arterial Doppler waveforms are bipha sic. The left high-thigh pressure index is 1.34. The left ROB is 1.15. The left TBI is 0.81. The left lowe r extremity segmental pressure gradients are normal. Arterial Doppler waveforms are biphasic. IMPRESSION: 1. Normal lower extremity arterial Doppler. Reviewed, dictated and finalized at location A.
--- NOTE | ~2021-09-29 | XR_ITS ---
EXAMINATION: XR toe 3rd RT min 2V DATE: 10/07/2021 08:04 INDICATION: Possible osteomyelitis at the right third toe TECHNIQUE: Dorsal plantar, lateral and 2 oblique views of the right third were obtained. COMPARISON: None FINDINGS: Again seen are changes consistent with septic arthritis at the right third distal interphalangeal sheyla nt and osteoarthritis with osteolysis most prominent at the base of the third distal phalanx with florentin e increased lucency at the head of the middle phalanx. Likely secondary pathologic fractures at the m edial base of the distal phalanx and at the lateral head of the middle phalanx. Soft tissue swelling about the third toe. Mild polyarticular osteoarthritis involving multiple joints throughout the visua lized right foot. IMPRESSION: Septic arthritis at the right third distal interphalangeal joint with osteomyelitis and secondary pat hologic fractures at the base of the third distal phalanx and head of the third middle phalanx. Reviewed, dictated and finalized at location A. IMPRESSION: Septic arthritis at the right third distal interphalangeal joint with osteomyel itis and secondary pathologic fractures at the base of the third distal phalanx and head of the third middle phalanx.
--- NOTE | ~2021-09-29 | XR_ITS ---
EXAM: XR foot RT min 3V DATE: 10/05/2021 10:55 HISTORY: r/o osteo . COMPARISON: None available. FINDINGS: Decreased mineralization. No fracture or dislocation. No lytic or blastic lesion. Degenera tive change in the midfoot and first MTP. Plantar enthesopathy. Erosive change in the proximal and mi d third distal phalange, with likely involvement of the third DIP joint. Soft tissue swelling over th e third toe. IMPRESSION: Osteomyelitis involving the distal phalange of the third toe. Reviewed, dictated and finalized at location K.
--- NOTE | ~2021-09-29 | XR_ITS ---
EXAMINATION: XR hand LT min 3V DATE: 10/09/2021 13:09 INDICATION: Fracture at the left thumb TECHNIQUE: Posteroanterior, oblique and lateral views of the left hand were obtained. COMPARISON: None. FINDINGS: Bone alignment is normal. No acute fracture identified. There appears be some chronic indolent appear ing periosteal reaction along the palmar aspect of the proximal left fifth metatarsal which could rep resent changes of healing of prior fracture at the base of the left fifth metacarpal which is not dir ectly visualized. Alternatively this could represent remodeling of the base of the first metatarsal r elated to severe osteoarthritis at the first carpometacarpal joint. There are lucencies with thin scl erotic margins at the base of the first metacarpal as well as at the lunate, the proximal pole of the capitate and at the ulnar styloid process which could represent either degenerative subchondral cyst s or chronic erosion such as in the setting of gout. The location of the erosion along the nonarticul ar side of the ulnar styloid process with overhanging edge would favor an erosion. Mild polyarticular osteoarthritis at the distal radioulnar, midcarpal, triscaphe, first metacarpophalangeal and a few d istal interphalangeal joints. IMPRESSION: 1. Polyarticular osteoarthritis, severe at the first carpometacarpal joint and mild at many additiona l joints at the left hand and wrist. 2. Lucencies with thin sclerotic margins at the base of the first metacarpal and the lunate, capitate and ulnar styloid process suspicious for chronic erosion such as in the setting of gout with differe ntial including osteoarthritis related degenerative subchondral cyst. Reviewed, dictated and finalized at location A. IMPRESSION: 1. Polyarticular osteoarthritis, severe at the first carpometacarpal joint and mild at many additional joints at the left hand and wrist. 2. Lucencies with thin sclerotic margins at the base of the first metacarpal an d the lunate, capitate and ulnar styloid process suspicious for chronic erosion such as in the setting of gout with differential including osteoarthritis rela oanh degenerative subchondral cyst.
--- NOTE | ~2021-09-29 | XR_ITS ---
EXAMINATION: XR chest 2V Exam Date/Time: 09/29/2021 15:58 CDT HISTORY: sob, edema in both legs Comparison: None available. RESULT: Lines, tubes, and devices: None. Lungs and pleura: Bilateral peripheral reticular nodular opacities, more diffuse groundglass and ret icular opacities seen previously have improved. Cardiomediastinal silhouette: Stable cardiomediastinal silhouette. Other: No acute osseous or upper abdominal finding. IMPRESSION: Pulmonary opacities may represent bronchiolitis, as can be seen with atypical infection, asthma, aspi ration, and small airways disease. No overt findings of pulmonary edema. Reviewed, dictated and finalized at location K. IMPRESSION: Pulmonary opacities may represent bronchiolitis, as can be seen with atypical i nfection, asthma, aspiration, and small airways disease. No overt findings of p ulmonary edema.
--- NOTE | 2021-09-29 15:20 | ECG_ITS ---
Measurements Intervals [place] Rate: 99 P: 59 IN: 195 QRS: -81 QRSD: 165 T: 83 QT: 397 QTc: 509 Interpretive Statements SINUS RHYTHM WITH OCCASIONAL VENTRICULAR PREMATURE COMPLEXES WITH OCCASIONAL SUPRAVENTRICULAR PREMATURE COMPLEXES RIGHT BUNDLE BRANCH BLOCK [120+ ms QRS DURATION, UPRIGHT V1, 40+ ms S IN I/aVL/V4/V5/V6] LEFT ANTERIOR FASCICULAR BLOCK POOR R-WAVE PROGRESSION COMPARED TO ECG 08/29/2021 08:32:04 THE APCS AND PVCS ARE NEW. Electronically Signed On 09-29-2021 19:39:52 CDT by Rachel Isaacs M.D.
--- NOTE | 2021-09-29 15:47 | ED.GENADULT ---
HPI - General Adult General Chief complaint: Arrhythmia/Palpitations Stated complaint: AFIB/CHF Time Seen by Provider: 09/29/21 15:18 History of Present Illness HPI narrative: pt sent from due to weakness, lethargy, more leg swelling opening wounds and more redness right more than left and some sob no other f/uri/cp/abd paion/urine husam hasn't seen his doc known afib and chf sent for sepsis Related Data Home Medications Medication Instructions Recorded Confirmed glyburide 5 mg tablet 10 mg PO BID 12/01/20 08/09/21 Allergies Allergy/AdvReac Type Severity Reaction Status Date / Time No Known Allergies Allergy Verified 08/29/21 08:26 Review of Systems Constitutional: Comments: CONSTITUTIONAL: Denies fever, chills, or sweats. has weakness generally and lethargy EYES: Denies visual changes, redness, or discharge. ENT: Denies rhinorrhea, congestion, sore throat, or otalgia. CARDIOVASCULAR: Denies chest pain, palpitations, or edema. RESPIRATORY: Denies cough but has dyspnea. GASTROINTESTINAL: Denies abdominal pain, nausea, vomiting, or diarrhea. GENITOURINARY: Denies dysuria or hematuria. SKIN: Denies rash or itching. MUSCULOSKELETAL: Denies back pain, joint pain, or myalgia. has leg edema open weeping and right mroe than left redness NEUROLOGIC: Denies headache, numbness. PSYCHIATRIC: Denies anxiety or depression. [facility] Past Medical History Medical History Cirrhosis of liver COPD (chronic obstructive pulmonary disease) Diabetes type 2, controlled Esophageal varices Hepatitis C Pancytopenia Thrombocytopenia Surgical History Surgical History H/O cardiac catheterization H/O hernia repair History of esophagogastroduodenoscopy (EGD) Family History Family History Father Family history of pancreatic cancer Other Diabetes mellitus Hypertension Social History Social History Social History: The patient is homeless and states that he lives in his truck. The patient stated he has raised 7 children. The patient is a recovering alcoholic Smoking status: Former smoker Second hand tobacco smoke exposure: Yes Alcohol intake: never Substance use: current Substance use type: amphetamines Last use: pt states last use about 5 days ago Gender identity (if verbalized by the patient): Male Spiritual care concerns: No Exam Const: Other: APPEARANCE: Well appearing, no pain in distress, well-nourished. Head normocephalic atraumtaic. EYES: PERRLA/EOMI, conjunctivae very clear. NOSE: Normal no drainage EARS:TMS clear Jose Armando Jiang, with good light reflex. THROAT: Pharynx clear, no exudate. NECK: Supple. No adenopathy, no masses. RESPIRATORY: Airway patent, repsirations nonlabored. Clear to auscultation bilaterally, no rales, rhonchi, wheezing. CARDIOVASCULAR: irreg rate and rhythm without murmurs rubs or gallops. ABDOMINAL: Soft, nontender, nondistended, no hepatosplenomegally MUSCULOSKELETAl: Moves all extremities. Strenght/ROM intact, , No calf tenderness. 4+ edema and right leg red warm more than left knee ot ankle no necrosis no s/s abscess NEURO: Alert. Cranial nerves II through XII intact. Good gait. Good coordination SKIN:: Warm, dry. Normal Color but celluitis bl le PSYCHIATRIC: Normal affect/mood, normal interaction with parents. Course Consultations Consultation #1: calling hospitalist at [phone] Vital Signs Vital signs: Vital Signs Pulse Rate 98 09/29/21 15:17 Respiratory Rate 22 H 09/29/21 15:17 Blood Pressure 144/88 H 09/29/21 15:17 Pulse Oximetry 98 09/29/21 15:17 Oxygen Delivery Room Air 09/29/21 15:17 Pulse Rate 98 09/29/21 15:17 Respiratory Rate 22 H 09/29/21 15:17 Blood Pressure 144/88 H 09/29/21 15:17 Pulse Oximetry 98 09/29/21 15:17 Oxygen Delivery Room A
[2021-09-29 16:08] LABS: Basophils Percent Auto 0.8 % (0.2-1.2); Eosinophils Absolute Auto 0.2 K/mm3 (0-0.3); Eosinophils Percent Auto 8.5 % (0-4.4); Hemoglobin 9.6 g/dL (14.0-18.0); Immature Granulocyte Absolute 0.01 K/mm3 (0.00-0.031); Immature Granulocyte Percent A 0.4 % (0-0.5); Lymphocytes Absolute Auto 0.27 K/mm3 (0.9-3.2); Lymphocytes Percent Auto 10.5 % (18.3-44.2); Mean Corpuscular Hemoglobin 25.1 pg (26-34); Mean Corpuscular Volume 80.9 fl (80-100); Mean Platelet Volume 10.4 fl (7.4-10.4); Monocytes Absolute Auto 0.3 K/mm3 (0.1-0.6); Monocytes Percent Auto 10.9 % (2.6-8.5); Neutrophils Absolute Auto 1.8 K/mm3 (1.3-6.7); Neutrophils Percent Auto 68.9 % (45.5-73.1); Platelet Count Result 120 k/mm3 (150-375); Red Blood Count 3.83 M/mm3 (4.6-6.20); Red Cell Distribution Width 15.8 % (11.5-14.5); White Blood Count 2.6 K/mm3 (4.5-10.0)
[2021-09-29 16:16] LABS: Lactic Acid Reflex 1.3 mmol/L (0.7-2.0)
[2021-09-29 16:19] LABS: Magnesium 1.4 mg/dL (1.6-2.3)
[2021-09-29 16:21] LABS: Alanine Aminotransferase 36 U/L (6-50); Albumin Level 2.7 g/dL (3.5-5.1); Alkaline Phosphatase 185 U/L (38-126); Anion Gap 2 mmol/L (8-16); Aspartate Amino Transferase 52 U/L (17-59); Bilirubin,Total 0.5 mg/dL (0.2-1.3); Blood Urea Nitrogen 22 mg/dL (9-20); CRP 3.1 mg/dL (<1.0); Calcium 7.8 mg/dL (8.4-10.2); Carbon Dioxide 32 mmol/L (22-30); Chloride 97 mmol/L (98-107); Estimated CRCL calculation 100 ml/min; Estimated Glomerular Filt Rate > 60; Glucose 206 mg/dL (65-110); Potassium 3.8 mmol/L (3.4-5.0); Sodium 131 mmol/L (137-145)
[2021-09-29 16:22] LABS: INR 1.2; Prothrombin Time 14.7 Seconds (11.1-14.7)
[2021-09-29 16:27] LABS: NT Pro B Type Natriuretic Pept 1310 pg/mL (5-100)
[2021-09-29 16:28] LABS: Appearance Urine Clear (Clear); Bilirubin Urine Negative (Negative); Blood Urine 1+ (Negative); Color Urine Yellow (Yellow); Glucose Urine UA Negative (Negative); Ketones Urine Negative (Negative); Leukocyte Esterase Ur Negative LEU/UL (Negative); Nitrate Urine Negative (Negative); Protein Urine 1+ mg/dL (Negative); Specific Grav Ur 1.015 (1.001-1.035); Urobilinogen Urine 0.2 mg/dL (<2.0)
[2021-09-29 16:30] LABS: Troponin I < 0.012 ng/mL (0.000-0.034)
[2021-09-29 16:35] LABS: WBC Urine 0-3 /hpf
[2021-09-29 16:36] LABS: Add Urine Microscopic? YES
[2021-09-29] MEDS: FUROSEMIDE INJ 40 MG/4 ML VIAL IV PUSH (17:08)
[2021-09-29 17:54] LABS: Influenza A QL RT-PCR Negative (Negative); Influenza B QL RT-PCR Negative (Negative); SARS-CoV-2 RNA PCR Negative
[2021-09-29] MEDS: ASPIRIN 81 MG CHEWABLE TABLET 324 MG PO (18:13)
[2021-09-29] MEDS: NITROGLYCERIN OINTMENT 1 INCH DOSE TOPICAL (18:14)
[2021-09-29] MEDS: MAGNESIUM SULF 1 GM/D5W 100 ML 1 GM/100 ML BAG IVPB (18:14)
--- NOTE | 2021-09-29 20:16 | PM.IMHP ---
H&P: HPI History of Present Illness Date/Time: 09/29/21 20:16 Chief Complaint: leg swelling. Narrative: this is a 61-year-old male with past medical history significant for bilateral lower extremity chronic lymphedema, COPD, type 2 diabetes mellitus, cirrhosis of the liver, hepatitis-C. patient presents to the emergency room due to worsening bilateral lower extremity edema with redness and tenderness of the right lower extremity, altered mental status patient comes from snf I was unable to give much history . Preliminary workup was significant for chest x-ray with opacities, C-reactive protein was 3.1. patient has been admitted for further evaluation management and treatment. Review of Systems Review of Systems: ROS unobtainable: Yes unobtainable due to mental status Constitutional: Comments: Obtundation PMFSH Past Medical History Medical History Cirrhosis of liver COPD (chronic obstructive pulmonary disease) Diabetes type 2, controlled Esophageal varices Hepatitis C Pancytopenia Thrombocytopenia Surgical History Surgical History H/O cardiac catheterization H/O hernia repair History of esophagogastroduodenoscopy (EGD) Family History Family History Father Family history of pancreatic cancer Hypertension Sibling Diabetes mellitus Social History Social History Social History: The patient is homeless and states that he lives in his truck. The patient stated he has raised 7 children. The patient is a recovering alcoholic Smoking status: Current every day smoker Tobacco type: cigarettes Second hand tobacco smoke exposure: Yes Alcohol intake: former Substance use: current Substance use type: methamphetamine Last use: 09/22/2021 Gender identity (if verbalized by the patient): Male Spiritual care concerns: No Meds Home Medications and Allergies Home Medications Medication Instructions Recorded Confirmed Type albuterol sulfate 90 mcg/actuation 2 puff inhalation QID #8.5 grams 08/13/21 09/29/21 Rx aerosol inhaler metformin 1,000 mg tablet 1,000 mg PO BID 30 days #60 tabs 08/13/21 09/29/21 Rx metoprolol succinate 50 mg 50 mg PO DAILY 30 days #30 tabs 08/13/21 09/29/21 Rx tablet,extended release 24 hr blood sugar diagnostic (OneTouch #1 pkg 08/14/21 09/29/21 Rx Verio test strips) lancets 30 gauge (OneTouch Delica #1 pkg 08/14/21 09/29/21 Rx Plus Lancet) pen needle, diabetic 31 gauge x #1,200 ea 08/14/21 09/29/21 Rx 5/16 (TRUEplus Pen Needle) bumetanide 2 mg tablet 2 tablet PO DAILY 09/29/21 09/29/21 History fluoxetine 20 mg capsule 20 cap PO DAILY 09/29/21 09/29/21 History Allergies Allergy/AdvReac Type Severity Reaction Status Date / Time No Known Allergies Allergy Verified 08/29/21 08:26 Vital Signs Vital Signs - 24 hr 09/29/21 15:17 09/29/21 15:45 09/29/21 15:46 Pulse Rate 98 103 H 96 Respiratory Rate 22 H 26 H 21 H Blood Pressure 144/88 H 158/93 H Pulse Oximetry 98 Oxygen Delivery Room Air 09/29/21 16:15 09/29/21 16:30 09/29/21 16:45 Pulse Rate 101 H Respiratory Rate 17 Blood Pressure Pulse Oximetry 100 100 100 Oxygen Delivery 09/29/21 17:00 09/29/21 17:17 09/29/21 17:30 Pulse Rate 94 105 H Respiratory Rate 20 17 Blood Pressure Pulse Oximetry 100 100 100 Oxygen Delivery 09/29/21 17:45 09/29/21 18:00 09/29/21 19:22 Pulse Rate 92 94 93 Respiratory Rate 22 H 19 18 Blood Pressure 158/93 H Pulse Oximetry 98 100 96 Oxygen Delivery Exam Const: General: comfortable, no acute distress, well developed, ill appearing and lethargic Nutritional Appearance: overweight Orientation/consciousness: oriented to person Limitations: altered mental status HENMT: Head: normal to inspecti
--- NOTE | 2021-09-29 20:18 | ADMGEN ---
This patient, Maxim Babb, was admitted to Medical Room 241-. Patient/family oriented to hospital policies and general routines including ID bracelet, bed and alarms, visiting hours, pain management, procedures, bathroom and other care routines, personal items, smoking policy, room service/diet, and visiting hours. Information on how to activate the Rapid Response Team has been discussed. Patient/Family are encouraged to report perceived risks to care and to ask questions if they do not understand what they are told or what they should do.
[2021-09-30] VITALS (13 sets, daily range): BP systolic 104–132; BP diastolic 57–81; PULSE 62–85; RESP 12–21; TEMP 36.1–37.1; O2SAT 93–100
--- NOTE | 2021-09-30 | ECHO_ITS ---
Patient Info Name: Maxim Babb Age: 61 years : 1960 Gender: Male Ht: 74 in Wt: 241 lbs BSA: 2.41 m2 HR: 79 bpm BP: 127 / 87 mmHg Heart Rhythm: Sinus Rhythm Technical Quality: Fair Exam Date: 09/30/2021 1:29 PM Exam Location: [facility] Patient Status: Outpatient Admit Date: 09/29/2021 Staff Ordering Physician: Eber Rossi MD [employer] Operator: Paula Garrison RDCS Attending Provider: Lyudmila Carranza PA-C Referring Physician: Flo NEW; Exam Type: CA echo doppler color flow Study Info Indications - Leg swelling Complete two-dimensional, color flow and Doppler transthoracic echocardiogram is performed. Summary 1. Complete two-dimensional, color flow and Doppler transthoracic echocardiogram is performed. 2. Normal left ventricular size with moderate hypertrophy. Good systolic function of all segments with ejection fraction of 55-60%, and no segmental wall motion abnormalities. Grade 2 diastolic dysfunction is present. 3. Left atrial chamber dimension is mildly enlarged. 4. The aortic valve is moderately calcified. Unable to determine if this is a bileaflet or trileaflet valve on this study. There is minimal aortic valve stenosis with a peak velocity of 200 cm/s, mean gradient of 9 mmHg, and aortic valve area of 1.6 cm2. 5. No pulmonary hypertension, estimated pulmonary arterial systolic pressure is 21 mmHg. 6. Normal sinus rhythm. 7. Technically difficult study, limited views, patient declined further evaluation. Left Ventricle Left ventricular chamber dimension is normal. Left ventricular systolic function is normal, estimated at 55-60%. There is moderately increased left ventricular wall thickness. Left ventricular septal wall motion is normal. The left ventricular diastolic function is grade II diastolic dysfunction. Right Ventricle Right ventricular chamber dimension is normal. Right ventricular systolic function is normal. Left Atria Left atrial chamber dimension is mildly enlarged. Right Atria Right atrial chamber dimension is normal. Aortic Valve The aortic valve is trileaflet. There is no aortic valve sclerosis. The aortic valve is moderately calcified. Unable to determine if this is a bileaflet or trileaflet valve on this study. There is minimal aortic valve stenosis with a peak velocity of 200 cm/s, mean gradient of 9 mmHg, and aortic valve area of 1.6 cm2. There is no aortic valve regurgitation. There is moderate aortic valve calcification. Pulmonic Valve The pulmonic valve is normal. There is no pulmonic valve stenosis. There is no pulmonic regurgitation. Mitral Valve The mitral valve has normal leaflets. There is no mitral valve stenosis. There is no mitral valve regurgitation. Tricuspid Valve The tricuspid valve leaflets are normal. There is no significant tricuspid valve stenosis. There is trace tricuspid valve regurgitation. No pulmonary hypertension, estimated pulmonary arterial systolic pressure is 21 mmHg. Pericardium/Pleural The pericardium appears normal. There is no pericardial effusion. Inferior Vena Cava Normal inferior vena cava with >50% collapse upon inspiration consistent with Empty right atrial pressure, 10 mmHg. Aorta The aortic root size at the sinus of Valsalva is normal. The prox ascending aorta size is normal. There is mild aortic atherosclerosis. Left Ventricular Outflow Tract
[2021-09-30] MEDS: ceFAZolin 2 GM/D5W 50 ML 2 GM/50 ML BAG IVPB ×3 (06:47→20:27)
[2021-09-30 07:44] LABS: Glucose Point of Care 164 mg/dl (65-105)
[2021-09-30 07:48] LABS: Basophils Percent Auto 0.4 % (0.2-1.2); Eosinophils Absolute Auto 0.3 K/mm3 (0-0.3); Eosinophils Percent Auto 12.6 % (0-4.4); Hematocrit 32.8 % (42.0-52.0); Hemoglobin 10.1 g/dL (14.0-18.0); Immature Granulocyte Absolute 0.01 K/mm3 (0.00-0.031); Immature Granulocyte Percent A 0.4 % (0-0.5); Lymphocytes Absolute Auto 0.25 K/mm3 (0.9-3.2); Lymphocytes Percent Auto 11.2 % (18.3-44.2); Mean Corpuscular HGB Conc 30.8 g/dl (32-36); Mean Corpuscular Hemoglobin 25.3 pg (26-34); Mean Platelet Volume 10.4 fl (7.4-10.4); Monocytes Absolute Auto 0.3 K/mm3 (0.1-0.6); Monocytes Percent Auto 12.1 % (2.6-8.5); Neutrophils Absolute Auto 1.4 K/mm3 (1.3-6.7); Neutrophils Percent Auto 63.3 % (45.5-73.1); Platelet Count Result 127 k/mm3 (150-375); Red Cell Distribution Width 15.9 % (11.5-14.5); White Blood Count 2.2 K/mm3 (4.5-10.0)
[2021-09-30 08:04] LABS: Alanine Aminotransferase 33 U/L (6-50); Albumin Level 2.6 g/dL (3.5-5.1); Alkaline Phosphatase 183 U/L (38-126); Anion Gap 1 mmol/L (8-16); Aspartate Amino Transferase 43 U/L (17-59); Bilirubin,Total 0.6 mg/dL (0.2-1.3); Blood Urea Nitrogen 23 mg/dL (9-20); Carbon Dioxide 33 mmol/L (22-30); Chloride 101 mmol/L (98-107); Estimated CRCL calculation 123 ml/min; Estimated Glomerular Filt Rate > 60; Glucose 176 mg/dL (65-110); Potassium 4.1 mmol/L (3.4-5.0); Sodium 135 mmol/L (137-145)
[2021-09-30 08:08] LABS: Magnesium 1.5 mg/dL (1.6-2.3)
[2021-09-30] MEDS: FLUoxetine HCL 20 MG CAPSULE PO (09:23)
[2021-09-30] MEDS: METOPROLOL SUCCINATE EXT REL 50 MG TABCR PO (09:23)
[2021-09-30] MEDS: FUROSEMIDE INJ 40 MG/4 ML VIAL IV PUSH ×2 (09:24→16:05)
[2021-09-30 11:51] LABS: Glucose Point of Care 153 mg/dl (65-105)
--- NOTE | 2021-09-30 14:58 | PM.IMPN ---
Progress Note: A&P Assessment and Plan (1) Leg edema: Code(s): R60.0 - Localized edema Status: Acute Assessment and Plan: -likely combination of chronic lymphedema/CHF/cellulitis -IV Lasix 40 BID and Bumex 40 PO QD -check venous dopplers -daily intake and output (2) Acute exacerbation of congestive heart failure: Code(s): I50.9 - Heart failure, unspecified Status: Acute Assessment and Plan: -fluid restriction to 1500 cc daily -ejection fraction 44% -Lexiscan performed in August with significant defect -aggressive diuresis as above -check echo (3) Cellulitis: Code(s): L03.90 - Cellulitis, unspecified Status: Acute Assessment and Plan: -continue Ancef -BC pending -no fevers or leukocytosis (4) Hypomagnesemia: Code(s): E83.42 - Hypomagnesemia Status: Acute Assessment and Plan: -monitor and replace (5) Type 2 diabetes mellitus: Code(s): E11.9 - Type 2 diabetes mellitus without complications Status: Acute Assessment and Plan: -low dose sliding scale, accuchecks, hypoglycemic protocol -check hgb a1c Subjective Date/time seen: 09/30/21 14:58 Interval history: Pt is a 61 yo male w/ hx of bilateral lower extremity chronic lymphedema, COPD, type 2 diabetes mellitus, cirrhosis of the liver, hepatitis-C, admitted for LE edema. He is feeling a little better today. Still has significant LE edema but it is slowly improving. RLE still red/warm. 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 No N/V. Admits to abdominal pain which he states has been present for years. No cp/sob. Review of Systems Review of Systems: All systems reviewed & are unremarkable except as noted in HPI and below Exam Narrative: General: No acute distress, non toxic appearing, obese Eyes: PERRL, no scleral icterus HEENT: NCAT, external ears normal, MMM Respiratory: No respiratory distress, Lungs CTA bilaterally, no wheezing Cardiovascular: RRR, no murmur Abdominal: Soft, nontender, non distended, no rebound or guarding Musculoskeletal: Moves all 4 extremities, 2-3+ pitting edema BLE, chronic skin changes noted, RLE w/ erythema and warmth Neurological: A/Ox3, speech clear, no facial asymmetry Skin: Warm, dry, no rashes Psychiatric: Normal affect, normal mood Objective Data Vital Signs Vital Signs: Vital Signs - 24 hr 09/29/21 15:17 09/29/21 15:45 09/29/21 15:46 Temperature Pulse Rate 98 103 H 96 Respiratory Rate 22 H 26 H 21 H Blood Pressure 144/88 H 158/93 H Pulse Oximetry 98 Oxygen Delivery Room Air 09/29/21 16:15 09/29/21 16:30 09/29/21 16:45 Temperature Pulse Rate 101 H Respiratory Rate 17 Blood Pressure Pulse Oximetry 100 100 100 Oxygen Delivery 09/29/21 17:00 09/29/21 17:17 09/29/21 17:30 Temperature Pulse Rate 94 105 H Respiratory Rate 20 17 Blood Pressure Pulse Oximetry 100 100 100 Oxygen Delivery 09/29/21 17:45 09/29/21 18:00 09/29/21 19:22 Temperature Pulse Rate 92 94 93 Respiratory Rate 22 H 19 18 Blood Pressure 158/93 H Pulse Oximetry 98 100 96 Oxygen Delivery 09/29/21 21:10 09/29/21 21:27 09/30/21 00:00 Temperature 97.9 F 97.9 F Pulse Rate 79 79 83 Respiratory Rate 21 H 21 H Blood Pressure 109/61 109/61 Pulse Oximetry 100 100 Oxygen Delivery 09/30/21 00:00 09/30/21 04:00 09/30/21 04:00 Temperature 97.7 F 98.0 F Pulse Rate 85 79 76 Respiratory Rate 18 21 H Blood Pressure 127/81 119/63 Pulse Oximetry 96 100 Oxygen Delivery 09/30/21 09:23 09/30/21 09:26 09/30/21 09:27 Temperature Pulse Rate 62 62 Respiratory Rate Blood Pressure 125/68 Pulse Oximetry Oxygen Delivery Room Air 09/30/21 10:30 09/30/21 08:00 09/30/21 12:00 Temperature 98.7 F Pulse Rate 75 68 73 Respiratory Rate 16 Blood Pressure 132/64 Pulse Oximetry 100 Oxygen Del
[2021-09-30 16:24] LABS: Glucose Point of Care 148 mg/dl (65-105)
[2021-10-01] VITALS (7 sets, daily range): BP systolic 100–122; BP diastolic 59–62; PULSE 68–81; RESP 18–21; TEMP 36.2–37.1; O2SAT 95–100
[2021-10-01] MEDS: ACETAMINOPHEN 325 MG TABLET 650 MG PO (00:52)
[2021-10-01] MEDS: ceFAZolin 2 GM/D5W 50 ML 2 GM/50 ML BAG IVPB ×3 (05:56→20:46)
[2021-10-01 06:29] LABS: Basophils Percent Auto 0.7 % (0.2-1.2); Eosinophils Absolute Auto 0.4 K/mm3 (0-0.3); Eosinophils Percent Auto 12.8 % (0-4.4); Hemoglobin 10.5 g/dL (14.0-18.0); Immature Granulocyte Absolute 0.01 K/mm3 (0.00-0.031); Immature Granulocyte Percent A 0.3 % (0-0.5); Lymphocytes Absolute Auto 0.42 K/mm3 (0.9-3.2); Lymphocytes Percent Auto 14.1 % (18.3-44.2); Mean Corpuscular Hemoglobin 24.7 pg (26-34); Mean Corpuscular Volume 82.4 fl (80-100); Monocytes Absolute Auto 0.3 K/mm3 (0.1-0.6); Monocytes Percent Auto 11.4 % (2.6-8.5); Neutrophils Absolute Auto 1.8 K/mm3 (1.3-6.7); Neutrophils Percent Auto 60.7 % (45.5-73.1); Platelet Count Result 165 k/mm3 (150-375); Red Blood Count 4.25 M/mm3 (4.6-6.20)
[2021-10-01 06:43] LABS: Alanine Aminotransferase 28 U/L (6-50); Albumin Level 2.7 g/dL (3.5-5.1); Alkaline Phosphatase 197 U/L (38-126); Anion Gap 1 mmol/L (8-16); Aspartate Amino Transferase 37 U/L (17-59); Bilirubin,Total 0.5 mg/dL (0.2-1.3); Blood Urea Nitrogen 24 mg/dL (9-20); Calcium 8.1 mg/dL (8.4-10.2); Carbon Dioxide 39 mmol/L (22-30); Chloride 97 mmol/L (98-107); Estimated CRCL calculation 97 ml/min; Estimated Glomerular Filt Rate > 60; Glucose 115 mg/dL (65-110); Potassium 3.9 mmol/L (3.4-5.0); Sodium 137 mmol/L (137-145)
[2021-10-01 07:09] LABS: Hemoglobin A1C 7.5 % (<5.7)
[2021-10-01 07:55] LABS: Glucose Point of Care 104 mg/dl (65-105)
[2021-10-01] MEDS: MAGNESIUM OXIDE 400 MG TABLET PO (10:37)
[2021-10-01] MEDS: FUROSEMIDE INJ 40 MG/4 ML VIAL IV PUSH ×2 (10:38→17:43)
[2021-10-01] MEDS: FLUoxetine HCL 20 MG CAPSULE PO (10:38)
[2021-10-01] MEDS: METOPROLOL SUCCINATE EXT REL 50 MG TABCR PO (10:39)
[2021-10-01 11:50] LABS: Glucose Point of Care 140 mg/dl (65-105)
--- NOTE | 2021-10-01 13:30 | PM.IMPN ---
Progress Note: A&P Assessment and Plan (1) Leg edema: Code(s): R60.0 - Localized edema Status: Acute Assessment and Plan: -likely combination of chronic lymphedema/CHF/cellulitis -IV Lasix 40 BID and Bumex 40 PO QD -venous dopplers bilateral negative -daily intake and output (2) Acute exacerbation of congestive heart failure: Code(s): I50.9 - Heart failure, unspecified Status: Acute Assessment and Plan: -fluid restriction to 1500 cc daily -ejection fraction 44% -Lexiscan performed in August with significant defect -aggressive diuresis as above -echo w/ EF of 55-60%, grade II diastolic dysfunction (3) Cellulitis: Code(s): L03.90 - Cellulitis, unspecified Status: Acute Assessment and Plan: -continue Ancef -BC NGTD -no fevers or leukocytosis (4) Hypomagnesemia: Code(s): E83.42 - Hypomagnesemia Status: Acute Assessment and Plan: -monitor and replace (5) Type 2 diabetes mellitus: Code(s): E11.9 - Type 2 diabetes mellitus without complications Status: Acute Assessment and Plan: -low dose sliding scale, accuchecks, hypoglycemic protocol -hgb a1c 7.5 Subjective Date/time seen: 10/01/21 13:30 Interval history: Pt is a 61 yo male w/ hx of bilateral lower extremity chronic lymphedema, COPD, type 2 diabetes mellitus, cirrhosis of the liver, hepatitis-C, admitted for LE edema. He is feeling tired today. Still has significant LE edema but it is slowly improving. RLE still red/warm. No f/c/n/v/ab pain/cp/sob. Review of Systems Review of Systems: All systems reviewed & are unremarkable except as noted in HPI and below Exam Narrative: General: No acute distress, non toxic appearing, obese, disheveled Eyes: PERRL, no scleral icterus HEENT: NCAT, external ears normal, MMM Respiratory: No respiratory distress, Lungs CTA bilaterally, no wheezing Cardiovascular: RRR, no murmur Abdominal: Soft, nontender, non distended, no rebound or guarding Musculoskeletal: Moves all 4 extremities, 2-3+ pitting edema BLE, chronic skin changes noted, RLE w/ erythema and warmth Neurological: A/Ox3, speech clear, no facial asymmetry Skin: Warm, dry, no rashes, dirt noted under toenails Psychiatric: Normal affect, normal mood Objective Data Vital Signs Vital Signs: Vital Signs - 24 hr 09/30/21 13:55 09/30/21 16:00 09/30/21 18:16 Temperature 96.9 F L 97.1 F L Pulse Rate 70 68 80 Respiratory Rate 16 12 Blood Pressure 104/61 132/66 Pulse Oximetry 96 98 Oxygen Delivery 09/30/21 20:00 09/30/21 20:37 09/30/21 20:30 Temperature 98.8 F Pulse Rate 81 Respiratory Rate 21 H Blood Pressure 131/57 L Pulse Oximetry 93 100 Oxygen Delivery Room Air Room Air 09/30/21 20:00 10/01/21 00:30 10/01/21 04:00 Temperature 98.5 F 97.2 F L Pulse Rate 75 68 69 Respiratory Rate 21 H 20 Blood Pressure 111/59 L 109/60 Pulse Oximetry 100 98 Oxygen Delivery 10/01/21 10:16 10/01/21 10:39 Temperature 98.8 F Pulse Rate 72 80 Respiratory Rate 18 Blood Pressure 122/59 L Pulse Oximetry 96 Oxygen Delivery Intake/Output Intake/Output: Intake & Output 09/28/21 09/29/21 09/30/21 10/01/21 23:59 23:59 23:59 23:59 Intake Total 150 1030 826 Output Total 1200 2250 1000 Balance -1050 -1220 -174 Meds/Results Medications: Active Medications Generic Name Dose Route Start Last Admin Trade Name Freq PRN Reason Stop Dose Admin Acetaminophen 650 mg 09/30/21 23:58 10/01/21 00:52 Acetaminophen 325 Mg Tablet PO 650 mg Q6H PRN Administration Mild Pain (1-3) or Fever Albuterol 2 puff 09/30/21 09:00 Albuterol Sulfate (*Sp) Aerosol 1 Puff INHALATION QID PRN Shortness Of Breath Bumetanide 4 mg 10/02/21 09:00 Bumetanide 1 Mg Tablet PO DAILY WILTON Dextrose 12.5 gm 09/30/21 16:07 Dextrose 50% 25 Gm/50 Ml Syringe IV PUS
[2021-10-01 16:40] LABS: Glucose Point of Care 128 mg/dl (65-105)
[2021-10-02 03:10] VITALS: BP 119/69; PULSE 63; RESP 20; TEMP 36.6; O2SAT 97
[2021-10-02] MEDS: ceFAZolin 2 GM/D5W 50 ML 2 GM/50 ML BAG IVPB ×3 (04:31→20:35)
[2021-10-02] MEDS: ACETAMINOPHEN 325 MG TABLET 650 MG PO (04:55)
[2021-10-02 05:39] LABS: Basophils Percent Auto 0.9 % (0.2-1.2); Eosinophils Absolute Auto 0.4 K/mm3 (0-0.3); Eosinophils Percent Auto 11.2 % (0-4.4); Hematocrit 37.8 % (42.0-52.0); Hemoglobin 11.7 g/dL (14.0-18.0); Immature Granulocyte Absolute 0.02 K/mm3 (0.00-0.031); Immature Granulocyte Percent A 0.6 % (0-0.5); Lymphocytes Absolute Auto 0.56 K/mm3 (0.9-3.2); Mean Corpuscular Hemoglobin 24.8 pg (26-34); Mean Corpuscular Volume 80.3 fl (80-100); Mean Platelet Volume 9.8 fl (7.4-10.4); Monocytes Absolute Auto 0.4 K/mm3 (0.1-0.6); Monocytes Percent Auto 10.6 % (2.6-8.5); Neutrophils Percent Auto 59.7 % (45.5-73.1); Platelet Count Result 188 k/mm3 (150-375); Red Blood Count 4.71 M/mm3 (4.6-6.20); Red Cell Distribution Width 15.8 % (11.5-14.5); White Blood Count 3.3 K/mm3 (4.5-10.0)
[2021-10-02 05:49] LABS: Anion Gap -1 mmol/L (8-16); Blood Urea Nitrogen 25 mg/dL (9-20); Calcium 8.3 mg/dL (8.4-10.2); Carbon Dioxide 38 mmol/L (22-30); Chloride 99 mmol/L (98-107); Estimated CRCL calculation 123 ml/min; Estimated Glomerular Filt Rate > 60; Glucose 141 mg/dL (65-110); Magnesium 1.5 mg/dL (1.6-2.3); Potassium 3.7 mmol/L (3.4-5.0); Sodium 136 mmol/L (137-145)
[2021-10-02 07:59] LABS: Glucose Point of Care 143 mg/dl (65-105)
[2021-10-02] MEDS: MAGNESIUM SULF 2 GM/WATER 50ML 2 GM/50 ML BAG IVPB (08:13)
[2021-10-02] MEDS: METOPROLOL SUCCINATE EXT REL 50 MG TABCR PO (08:14)
[2021-10-02] MEDS: BUMETANIDE 1 MG TABLET 4 MG PO (08:15)
[2021-10-02] MEDS: FLUoxetine HCL 20 MG CAPSULE PO (08:15)
[2021-10-02] MEDS: MAGNESIUM OXIDE 400 MG TABLET PO (08:15)
--- NOTE | 2021-10-02 10:06 | PM.IMPN ---
Progress Note: A&P Assessment and Plan (1) Leg edema: Code(s): R60.0 - Localized edema Status: Acute Assessment and Plan: -likely combination of chronic lymphedema/CHF/cellulitis -IV Lasix 40 BID and Bumex 40 PO QD -showing improvement, will cut down to lasix 40 IV QD, continue Bumex 40 PO QD -venous dopplers bilateral negative -daily intake and output (2) Acute exacerbation of congestive heart failure: Code(s): I50.9 - Heart failure, unspecified Status: Acute Assessment and Plan: -fluid restriction to 1500 cc daily -Lexiscan performed in August with significant defect -aggressive diuresis as above -echo w/ EF of 55-60%, grade II diastolic dysfunction (3) Cellulitis: Code(s): L03.90 - Cellulitis, unspecified Status: Acute Assessment and Plan: -continue Ancef -BC NGTD -no fevers or leukocytosis (4) Hypomagnesemia: Code(s): E83.42 - Hypomagnesemia Status: Acute Assessment and Plan: -monitor and replace (5) Type 2 diabetes mellitus: Code(s): E11.9 - Type 2 diabetes mellitus without complications Status: Acute Assessment and Plan: -low dose sliding scale, accuchecks, hypoglycemic protocol -hgb a1c 7.5 Subjective Date/time seen: 10/02/21 10:06 Interval history: Pt is a 61 yo male w/ hx of bilateral lower extremity chronic lymphedema, COPD, type 2 diabetes mellitus, cirrhosis of the liver, hepatitis-C, admitted for LE edema. He is feeling tired today. Still has significant LE edema but it is slowly improving. RLE still red/warm but now also improving. No f/c/n/v/ab pain/cp/sob. Review of Systems Review of Systems: All systems reviewed & are unremarkable except as noted in HPI and below Exam Narrative: General: No acute distress, non toxic appearing, obese, disheveled Eyes: PERRL, no scleral icterus HEENT: NCAT, external ears normal, MMM Respiratory: No respiratory distress, Lungs CTA bilaterally, no wheezing Cardiovascular: RRR, no murmur Abdominal: Soft, nontender, non distended, no rebound or guarding Musculoskeletal: Moves all 4 extremities, 2-3+ pitting edema BLE, chronic skin changes noted, RLE w/ erythema and warmth Neurological: A/Ox3, speech clear, no facial asymmetry Skin: Warm, dry, no rashes, dirt noted under toenails Psychiatric: Normal affect, normal mood Objective Data Vital Signs Vital Signs: Vital Signs - 24 hr 10/01/21 10:16 10/01/21 10:39 10/01/21 19:23 Temperature 98.8 F Pulse Rate 72 80 Respiratory Rate 18 Blood Pressure 122/59 L Pulse Oximetry 96 Oxygen Delivery Room Air 10/01/21 19:36 10/01/21 19:40 10/01/21 23:58 Temperature 98.1 F 98.1 F 98.4 F Pulse Rate 69 69 81 Respiratory Rate 20 20 20 Blood Pressure 112/62 112/62 100/62 Pulse Oximetry 98 98 95 Oxygen Delivery 10/02/21 03:10 10/02/21 03:10 Temperature 97.9 F 97.9 F Pulse Rate 63 63 Respiratory Rate 20 20 Blood Pressure 119/69 119/69 Pulse Oximetry 97 97 Oxygen Delivery Intake/Output Intake/Output: Intake & Output 09/29/21 09/30/21 10/01/21 10/02/21 23:59 23:59 23:59 23:59 Intake Total 150 1030 1166 360 Output Total 1200 2250 2750 1600 [facility]1050 -1220 -1584 -1240 Meds/Results Medications: Active Medications Generic Name Dose Route Start Last Admin Trade Name Freq PRN Reason Stop Dose Admin Acetaminophen 650 mg 09/30/21 23:58 10/02/21 04:55 Acetaminophen 325 Mg Tablet PO 650 mg Q6H PRN Administration Mild Pain (1-3) or Fever Albuterol 2 puff 09/30/21 09:00 Albuterol Sulfate (*Sp) Aerosol 1 Puff INHALATION QID PRN Shortness Of Breath Bumetanide 4 mg 10/02/21 09:00 10/02/21 08:15 Bumetanide 1 Mg Tablet PO 4 mg DAILY WILTON Administration Dextrose 12.5 gm 09/30/21 16:07 Dextrose 50% 25 Gm/50 Ml Syringe IV PUSH PRN PRN Hypoglycemia Protocol Fluoxetine HC
[2021-10-02] MEDS: FUROSEMIDE INJ 40 MG/4 ML VIAL IV PUSH (10:28)
[2021-10-02 10:30] VITALS: BP 110/60; PULSE 63; RESP 16; TEMP 36.4; O2SAT 97
[2021-10-02 12:05] LABS: Glucose Point of Care 143 mg/dl (65-105)
[2021-10-02 16:39] LABS: Glucose Point of Care 149 mg/dl (65-105)
[2021-10-02 18:30] VITALS: BP 112/65; PULSE 57; RESP 16; TEMP 36.5; O2SAT 97
[2021-10-02 19:50] VITALS: BP 110/61; PULSE 60; RESP 18; TEMP 36.5; O2SAT 99
[2021-10-02 20:41] LABS: Glucose Point of Care 144 mg/dl (65-105)
[2021-10-02 23:45] VITALS: BP 113/54; PULSE 63; RESP 18; TEMP 36.7; O2SAT 97
[2021-10-03 04:53] VITALS: BP 100/49; PULSE 70; RESP 18; TEMP 36.3; O2SAT 96
[2021-10-03] MEDS: ceFAZolin 2 GM/D5W 50 ML 2 GM/50 ML BAG IVPB ×3 (05:19→20:27)
[2021-10-03 05:53] LABS: Anion Gap 2 mmol/L (8-16); Blood Urea Nitrogen 29 mg/dL (9-20); Calcium 8.5 mg/dL (8.4-10.2); Carbon Dioxide 36 mmol/L (22-30); Chloride 100 mmol/L (98-107); Estimated CRCL calculation 108 ml/min; Estimated Glomerular Filt Rate > 60; Glucose 122 mg/dL (65-110); Magnesium 1.8 mg/dL (1.6-2.3); Potassium 3.8 mmol/L (3.4-5.0); Sodium 138 mmol/L (137-145)
[2021-10-03 05:57] LABS: Basophils Percent Auto 0.8 % (0.2-1.2); Eosinophils Absolute Auto 0.4 K/mm3 (0-0.3); Eosinophils Percent Auto 10.5 % (0-4.4); Hematocrit 41.4 % (42.0-52.0); Hemoglobin 12.5 g/dL (14.0-18.0); Immature Granulocyte Absolute 0.02 K/mm3 (0.00-0.031); Immature Granulocyte Percent A 0.5 % (0-0.5); Lymphocytes Percent Auto 17.5 % (18.3-44.2); Mean Corpuscular HGB Conc 30.2 g/dl (32-36); Mean Corpuscular Hemoglobin 24.7 pg (26-34); Mean Corpuscular Volume 81.8 fl (80-100); Mean Platelet Volume 9.9 fl (7.4-10.4); Monocytes Absolute Auto 0.4 K/mm3 (0.1-0.6); Monocytes Percent Auto 10.8 % (2.6-8.5); Neutrophils Absolute Auto 2.4 K/mm3 (1.3-6.7); Neutrophils Percent Auto 59.9 % (45.5-73.1); Platelet Count Result 220 k/mm3 (150-375); Red Blood Count 5.06 M/mm3 (4.6-6.20); Red Cell Distribution Width 15.9 % (11.5-14.5)
[2021-10-03 08:16] LABS: Glucose Point of Care 201 mg/dl (65-105)
[2021-10-03] MEDS: BUMETANIDE 1 MG TABLET 4 MG PO (08:26)
[2021-10-03] MEDS: FLUoxetine HCL 20 MG CAPSULE PO (08:26)
[2021-10-03] MEDS: METOPROLOL SUCCINATE EXT REL 50 MG TABCR PO (08:26)
[2021-10-03] MEDS: MAGNESIUM OXIDE 400 MG TABLET PO (08:27)
[2021-10-03] MEDS: FUROSEMIDE INJ 40 MG/4 ML VIAL IV PUSH (08:27)
[2021-10-03] MEDS: INSULIN ASPART (*BKC) 100 UNITS/ML SUB-Q (08:30)
[2021-10-03 09:30] VITALS: O2SAT 94
--- NOTE | 2021-10-03 09:43 | PM.IMPN ---
Progress Note: A&P Assessment and Plan (1) Leg edema: Code(s): R60.0 - Localized edema Status: Acute Assessment and Plan: -likely combination of chronic lymphedema/CHF/cellulitis -venous dopplers bilateral negative -daily intake and output -IV Lasix 40 BID and Bumex 40 PO QD -showing improvement, will cut down to lasix 40 IV QD, continue Bumex 40 PO QD -continuing to improve, will try to transition to PO lasix today, continue Bumex 40 PO QD, hopeful dc soon (2) Acute exacerbation of congestive heart failure: Code(s): I50.9 - Heart failure, unspecified Status: Acute Assessment and Plan: -fluid restriction to 1500 cc daily -Lexiscan performed in August with significant defect -echo w/ EF of 55-60%, grade II diastolic dysfunction -continue diuresis as noted above (3) Cellulitis: Code(s): L03.90 - Cellulitis, unspecified Status: Acute Assessment and Plan: -continue Ancef -BC NGTD -no fevers or leukocytosis (4) Hypomagnesemia: Code(s): E83.42 - Hypomagnesemia Status: Acute Assessment and Plan: -monitor and replace (5) Type 2 diabetes mellitus: Code(s): E11.9 - Type 2 diabetes mellitus without complications Status: Acute Assessment and Plan: -low dose sliding scale, accuchecks, hypoglycemic protocol -hgb a1c 7.5 Subjective Date/time seen: 10/03/21 09:43 Interval history: Pt is a 61 yo male w/ hx of bilateral lower extremity chronic lymphedema, COPD, type 2 diabetes mellitus, cirrhosis of the liver, hepatitis-C, admitted for LE edema. Feeling a bit better today, edema is improving. RLE still painful but improving. No cp/sob/fever/ch/N/V. Review of Systems Review of Systems: All systems reviewed & are unremarkable except as noted in HPI and below Exam Narrative: General: No acute distress, non toxic appearing, obese, disheveled Eyes: PERRL, no scleral icterus HEENT: NCAT, external ears normal, MMM Respiratory: No respiratory distress, Lungs CTA bilaterally, no wheezing Cardiovascular: RRR Abdominal: Soft, nontender, non distended, no rebound or guarding Musculoskeletal: Moves all 4 extremities, 2+ pitting edema BLE, chronic skin changes noted, RLE w/ erythema and warmth which is improving Neurological: A/Ox3, speech clear, no facial asymmetry Skin: Warm, dry, dirt noted under toenails Psychiatric: Normal affect, normal mood Objective Data Vital Signs Vital Signs: Vital Signs - 24 hr 10/02/21 10:30 10/02/21 18:30 10/02/21 19:50 Temperature 97.6 F 97.7 F 97.7 F Pulse Rate 63 57 L 60 Respiratory Rate 16 16 18 Blood Pressure 110/60 112/65 110/61 Pulse Oximetry 97 97 99 10/02/21 23:45 10/03/21 04:53 Temperature 98.1 F 97.3 F L Pulse Rate 63 70 Respiratory Rate 18 18 Blood Pressure 113/54 L 100/49 L Pulse Oximetry 97 96 Intake/Output Intake/Output: Intake & Output 09/30/21 10/01/21 10/02/21 10/03/21 23:59 23:59 23:59 23:59 Intake Total 1030 1166 1380 480 Output Total 2250 2750 5750 1150 [facility] -1220 -1584 -4370 -670 Meds/Results Medications: Active Medications Generic Name Dose Route Start Last Admin Trade Name Freq PRN Reason Stop Dose Admin Acetaminophen 650 mg 09/30/21 23:58 10/02/21 04:55 Acetaminophen 325 Mg Tablet PO 650 mg Q6H PRN Administration Mild Pain (1-3) or Fever Albuterol 2 puff 09/30/21 09:00 Albuterol Sulfate (*Sp) Aerosol 1 Puff INHALATION QID PRN Shortness Of Breath Bumetanide 4 mg 10/02/21 09:00 10/03/21 08:26 Bumetanide 1 Mg Tablet PO 4 mg DAILY WILTON Administration Dextrose 12.5 gm 09/30/21 16:07 Dextrose 50% 25 Gm/50 Ml Syringe IV PUSH PRN PRN Hypoglycemia Protocol Fluoxetine HCl 20 mg 09/30/21 09:00 10/03/21 08:26 Fluoxetine Hcl 20 Mg Capsule PO 20 mg DAILY WILTON Administration Furosemide 40 mg 10/02/21 10:10 10/03/21 08:27
[2021-10-03 10:25] VITALS: BP 122/69; PULSE 61; RESP 16; TEMP 36.3; O2SAT 97
[2021-10-03 11:58] LABS: Glucose Point of Care 155 mg/dl (65-105)
[2021-10-03 14:43] VITALS: BP 117/63; PULSE 58; RESP 16; TEMP 36.6; O2SAT 97
[2021-10-03 16:14] LABS: Glucose Point of Care 123 mg/dl (65-105)
[2021-10-03 18:18] VITALS: BP 132/74; PULSE 61; RESP 16; TEMP 36.1; O2SAT 98
[2021-10-03 20:29] VITALS: BP 114/56; PULSE 63; RESP 18; TEMP 36.4; O2SAT 98
[2021-10-03 21:15] LABS: Glucose Point of Care 118 mg/dl (65-105)
[2021-10-04] MEDS: ceFAZolin 2 GM/D5W 50 ML 2 GM/50 ML BAG IVPB ×3 (05:39→21:42)
[2021-10-04 05:49] LABS: Basophils Percent Auto 0.8 % (0.2-1.2); Eosinophils Absolute Auto 0.4 K/mm3 (0-0.3); Eosinophils Percent Auto 8.8 % (0-4.4); Hematocrit 43.5 % (42.0-52.0); Hemoglobin 13.3 g/dL (14.0-18.0); Immature Granulocyte Absolute 0.01 K/mm3 (0.00-0.031); Immature Granulocyte Percent A 0.3 % (0-0.5); Lymphocytes Absolute Auto 0.79 K/mm3 (0.9-3.2); Lymphocytes Percent Auto 19.8 % (18.3-44.2); Mean Corpuscular HGB Conc 30.6 g/dl (32-36); Mean Corpuscular Hemoglobin 24.7 pg (26-34); Mean Corpuscular Volume 80.7 fl (80-100); Mean Platelet Volume 9.9 fl (7.4-10.4); Monocytes Absolute Auto 0.5 K/mm3 (0.1-0.6); Monocytes Percent Auto 11.8 % (2.6-8.5); Neutrophils Absolute Auto 2.3 K/mm3 (1.3-6.7); Neutrophils Percent Auto 58.5 % (45.5-73.1); Platelet Count Result 209 k/mm3 (150-375); Red Blood Count 5.39 M/mm3 (4.6-6.20); Red Cell Distribution Width 15.9 % (11.5-14.5)
[2021-10-04 05:55] LABS: Alanine Aminotransferase 18 U/L (6-50); Albumin Level 3.1 g/dL (3.5-5.1); Alkaline Phosphatase 234 U/L (38-126); Anion Gap 4 mmol/L (8-16); Aspartate Amino Transferase 37 U/L (17-59); Bilirubin,Total 0.6 mg/dL (0.2-1.3); Blood Urea Nitrogen 32 mg/dL (9-20); Calcium 8.4 mg/dL (8.4-10.2); Carbon Dioxide 34 mmol/L (22-30); Chloride 99 mmol/L (98-107); Estimated CRCL calculation 108 ml/min; Estimated Glomerular Filt Rate > 60; Glucose 128 mg/dL (65-110); Magnesium 1.8 mg/dL (1.6-2.3); Potassium 3.8 mmol/L (3.4-5.0); Sodium 137 mmol/L (137-145)
[2021-10-04 06:04] VITALS: BP 109/59; PULSE 61; RESP 14; TEMP 36.4; O2SAT 95
[2021-10-04 07:36] LABS: Glucose Point of Care 199 mg/dl (65-105)
--- NOTE | 2021-10-04 08:16 | PM.IMPN ---
Progress Note: A&P Assessment and Plan (1) Leg edema: Code(s): R60.0 - Localized edema Status: Acute Assessment and Plan: -likely combination of chronic lymphedema/CHF/cellulitis -venous dopplers bilateral negative -daily intake and output -IV Lasix 40 BID and Bumex 40 PO QD -showing improvement, will cut down to lasix 40 IV QD, continue Bumex 40 PO QD -continuing to improve, will try to transition to PO lasix today, continue Bumex 40 PO QD -received IV lasix yesterday, switching to PO today, dc cristina (2) Acute exacerbation of congestive heart failure: Code(s): I50.9 - Heart failure, unspecified Status: Acute Assessment and Plan: -fluid restriction to 1500 cc daily -Lexiscan performed in August with significant defect -echo w/ EF of 55-60%, grade II diastolic dysfunction -continue diuresis as noted above (3) Cellulitis: Code(s): L03.90 - Cellulitis, unspecified Status: Acute Assessment and Plan: -continue Ancef -BC NGTD -no fevers or leukocytosis (4) Hypomagnesemia: Code(s): E83.42 - Hypomagnesemia Status: Acute Assessment and Plan: -monitor and replace (5) Type 2 diabetes mellitus: Code(s): E11.9 - Type 2 diabetes mellitus without complications Status: Acute Assessment and Plan: -low dose sliding scale, accuchecks, hypoglycemic protocol -hgb a1c 7.5 Subjective Date/time seen: 10/04/21 08:16 Interval history: Pt is a 61 yo male w/ hx of bilateral lower extremity chronic lymphedema, COPD, type 2 diabetes mellitus, cirrhosis of the liver, hepatitis-C, admitted for LE edema. Pt aggravated today because he was not satisfied with his breakfast plate. Walked in as he was yelling at the RN. He states his legs still hurt but they are better than yesterday. R leg less red/warm. No cp/sob/fever/chills. Review of Systems Review of Systems: All systems reviewed & are unremarkable except as noted in HPI and below Exam Narrative: General: No acute distress, non toxic appearing, obese, disheveled Eyes: PERRL, no scleral icterus HEENT: NCAT, external ears normal, MMM Respiratory: No respiratory distress, Lungs CTA bilaterally, no wheezing Cardiovascular: RRR Abdominal: Soft, nontender, non distended, no rebound or guarding Musculoskeletal: Moves all 4 extremities, 2+ pitting edema BLE, chronic skin changes noted, RLE w/ erythema and warmth which is improving Neurological: A/Ox3, speech clear, no facial asymmetry Skin: Warm, dry, dirt noted under toenails Psychiatric: Normal affect, normal mood Objective Data Vital Signs Vital Signs: Vital Signs - 24 hr 10/03/21 10:25 10/03/21 14:43 10/03/21 08:30 Temperature 97.4 F L 98 F Pulse Rate 61 58 L Respiratory Rate 16 16 Blood Pressure 122/69 117/63 Pulse Oximetry 97 97 Oxygen Delivery Room Air 10/03/21 09:30 10/03/21 18:18 10/03/21 20:29 Temperature 97 F L 97.6 F Pulse Rate 61 63 Respiratory Rate 16 18 Blood Pressure 132/74 114/56 L Pulse Oximetry 94 98 98 Oxygen Delivery Room Air 10/04/21 06:04 Temperature 97.6 F Pulse Rate 61 Respiratory Rate 14 Blood Pressure 109/59 L Pulse Oximetry 95 Oxygen Delivery Intake/Output Intake/Output: Intake & Output 10/01/21 10/02/21 10/03/21 10/04/21 23:59 23:59 23:59 23:59 Intake Total 1166 1380 1060 350 Output Total 2750 5750 2600 1100 [facility] -1584 -4370 -1540 -750 Meds/Results Medications: Active Medications Generic Name Dose Route Start Last Admin Trade Name Freq PRN Reason Stop Dose Admin Acetaminophen 650 mg 09/30/21 23:58 10/02/21 04:55 Acetaminophen 325 Mg Tablet PO 650 mg Q6H PRN Administration Mild Pain (1-3) or Fever Albuterol 2 puff 09/30/21 09:00 Albuterol Sulfate (*Sp) Aerosol 1 Puff INHALATION QID PRN Shortness Of Breath Bumetanide 4 mg 10/02/21 09:00 10/03/21 08:26 Bumetanid
[2021-10-04] MEDS: FUROSEMIDE 40 MG TABLET PO (08:55)
[2021-10-04] MEDS: METOPROLOL SUCCINATE EXT REL 50 MG TABCR PO (08:55)
[2021-10-04] MEDS: BUMETANIDE 1 MG TABLET 4 MG PO (08:55)
[2021-10-04] MEDS: FLUoxetine HCL 20 MG CAPSULE PO (08:55)
[2021-10-04] MEDS: MAGNESIUM OXIDE 400 MG TABLET PO (08:55)
[2021-10-04 10:55] VITALS: BP 117/60; PULSE 52; RESP 12; TEMP 36.3; O2SAT 99
[2021-10-04 12:09] LABS: Glucose Point of Care 179 mg/dl (65-105)
[2021-10-04 13:50] VITALS: BP 129/70; PULSE 60; RESP 12; TEMP 36.2; O2SAT 98
[2021-10-04 16:23] LABS: Glucose Point of Care 142 mg/dl (65-105)
[2021-10-04 18:37] VITALS: BP 127/74; PULSE 59; RESP 16; TEMP 36.1; O2SAT 99
[2021-10-04 21:02] VITALS: BP 117/71; PULSE 69; RESP 14; TEMP 36.5; O2SAT 100
[2021-10-05 01:15] VITALS: BP 124/63; PULSE 60; RESP 14; TEMP 36.4; O2SAT 93
[2021-10-05] MEDS: ceFAZolin 2 GM/D5W 50 ML 2 GM/50 ML BAG IVPB ×3 (05:52→20:10)
[2021-10-05 06:00] VITALS: BP 128/74; PULSE 63; RESP 16; TEMP 36.7; O2SAT 100
[2021-10-05 07:30] LABS: Basophils Percent Auto 0.7 % (0.2-1.2); Eosinophils Absolute Auto 0.3 K/mm3 (0-0.3); Hematocrit 43.1 % (42.0-52.0); Hemoglobin 13.5 g/dL (14.0-18.0); Immature Granulocyte Absolute 0.01 K/mm3 (0.00-0.031); Immature Granulocyte Percent A 0.2 % (0-0.5); Lymphocytes Absolute Auto 0.82 K/mm3 (0.9-3.2); Lymphocytes Percent Auto 19.9 % (18.3-44.2); Mean Corpuscular HGB Conc 31.3 g/dl (32-36); Mean Platelet Volume 9.5 fl (7.4-10.4); Monocytes Absolute Auto 0.5 K/mm3 (0.1-0.6); Monocytes Percent Auto 12.3 % (2.6-8.5); Neutrophils Absolute Auto 2.4 K/mm3 (1.3-6.7); Neutrophils Percent Auto 58.9 % (45.5-73.1); Platelet Count Result 194 k/mm3 (150-375); Red Blood Count 5.39 M/mm3 (4.6-6.20); Red Cell Distribution Width 15.7 % (11.5-14.5); White Blood Count 4.1 K/mm3 (4.5-10.0)
[2021-10-05 07:37] LABS: Magnesium 1.8 mg/dL (1.6-2.3)
[2021-10-05 07:39] LABS: Anion Gap 0 mmol/L (8-16); Blood Urea Nitrogen 34 mg/dL (9-20); Calcium 8.4 mg/dL (8.4-10.2); Carbon Dioxide 39 mmol/L (22-30); Chloride 99 mmol/L (98-107); Estimated CRCL calculation 97 ml/min; Estimated Glomerular Filt Rate > 60; Glucose 131 mg/dL (65-110); Potassium 3.9 mmol/L (3.4-5.0); Sodium 138 mmol/L (137-145)
[2021-10-05 07:54] LABS: Glucose Point of Care 122 mg/dl (65-105)
[2021-10-05] MEDS: BUMETANIDE 1 MG TABLET 4 MG PO (08:13)
[2021-10-05] MEDS: FLUoxetine HCL 20 MG CAPSULE PO (08:13)
[2021-10-05 08:14] VITALS: PULSE 78
[2021-10-05] MEDS: METOPROLOL SUCCINATE EXT REL 50 MG TABCR PO (08:14)
[2021-10-05] MEDS: FUROSEMIDE 40 MG TABLET PO (08:14)
[2021-10-05] MEDS: MAGNESIUM OXIDE 400 MG TABLET PO (08:14)
--- NOTE | 2021-10-05 09:04 | PM.IMPN ---
Progress Note: A&P Assessment and Plan (1) Leg edema: Code(s): R60.0 - Localized edema Status: Acute Assessment and Plan: -likely combination of chronic lymphedema/CHF/cellulitis -venous dopplers bilateral negative -daily intake and output -received aggressive diuresis w/ Bumex 4 PO QD and Lasix 40 IV BID -now on Bumex 4 mg and Lasix 40 mg PO -points out a black area to the bottom of his R middle toe which looks like possible diabetic ulcer. Will check XR to r/o osteo, consider MRI (2) Acute exacerbation of congestive heart failure: Code(s): I50.9 - Heart failure, unspecified Status: Acute Assessment and Plan: -fluid restriction to 1500 cc daily -Lexiscan performed in August with significant defect -echo w/ EF of 55-60%, grade II diastolic dysfunction -continue diuresis as noted above (3) Cellulitis: Code(s): L03.90 - Cellulitis, unspecified Status: Acute Assessment and Plan: -continue Ancef -BC NGTD -no fevers or leukocytosis -RLE initially very red/warm but improving daily (4) Hypomagnesemia: Code(s): E83.42 - Hypomagnesemia Status: Acute Assessment and Plan: -monitor and replace -resolved -continue to monitor (5) Type 2 diabetes mellitus: Code(s): E11.9 - Type 2 diabetes mellitus without complications Status: Acute Assessment and Plan: -low dose sliding scale, accuchecks, hypoglycemic protocol -hgb a1c 7.5 Subjective Date/time seen: 10/05/21 09:04 Interval history: Pt is a 61 yo male w/ hx of bilateral lower extremity chronic lymphedema, COPD, type 2 diabetes mellitus, cirrhosis of the liver, hepatitis-C, admitted for LE edema. Pt overall doing better but still c/o R foot pain. Specifically today he mentions that his middle toe is still swollen and painful. Upon closer review he has a small maybe 1cm area of dried black skin to the bottom of that toe. He denies fever/chills/N/V/cp/sob. Review of Systems Review of Systems: All systems reviewed & are unremarkable except as noted in HPI and below Exam Narrative: General: No acute distress, non toxic appearing, obese, disheveled Eyes: PERRL, no scleral icterus HEENT: NCAT, external ears normal, MMM Respiratory: No respiratory distress, Lungs CTA bilaterally, no wheezing Cardiovascular: RRR Abdominal: Soft, nontender, non distended, no rebound or guarding Musculoskeletal: Moves all 4 extremities, 2+ pitting edema BLE, chronic skin changes noted, RLE w/ erythema and warmth which is improving, R middle toe w/ 0.5 cm dried black area noted to bottom of toe, no drainage Neurological: A/Ox3, speech clear, no facial asymmetry Skin: Warm, dry, dirt noted under toenails Psychiatric: Normal affect, normal mood Objective Data Vital Signs Vital Signs: Vital Signs - 24 hr 10/04/21 10:55 10/04/21 13:50 10/04/21 18:37 Temperature 97.3 F L 97.1 F L 97 F L Pulse Rate 52 L 60 59 L Respiratory Rate 12 12 16 Blood Pressure 117/60 129/70 127/74 Pulse Oximetry 99 98 99 Oxygen Delivery 10/04/21 19:42 10/04/21 21:02 10/05/21 01:15 Temperature 97.7 F 97.6 F Pulse Rate 69 60 Respiratory Rate 14 14 Blood Pressure 117/71 124/63 Pulse Oximetry 100 93 Oxygen Delivery Room Air 10/05/21 06:00 10/05/21 08:14 Temperature 98.0 F Pulse Rate 63 78 Respiratory Rate 16 Blood Pressure 128/74 Pulse Oximetry 100 Oxygen Delivery Intake/Output Intake/Output: Intake & Output 10/02/21 10/03/21 10/04/21 10/05/21 23:59 23:59 23:59 23:59 Intake Total 1380 1060 1150 680 Output Total 5750 2600 1100 1200 Balance -8480 -1540 50 -520 Meds/Results Medications: Active Medications Generic Name Dose Route Start Last Admin Trade Name Freq PRN Reason Stop Dose Admin Acetaminophen 650 mg 09/30/21 23:58 10/02/21 04:55 Acetaminophen 325 Mg Tablet PO 650 mg Q6H PRN Administration Mild Pain
[2021-10-05 12:02] LABS: Glucose Point of Care 179 mg/dl (65-105)
[2021-10-05 14:34] VITALS: BP 123/63; PULSE 76; RESP 14; TEMP 36.4; O2SAT 99
[2021-10-05 16:32] LABS: Glucose Point of Care 137 mg/dl (65-105)
[2021-10-05 20:20] VITALS: BP 118/70; PULSE 82; RESP 16; TEMP 36.4; O2SAT 97
[2021-10-05 21:12] LABS: Glucose Point of Care 108 mg/dl (65-105)
[2021-10-05] MEDS: ACETAMINOPHEN 325 MG TABLET 650 MG PO (21:46)
[2021-10-06] MEDS: ceFAZolin 2 GM/D5W 50 ML 2 GM/50 ML BAG IVPB ×3 (05:03→20:22)
[2021-10-06 05:12] VITALS: BP 113/59; PULSE 59; RESP 16; TEMP 36.6; O2SAT 96
[2021-10-06 06:31] LABS: Basophils Absolute Auto 0.1 K/mm3 (0.0-0.1); Basophils Percent Auto 1.2 % (0.2-1.2); Eosinophils Absolute Auto 0.4 K/mm3 (0-0.3); Eosinophils Percent Auto 8.5 % (0-4.4); Hemoglobin 12.8 g/dL (14.0-18.0); Immature Granulocyte Absolute 0.01 K/mm3 (0.00-0.031); Immature Granulocyte Percent A 0.2 % (0-0.5); Lymphocytes Absolute Auto 0.92 K/mm3 (0.9-3.2); Lymphocytes Percent Auto 21.7 % (18.3-44.2); Mean Corpuscular Hemoglobin 25.3 pg (26-34); Mean Corpuscular Volume 79.1 fl (80-100); Mean Platelet Volume 9.7 fl (7.4-10.4); Monocytes Absolute Auto 0.5 K/mm3 (0.1-0.6); Monocytes Percent Auto 11.6 % (2.6-8.5); Neutrophils Absolute Auto 2.4 K/mm3 (1.3-6.7); Neutrophils Percent Auto 56.8 % (45.5-73.1); Platelet Count Result 193 k/mm3 (150-375); Red Blood Count 5.06 M/mm3 (4.6-6.20); Red Cell Distribution Width 15.7 % (11.5-14.5); White Blood Count 4.2 K/mm3 (4.5-10.0)
--- NOTE | 2021-10-06 06:31 | PM.CNOR ---
Assessment and Plan Assessment and plan (1) Wound of foot: Code(s): S91.309A - Unspecified open wound, unspecified foot, initial encounter Status: Acute Plan 61-year-old male who appears to have osteomyelitis of the right 3rd toe distal phalanx and middle phalanx on the x-rays. We will obtain an MRI scan for thorough evaluation. He is on antibiotics at this point and well covered. I am also going to order an arterial duplex ultrasound with ABIs since I cannot feel pulses in his foot. Longstanding diabetic unfortunately most likely is going to have some degree of atherosclerotic disease. If he does require amputation of the toe need to make sure that he has adequate blood flow for healing. History of Present Illness HPI Consult date: 10/06/21 Chief complaint: cellulitis, chf exacerbation, hypomag Narrative: 61-year-old male who we are consult to see regarding a right 3rd toe pain. He has had pain in this toe he states for about 5 days. Patient has significant cardiac history. He is also long-term diabetic. He has neuropathy in both lower extremities. He does not recall injuries or trauma to the toe. He states that when he was wearing his shoes his 3rd toe is hurting him a whole lot more. He has not had as much pain in the last 24 hours. At this point he is on vancomycin and Ancef scheduled. He has not recall any injuries or trauma to the toe. He states he does not check his feet regularly for any skin breakdown. His hemoglobin A1c is 7.5. he does have normal creatinine. X-rays were done of the foot which do show some demineralization of the distal and middle phalanx of the 3rd toe. No gas noted. [facility] Past Medical History Medical History Cirrhosis of liver COPD (chronic obstructive pulmonary disease) Diabetes type 2, controlled Esophageal varices Hepatitis C Pancytopenia Thrombocytopenia Surgical History Surgical History H/O cardiac catheterization H/O hernia repair History of esophagogastroduodenoscopy (EGD) Family History Family History Father Family history of pancreatic cancer Hypertension Sibling Diabetes mellitus Social History Social History Social History: The patient is homeless and states that he lives in his truck. The patient stated he has raised 7 children. The patient is a recovering alcoholic Smoking status: Current every day smoker Tobacco type: cigarettes Second hand tobacco smoke exposure: Yes Alcohol intake: former Substance use: current Substance use type: methamphetamine Last use: 09/22/2021 Gender identity (if verbalized by the patient): Male Spiritual care concerns: No Meds Home Medications and Allergies Home Medications Medication Instructions Recorded Confirmed Type albuterol sulfate 90 mcg/actuation 2 puff inhalation QID #8.5 grams 08/13/21 09/29/21 Rx aerosol inhaler metformin 1,000 mg tablet 1,000 mg PO BID 30 days #60 tabs 08/13/21 09/29/21 Rx metoprolol succinate 50 mg 50 mg PO DAILY 30 days #30 tabs 08/13/21 09/29/21 Rx tablet,extended release 24 hr blood sugar diagnostic (OneTouch #1 pkg 08/14/21 09/29/21 Rx Verio test strips) lancets 30 gauge (OneTouch Delica #1 pkg 08/14/21 09/29/21 Rx Plus Lancet) pen needle, diabetic 31 gauge x #1,200 ea 08/14/21 09/29/21 Rx 5/16 (TRUEplus Pen Needle) bumetanide 2 mg tablet 2 tablet PO DAILY 09/29/21 09/29/21 History fluoxetine 20 mg capsule 20 cap PO DAILY 09/29/21 09/29/21 History Allergies Allergy/AdvReac Type Severity Reaction Status Date / Time No Known Allergies Allergy Verified 08/29/21 08:26 Vital Signs Vital Signs - 24 hr 10/05/21 08:14 10/05/21 08:12 10/05/21 14:34 Temperature 36.4 C Pulse Rate 78 76 Respiratory Rate 14 Blood Pressure
[2021-10-06 06:44] LABS: Anion Gap 3 mmol/L (8-16); Blood Urea Nitrogen 38 mg/dL (9-20); Calcium 8.1 mg/dL (8.4-10.2); Carbon Dioxide 33 mmol/L (22-30); Chloride 99 mmol/L (98-107); Estimated CRCL calculation 97 ml/min; Estimated Glomerular Filt Rate > 60; Glucose 118 mg/dL (65-110); Magnesium 1.8 mg/dL (1.6-2.3); Potassium 3.8 mmol/L (3.4-5.0); Sodium 135 mmol/L (137-145)
[2021-10-06 08:54] LABS: Glucose Point of Care 139 mg/dl (65-105)
--- NOTE | 2021-10-06 09:12 | PM.IMPN ---
Progress Note: A&P Assessment and Plan (1) Osteomyelitis: Code(s): M86.9 - Osteomyelitis, unspecified Status: Acute Assessment and Plan: - RLE, third phalanx as evidenced by X-ray. - MRI performed and is pending results. - Arterial dopplers BLE with ROB normal. - Continue Vanc and Ancef - Orthopedics have consulted and are managing along with medicine. (2) Leg edema: Code(s): R60.0 - Localized edema Status: Acute Assessment and Plan: -likely combination of chronic lymphedema/CHF/cellulitis -venous dopplers bilateral negative -daily intake and output -received aggressive diuresis w/ Bumex 4 PO QD and Lasix 40 IV BID -now on Bumex 4 mg and Lasix 40 mg PO -points out a black area to the bottom of his R middle toe which looks like possible diabetic ulcer. X-ray of right foot shows Osteomyelitis to the right toe, distal phalanx tip. Orthopedics was ordered and is managing, Vanc was added to Ancef, and both are being continued for abx coverage. - Arterial dopplers ordered of BLE, that demonstrates: Normal lower extremity arterial doppler. - MRI ordered and performed with results pending. - Further treatment per Orthopedics. (3) Acute exacerbation of congestive heart failure: Code(s): I50.9 - Heart failure, unspecified Status: Acute Assessment and Plan: -fluid restriction to 1500 cc daily -Lexiscan performed in August with significant defect -echo w/ EF of 55-60%, grade II diastolic dysfunction -continue diuresis as noted above - Pt. with net negative I&O today as with continued diuresis plan. - Pt. is not on daily weights. They are ordered today. (4) Cellulitis: Code(s): L03.90 - Cellulitis, unspecified Status: Acute Assessment and Plan: -continue Ancef -BC NGTD -no fevers or leukocytosis -RLE initially very red/warm but improving daily - VSS, Labs unremarkable. Continuing Vancomycin and Ancef in light of newly found Osteomyelitis. (5) Hypomagnesemia: Code(s): E83.42 - Hypomagnesemia Status: Acute Assessment and Plan: -monitor and replace -resolved -continue to monitor - Stable at 1.8. (6) Type 2 diabetes mellitus: Code(s): E11.9 - Type 2 diabetes mellitus without complications Status: Acute Assessment and Plan: -low dose sliding scale, accuchecks, hypoglycemic protocol -hgb a1c 7.5 - Continue current regimen and tighten control as needed. - Promote compliance with diabetic regimen. Time Spent With Patient Time with patient: 15 - 25 minutes Subjective Date/time seen: 10/06/21 09:12 This pt. was examined at the bedside today in interval assessment. The pt., who is admitted for evaluation and treatment of his Cellulitis of his right foot, had a noted dark tip to the third toe yesterday on exam. He had been receiving Ancef for abx coverage and as a result, imaging of the foot plain film was ordered as well as the addition of an Vancomycin for coverage. X-ray showed demineralization of the distal right, third toe demonstrating Osteomyelitis. Orthopedics was then ordered for consultation, who in turn ordered an MRI as well as arterial duplex with ROB's which are all still pending results. He remains on Vanc and Ancef. This pt. has a social history that may lead to be difficult in his overall treatment plan being that he is homeless, living out of a car for the past year, he is a user of illicit drugs, (Methamphetamine) and he has been non-compliant with care to this point, not allowing some nurses to assess and has been difficult to converse with by multiple people. Today he denies any new complaints, but is concerned about his overall condition and what will need to be done based upon imaging. He is confrontational when advised that there will be a surgeon talking to him and it may lead to an operation. He denies any other issues today and is advised that more testing will be p
[2021-10-06 09:16] VITALS: PULSE 62
[2021-10-06] MEDS: MAGNESIUM OXIDE 400 MG TABLET PO (09:16)
[2021-10-06] MEDS: FLUoxetine HCL 20 MG CAPSULE PO (09:16)
[2021-10-06] MEDS: METOPROLOL SUCCINATE EXT REL 50 MG TABCR PO (09:16)
[2021-10-06] MEDS: BUMETANIDE 1 MG TABLET 2 MG PO ×2 (09:16→16:24)
[2021-10-06 09:18] VITALS: BP 122/64; PULSE 62; O2SAT 98
[2021-10-06 12:00] LABS: Glucose Point of Care 232 mg/dl (65-105)
[2021-10-06] MEDS: INSULIN ASPART (*BKC) 100 UNITS/ML SUB-Q (12:08)
[2021-10-06 14:20] VITALS: BP 115/67; PULSE 60; RESP 14; TEMP 36.4; O2SAT 98
[2021-10-06 16:36] LABS: Glucose Point of Care 89 mg/dl (65-105)
[2021-10-06 19:26] VITALS: BP 107/66; PULSE 66; RESP 17; TEMP 36.4; O2SAT 99
[2021-10-06 20:00] VITALS: PULSE 66; RESP 17; O2SAT 99
[2021-10-06 21:26] LABS: Glucose Point of Care 129 mg/dl (65-105)
[2021-10-07 03:18] VITALS: BP 132/68; PULSE 54; RESP 18; TEMP 37.1; O2SAT 99
[2021-10-07] MEDS: ceFAZolin 2 GM/D5W 50 ML 2 GM/50 ML BAG IVPB (05:20)
[2021-10-07 07:32] LABS: Basophils Percent Auto 1.1 % (0.2-1.2); Eosinophils Absolute Auto 0.3 K/mm3 (0-0.3); Eosinophils Percent Auto 7.8 % (0-4.4); Hematocrit 40.9 % (42.0-52.0); Hemoglobin 12.6 g/dL (14.0-18.0); Immature Granulocyte Absolute 0.02 K/mm3 (0.00-0.031); Immature Granulocyte Percent A 0.5 % (0-0.5); Lymphocytes Absolute Auto 0.83 K/mm3 (0.9-3.2); Lymphocytes Percent Auto 22.4 % (18.3-44.2); Mean Corpuscular HGB Conc 30.8 g/dl (32-36); Mean Corpuscular Volume 81.2 fl (80-100); Mean Platelet Volume 10.6 fl (7.4-10.4); Monocytes Absolute Auto 0.4 K/mm3 (0.1-0.6); Monocytes Percent Auto 11.3 % (2.6-8.5); Neutrophils Absolute Auto 2.1 K/mm3 (1.3-6.7); Neutrophils Percent Auto 56.9 % (45.5-73.1); Platelet Count Result 177 k/mm3 (150-375); Red Blood Count 5.04 M/mm3 (4.6-6.20); Red Cell Distribution Width 15.6 % (11.5-14.5); White Blood Count 3.7 K/mm3 (4.5-10.0)
[2021-10-07 07:49] LABS: Alanine Aminotransferase 21 U/L (6-50); Albumin Level 3.1 g/dL (3.5-5.1); Alkaline Phosphatase 225 U/L (38-126); Anion Gap 3 mmol/L (8-16); Aspartate Amino Transferase 48 U/L (17-59); Bilirubin,Total 0.5 mg/dL (0.2-1.3); Blood Urea Nitrogen 35 mg/dL (9-20); Calcium 8.3 mg/dL (8.4-10.2); Carbon Dioxide 34 mmol/L (22-30); Chloride 100 mmol/L (98-107); Estimated CRCL calculation 88 ml/min; Estimated Glomerular Filt Rate > 60; Glucose 126 mg/dL (65-110); Magnesium 1.8 mg/dL (1.6-2.3); Sodium 137 mmol/L (137-145)
[2021-10-07 07:50] LABS: Glucose Point of Care 136 mg/dl (65-105)
[2021-10-07 07:58] LABS: Vancomycin Trough 19.9 ug/mL (10.0-20.0)
[2021-10-07 08:12] VITALS: PULSE 59
[2021-10-07] MEDS: FLUoxetine HCL 20 MG CAPSULE PO (08:12)
[2021-10-07] MEDS: BUMETANIDE 1 MG TABLET 2 MG PO ×2 (08:12→17:22)
[2021-10-07] MEDS: METOPROLOL SUCCINATE EXT REL 50 MG TABCR PO (08:12)
[2021-10-07] MEDS: MAGNESIUM OXIDE 400 MG TABLET PO (08:13)
[2021-10-07 08:16] LABS: Erythrocyte Sedimentation Rate 26 mm/hr (0-20)
--- NOTE | 2021-10-07 11:53 | PM.PNORT ---
Progress Note: A&P Assessment and Plan (1) Osteomyelitis: Code(s): M86.9 - Osteomyelitis, unspecified Status: Acute Assessment and Plan: Patient is a 61-year-old male who was complaining of pain in the right foot and had x-rays which show lucencies at the bases of the 2nd 3rd and 4th metatarsals and bony destruction of the base of the distal phalanx possible osteomyelitis of the head of the middle phalanx of the right 3rd toe suspicious for osteomyelitis. I asked him specifically if he had had any drainage in this toe at all and he said that 5 years ago he was in the emergency room in [place] and had a ulcer at the tip of this toe and was treated by the ER doctor with incision and drainage down to the tip of the bone and he has always had a little bit of difficulty with it but no drainage. Patient states he has had no episodes of drainage since that time. I See that he was actually admitted with sepsis on August 10 of this year and had x-rays of the 3rd toe which showed soft tissue swelling but no evidence of osteomyelitis. The hospitalist mentioned that there was a wound at the end of the 3rd toe and patient was referred for wound care to the wound care nurse to address that. On the x-rays from 06/2021 of the right foot show that there is now bony destruction of the base of the distal phalanx of the right 3rd toe. Diagnosis would include a Charcot joint or osteomyelitis. MRI scan obtained yesterday demonstrates evidence of fractures of the bases of the 2nd 3rd and 4th metatarsals and patient denies any trauma so he appears to have Charcot fractures in his right foot complicating measures. He has a 5 mm brown eschar at the tip of his 3rd toe. He has clawtoe deformity and I was squeezing his toe and a little bit of purulent fluid came out. I prepped the toe with alcohol and was able to squeeze about 3 or 4 drops of purulent material from the tip of the right 3rd toe and I sent this for anaerobic and aerobic culture and Gram stain. Yesterday times Pavel could not feel pulses and arterial Doppler studies were performed which show normal arterial flow to the right leg. This morning I a.m. able to feel a 2+ dorsalis pedis pulse. He came in with quite a bit of edema in the legs and this is improved. He states he had calf circumference of 19 inches which was a new record for him he states. The appearance of the right 3rd toe is 1 of enlargement of the distal segment of the toe and claw toe with a 5 mm brown eschar or callus at the plantar tip of the toe. No erythema. There was some skin that I peeled off the toe. He has multiple medical problems including congestive heart failure, alcoholic cirrhosis, pancytopenia, and I see from is admission note from August that he was actively using meth at that time. His C-reactive protein on admission was 3.1. His sed rate today is 26. His white count is low at 3.7 hemoglobin 12.6 platelets [id number]. He has been on Ancef for 6 days I believe and he is also on vancomycin. I spoke with the Infectious Disease pharmacist and he should be covered for anaerobic bacteria and Pseudomonas in particular and Zosyn he felt would be appropriate coverage for both and this will be started by the pharmacist. Patient will need to be nonweightbearing to heal the Charcot fractures of his 2nd 3rd and 4th metatarsals. To address the right 3rd toe D IP joint septic arthritis with osteomyelitis of the base of the distal phalanx, and amputation will be necessary I believe. I am going to consult Dr. Fernandez for his expertise with respect to determining the level of amputation,, either a toe disarticulation through the metacarpophalangeal joint or through the proximal interphalangeal joint and whether this should be done in 1 or 2 stages. The 3rd question as 1 of optimal timing. The MRI scan shows no evidence of infection spreading proximally but this is a risk. I have used a hemostat to open up the distal ulceration to allow
[2021-10-07 12:00] LABS: Glucose Point of Care 159 mg/dl (65-105)
--- NOTE | 2021-10-07 13:58 | PM.IMPN ---
Progress Note: A&P Assessment and Plan (1) Osteomyelitis: Code(s): M86.9 - Osteomyelitis, unspecified Status: Acute Assessment and Plan: RLE, third phalanx as evidenced by X-ray. - MRI completed 10/06/2021 showed likely septic arthritis of the 3rd distal interphalangeal joint with possible osteomyelitis at the head of the 3rd middle phalanx and 3rd distal phalanx - Bilateral arterial dopplers normal - Continue Vanc and Zosyn. Monitor renal function. Appreciate ID pharmacist assistance. - Culture from right third toe collected today, await results - Seen in consultation by Orthopedic surgery. Awaiting recommendations (2) Leg edema: Code(s): R60.0 - Localized edema Status: Acute Assessment and Plan: Likely combination of chronic lymphedema/CHF/cellulitis - venous dopplers bilateral negative - has been diuresed with overall improvement - continue Bumex 4 mg and Lasix 40 mg PO (3) Acute exacerbation of congestive heart failure: Code(s): I50.9 - Heart failure, unspecified Status: Acute Assessment and Plan: Improved - He has been adequately diuresed. - Continue Bumex and Lasix - Discontinue fluid restriction diet - Echo w/ EF of 55-60%, grade II diastolic dysfunction - Continue to monitor intake and output. Net negative output. Continue daily weights (4) Cellulitis: Code(s): L03.90 - Cellulitis, unspecified Status: Acute Assessment and Plan: Improved. No evidence of cellulitis on my evaluation today - Remains on antibiotics for osteomyelitis as above. (5) Hypomagnesemia: Code(s): E83.42 - Hypomagnesemia Status: Acute Assessment and Plan: Mag 1.8 today. - Magnesium oxide 400 mg daily supplement - Continue to monitor (6) Type 2 diabetes mellitus: Code(s): E11.9 - Type 2 diabetes mellitus without complications Status: Acute Assessment and Plan: A1c is 7.5 - low dose sliding scale, accuchecks, hypoglycemic protocol - Promote compliance with diabetic regimen. Subjective Date/time seen: 10/07/21 13:58 Interval history: Date of service: 10/07/2021 Maxim Babb is 61-year-old male with a history of type 2 diabetes mellitus, COPD, cirrhosis of the liver, hepatitis-C who is seen in follow-up for osteomyelitis of 3rd digit of the right foot. He is feeling better today compared to yesterday. He currently rates his pain as 5 to 6/10. He is frustrated with his fluid restriction and wants to be able to drink more than 1 glass of tea. He denies abdominal pain, nausea, or vomiting. No shortness breath, cough, chest pain. He endorses poor sensation in his extremities. He feels that his lower extremity edema has improved but states that his 3rd toe is still very swollen. Review of Systems Review of Systems: All systems reviewed & are unremarkable except as noted in HPI and below Exam Narrative: General: Well-nourished, slightly disheveled appearing 61year-old male, sitting up in bed, comfortable, NARD Neuro: awake, alert and oriented x4, speech clear, no focal neuro deficits noted HEENMT: normocephalic, atraumatic, EOMI, sclerae anicteric, moist oral mucosa Respiratory: clear to auscultation bilaterally, nonlabored breathing Cardio: regular rate, regular rhythm with S1-S2 Abdomen: nondistended, normoactive bowel sounds, soft, nontender to palpation Extremities: Trace edema of the bilateral lower extremities, no erythema or tenderness to palpation, bilateral DP pulses palpable Skin: Black eschar on plantar aspect of right 3rd digit, no rashes or lesions, warm and dry Psych: appropriate mood and affect, judgment and insight intact Objective Data Vital Signs Vital Signs: Vital Signs - 24 hr 10/06/21 14:20 10/06/21 19:26 10/06/21 20:00 Temperature 97.5 F L 97.6 F Pulse Rate 60 66 66 Respiratory Rate 14 17 17 Blood Pressure 115/67 107/66 Pulse Oximetry 98 99 99 Oxygen D
[2021-10-07 14:14] VITALS: BP 123/83; PULSE 65; RESP 14; TEMP 36.4; O2SAT 100
--- NOTE | 2021-10-07 16:08 | PM.CNOR ---
Assessment and Plan Assessment and plan (1) Osteomyelitis: Code(s): M86.9 - Osteomyelitis, unspecified Status: Acute Assessment and Plan: New patient evaluation for chief complaint right 3rd toe ulcer with osteomyelitis. History, physical exam and radiographs reviewed with the patient. Discussed the condition, nature, etiology and course of natural history with the patient. Treatment options including surgical and nonoperative treatment were reviewed. Risks and benefits of each as well as alternatives reviewed. The patient's questions were answered. Discussed chance for healing with antibiotics alone versus antibiotics and surgery. Patient would like to proceed with surgical treatment. Understands indication for amputation of the distal portion of the 3rd toe. Discussed nonoperative and operative treatment options with the patient. Risks and benefits of each as well as alternatives were reviewed. All of the patient's questions were answered. The risks of surgery reviewed including but not limited to: Neurovascular damage, wound complication, infection, blood clot, pulmonary embolus, stroke, myocardial infarction, and anesthetic risks up to and including . Continued pain and possible dysfunction were explained. Specific risks of the procedure including later recurrence of deformity. No guarantees were offered. Patient verbalizes understanding and wishes to proceed. PLAN: Left 3rd toe amputation (2) Type 2 diabetes mellitus: Code(s): E11.9 - Type 2 diabetes mellitus without complications Status: Acute (3) Diabetic foot ulcer associated with type 2 diabetes mellitus: Code(s): E11.621 - Type 2 diabetes mellitus with foot ulcer; L97.509 - Non-pressure chronic ulcer of other part of unspecified foot with unspecified severity Status: Acute Assessment and Plan: relatively well controlled blood sugar based on A1c level. History of Present Illness HPI Consult date: 10/07/21 Requesting physician: Oral Evans MD Chief complaint: cellulitis, chf exacerbation, hypomag Narrative: 61-year-old gentleman with right 3rd toe pain and swelling over the past 2 weeks. Patient admitted through the emergency room for cellulitis, diabetic foot infection and bilateral lower extremities leg swelling. Found to have evidence of osteomyelitis on radiographs. I have been asked to see him for possible further treatment. He has been started on intravenous antibiotics. Noted ulcer on the end of the toe 2 weeks ago. Gradually increase in swelling. History of previous ulceration of the dorsal aspect of the toe 5 years ago. Review of Systems Constitutional: Constitutional: Denies fever(s) Eyes: Eyes: Denies blurry vision ENT: Reports Normal hearing present Cardiovascular: Cardiovascular: Denies chest pain and Denies dyspnea Respiratory: Respiratory: Denies dyspnea and Denies wheezing Gastrointestinal: Gastrointestinal: Denies abdominal pain Genitourinary: Genitourinary: Denies urinary urgency Musculoskeletal: Musculoskeletal: Reports as per HPI and Denies numbness Integumentary/Breasts: Skin/Breast: Denies changing lesions and Denies sores Neurologic: Reports Normal hearing present, Denies behavioral changes, Denies confusion, Denies numbness and Denies convulsions Psychiatric: Psychiatric: Denies behavioral changes, Denies confusion and Denies hallucinations Endocrine: Endocrine: Denies heat intolerance Hematologic/Lymphatic: Hematologic/Lymphatic: Denies easy bleeding Allergic/Immunologic: Allergic/Immunologic: Denies wheezing PMFSH Past Medical History Medical History (Updated 10/07/21 @ 16:27 by Zheng Fernandez MD) Cirrhosis of liver COPD (chronic obstructive pulmonary disease) Diabetes type 2, controlled Diabetic foot ulcer associated with type 2 diabetes mellitus Esophageal varices Hepatitis C Pancytopenia Thrombocytopenia Surgical History Surgical Hist
[2021-10-07 16:31] LABS: Glucose Point of Care 158 mg/dl (65-105)
[2021-10-07 20:00] VITALS: PULSE 66; RESP 14; O2SAT 100
[2021-10-07 20:09] VITALS: BP 120/77; PULSE 66; RESP 14; TEMP 37.2; O2SAT 100
[2021-10-07 20:54] LABS: Glucose Point of Care 135 mg/dl (65-105)
[2021-10-08] VITALS (15 sets, daily range): BP systolic 88–136; BP diastolic 62–77; PULSE 50–90; RESP 10–20; TEMP 35.9–37; O2SAT 92–100
[2021-10-08 06:02] LABS: Basophils Percent Auto 0.9 % (0.2-1.2); Eosinophils Absolute Auto 0.3 K/mm3 (0-0.3); Hematocrit 40.5 % (42.0-52.0); Hemoglobin 12.7 g/dL (14.0-18.0); Immature Granulocyte Absolute 0.01 K/mm3 (0.00-0.031); Immature Granulocyte Percent A 0.3 % (0-0.5); Lymphocytes Absolute Auto 0.78 K/mm3 (0.9-3.2); Lymphocytes Percent Auto 22.2 % (18.3-44.2); Mean Corpuscular HGB Conc 31.4 g/dl (32-36); Mean Corpuscular Hemoglobin 25.3 pg (26-34); Mean Corpuscular Volume 80.7 fl (80-100); Mean Platelet Volume 10.3 fl (7.4-10.4); Monocytes Absolute Auto 0.4 K/mm3 (0.1-0.6); Monocytes Percent Auto 11.4 % (2.6-8.5); Neutrophils Percent Auto 57.2 % (45.5-73.1); Platelet Count Result 154 k/mm3 (150-375); Red Blood Count 5.02 M/mm3 (4.6-6.20); Red Cell Distribution Width 15.6 % (11.5-14.5); White Blood Count 3.5 K/mm3 (4.5-10.0)
[2021-10-08 06:15] LABS: Anion Gap 4 mmol/L (8-16); Blood Urea Nitrogen 33 mg/dL (9-20); Calcium 8.4 mg/dL (8.4-10.2); Carbon Dioxide 34 mmol/L (22-30); Chloride 100 mmol/L (98-107); Estimated CRCL calculation 77 ml/min; Estimated Glomerular Filt Rate > 60; Glucose 135 mg/dL (65-110); Magnesium 1.7 mg/dL (1.6-2.3); Sodium 138 mmol/L (137-145)
--- NOTE | 2021-10-08 06:50 | WPDHPUPDATE1 ---
History and Physical Update Update Date/Time: 10/08/21 06:50 History and Physical has been reviewed, including an updated exam of the patient. There are NO changes in the patient's condition. Risks, benefits, and alternatives have been discussed and questions answered. Patient agrees to proceed with procedure.
--- NOTE | 2021-10-08 07:23 | PM.PNORT ---
Progress Note: A&P Additional Plan I reviewed Dr Fernandez's consult. Pt has decided on distal ampution to address the osteomyelitis of distal phalanx and surgery planned for today. I will sign off. Subjective Subjective Date/Time Seen: 10/08/21 07:23 Objective Data Vital Signs Vital Signs: Vital Signs - 24 hr 10/07/21 08:12 10/07/21 08:16 10/07/21 14:14 Temperature 36.4 C Pulse Rate 59 L 65 Respiratory Rate 14 Blood Pressure 123/83 Pulse Oximetry 100 Oxygen Delivery Room Air 10/07/21 20:09 10/07/21 20:00 Temperature 37.2 C Pulse Rate 66 66 Respiratory Rate 14 14 Blood Pressure 120/77 Pulse Oximetry 100 100 Oxygen Delivery Room Air Intake/Output Intake/Output: Intake & Output 10/05/21 10/06/21 10/07/21 10/08/21 23:59 23:59 23:59 23:59 Intake Total 2250 3032 3250 450 Output Total 2725 4172 362 1050 [facility] [phone] Meds/Results Medications: Active Medications Generic Name Dose Route Start Last Admin Trade Name Freq PRN Reason Stop Dose Admin Acetaminophen 650 mg 09/30/21 23:58 10/05/21 21:46 Acetaminophen 325 Mg Tablet PO 650 mg Q6H PRN Administration Mild Pain (1-3) or Fever Albuterol 2 puff 09/30/21 09:00 Albuterol Sulfate (*Sp) Aerosol 1 Puff INHALATION QID PRN Shortness Of Breath Bumetanide 2 mg 10/06/21 09:00 10/07/21 17:22 Bumetanide 1 Mg Tablet PO 2 mg BID WILTON Administration Dextrose 12.5 gm 09/30/21 16:07 Dextrose 50% 25 Gm/50 Ml Syringe IV PUSH PRN PRN Hypoglycemia Protocol Fluoxetine HCl 20 mg 09/30/21 09:00 10/07/21 08:12 Fluoxetine Hcl 20 Mg Capsule PO 20 mg DAILY WILTON Administration Glucagon 1 mg 09/30/21 16:07 Glucagon For Inj 1 Mg Vial IM PRN PRN Hypoglycemia Protocol Glucose 15 gm 09/30/21 16:07 Glucose Oral Gel 15 Gm Of Glucse In 37.5 Gm Tube PO PRN PRN Hypoglycemia Protocol Dextrose 1,000 mls @ 100 mls/hr 09/30/21 16:07 Dextrose 5% 1,000 Ml IVPB PRN PRN Hypoglycemia Protocol Vancomycin HCl 1,750 mg in 500 mls @ 250 mls/hr 10/06/21 08:00 10/07/21 22:47 Vancomycin 1,750 Mg/D5w 500 Ml IVPB Infused Q12H [facility]IL[facility] Infusion Piperacillin/Tazobactam/Dextrose 3.375 gm in 50 mls @ 100 mls/hr 10/07/21 12:10 10/08/21 05:35 Zosyn 3.375 Gm/D5w 50ml Pm IVPB Infused Q6HR WILTON Infusion Insulin Aspart 2 - 5 units 09/30/21 17:00 10/07/21 16:34 Insulin Aspart (*Bkc) 100 Units/Ml SUB-Q Not Given TIDWM IWLTON Protocol Magnesium Oxide 400 mg 10/02/21 09:00 10/07/21 08:13 Magnesium Oxide 400 Mg Tablet PO 400 mg DAILY WILTON Administration Metoprolol Succinate 50 mg 09/30/21 09:00 10/07/21 08:12 Metoprolol Succinate Ext Rel 50 Mg Tabcr PO 50 mg DAILY WILTON Administration Perflutren Lipid Microsphere 0 ml 09/30/21 00:55 Perflutren Lipid Microspheres 1.5 Ml Vial Diluted To 10 Ml Total Volume IV PUSH ONCE PRN adequate visualization Protocol Radiology Results: ITS Impressions Chest X-Ray 09/29/21 16:08 IMPRESSION: Pulmonary opacities may represent bronchiolitis, as can be seen with atypical infection, asthma, aspiration, and small airways disease. No overt findings of pulmonary edema. Venous Doppler Study 09/30/21 09:01 IMPRESSION: 1. Patent bilateral lower extremity veins. No evidence of deep venous thrombosis. Bilateral peroneal veins not visualized. Foot X-Ray 10/05/21 17:26 IMPRESSION: Osteomyelitis involving the distal phalange of the third toe. Doppler Study Ultrasound 10/06/21 08:27 IMPRESSION: 1. Normal lower extremity arterial Doppler. Foot MRI 10/06/21 09:43 IMPRESSION: 1. Likely septic arthritis at the third distal interphalangeal joint with possible colitis at the head of the third middle phalanx and more advanced with osteolysis at the third distal phalanx. 2. Nondisplaced extra-articular likely stress/i
[2021-10-08] MEDS: FLUoxetine HCL 20 MG CAPSULE PO (08:01)
[2021-10-08 08:02] LABS: Glucose Point of Care 126 mg/dl (65-105)
[2021-10-08] MEDS: METOPROLOL SUCCINATE EXT REL 50 MG TABCR PO (08:02)
--- NOTE | 2021-10-08 08:12 | WPDANESEPPF ---
Anes - Initial Pre Proc Eval Procedure: Operation Date: 10/08/21 11:30 Proposed Procedures p Right Third Toe Amputation - Zheng Fernandez MD Date/Time: 10/08/21 08:12 Surgeon: Kira Maldonado PA-C Pre Op Diagnosis: cellulitis, chf exacerbation, hypomag Patient Data Age: 61 Gender: M Height: 1.85 m Weight: 95.6 kg Last Vital Signs Temp 37.0 C 10/08/21 06:00 Pulse 60 10/08/21 08:02 Resp 18 10/08/21 06:00 BP 115/66 10/08/21 06:00 Pulse Ox 99 10/08/21 06:00 O2 Del Method Room Air 10/07/21 20:00 Allergies Allergy/AdvReac Type Severity Reaction Status Date / Time No Known Allergies Allergy Verified 08/29/21 08:26 Home Medications Medication Instructions Recorded Confirmed Type albuterol sulfate 90 mcg/actuation 2 puff inhalation QID #8.5 grams 08/13/21 09/29/21 Rx aerosol inhaler metformin 1,000 mg tablet 1,000 mg PO BID 30 days #60 tabs 08/13/21 09/29/21 Rx metoprolol succinate 50 mg 50 mg PO DAILY 30 days #30 tabs 08/13/21 09/29/21 Rx tablet,extended release 24 hr blood sugar diagnostic (OneTouch #1 pkg 08/14/21 09/29/21 Rx Verio test strips) lancets 30 gauge (OneTouch Delica #1 pkg 08/14/21 09/29/21 Rx Plus Lancet) pen needle, diabetic 31 gauge x #1,200 ea 08/14/21 09/29/21 Rx 5/16 (TRUEplus Pen Needle) bumetanide 2 mg tablet 2 tablet PO DAILY 09/29/21 09/29/21 History fluoxetine 20 mg capsule 20 cap PO DAILY 09/29/21 09/29/21 History Laboratory Tests 10/07/21 10/07/21 10/07/21 06:31 11:56 16:20 WBC RBC Hgb Hct MCV MCH MCHC RDW Plt Count MPV Immature Gran % (Auto) Neut % (Auto) Lymph % (Auto) Pepin % (Auto) Eos % (Auto) Baso % (Auto) Lymph # (Auto) Pepin # (Auto) Eos # (Auto) Baso # (Auto) Abs Immat Gran (auto) Absolute Neuts (auto) Absolute Nucleated RBC Nucleated RBC % ESR 26 mm/hr H mm/hr (0-20) Sodium Potassium Chloride Carbon Dioxide Anion Gap BUN Creatinine Estim Creat Clear Calc Estimated GFR Glucose POC Capillary Glucose 159 mg/dl H mg/dl 158 mg/dl H mg/dl (65-105) (65-105) Calcium Magnesium 10/07/21 10/08/21 10/08/21 20:18 05:34 05:34 WBC 3.5 K/mm3 L K/mm3 (4.5-10.0) RBC 5.02 M/mm3 M/mm3 (4.6-6.20) Hgb 12.7 g/dL L g/dL (14.0-18.0) Hct 40.5 % L % (42.0-52.0) MCV 80.7 fl fl (80-100) MCH 25.3 pg L pg (26-34) MCHC 31.4 g/dl L g/dl (32-36) RDW 15.6 % H % (11.5-14.5) Plt Count 154 k/mm3 k/mm3 (150-375) MPV 10.3 fl fl (7.4-10.4) Immature Gran % (Auto) 0.3 % % (0-0.5) Neut % (Auto) 57.2 % % (45.5-73.1) Lymph % (Auto) 22.2 % % (18.3-44.2) Pepin % (Auto) 11.4 % H % (2.6-8.5) Eos % (Auto) 8.0 % H % (0-4.4) Baso % (Auto) 0.9 % % (0.2-1.2) Lymph # (Auto) 0.78 K/mm3 L K/mm3 (0.9-3.2) Pepin # (Auto) 0.4 K/mm3 K/mm3 (0.1-0.6) Eos # (Auto) 0.3 K/mm3 K/mm3 (0-0.3) Baso # (Auto) 0.0 K/mm3 K/mm3 (0.0-0.1) Abs Immat Gran (auto) 0.01 K/mm3 K/mm3 (0.00-0.031) Absolute Neuts (auto) 2.0 K/mm3 K/mm3 (1.3-6.7) Absolute Nucleated RBC 0.0 K/mm3 K/mm3 (0.0-0.012) Nucleated RBC % 0.0 % % (0.0-0.2) ESR Sodium 138 mmol/L mmol/L (137-145) Potassium 4.0 mmol/L mmol/L (3.4-5.0) Chloride 100 mmol/L mmol/L (98-107) Carbon Dioxide 34 mmol/L H mmol/L (22-30) Anion Gap
--- NOTE | 2021-10-08 09:24 | PCNWS ---
Weekly nutritional screen. Patient is currently on NPO diet for procedure. Patient was tolerating diabetic consistent carbohydrate diet with 100% intake. Weight fluctuation due to diuretics and fluid loss. No nutritional needs at this time.
--- NOTE | 2021-10-08 09:25 | PCNSR ---
On 10/08/21, the student, Keshia Martino, provided care and completed [facility] documentation on this patient. I have reviewed the student's documentation and agree with the findings.
--- NOTE | 2021-10-08 09:56 | PM.IMPN ---
Progress Note: A&P Assessment and Plan (1) Osteomyelitis: Code(s): M86.9 - Osteomyelitis, unspecified Status: Acute Assessment and Plan: RLE, third phalanx as evidenced by X-ray. - MRI completed 10/06/2021 showed likely septic arthritis of the 3rd distal interphalangeal joint with possible osteomyelitis at the head of the 3rd middle phalanx and 3rd distal phalanx - Bilateral arterial dopplers normal - Continue Vanc and Zosyn. Monitor renal function. Appreciate ID pharmacist assistance. - Culture from right third toe collected today, await results - Seen in consultation by Orthopedic surgery. - Planning for amputation of the distal 3rd toe today (2) Leg edema: Code(s): R60.0 - Localized edema Status: Acute Assessment and Plan: Likely combination of chronic lymphedema/CHF/cellulitis - venous dopplers bilateral negative - has been diuresed with overall improvement (3) Acute exacerbation of congestive heart failure: Code(s): I50.9 - Heart failure, unspecified Status: Acute Assessment and Plan: Improved - He has been adequately diuresed. - Continue Bumex 2 g BID - Echo w/ EF of 55-60%, grade II diastolic dysfunction - Continue to monitor intake and output. Net negative output. Continue daily weights (4) Cellulitis: Code(s): L03.90 - Cellulitis, unspecified Status: Resolved Assessment and Plan: Resolved.. No evidence of cellulitis on my evaluation today - Remains on antibiotics for osteomyelitis as above. (5) Hypomagnesemia: Code(s): E83.42 - Hypomagnesemia Status: Acute Assessment and Plan: Mag 1.7 today. - Magnesium oxide 400 mg daily supplement - Continue to monitor (6) Type 2 diabetes mellitus: Code(s): E11.9 - Type 2 diabetes mellitus without complications Status: Acute Assessment and Plan: A1c is 7.5 - low dose sliding scale, accuchecks, hypoglycemic protocol - blood sugars have been well controlled Subjective Date/time seen: 10/08/21 09:56 Interval history: Date of service: 10/07/2021 Maxim Babb is 61-year-old male with a history of type 2 diabetes mellitus, COPD, cirrhosis of the liver, hepatitis-C who is seen in follow-up for osteomyelitis of 3rd digit of the right foot. He is doing well today. His pain is generally well controlled. He states that every now and then he has ?ice-pick pain? in the 3rd toe that causes a sharp episode of pain lasting approximately 10 seconds. He does endorse poor sensation to his lower extremities. States his edema has nearly resolved. Denies redness or wants of his legs. Denies shortness breath, cough, chest pain, nausea, vomiting, fever, chills, dizziness, lightheadedness. Reports regular bowel movements. Denies urinary symptoms. He will be undergoing amputation today and he feels comfortable with this plan. Review of Systems Review of Systems: All systems reviewed & are unremarkable except as noted in HPI and below Exam Narrative: General: Well-nourished 61year-old male, sitting up in bed, comfortable, NARD Neuro: awake, alert and oriented x4, speech clear, no focal neuro deficits noted HEENMT: normocephalic, atraumatic, EOMI, sclerae anicteric, moist oral mucosa Respiratory: clear to auscultation bilaterally, nonlabored breathing Cardio: regular rate, regular rhythm with S1-S2 Abdomen: nondistended, normoactive bowel sounds, soft, nontender to palpation Extremities: Trace edema of the bilateral lower extremities, no erythema, warmth, or tenderness to palpation, bilateral DP pulses palpable Skin: Black eschar on plantar aspect of right 3rd digit, no rashes or lesions, warm and dry Psych: appropriate mood and affect, judgment and insight intact Objective Data Vital Signs Vital Signs: Vital Signs - 24 hr 10/07/21 14:14 10/07/21 20:09 10/07/21 20:00 Temperature 97.6 F 99.0 F Pulse Rate 65 66 66 Respiratory
--- NOTE | 2021-10-08 10:34 | SUR.PREOP ---
PT STATES HE DOESNT WANT ANYONE UPDATED BY SURGEON AFTER SURGERY
[2021-10-08] MEDS: LACTATED RINGERS 1,000 ML 30 ML IV CONT (11:00)
[2021-10-08 12:13] LABS: Glucose Point of Care 139 mg/dl (65-105)
--- NOTE | 2021-10-08 12:14 | P.OP_ITS ---
Procedure Note - Detailed Date of Procedure 10/08/21 Pre-op Diagnosis cellulitis, chf exacerbation, hypomag Post-op Diagnosis Other (Right 3rd toe osteomyelitis) Procedure Performed Right 3rd toe amputation Surgeon Zheng Fernandez MD [employer] Recovery Worker 1st assist Anesthesia MAC Indications 61-year-old gentleman with diabetes and peripheral neuropathy. Presents with ulceration of the right 3rd toe. Diagnosed with osteomyelitis. Presents now for operative treatment. Findings Infection of the distal aspect of the 3rd toe. Description of Procedure Patient identified in the preoperative holding. Informed consent given. Operative extremity marked. Patient received intravenous antibiotics. Patient brought to the operating room where underwent IV conscious sedation by anesthesia team. Positioned supine on operating room table. Time-out performed confirming the patient, site of the surgery and the plan. Right foot prepped and draped usual sterile surgical fashion using a Betadine prep solution. Local anesthetic with 0.5% Marcaine used to anesthetize 3rd toe. Foot exsanguinated and calf tourniquet inflated to 250 mmHg. Elliptical incision made at the midportion of the 3rd toe with a 15 blade knife. Hemostasis controlled electrocautery. Bone cutter used to transect the toe through the middle phalanx. Distal aspect removed and passed off as specimen. Any other non vital tissue was removed sharply. Wound thoroughly irrigated. And to the bone smoothed with a rongeur. Deep tissue closed with 3-0 Monocryl interrupted suture. Skin approximated with 4-0 nylon interrupted suture. Sterile dressing applied. The patient was then woken from anesthesia, extubated and taken to the recovery room in stable condition. All sponge, needle, instrument counts were correct at the end of the case. Estimated Blood Loss 1 Tourniquet Time 20 Urine Output 140 Drains No Packing No Pathology Yes (Third toe right foot) Complications None Condition Stable Disposition PACU
[2021-10-08] MEDS: SODIUM CHLORIDE 0.9% IV 1,000 ML 125 ML IV CONT (13:30)
[2021-10-08] MEDS: HYDROcodone/acetaminophen (*CRX) 5-325 MG TABLET 1 TAB PO ×3 (13:30→23:07)
[2021-10-08 13:37] LABS: Glucose Point of Care 179 mg/dl (65-105)
--- NOTE | 2021-10-08 15:45 | PCPTNOTE ---
Attempted PT evaluation, patient refusing to follow therapist instruction and is impulsive. Patient impulsively began standing up despite therapist instructions not to due to not having post operative shoe on and not allowing therapist to explain weight bearing precautions. Patient then began arguing with therapist stating he has no weight bearing precautions. Therapist explained doctors orders of being partial weight bearing. However, patient not willing to listen to therapist and resumed supine position in bed with eyes closed. Patient refusing to participate. Will Follow.
[2021-10-08 16:01] LABS: Glucose Point of Care 358 mg/dl (65-105)
[2021-10-08] MEDS: SENNA/DOCUSATE SODIUM TABLET 2 TAB PO (16:38)
[2021-10-08] MEDS: BUMETANIDE 1 MG TABLET 2 MG PO (16:38)
[2021-10-08] MEDS: INSULIN ASPART (*BKC) 100 UNITS/ML SUB-Q (16:39)
[2021-10-08 20:27] LABS: Glucose Point of Care 103 mg/dl (65-105)
[2021-10-09] VITALS (8 sets, daily range): BP systolic 113–134; BP diastolic 48–72; PULSE 55–71; RESP 16–20; TEMP 35.9–36.8; O2SAT 95–100
[2021-10-09] MEDS: SODIUM CHLORIDE 0.9% IV 1,000 ML 125 ML IV CONT (00:07)
[2021-10-09] MEDS: HYDROcodone/acetaminophen (*CRX) 5-325 MG TABLET 1 TAB PO ×4 (03:16→20:19)
[2021-10-09 05:46] LABS: Hematocrit 38.6 % (42.0-52.0); Hemoglobin 12.2 g/dL (14.0-18.0); Mean Corpuscular HGB Conc 31.6 g/dl (32-36); Mean Corpuscular Hemoglobin 25.4 pg (26-34); Mean Corpuscular Volume 80.2 fl (80-100); Mean Platelet Volume 10.4 fl (7.4-10.4); Platelet Count Result 125 k/mm3 (150-375); Red Blood Count 4.81 M/mm3 (4.6-6.20); Red Cell Distribution Width 15.6 % (11.5-14.5); White Blood Count 2.7 K/mm3 (4.5-10.0)
[2021-10-09 06:02] LABS: Anion Gap 3 mmol/L (8-16); Blood Urea Nitrogen 28 mg/dL (9-20); Calcium 7.9 mg/dL (8.4-10.2); Carbon Dioxide 31 mmol/L (22-30); Chloride 106 mmol/L (98-107); Estimated CRCL calculation 71 ml/min; Estimated Glomerular Filt Rate > 60; Glucose 103 mg/dL (65-110); Magnesium 1.6 mg/dL (1.6-2.3); Potassium 3.9 mmol/L (3.4-5.0); Sodium 140 mmol/L (137-145)
[2021-10-09 07:41] LABS: Glucose Point of Care 119 mg/dl (65-105)
[2021-10-09] MEDS: SENNA/DOCUSATE SODIUM TABLET 2 TAB PO (08:48)
[2021-10-09] MEDS: BUMETANIDE 1 MG TABLET 2 MG PO ×2 (08:48→17:18)
[2021-10-09] MEDS: METOPROLOL SUCCINATE EXT REL 50 MG TABCR PO (08:49)
[2021-10-09] MEDS: MAGNESIUM OXIDE 400 MG TABLET PO (08:49)
[2021-10-09] MEDS: FLUoxetine HCL 20 MG CAPSULE PO (08:49)
[2021-10-09] MEDS: MAGNESIUM SULF 2 GM/WATER 50ML 2 GM/50 ML BAG IVPB (08:50)
--- NOTE | 2021-10-09 11:10 | PM.PNORT ---
Progress Note: A&P Assessment and Plan (1) Diabetic foot ulcer associated with type 2 diabetes mellitus: Qualifiers: Diabetic foot ulcer location: toe Laterality: right Non-pressure ulcer stage: with necrosis of bone Qualified Code(s): E11.621 - Type 2 diabetes mellitus with foot ulcer; L97.514 - Non-pressure chronic ulcer of other part of right foot with necrosis of bone Code(s): E11.621 - Type 2 diabetes mellitus with foot ulcer; L97.509 - Non-pressure chronic ulcer of other part of unspecified foot with unspecified severity Status: Acute Assessment and Plan: Postoperative day 1. Dressing changed today. Continue daily with dry gauze and gauze wrap. Protective weight-bearing as tolerated. Continue IV antibiotics. (2) Fracture of thumb, left, closed: Qualifiers: Encounter type: sequela Fracture alignment: nondisplaced Phalanx: proximal Qualified Code(s): S62.515S - Nondisplaced fracture of proximal phalanx of left thumb, sequela Code(s): S62.502A - Fracture of unspecified phalanx of left thumb, initial encounter for closed fracture Status: Acute Assessment and Plan: remote injury. Neurovascular intact. Will check radiographs. Subjective Subjective Date/Time Seen: 10/09/21 11:10 Post Op day: 1 Principal diagnosis: Right 3rd toe osteomyelitis Interval history: patient complains mild pain right foot. No problems overnight. New complaint of left thumb pain. Remote injury. 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 Exam Const: General: No confusion Orientation/consciousness: No confusion HENMT: Head: normal to inspection, normocephalic and atraumatic Eyes: Conjunctivae: conjunctivae normal Sclera: sclerae normal Neck: Neck: supple and nontender Chest: Chest palpation & inspection: normal inspection of the chest Resp: Effort & Inspection: normal respiratory effort and no audible wheezes Cardio: Rate: regular rate Rhythm: regular rhythm : General: Yes deferred Skin: General skin exam: no rashes or lesions noted Neuro: General: No confusion Extrem: General: capillary refill normal Right upper extremity: normal to inspection Left upper extremity: normal to inspection Right lower extremity: normal to inspection, hip/thigh Details: normal to inspection, knee Details: normal to inspection and knee ligament exam normal, lower leg Details: pitting edema Details: 2+ and foot Details: vascular exam Details: dorsalis pedis pulse present and normal capillary refill and motor-sensory exam Details: light-touch abnormal Location: in all toes Left lower extremity: hip/thigh Details: normal to inspection, knee Details: normal to inspection and knee ligament exam normal Details: anterior drawer test normal, valgus stress test normal, varus stress test normal and Lisa's test normal, ankle (no calf tenderness) Details: normal to inspection, pitting edema Details: pitting and 2+ and normal ROM and foot Details: normal capillary refill, toes with normal ROM, vascular exam Details: dorsalis pedis pulse present and normal capillary refill and motor-sensory exam light-touch abnormal in all toes Other: Dressing change right foot. Third toe incision clean dry and intact. Mild swelling. Left hand with pain at the CMC joint of the thumb. Crepitance with motion. Weakness of the thumb noted. Neurovascular intact. Psych: Affect: normal affect Objective Data Vital Signs Vital Signs: Vital Signs - 24 hr 10/08/21 12:05 10/08/21 12:15 10/08/21 12:30 Temperature 98.2 F Pulse Rate 53 L 50 L 51 L Respiratory Rate 10 L 14 14 Blood Pressure 88/69 L 97/69 L 88/64 L Pulse Oximetry 100 97 98 Oxygen Delivery Simple Face Mask Room Air Room Air Oxygen Flow Rate 10 10/08/21 12:45 10/08/21 13:15 10/08/21 13:30 Temperature 97.1 F L 96.7 F L Pulse Rate 50 L 51 L 90 Respiratory Rate 14 16 18 Blood Pressure 88/69 L 113/62 112/68 Pulse Oximetry 100 100 93 Oxygen Delivery Room
[2021-10-09 11:32] LABS: Glucose Point of Care 134 mg/dl (65-105)
--- NOTE | 2021-10-09 14:35 | PM.IMPN ---
Progress Note: A&P Assessment and Plan (1) Osteomyelitis: Code(s): M86.9 - Osteomyelitis, unspecified Status: Acute Assessment and Plan: RLE, third phalanx as evidenced by X-ray. - MRI completed 10/06/2021 showed likely septic arthritis of the 3rd distal interphalangeal joint with possible osteomyelitis at the head of the 3rd middle phalanx and 3rd distal phalanx - Bilateral arterial dopplers normal - POD #1 right 3rd toe amputation - Continue Zosyn. Will discontinue vancomycin. Discussed with ID PharmD, will plan for 3 diff 5 days of antibiotics postoperatively - Preliminary cultureof right 3rd toe shows heavy growth of Proteus mirabilis, susceptibility report pending - Appreciate orthopedic surgery management (2) Leg edema: Code(s): R60.0 - Localized edema Status: Acute Assessment and Plan: Likely combination of chronic lymphedema/CHF/cellulitis - venous dopplers bilateral negative - has been diuresed with overall improvement (3) Acute exacerbation of congestive heart failure: Code(s): I50.9 - Heart failure, unspecified Status: Acute Assessment and Plan: Improved - He has been adequately diuresed. - Continue Bumex 2 g BID - Echo w/ EF of 55-60%, grade II diastolic dysfunction - Continue to monitor intake and output. Net negative output. Continue daily weights (4) Cellulitis: Code(s): L03.90 - Cellulitis, unspecified Status: Resolved Assessment and Plan: Resolved. - Remains on antibiotics for osteomyelitis as above. (5) Hypomagnesemia: Code(s): E83.42 - Hypomagnesemia Status: Acute Assessment and Plan: Mag 1.6 today. - 2 g IV magnesium sulfate - Continue magnesium oxide 400 mg daily supplement - Continue to monitor (6) Type 2 diabetes mellitus: Code(s): E11.9 - Type 2 diabetes mellitus without complications Status: Acute Assessment and Plan: A1c is 7.5 - low dose sliding scale, accuchecks, hypoglycemic protocol - blood sugars have been well controlled Subjective Date/time seen: 10/09/21 14:35 Interval history: Date of service: 10/08/2021 Maxim Babb is 61-year-old male with a history of type 2 diabetes mellitus, COPD, cirrhosis of the liver, hepatitis-C who is seen in follow-up for osteomyelitis of 3rd digit of the right foot. He is feeling well today. Tolerated his procedure well yesterday. Rates his toe pain as 7-8/10 today. States his pain is improved with medication. He has been able to ambulate using a walker and states he is doing well with this. He does note that ambulating increases his pain a bit but he is not bearing weight on the right foot. He denies nausea, vomiting, fever, chills. No shortness breath, cough, chest pain, dizziness, lightheadedness, or weakness. Review of Systems Review of Systems: All systems reviewed & are unremarkable except as noted in HPI and below Exam Narrative: General: Well-nourished 61year-old male, sitting up in bed, comfortable, NARD Neuro: awake, alert and oriented x4, speech clear, no focal neuro deficits noted HEENMT: normocephalic, atraumatic, EOMI, sclerae anicteric, moist oral mucosa Respiratory: clear to auscultation bilaterally, nonlabored breathing Cardio: regular rate, regular rhythm with S1-S2 Abdomen: nondistended, normoactive bowel sounds, soft, nontender to palpation Extremities: Trace edema of the bilateral lower extremities, no erythema, warmth, or tenderness to palpation, bilateral DP pulses palpable Skin: Distal amputation of the right 3rd digit with scant bloody drainage noted, no rashes or lesions, warm and dry Psych: appropriate mood and affect, judgment and insight intact Objective Data Vital Signs Vital Signs: Vital Signs - 24 hr 10/08/21 15:00 10/08/21 18:34 10/08/21 22:06 Temperature 97.2 F L 97.4 F L 97.4 F L Pulse Rate 57 L 52 L 52 L Respiratory Rate 16 20 20 Blood Pressur
--- NOTE | 2021-10-09 16:13 | PCCCNOTE ---
On 10/09/21, the student, [Kamryn Neal ], provided care and completed [facility] documentation on this patient. I have reviewed the student's documentation and agree with the findings.
[2021-10-09 16:34] LABS: Glucose Point of Care 122 mg/dl (65-105)
[2021-10-09 23:03] LABS: Glucose Point of Care 121 mg/dl (65-105)
[2021-10-10] MEDS: HYDROcodone/acetaminophen (*CRX) 5-325 MG TABLET 1 TAB PO ×6 (02:00→23:37)
[2021-10-10 04:40] VITALS: BP 131/67; PULSE 56; RESP 20; TEMP 36.6; O2SAT 99
[2021-10-10 06:12] LABS: Hematocrit 38.9 % (42.0-52.0); Hemoglobin 12.2 g/dL (14.0-18.0); Immature Platelet Fraction Pct 4.4 % (0.9-11.2); Mean Corpuscular HGB Conc 31.4 g/dl (32-36); Mean Corpuscular Hemoglobin 25.3 pg (26-34); Mean Corpuscular Volume 80.7 fl (80-100); Mean Platelet Volume 10.4 fl (7.4-10.4); Platelet Count Result 125 k/mm3 (150-375); Red Blood Count 4.82 M/mm3 (4.6-6.20); Red Cell Distribution Width 15.6 % (11.5-14.5); White Blood Count 3.7 K/mm3 (4.5-10.0)
[2021-10-10 06:28] LABS: Anion Gap 2 mmol/L (8-16); Blood Urea Nitrogen 29 mg/dL (9-20); Calcium 8.2 mg/dL (8.4-10.2); Carbon Dioxide 31 mmol/L (22-30); Chloride 104 mmol/L (98-107); Estimated CRCL calculation 71 ml/min; Estimated Glomerular Filt Rate > 60; Glucose 125 mg/dL (65-110); Potassium 3.9 mmol/L (3.4-5.0); Sodium 137 mmol/L (137-145)
[2021-10-10 08:12] LABS: Glucose Point of Care 155 mg/dl (65-105)
[2021-10-10 08:27] VITALS: PULSE 57
[2021-10-10] MEDS: METOPROLOL SUCCINATE EXT REL 50 MG TABCR PO (08:27)
[2021-10-10] MEDS: SENNA/DOCUSATE SODIUM TABLET 2 TAB PO ×2 (08:27→16:42)
[2021-10-10] MEDS: FLUoxetine HCL 20 MG CAPSULE PO (08:27)
[2021-10-10] MEDS: BUMETANIDE 1 MG TABLET 2 MG PO ×2 (08:28→16:42)
[2021-10-10] MEDS: MAGNESIUM OXIDE 400 MG TABLET PO (08:28)
[2021-10-10] MEDS: ENOXAPARIN 40 MG/0.4 ML SYRINGE SUB-Q (11:20)
[2021-10-10 11:46] LABS: Glucose Point of Care 125 mg/dl (65-105)
--- NOTE | 2021-10-10 13:10 | PM.IMPN ---
Progress Note: A&P Assessment and Plan (1) Osteomyelitis: Code(s): M86.9 - Osteomyelitis, unspecified Status: Acute Assessment and Plan: RLE, third phalanx as evidenced by X-ray. - MRI completed 10/06/2021 showed likely septic arthritis of the 3rd distal interphalangeal joint with possible osteomyelitis at the head of the 3rd middle phalanx and 3rd distal phalanx - Bilateral arterial dopplers normal - POD #2 right 3rd toe amputation - Continue Zosyn. Discussed with ID PharmD, will plan for 3-5 days of antibiotics postoperatively. Vancomycin discontinued on 10/09 - Culture of right 3rd toe shows heavy growth of Proteus mirabilis - Could consider transition to PO Bactrim based on susceptibilities, but will await Orthopedic surgery evaluation/recommendations - Appreciate orthopedic surgery management (2) Leg edema: Code(s): R60.0 - Localized edema Status: Acute Assessment and Plan: Likely combination of chronic lymphedema/CHF/cellulitis - venous dopplers bilateral negative - has been diuresed with overall improvement (3) Acute exacerbation of congestive heart failure: Code(s): I50.9 - Heart failure, unspecified Status: Acute Assessment and Plan: Improved - He has been adequately diuresed. - Continue Bumex 2 g BID - Echo w/ EF of 55-60%, grade II diastolic dysfunction - Continue to monitor intake and output. Net negative output. Continue daily weights (4) Cellulitis: Code(s): L03.90 - Cellulitis, unspecified Status: Resolved Assessment and Plan: Resolved. - Remains on antibiotics for osteomyelitis as above. (5) Hypomagnesemia: Code(s): E83.42 - Hypomagnesemia Status: Acute Assessment and Plan: Received IV magnesium sulfate 10/09 - Continue magnesium oxide 400 mg daily supplement - Continue to monitor magnesium levels (6) Type 2 diabetes mellitus: Code(s): E11.9 - Type 2 diabetes mellitus without complications Status: Acute Assessment and Plan: A1c is 7.5 - low dose sliding scale, accuchecks, hypoglycemic protocol - blood sugars have been well controlled Subjective Date/time seen: 10/10/21 13:10 Interval history: Date of service: 10/10/2021 Maxim Townsend Holley is 61-year-old male with a history of type 2 diabetes mellitus, COPD, cirrhosis of the liver, hepatitis-C who is seen in follow-up for osteomyelitis of 3rd digit of the right foot. He is doing well today. He does complain of pain in the right foot to the 3rd toe that he rates as 6-7/10. He states the pain medications help improve this. He denies fevers or chills. No nausea or vomiting. He is eating well. Denies shortness breath, cough, chest pain. Review of Systems Review of Systems: All systems reviewed & are unremarkable except as noted in HPI and below Exam Narrative: General: Well-nourished 61year-old male, sitting up in bed, comfortable, NARD Neuro: awake, alert and oriented x4, speech clear, no focal neuro deficits noted HEENMT: normocephalic, atraumatic, EOMI, sclerae anicteric, moist oral mucosa Respiratory: clear to auscultation bilaterally, nonlabored breathing Cardio: regular rate, regular rhythm with S1-S2 Abdomen: nondistended, normoactive bowel sounds, soft, nontender to palpation Extremities: Trace edema of the bilateral lower extremities (R>L), no erythema, warmth, or tenderness to palpation, bilateral DP pulses palpable, right foot wrapped in dressing that is clean and dry, great toe is visible with brisk capillary refill, other toes wrapped in dressing. Skin: no rashes or lesions, warm and dry Psych: appropriate mood and affect, judgment and insight intact Objective Data Vital Signs Vital Signs: Vital Signs - 24 hr 10/09/21 13:18 10/09/21 14:29 10/09/21 18:00 Temperature 98.3 F 97.6 F Pulse Rate 58 L 64 Respiratory Rate 18 16 Blood Pressure 124/67 119/48 L Pulse Oximetry 98 100
[2021-10-10 14:20] VITALS: BP 117/55; PULSE 54; RESP 20; TEMP 36.8; O2SAT 98
[2021-10-10 16:08] LABS: Glucose Point of Care 95 mg/dl (65-105)
[2021-10-10 20:22] VITALS: BP 145/83; PULSE 58; RESP 16; TEMP 36.5; O2SAT 99
[2021-10-10 20:40] LABS: Glucose Point of Care 172 mg/dl (65-105)
[2021-10-11 03:52] VITALS: BP 123/61; PULSE 54; RESP 16; TEMP 36.5; O2SAT 97
[2021-10-11] MEDS: HYDROcodone/acetaminophen (*CRX) 5-325 MG TABLET 1 TAB PO ×5 (04:11→22:59)
[2021-10-11 05:33] LABS: Anion Gap 3 mmol/L (8-16); Blood Urea Nitrogen 33 mg/dL (9-20); Calcium 8.3 mg/dL (8.4-10.2); Carbon Dioxide 32 mmol/L (22-30); Chloride 100 mmol/L (98-107); Estimated CRCL calculation 71 ml/min; Estimated Glomerular Filt Rate > 60; Glucose 169 mg/dL (65-110); Magnesium 1.6 mg/dL (1.6-2.3); Potassium 3.8 mmol/L (3.4-5.0); Sodium 135 mmol/L (137-145)
[2021-10-11 07:28] LABS: Basophils Percent Auto 0.9 % (0.2-1.2); Eosinophils Absolute Auto 0.2 K/mm3 (0-0.3); Eosinophils Percent Auto 6.8 % (0-4.4); Hematocrit 36.8 % (42.0-52.0); Hemoglobin 11.7 g/dL (14.0-18.0); Immature Granulocyte Absolute 0.01 K/mm3 (0.00-0.031); Immature Granulocyte Percent A 0.3 % (0-0.5); Lymphocytes Absolute Auto 0.78 K/mm3 (0.9-3.2); Mean Corpuscular HGB Conc 31.8 g/dl (32-36); Mean Corpuscular Hemoglobin 25.2 pg (26-34); Mean Corpuscular Volume 79.3 fl (80-100); Mean Platelet Volume 10.5 fl (7.4-10.4); Monocytes Absolute Auto 0.3 K/mm3 (0.1-0.6); Monocytes Percent Auto 10.5 % (2.6-8.5); Neutrophils Absolute Auto 1.9 K/mm3 (1.3-6.7); Neutrophils Percent Auto 57.5 % (45.5-73.1); Platelet Count Result 106 k/mm3 (150-375); Red Blood Count 4.64 M/mm3 (4.6-6.20); Red Cell Distribution Width 15.8 % (11.5-14.5); White Blood Count 3.3 K/mm3 (4.5-10.0)
[2021-10-11 07:37] LABS: Glucose Point of Care 126 mg/dl (65-105)
[2021-10-11] MEDS: BUMETANIDE 1 MG TABLET 2 MG PO ×2 (08:08→17:29)
[2021-10-11] MEDS: MAGNESIUM SULF 2 GM/WATER 50ML 2 GM/50 ML BAG IVPB (08:08)
[2021-10-11] MEDS: ENOXAPARIN 40 MG/0.4 ML SYRINGE SUB-Q (08:09)
[2021-10-11] MEDS: FLUoxetine HCL 20 MG CAPSULE PO (08:09)
[2021-10-11] MEDS: SENNA/DOCUSATE SODIUM TABLET 2 TAB PO (08:09)
[2021-10-11 08:10] VITALS: PULSE 60
[2021-10-11] MEDS: METOPROLOL SUCCINATE EXT REL 50 MG TABCR PO (08:10)
--- NOTE | 2021-10-11 10:07 | PM.IMPN ---
Progress Note: A&P Assessment and Plan (1) Osteomyelitis: Code(s): M86.9 - Osteomyelitis, unspecified Status: Acute Assessment and Plan: RLE, third phalanx as evidenced by X-ray. - MRI completed 10/06/2021 showed likely septic arthritis of the 3rd distal interphalangeal joint with possible osteomyelitis at the head of the 3rd middle phalanx and 3rd distal phalanx - Bilateral arterial dopplers normal - POD #3 right 3rd toe amputation - Continue Zosyn. Discussed with ID PharmD, will plan for 3-5 days of antibiotics postoperatively.? Vancomycin discontinued on 10/09 - Culture of right 3rd toe shows heavy growth of Proteus mirabilis - Could consider transition to PO Bactrim based on susceptibilities, but will await Orthopedic surgery evaluation/recommendations - Appreciate orthopedic surgery management (2) Leg edema: Code(s): R60.0 - Localized edema Status: Acute Assessment and Plan: Likely combination of chronic lymphedema/CHF/cellulitis - venous dopplers bilateral negative - has been diuresed with overall improvement (3) Acute exacerbation of congestive heart failure: Code(s): I50.9 - Heart failure, unspecified Status: Acute Assessment and Plan: Improved - He has been adequately diuresed. - Continue Bumex 2 g BID - Echo w/ EF of 55-60%, grade II diastolic dysfunction - Continue to monitor intake and output. Net negative output. Continue daily weights (4) Cellulitis: Code(s): L03.90 - Cellulitis, unspecified Status: Resolved Assessment and Plan: Resolved. - Remains on antibiotics for osteomyelitis as above. (5) Hypomagnesemia: Code(s): E83.42 - Hypomagnesemia Status: Acute Assessment and Plan: Mag 1.6 today. - 2 g IV magnesium sulfate - Continue magnesium oxide 400 mg daily supplement - Continue to monitor (6) Type 2 diabetes mellitus: Code(s): E11.9 - Type 2 diabetes mellitus without complications Status: Acute Assessment and Plan: A1c is 7.5 - low dose sliding scale, accuchecks, hypoglycemic protocol - blood sugars have been well controlled (7) Pancytopenia: Code(s): D61.818 - Other pancytopenia Status: Acute Assessment and Plan: Review of old labs suggest this to be chronic issue and actually seems improved from baseline.? Likely secondary to history of cirrhosis Continue to monitor CBC Monitor platelet count while on lovenox. D/c if platelets <100 Subjective Date/time seen: 10/11/21 10:07 Interval history: Date of service: 10/11/2021 Maxim Babb is 61-year-old male with a history of type 2 diabetes mellitus, COPD, cirrhosis of the liver, hepatitis-C who is seen in follow-up for osteomyelitis of 3rd digit of the right foot. He feels well today. He rates his pain as 6/10. He is ambulating without difficulty. He denies fevers or chills. No shortness of breath. He began stating that he was very pleased with the care he was receiving here and then became very frustrated because he was angry about having to be stuck more than 1 time for a lab draw. He felt that this was unacceptable and requested that I speak with the lab assistants regarding this. When I told him that while I do understand his frustration, I unfortunately have no control over the lab he became very hostile and stated that he would ?make a scene if I did not fix this situation. He asked to speak to my change management manager. I informed the charge nurse. Review of Systems Review of Systems: All systems reviewed & are unremarkable except as noted in HPI and below Exam Narrative: General: Well-nourished 61year-old male, sitting up in bed, comfortable, NARD Neuro: awake, alert and oriented x4, speech clear, no focal neuro deficits noted HEENMT: normocephalic, atraumatic, EOMI, sclerae anicteric, moist oral mucosa Respiratory: clear to auscultation bilaterally, nonlabored breathing Card
[2021-10-11 11:48] LABS: Glucose Point of Care 132 mg/dl (65-105)
[2021-10-11 14:00] VITALS: BP 130/66; PULSE 55; RESP 20; TEMP 36.8; O2SAT 97
[2021-10-11 16:00] VITALS: BP 135/53; PULSE 53; RESP 20; TEMP 36.2; O2SAT 100
[2021-10-11 16:11] LABS: Glucose Point of Care 127 mg/dl (65-105)
[2021-10-11 19:35] LABS: Glucose Point of Care 144 mg/dl (65-105)
[2021-10-11 22:00] VITALS: BP 115/53; PULSE 52; RESP 20; TEMP 36.7; O2SAT 98
[2021-10-11 22:23] VITALS: O2SAT 95
[2021-10-12] MEDS: HYDROcodone/acetaminophen (*CRX) 5-325 MG TABLET 1 TAB PO (05:15)
[2021-10-12 06:00] VITALS: BP 109/57; PULSE 52; RESP 21; TEMP 36.4; O2SAT 100
[2021-10-12 06:08] LABS: Basophils Percent Auto 0.9 % (0.2-1.2); Eosinophils Absolute Auto 0.2 K/mm3 (0-0.3); Eosinophils Percent Auto 6.9 % (0-4.4); Hematocrit 38.4 % (42.0-52.0); Hemoglobin 11.9 g/dL (14.0-18.0); Immature Granulocyte Absolute 0.02 K/mm3 (0.00-0.031); Immature Granulocyte Percent A 0.6 % (0-0.5); Immature Platelet Fraction Pct 4.3 % (0.9-11.2); Lymphocytes Absolute Auto 0.75 K/mm3 (0.9-3.2); Lymphocytes Percent Auto 21.6 % (18.3-44.2); Mean Corpuscular Hemoglobin 25.2 pg (26-34); Mean Corpuscular Volume 81.4 fl (80-100); Mean Platelet Volume 10.6 fl (7.4-10.4); Monocytes Absolute Auto 0.4 K/mm3 (0.1-0.6); Monocytes Percent Auto 10.9 % (2.6-8.5); Neutrophils Absolute Auto 2.1 K/mm3 (1.3-6.7); Neutrophils Percent Auto 59.1 % (45.5-73.1); Platelet Count Result 121 k/mm3 (150-375); Red Blood Count 4.72 M/mm3 (4.6-6.20); Red Cell Distribution Width 15.7 % (11.5-14.5); White Blood Count 3.5 K/mm3 (4.5-10.0)
[2021-10-12 06:20] LABS: Anion Gap 2 mmol/L (8-16); Blood Urea Nitrogen 32 mg/dL (9-20); Calcium 8.3 mg/dL (8.4-10.2); Carbon Dioxide 37 mmol/L (22-30); Chloride 99 mmol/L (98-107); Estimated CRCL calculation 60 ml/min; Estimated Glomerular Filt Rate 56; Glucose 107 mg/dL (65-110); Magnesium 1.7 mg/dL (1.6-2.3); Potassium 3.7 mmol/L (3.4-5.0); Sodium 138 mmol/L (137-145)
[2021-10-12 07:29] LABS: Glucose Point of Care 109 mg/dl (65-105)
[2021-10-12 08:00] VITALS: BP 108/58; PULSE 52; RESP 20; TEMP 36.5; O2SAT 98
--- NOTE | 2021-10-12 09:09 | PM.PNORT ---
Progress Note: A&P Assessment and Plan (1) Diabetic foot ulcer associated with type 2 diabetes mellitus: Qualifiers: Diabetic foot ulcer location: toe Laterality: right Non-pressure ulcer stage: with necrosis of bone Qualified Code(s): E11.621 - Type 2 diabetes mellitus with foot ulcer; L97.514 - Non-pressure chronic ulcer of other part of right foot with necrosis of bone Code(s): E11.621 - Type 2 diabetes mellitus with foot ulcer; L97.509 - Non-pressure chronic ulcer of other part of unspecified foot with unspecified severity Status: Acute Assessment and Plan: POD#4 Dressing changed today. Continue daily with dry gauze and gauze wrap. Protective weight-bearing as tolerated. Continue IV antibiotics. Culture results reveal Proteus Mirabilis. Okay to switch to oral per hospitalist team/ID pharmD. Plan for follow up in the outpatient clinic for suture removal. (2) Fracture of thumb, left, closed: Qualifiers: Encounter type: sequela Phalanx: proximal Fracture alignment: nondisplaced Qualified Code(s): S62.515S - Nondisplaced fracture of proximal phalanx of left thumb, sequela Code(s): S62.502A - Fracture of unspecified phalanx of left thumb, initial encounter for closed fracture Status: Acute Assessment and Plan: Radiographs of the left thumb reveal polyarticular osteoarthritis, severe at the first carpometacarpal joint and mild at many additional joints at the left hand and wrist. Also noted is lucencies at the base of the first metacarpal and the lunate, capitate and ulnar styloid process with differentials of chronic gout vs. DJD. Conservative treatment. May eventually be a candidate for injection if pain persists in the outpatient setting. Subjective Subjective Date/Time Seen: 10/12/21 09:09 Post Op day: 4 Principal diagnosis: Right 3rd toe osteomyelitis Interval history: No new complaints. Pain well controlled. Review of Systems Constitutional: Constitutional: Denies fever(s) Eyes: Eyes: Denies blurry vision ENT: Reports Normal hearing present Cardiovascular: Cardiovascular: Denies chest pain and Denies dyspnea Respiratory: Respiratory: Denies dyspnea and Denies wheezing Gastrointestinal: Gastrointestinal: Denies abdominal pain Genitourinary: Genitourinary: Denies urinary urgency Musculoskeletal: Musculoskeletal: Reports as per HPI and Denies numbness Integumentary/Breasts: Skin/Breast: Denies changing lesions and Denies sores Neurologic: Reports Normal hearing present, Denies behavioral changes, Denies confusion, Denies numbness and Denies convulsions Psychiatric: Psychiatric: Denies behavioral changes, Denies confusion and Denies hallucinations Endocrine: Endocrine: Denies heat intolerance Hematologic/Lymphatic: Hematologic/Lymphatic: Denies easy bleeding Allergic/Immunologic: Allergic/Immunologic: Denies wheezing Exam Const: General: No confusion Orientation/consciousness: No confusion HENMT: Head: normal to inspection, normocephalic and atraumatic Eyes: Conjunctivae: conjunctivae normal Sclera: sclerae normal Neck: Neck: supple and nontender Chest: Chest palpation & inspection: normal inspection of the chest Resp: Effort & Inspection: normal respiratory effort and no audible wheezes Cardio: Rate: regular rate Rhythm: regular rhythm : General: Yes deferred Skin: General skin exam: no rashes or lesions noted Neuro: General: No confusion Extrem: General: capillary refill normal Right upper extremity: normal to inspection Left upper extremity: normal to inspection Right lower extremity: normal to inspection, hip/thigh Details: normal to inspection, knee Details: normal to inspection and knee ligament exam normal, lower leg Details: pitting edema Details: 2+ and foot Details: vascular exam Details: dorsalis pedis pulse present and normal capillary refill and motor-sensory exam Details: light-touch abnormal Location:
[2021-10-12 09:38] VITALS: PULSE 52
[2021-10-12] MEDS: FLUoxetine HCL 20 MG CAPSULE PO (09:38)
[2021-10-12] MEDS: BUMETANIDE 1 MG TABLET 2 MG PO (09:38)
[2021-10-12] MEDS: METOPROLOL SUCCINATE EXT REL 50 MG TABCR PO (09:38)
[2021-10-12] MEDS: MAGNESIUM OXIDE 400 MG TABLET PO (09:38)
[2021-10-12] MEDS: ENOXAPARIN 40 MG/0.4 ML SYRINGE SUB-Q (09:39)
[2021-10-12 11:22] LABS: Glucose Point of Care 217 mg/dl (65-105)
[2021-10-12] MEDS: INSULIN ASPART (*BKC) 100 UNITS/ML SUB-Q (11:34)
--- NOTE | 2021-10-12 15:33 | PM.DS ---
DS: Admitting Diagnosis Discharge Date 10/12/2021 Admitting Diagnosis Cellulitis DS: Discharge Diagnosis Discharge Diagnosis (1) Osteomyelitis: Code(s): M86.9 - Osteomyelitis, unspecified Status: Acute Assessment and Plan: RLE, third phalanx as evidenced by X-ray. - MRI completed 10/06/2021 showed likely septic arthritis of the 3rd distal interphalangeal joint with possible osteomyelitis at the head of the 3rd middle phalanx and 3rd distal phalanx - Bilateral arterial dopplers normal - Underwent right 3rd toe amputation on 10/08/[address] Fernandez. Tolerated procedure well. - Initially treated with IV Zosyn and vancomycin. Vanc discontinued on 10/09. Zosyn continued until culture results at that time transitioned to p.o. Bactrim which she will continue as an outpatient. Appreciate ID PharmD recommendations - Culture of right 3rd toe showed heavy growth of Proteus mirabilis - Blood cultures negative - Appreciate orthopedic surgery management. Continue with outpatient follow-up - Wound care at SNF (2) Leg edema: Code(s): R60.0 - Localized edema Status: Acute Assessment and Plan: Likely combination of chronic lymphedema/CHF/cellulitis - venous dopplers bilateral negative - overall improvement following diuresis (3) Acute exacerbation of congestive heart failure: Code(s): I50.9 - Heart failure, unspecified Status: Acute Assessment and Plan: Improved. - He was adequately diuresed with symptomatic improvement - Continue home Bumex 2 g BID - Echo w/ EF of 55-60%, grade II diastolic dysfunction - CHF education provided (4) Cellulitis: Code(s): L03.90 - Cellulitis, unspecified Status: Resolved Assessment and Plan: Resolved. - Managed with antibiotics as above. (5) Hypomagnesemia: Code(s): E83.42 - Hypomagnesemia Status: Acute Assessment and Plan: Magnesium was monitored and supplemented - IV magnesium supplementation provided as needed - Transitioned to p.o. magnesium oxide 400 mg daily which he did refuse on a few occasions - Continue magnesium oxide supplement. (6) Type 2 diabetes mellitus: Code(s): E11.9 - Type 2 diabetes mellitus without complications Status: Acute Assessment and Plan: A1c is 7.5 - low dose sliding scale, accuchecks, hypoglycemic protocol during admission - blood sugars well controlled - continue metformin (7) Pancytopenia: Code(s): D61.818 - Other pancytopenia Status: Acute Assessment and Plan: Review of old labs suggest this to be chronic issue and actually seems improved from baseline.? - Likely secondary to history of cirrhosis - Stable DS: Summary Hospital Course Hospital Course: Date of admission: 09/29/2021 Date of discharge: 10/12/2021 Maxim Babb is 61-year-old male with a history of type 2 diabetes mellitus, COPD, cirrhosis of the liver, hepatitis-C who presented to the emergency department on 09/29/2021 with complaints of weakness, increased leg swelling and redness. On presentation to the ED, he was afebrile, pancytopenic, BNP 1300, CXR showed pulmonary opacities. He was admitted to the hospitalist service for further evaluation management and was seen in consultation by Orthopedic surgery. Please see above for further details. Ultimately underwent right 3rd toe amputation for osteomyelitis. He will continue to follow-up with orthopedic surgery. SNF placement was arranged for continued wound care. Given patient's overall improvement, he was determined to no longer require inpatient care was discharged in hemodynamically stable condition on 10/12/2021. Patient comfortable with this plan. Discussed worrisome signs and symptoms for which to return. Discussed appropriate outpatient follow-up. Status at Discharge Overall status at discharge: patient is progressing back to baseline Time Spent with Patient Ti
[2021-10-12 16:00] VITALS: BP 116/62; PULSE 63; RESP 20; TEMP 37.1; O2SAT 98
[2021-10-12 16:44] LABS: Glucose Point of Care 122 mg/dl (65-105)
[2021-10-12 17:58] LABS: EDCOVIDSCREEN Negative (Negative)
== END 2021-10-12 18:20 | disposition home or self-care (01) | DRG 314 ==
LOC: ANHED 18:12 → ANH2MED 23:17
PROVIDERS: Internal Medicine; Nurse Practitioner Adult Health; Orthopaedic Surgery; Physician Assistant; Admitting Provider Student in an Organized Health Care Education/Training Program; Emergency Provider Emergency Medicine; Visit Provider Physician Assistant
PROC: 0Y6T0Z2 Detachment at Right 3rd Toe, Mid, Open Approach (ICD-10-PCS; principal; 2021-10-08 11:30)
DX: E11.621 Type 2 diabetes mellitus with foot ulcer (principal); L03.115 Cellulitis of right lower limb; E83.42 Hypomagnesemia; J44.9 Chronic obstructive pulmonary disease, unspecified; M54.9 Dorsalgia, unspecified; I50.33 Acute on chronic diastolic (congestive) heart failure; F17.210 Nicotine dependence, cigarettes, uncomplicated; B19.20 Unspecified viral hepatitis C without hepatic coma; F10.20 Alcohol dependence, uncomplicated; I89.0 Lymphedema, not elsewhere classified; F15.90 Other stimulant use, unspecified, uncomplicated; M86.8X7 Other osteomyelitis, ankle and foot; D61.818 Other pancytopenia; L97.514 Non-pressure chronic ulcer of other part of right foot with necrosis of bone; E11.69 Type 2 diabetes mellitus with other specified complication; E11.42 Type 2 diabetes mellitus with diabetic polyneuropathy; K70.30 Alcoholic cirrhosis of liver without ascites; Z20.822 Contact with and (suspected) exposure to COVID-19; Z59.02 Unsheltered homelessness; Z79.84 Long term (current) use of oral hypoglycemic drugs; Z79.899 Other long term (current) drug therapy; S62.51 Fracture of proximal phalanx of thumb; X58.XXXS Exposure to other specified factors, sequela; M00.872 Arthritis due to other bacteria, left ankle and foot; B96.4 Proteus (mirabilis) (morganii) as the cause of diseases classified elsewhere
CPT/HCPCS: 36415; 71046; 73130; 73630; 73660; 73718; 80048; 80053; 80202; 81001; 82948; 83036; 83605; 83735; 83880; 84484; 85025; 85027; 85055; 85610; 85652; 85730; 86140; 87040; 87070; 87075; 87077; 87186; 87205; 87426; 87502; 88305; 88311; 93005; 93306; 93923; 93970; 96365; 96366; 96375; 96376; 97116; 97161; 97165; 97530; 97535; 99285; A9270; C9803; G0378; G0379; J0690; J1650; J1815; J1940; J2543; J2704; J3370; J3475; J7030; J7120; U0003; U0005

== ENCOUNTER 2021-11-12 16:00 | Inpatient (IN) | payer OTHER, SELFPAY ==
[2021-11-12] VITALS (11 sets, daily range): BP systolic 135–143; BP diastolic 67–82; PULSE 97–104; RESP 14–27; TEMP 36.3–36.7; O2SAT 95–100; BMI 32.8
--- NOTE | ~2021-11-12 | US_ITS ---
EXAMINATION: US venous doppler [facility] DATE: 11/13/2021 08:15 INDICATION: Lower limb edema. TECHNIQUE: Grayscale ultrasound images without and with compression and Doppler ultrasound images of the bilateral lower extremity veins were obtained. COMPARISON: None. FINDINGS: The visualized portions of right common femoral vein, profunda (deep) femoral vein, femoral vein, pop liteal vein, peroneal veins, posterior tibial veins, and greater saphenous vein outflow are patent. T here is a moderate-sized Herrera's cyst. The visualized portions of left common femoral vein, profunda femoral vein, femoral vein, popliteal v ein, peroneal veins, posterior tibial veins, and greater saphenous vein outflow are patent. There is a moderate-sized left Herrera's cyst. IMPRESSION: 1. No deep venous thrombosis. 2. Moderate-sized bilateral Herrera cysts. Reviewed, dictated and finalized at location A.
--- NOTE | ~2021-11-12 | XR_ITS ---
XR foot RT min 3V 11/12/2021 17:34 Indication: Second toe ulcer. Procedure: 4 views right foot Comparison: 10/07/2021 Findings: Status post partial amputation of the third toe. Evaluation of the second toe limited by fl exion. No gross fracture or malalignment. There is osteoarthritis of the first MTP joint. Lisfranc adán int intact. No evidence for osteomyelitis. There is mild soft tissue swelling of the second toe. Impression: 1: No acute bone or joint abnormality. Soft tissue swelling of the second toe. No definite evidence f or osteomyelitis. Reviewed, dictated and finalized at location A. Impression: 1: No acute bone or joint abnormality. Soft tissue swelling of the second toe. No definite evidence for osteomyelitis.
--- NOTE | ~2021-11-12 | XR_ITS ---
XR chest 2V 11/12/2021 16:24 Indication: Shortness of breath Procedure: 2 view chest Comparison: Comparison to multiple prior studies sequentially, with oldest reviewed study dated 11/2021. Findings: Bilateral multifocal parenchymal opacification, with some areas containing nodular configur ation. No pleural effusion or pneumothorax. Heart size normal. No acute osseous abnormality. Impression: 1: Multifocal bilateral parenchymal opacification, with areas of nodularity. Consider correlation wit h CT chest. Considerations include multifocal pneumonia and malignancy. Reviewed, dictated and finalized at location A. Impression: 1: Multifocal bilateral parenchymal opacification, with areas of nodularity. Co nsider correlation with CT chest. Considerations include multifocal pneumonia a nd malignancy.
--- NOTE | ~2021-11-12 | CT_ITS ---
EXAMINATION: CT chest abdomen pelvis w con DATE: 11/12/2021 18:26 CDT INDICATION: Shortness of breath. History of CHF. Pitting edema. Possible malignancy. TECHNIQUE: Computed tomography (CT) of the chest, abdomen, and pelvis was performed with 100 cc Omnip aque 350 intravenous contrast. The dose-length product was 1349.20 mGy-cm. Automated exposure control and iterative reconstruction technique were employed. COMPARISON: CT dated 05/02/2020 FINDINGS: CHEST CT: There is mediastinal lymphadenopathy. Heart size normal. There is cirrhosis of the liver with multipl e collateral vessels in the upper abdomen, consistent with portal hypertension. There are multiple pl eural-based nodules bilaterally. There are innumerable miliary nodules bilaterally. There are larger conglomerate nodules in the right upper lobe, suspicious for bronchogenic carcinoma or metastatic dis ease. No endobronchial lesions. Largest conglomerate mass in the right upper lobe measures 3 x 2.5 cm greatest coronal dimension. No significant pleural or pericardial effusion. ABDOMEN/PELVIS CT: There is cirrhosis of the liver. There is splenomegaly. There are collateral vessels in the upper abd omen, consistent with portal hypertension. No inguinal lymphadenopathy. There is moderate gastric dis tention. No evidence for aortic aneurysm or dissection. There is mild stranding surrounding the pancr eas. Cannot exclude pancreatitis. Nonobstructive bowel gas pattern. Moderate-severe thoracic and lumb ar spondylosis. There are multiple collateral vessels involving the lower pelvis anteriorly. IMPRESSION: 1. Innumerable bilateral miliary nodules predominantly affecting the upper lobes. More confluent mass es are identified in the right upper lobe measuring up to 3 cm which may represent primary bronchogen ic carcinoma or metastatic disease. 2: Mediastinal and bilateral inguinal lymphadenopathy, suspicious for metastatic disease. 3: Cirrhosis of the liver with portal hypertension and splenomegaly. 4: Mild peripancreatic fatty infiltration. Cannot exclude acute pancreatitis. Reviewed, dictated and finalized at location A. IMPRESSION: 1. Innumerable bilateral miliary nodules predominantly affecting the upper lobe s. More confluent masses are identified in the right upper lobe measuring up to 3 cm which may represent primary bronchogenic carcinoma or metastatic disease. 2: Mediastinal and bilateral inguinal lymphadenopathy, suspicious for metastat ic disease. 3: Cirrhosis of the liver with portal hypertension and splenomegaly. 4: Mild peripancreatic fatty infiltration. Cannot exclude acute pancreatitis.
--- NOTE | 2021-11-12 16:12 | ECG_ITS ---
Measurements Intervals Camilla Rate: 97 P: 47 WY: 200 QRS: -83 QRSD: 162 T: 75 QT: 403 QTc: 512 Interpretive Statements SINUS RHYTHM WITH OCCASIONAL VENTRICULAR PREMATURE COMPLEXES MARKED LEFT AXIS DEVIATION [QRS AXIS < -30] RIGHT BUNDLE BRANCH BLOCK [120+ ms QRS DURATION, UPRIGHT V1, 40+ ms S IN I/aVL/V4/V5/V6] PROBABLE OLD ANTERIOR MYOCARDIAL INFARCTION NO SIGNIFICANT CHANGE COMPARED TO THE PRIOR TRACING Electronically Signed On 11-12-2021 18:37:35 CDT by Rachel Isaacs M.D.
[2021-11-12 16:32] LABS: Basophils Percent Auto 0.4 % (0.2-1.2); Eosinophils Absolute Auto 0.1 K/mm3 (0-0.3); Eosinophils Percent Auto 5.8 % (0-4.4); Hematocrit 31.7 % (42.0-52.0); Hemoglobin 9.8 g/dL (14.0-18.0); Immature Granulocyte Absolute 0.02 K/mm3 (0.00-0.031); Immature Granulocyte Percent A 0.9 % (0-0.5); Lymphocytes Percent Auto 13.3 % (18.3-44.2); Mean Corpuscular HGB Conc 30.9 g/dl (32-36); Mean Corpuscular Hemoglobin 26.2 pg (26-34); Mean Corpuscular Volume 84.8 fl (80-100); Mean Platelet Volume 10.2 fl (7.4-10.4); Monocytes Absolute Auto 0.2 K/mm3 (0.1-0.6); Monocytes Percent Auto 10.2 % (2.6-8.5); Neutrophils Absolute Auto 1.6 K/mm3 (1.3-6.7); Neutrophils Percent Auto 69.4 % (45.5-73.1); Platelet Count Result 147 k/mm3 (150-375); Red Blood Count 3.74 M/mm3 (4.6-6.20); Red Cell Distribution Width 17.6 % (11.5-14.5); White Blood Count 2.3 K/mm3 (4.5-10.0)
--- NOTE | 2021-11-12 16:40 | PC.NURSE ---
Dr. Burgos at bedside to assess pt.
[2021-11-12 16:43] LABS: Alanine Aminotransferase 43 U/L (6-50); Albumin Level 3.3 g/dL (3.5-5.1); Alkaline Phosphatase 247 U/L (38-126); Anion Gap 8 mmol/L (8-16); Aspartate Amino Transferase 63 U/L (17-59); Blood Urea Nitrogen 49 mg/dL (9-20); Calcium 7.9 mg/dL (8.4-10.2); Carbon Dioxide 29 mmol/L (22-30); Chloride 102 mmol/L (98-107); Estimated CRCL calculation 56 ml/min; Estimated Glomerular Filt Rate 52; Glucose 266 mg/dL (65-110); Potassium 3.2 mmol/L (3.4-5.0); Sodium 139 mmol/L (137-145)
[2021-11-12 16:46] LABS: INR 1.1; Prothrombin Time 13.8 Seconds (11.1-14.7)
[2021-11-12 16:55] LABS: NT Pro B Type Natriuretic Pept 2280 pg/mL (5-100)
[2021-11-12 17:33] LABS: SARS-CoV-2 RNA PCR Negative
--- NOTE | 2021-11-12 18:13 | PC.NURSE ---
Patient off unit to CT.
[2021-11-12] MEDS: FUROSEMIDE INJ 40 MG/4 ML VIAL IV PUSH (18:56)
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
--- NOTE | 2021-11-12 19:15 | PC.NURSE ---
Patient report given to SANJEEV Sims. All questions answered and care of patient transferred.
--- NOTE | 2021-11-12 19:19 | PC.NURSE ---
Assumed care of pt, pt on tele monitor, pt has belongings. Pt is alert and upright. VSS.
--- NOTE | 2021-11-12 19:26 | PM.IMHP ---
H&P: HPI History of Present Illness Date/Time: 11/12/21 19:26 Chief Complaint: Bilateral lower extremity swelling Narrative: this is a 61-year-old male with past medical history significant for tobacco dependence, amphetamine use, chronic bilateral lower extremity lymphedema, COPD/ emphysema, chronic pain, homelessness. Patient comes to the emergency room due to worsening bilateral lower extremity edema as well as worsening of right toe ulcer, patient has been also in pain for which he smokes a methamphetamine states it helps him with the pain control. Denies any fevers, rigors, chills, night sweats, shortness of breath, cough, sputum production, PND, orthopnea, dizziness, lightheadedness, palpitations, chest pain. Preliminary workup was significant for. CT of abdomen and pelvis with. Innumerable bilateral miliary nodules predominantly affecting the upper lobes. More confluent masses are identified in the right upper lobe measuring up to 3 cm which may represent primary bronchogenic carcinoma or metastatic disease. 2:? Mediastinal and bilateral inguinal lymphadenopathy, suspicious for metastatic disease. 3: Cirrhosis of the liver with portal hypertension and splenomegaly. 4: Mild peripancreatic fatty infiltration. Cannot exclude acute pancreatitis. Patient is been admitted for further evaluation management and treatment. Review of Systems Review of Systems: Worsening bilateral lower extremity edema, toe ulcer, body aches and pains Constitutional: Constitutional: Reports body ache(s), Denies chills, Denies fever(s), Denies malaise and Denies night sweats Eyes: Eyes: Denies change in vision ENT: Denies dysphagia, Denies vertigo and Denies dizziness Cardiovascular: Cardiovascular: Denies chest pain, Denies irregular heart rhythm, Reports leg edema, Denies lightheadedness, Denies palpitations and Denies dyspnea on exertion Respiratory: Respiratory: Denies change in phlegm color, Denies chest congestion, Denies cough and Denies excessive phlegm production Gastrointestinal: Gastrointestinal: Denies abdominal pain, Denies dyspepsia, Denies heartburn, Denies nausea and Denies vomiting Genitourinary: Genitourinary: Denies dysuria Musculoskeletal: Musculoskeletal: Reports myalgias and Reports other ( bilateral lower extremity swelling) Integumentary/Breasts: Skin/Breast: Reports skin ulcer ( 3rd right toe) Neurologic: Denies focal weakness and Denies Sensory deficit (Neuro) Psychiatric: Psychiatric: Reports no additional psychiatric complaints and Reports as per HPI Endocrine: Endocrine: Denies cold intolerance, Denies fatigue, Denies flushing, Denies heat intolerance, Denies polyphagia and Denies polydipsia Hematologic/Lymphatic: Hematologic/Lymphatic: Reports no additional hematologic/lymphatic complaints and Reports as per HPI Allergic/Immunologic: Allergic/Immunologic: Reports no additional allergic/immunologic complaints and Reports as per HPI PMFSH Past Medical History Medical History (Updated 11/13/21 @ 02:17 by Eber Rossi MD) Acute combined systolic and diastolic congestive heart failure Acute exacerbation of congestive heart failure Atrial fibrillation Cirrhosis of liver COPD (chronic obstructive pulmonary disease) Diabetes type 2, controlled Diabetic foot ulcer associated with type 2 diabetes mellitus Esophageal varices Fracture of thumb, left, closed Hepatitis C Osteomyelitis Pancytopenia Thrombocytopenia Type 2 diabetes mellitus Surgical History Surgical History H/O cardiac catheterization H/O hernia repair History of esophagogastroduodenoscopy (EGD) Family History Family History Father Family history of pancreatic cancer Hypertension Sibling Diabetes mellitus Social History Social History Social History: The patient is homele
[2021-11-12] MEDS: POTASSIUM CHLORIDE 20 MEQ TABLET 40 MEQ PO (19:46)
--- NOTE | 2021-11-12 20:42 | ADMGEN ---
This patient, Maxim Babb, was admitted to [facility] Surg Room 313-01. Patient/family oriented to hospital policies and general routines including ID bracelet, bed and alarms, visiting hours, pain management, procedures, bathroom and other care routines, personal items, smoking policy, room service/diet, and visiting hours. Information on how to activate the Rapid Response Team has been discussed. Patient/Family are encouraged to report perceived risks to care and to ask questions if they do not understand what they are told or what they should do.
--- NOTE | 2021-11-12 21:02 | PC.NURSE ---
Upon admission to the unit, pt. answered yes to most questions of the [place] Suicide Severity Rating Scale. The patient is listed as a high risk according to this assessment. Provider Dr. Flo Hidalgo, charge nurse, and manager housekeeping have been notified and sitter is currently in the room with the patient
--- NOTE | 2021-11-12 21:06 | PC.NURSE ---
Dr. Rossi has seen the patient and after talking to the patient, she believes that he will take no action to hurt himself while hospitalized. Pt. stated to the doctor that he is not suicidal. Dr. Rossi has discontinued all orders for suicide precautions and sitter needs. Will continue to monitor the situation.
[2021-11-12 21:42] LABS: Glucose Point of Care 238 mg/dl (65-105)
[2021-11-12] MEDS: ACETAMINOPHEN 325 MG TABLET 650 MG PO (23:17)
--- NOTE | 2021-11-12 23:36 | PC.NURSE ---
Pt. refusing bed alarms at this time, getting agitated with staff whenever bed alarm goes off. Attempted to educate pt. on the need for bed alarm and fall risk measures but pt. refused education, stating to the nurse get out of my room . Will continue to monitor.
[2021-11-13] VITALS (9 sets, daily range): BP systolic 110–137; BP diastolic 58–83; PULSE 84–99; RESP 18–20; TEMP 35.7–36.3; O2SAT 98–100
[2021-11-13 06:23] LABS: Basophils Percent Auto 0.5 % (0.2-1.2); Eosinophils Absolute Auto 0.1 K/mm3 (0-0.3); Eosinophils Percent Auto 6.9 % (0-4.4); Hematocrit 29.5 % (42.0-52.0); Immature Granulocyte Absolute 0.01 K/mm3 (0.00-0.031); Immature Granulocyte Percent A 0.5 % (0-0.5); Lymphocytes Absolute Auto 0.23 K/mm3 (0.9-3.2); Lymphocytes Percent Auto 11.3 % (18.3-44.2); Mean Corpuscular HGB Conc 30.5 g/dl (32-36); Mean Corpuscular Hemoglobin 26.2 pg (26-34); Mean Platelet Volume 9.7 fl (7.4-10.4); Monocytes Absolute Auto 0.3 K/mm3 (0.1-0.6); Monocytes Percent Auto 16.7 % (2.6-8.5); Neutrophils Absolute Auto 1.3 K/mm3 (1.3-6.7); Neutrophils Percent Auto 64.1 % (45.5-73.1); Platelet Count Result 116 k/mm3 (150-375); Red Blood Count 3.43 M/mm3 (4.6-6.20); Red Cell Distribution Width 17.6 % (11.5-14.5)
[2021-11-13 06:39] LABS: Alanine Aminotransferase 36 U/L (6-50); Albumin Level 2.7 g/dL (3.5-5.1); Alkaline Phosphatase 195 U/L (38-126); Anion Gap 4 mmol/L (8-16); Aspartate Amino Transferase 45 U/L (17-59); Bilirubin,Total 0.7 mg/dL (0.2-1.3); Blood Urea Nitrogen 44 mg/dL (9-20); Calcium 7.8 mg/dL (8.4-10.2); Carbon Dioxide 32 mmol/L (22-30); Chloride 102 mmol/L (98-107); Estimated CRCL calculation 76 ml/min; Estimated Glomerular Filt Rate > 60; Glucose 123 mg/dL (65-110); Potassium 3.2 mmol/L (3.4-5.0); Sodium 138 mmol/L (137-145)
[2021-11-13 07:40] LABS: Glucose Point of Care 138 mg/dl (65-105)
[2021-11-13] MEDS: FLUTICASONE/SALMETEROL 115-21 MCG INHALER 1 PUFF 2 PUFF INHALATION ×2 (08:22→20:00)
[2021-11-13] MEDS: ALBUTEROL SULFATE (*SP) AEROSOL 1 PUFF 2 PUFF INHALATION ×4 (08:23→20:00)
[2021-11-13] MEDS: MAGNESIUM OXIDE 400 MG TABLET PO (08:41)
[2021-11-13] MEDS: METOPROLOL SUCCINATE EXT REL 50 MG TABCR PO (08:41)
[2021-11-13] MEDS: BUMETANIDE 1 MG TABLET 4 MG PO (08:41)
[2021-11-13 11:42] LABS: Glucose Point of Care 223 mg/dl (65-105)
[2021-11-13] MEDS: UMECLIDINIUM BROMIDE 62.5 MCG ELLIPTA 1 PUFF INHALATION (12:22)
--- NOTE | 2021-11-13 15:24 | PDONCCN ---
HPI - Date of Consult Date/Time: 11/13/21 15:24 Requesting Physician: Eber Rossi MD Primary Care Provider: PHYSICIAN NOT ON STAFF - Consult Narrative Narrative: Maxim Babb is a 61 year old male presented to emergency department with worsening of the bilateral lower extremity edema bilateral with the right toe ulcer. Workup found to have the innumerable bilateral miliary nodules. Most confluent masses identified in the right upper lobe measuring up to 3 cm concerning for either bronchogenic carcinoma although metastatic. CT abdomen found to have mediastinal and bilateral inguinal lymphadenopathy. Cirrhosis of liver with portal hypertension and splenomegaly. Past medical history: Chronic bilateral lower extremity lymphedema, COPD, to [place] dependence, and phentermine use. Patient is poor historian and cannot provide detailed information. he is sleepy and can't engage in the conversation properly. Review of Systems - Review of Systems All systems reviewed & are unremarkable except as noted in HPI and bel - Neurologic Denies vertigo, Denies focal weakness, Denies sensory deficit PMFSH Medical History: Medical History (Last Updated 10/09/21 @ 11:12 by Zheng Fernandez MD) Acute combined systolic and diastolic congestive heart failure Acute exacerbation of congestive heart failure Atrial fibrillation Cirrhosis of liver COPD (chronic obstructive pulmonary disease) Diabetes type 2, controlled Diabetic foot ulcer associated with type 2 diabetes mellitus Esophageal varices Fracture of thumb, left, closed Hepatitis C Osteomyelitis Pancytopenia Thrombocytopenia Type 2 diabetes mellitus Surgical History: Surgical History (Last Reviewed 10/07/21 @ 16:20 by Zheng Fernandez MD) H/O cardiac catheterization H/O hernia repair History of esophagogastroduodenoscopy (EGD) Family History: Family History (Last Reviewed 11/12/21 @ 20:43 by Jennifer Cortés RN) Father Family history of pancreatic cancer Hypertension Sibling Diabetes mellitus - Social History Social History: Social History (Last Reviewed 10/07/21 @ 16:20 by Zheng Fernandez MD) Gender Identity: Gender identity (if verbalized by the patient): Male Alcohol Use: Alcohol intake: never Substance Use: Substance use: current Substance use type: methamphetamine Last use: 09/22/2021 Others: Spiritual care concerns: No Smoking Status: Smoking status: Current every day smoker Tobacco type: cigarettes Second hand tobacco smoke exposure: Yes Meds Home Medications Medication Instructions Recorded Confirmed Type albuterol sulfate 90 mcg/actuation 2 puff inhalation QID #8.5 grams 08/13/21 11/12/21 Rx aerosol inhaler metformin 1,000 mg tablet 1,000 mg PO BID 30 days #60 tabs 08/13/21 11/12/21 Rx metoprolol succinate 50 mg 50 mg PO DAILY 30 days #30 tabs 08/13/21 11/12/21 Rx tablet,extended release 24 hr blood sugar diagnostic (OneTouch #1 pkg 08/14/21 11/12/21 Rx Verio test strips) lancets 30 gauge (OneTouch Delica #1 pkg 08/14/21 11/12/21 Rx Plus Lancet) pen needle, diabetic 31 gauge x #1,200 ea 08/14/21 11/12/21 Rx 5/16 (TRUEplus Pen Needle) bumetanide 2 mg tablet 2 tablet PO DAILY 09/29/21 11/12/21 History acetaminophen 325 mg tablet (Mapap 650 mg PO Q6H PRN Mild Pain (1-5) 10/12/21 11/12/21 Rx (acetaminophen)) Or Fever #30 tabs magnesium oxide 400 mg (241.3 mg 400 mg PO DAILY #30 tabs 10/12/21 11/12/21 Rx magnesium) tablet budesonide-formoterol HFA 160 2 inh inhalation BID 11/12/21 11/12/21 History mcg-4.5 mcg/actuation aerosol inhaler (Symbicort) tiotropium bromide 18 mcg capsule 1 cap inhalation BID 11/12/21 11/12/21 History with inhalation device (Spiriva with HandiHaler) Allergies Allergy/AdvReac Type Severity Reaction Status Date / Time No Known Allergies Allergy Verified 11/13/21 00:05 Results
--- NOTE | 2021-11-13 15:37 | PM.IMPN ---
Progress Note: A&P Assessment and Plan (1) Acute combined systolic and diastolic congestive heart failure: Code(s): I50.41 - Acute combined systolic (congestive) and diastolic (congestive) heart failure Status: Acute Assessment and Plan: aggressive diuresis daily intake and output fluid restriction continue to monitor supportive care 11/13/2021 interval history: patient with history of lower extremity lymphadenopathy and wound patient is seen by wound service and dressing is changed as well as gonzalo wrap will be applied to lower extremities, patient is currently somnolent and poor historian unable to get significant history, upon arrival patient had a CT scan of the abdomen and chest and showed multiple nodules concerning for malignancy seen by oncologist and recommended biopsy of the nodule however radiologist re-evaluated CT scan apparently is nodules are present for last 6 year without any significant and radiologist does not suspect any malignancy and canceled the biopsy, and added addendum to the CT scan result, will have a PT OT evaluate the patient, will continue wound treatment, continue bronchodilator (2) Atrial fibrillation: Code(s): I48.91 - Unspecified atrial fibrillation Status: Acute Assessment and Plan: rate controlled on no anticoagulation (3) Malignancy: Code(s): C80.1 - Malignant (primary) neoplasm, unspecified Status: Acute Assessment and Plan: CT of abdomen and pelvis with multiple lesions of his used for malignancy. unknown primary (4) COPD (chronic obstructive pulmonary disease): Qualifiers: COPD type: unspecified COPD Qualified Code(s): J44.9 - Chronic obstructive pulmonary disease, unspecified Code(s): J44.9 - Chronic obstructive pulmonary disease, unspecified Status: Chronic Assessment and Plan: not actively wheezing continue home meds continue to monitor (5) Pancytopenia: Code(s): D61.818 - Other pancytopenia Status: Acute Assessment and Plan: likely secondary to malignancy continue to monitor (6) Type 2 diabetes mellitus: Code(s): E11.9 - Type 2 diabetes mellitus without complications Status: Acute Assessment and Plan: continue home meds holding metformin (7) Diabetic foot ulcer associated with type 2 diabetes mellitus: Qualifiers: Diabetic foot ulcer location: toe Laterality: right Non-pressure ulcer stage: with necrosis of bone Qualified Code(s): E11.621 - Type 2 diabetes mellitus with foot ulcer; L97.514 - Non-pressure chronic ulcer of other part of right foot with necrosis of bone Code(s): E11.621 - Type 2 diabetes mellitus with foot ulcer; L97.509 - Non-pressure chronic ulcer of other part of unspecified foot with unspecified severity Status: Acute Assessment and Plan: local care wound care consult (8) Lymphedema due to venous insufficiency: Code(s): I89.0 - Lymphedema, not elsewhere classified; I87.2 - Venous insufficiency (chronic) (peripheral) Status: Acute Assessment and Plan: worsening Gonzalo wraps bilateral venous Doppler of lower extremities Subjective Date/time seen: 11/13/21 15:37 HPI-this is a 61-year-old male with past medical history significant for tobacco dependence, amphetamine use, chronic bilateral lower extremity lymphedema, COPD/ emphysema, chronic pain, homelessness.? Patient comes to the emergency room due to worsening bilateral lower extremity edema as well as worsening of right toe ulcer,? patient has been also in pain for which he smokes a methamphetamine states it helps him with the pain control.? Denies any fevers, rigors, chills, night sweats, shortness of breath, cough, sputum production, PND, orthopnea, dizziness, lightheadedness, palpitations, chest pain.? Preliminary workup was significant for. ?CT of abdomen and pelvis with. Innumerable bilateral miliary nodules predomi
[2021-11-13 16:24] LABS: Glucose Point of Care 193 mg/dl (65-105)
[2021-11-13] MEDS: SILVERGEL (ELTA) 45 ML 1 APPLIC TOPICAL (16:56)
[2021-11-13] MEDS: ACETAMINOPHEN 325 MG TABLET 650 MG PO (18:24)
--- NOTE | 2021-11-13 19:00 | PC.NURSE ---
pt quiet and very cooperative this shift. Hourly rounding completed throughout shift. Pt offers no complaints. Rested quietly in bed during most of shift. Wound care completed and legs wrapped as ordere. Pt tolerating well. Will continue to monitor pt.
--- NOTE | 2021-11-13 21:15 | PC.NURSE ---
pt removing tele to use the bathroom, when asked why he believes it is necessary to remove, he gets angry and tells me that he doesn't want to be yelled at that he just found out he has cancer, refusing to put back on.
[2021-11-14] VITALS (9 sets, daily range): BP systolic 115–132; BP diastolic 60–64; PULSE 70–87; RESP 17–20; TEMP 36–36.8; O2SAT 94–100
[2021-11-14 06:09] LABS: Glucose Point of Care 278 mg/dl (65-105)
--- NOTE | 2021-11-14 06:55 | PC.NURSE ---
Pt unwrapped his legs in the middle of the night, refusing to be put back on at this time.
[2021-11-14] MEDS: ALBUTEROL SULFATE (*SP) AEROSOL 1 PUFF 2 PUFF INHALATION ×3 (08:09→20:46)
[2021-11-14] MEDS: FLUTICASONE/SALMETEROL 115-21 MCG INHALER 1 PUFF 2 PUFF INHALATION ×2 (08:09→20:45)
[2021-11-14] MEDS: UMECLIDINIUM BROMIDE 62.5 MCG ELLIPTA 1 PUFF INHALATION (08:09)
[2021-11-14] MEDS: BUMETANIDE 1 MG TABLET 4 MG PO (08:18)
[2021-11-14] MEDS: METOPROLOL SUCCINATE EXT REL 50 MG TABCR PO (08:18)
[2021-11-14] MEDS: MAGNESIUM OXIDE 400 MG TABLET PO (08:18)
[2021-11-14] MEDS: ENOXAPARIN 40 MG/0.4 ML SYRINGE SUB-Q (08:19)
[2021-11-14] MEDS: SILVERGEL (ELTA) 45 ML 1 APPLIC TOPICAL (08:19)
[2021-11-14 08:28] LABS: Glucose Point of Care 120 mg/dl (65-105)
[2021-11-14 09:42] LABS: Hematocrit 29.7 % (42.0-52.0); Mean Corpuscular HGB Conc 30.3 g/dl (32-36); Mean Corpuscular Hemoglobin 26.2 pg (26-34); Mean Corpuscular Volume 86.3 fl (80-100); Mean Platelet Volume 10.1 fl (7.4-10.4); Platelet Count Result 122 k/mm3 (150-375); Red Blood Count 3.44 M/mm3 (4.6-6.20); Red Cell Distribution Width 17.2 % (11.5-14.5); White Blood Count 2.4 K/mm3 (4.5-10.0)
[2021-11-14 09:58] LABS: Anion Gap 3 mmol/L (8-16); Blood Urea Nitrogen 36 mg/dL (9-20); Carbon Dioxide 35 mmol/L (22-30); Chloride 98 mmol/L (98-107); Estimated CRCL calculation 100 ml/min; Estimated Glomerular Filt Rate > 60; Glucose 173 mg/dL (65-110); Magnesium 1.6 mg/dL (1.6-2.3); Potassium 3.4 mmol/L (3.4-5.0); Sodium 136 mmol/L (137-145)
[2021-11-14 10:01] LABS: Hemoglobin A1C 7.1 % (<5.7)
[2021-11-14 11:32] LABS: Glucose Point of Care 206 mg/dl (65-105)
[2021-11-14] MEDS: INSULIN ASPART (*BKC) 100 UNITS/ML SUB-Q (11:39)
--- NOTE | 2021-11-14 11:43 | PM.IMPN ---
Progress Note: A&P Assessment and Plan (1) Acute combined systolic and diastolic congestive heart failure: Code(s): I50.41 - Acute combined systolic (congestive) and diastolic (congestive) heart failure Status: Acute Assessment and Plan: aggressive diuresis daily intake and output fluid restriction continue to monitor supportive care 11/13/2021 interval history: patient with history of lower extremity lymphadenopathy and wound patient is seen by wound service and dressing is changed as well as john wrap will be applied to lower extremities, patient is currently somnolent and poor historian unable to get significant history, upon arrival patient had a CT scan of the abdomen and chest and showed multiple nodules concerning for malignancy seen by oncologist and recommended biopsy of the nodule however radiologist re-evaluated CT scan apparently is nodules are present for last 6 year without any significant and radiologist does not suspect any malignancy and canceled the biopsy, and added addendum to the CT scan result, will have a PT OT evaluate the patient, will continue wound treatment, continue bronchodilator. 11/14/2021 interval history: patient with history of lower extremity lymphadenopathy and wound patient is seen by wound service and dressing was changed as well as john wrap applied to lower extremities for lymphadenopathy, today patient is more alert and oriented, upon arrival patient had a CT scan of the abdomen and chest and showed multiple nodules concerning for malignancy seen by oncologist and recommended biopsy of the nodule however radiologist re-evaluated CT scan apparently these nodules are present for last 6 year without any significant change is size and radiologist does not suspect any malignancy and canceled the biopsy, and added addendum to the CT scan result, patient with history of COPD will continue bronchodilator, with lower extremity edema will continue to diurese the patient and change wound dressing, will have a PT OT evaluate the patient, will continue wound treatment, continue bronchodilator (2) Atrial fibrillation: Code(s): I48.91 - Unspecified atrial fibrillation Status: Acute Assessment and Plan: rate controlled on no anticoagulation (3) Malignancy: Code(s): C80.1 - Malignant (primary) neoplasm, unspecified Status: Acute Assessment and Plan: CT of abdomen and pelvis with multiple lesions of his used for malignancy. unknown primary (4) COPD (chronic obstructive pulmonary disease): Qualifiers: COPD type: unspecified COPD Qualified Code(s): J44.9 - Chronic obstructive pulmonary disease, unspecified Code(s): J44.9 - Chronic obstructive pulmonary disease, unspecified Status: Chronic Assessment and Plan: not actively wheezing continue home meds continue to monitor (5) Pancytopenia: Code(s): D61.818 - Other pancytopenia Status: Acute Assessment and Plan: likely secondary to malignancy continue to monitor (6) Type 2 diabetes mellitus: Code(s): E11.9 - Type 2 diabetes mellitus without complications Status: Acute Assessment and Plan: continue home meds holding metformin (7) Diabetic foot ulcer associated with type 2 diabetes mellitus: Qualifiers: Diabetic foot ulcer location: toe Laterality: right Non-pressure ulcer stage: with necrosis of bone Qualified Code(s): E11.621 - Type 2 diabetes mellitus with foot ulcer; L97.514 - Non-pressure chronic ulcer of other part of right foot with necrosis of bone Code(s): E11.621 - Type 2 diabetes mellitus with foot ulcer; L97.509 - Non-pressure chronic ulcer of other part of unspecified foot with unspecified severity Status: Acute Assessment and Plan: local care wound care consult (8) Lymphedema due to venous insufficiency: Code(s): I89.0 - Lymphedema, not elsewhere classified; I87.2 - Roc
[2021-11-14 16:42] LABS: Glucose Point of Care 132 mg/dl (65-105)
[2021-11-15] VITALS (9 sets, daily range): BP systolic 116–128; BP diastolic 62–72; PULSE 70–83; RESP 14–18; TEMP 36.3–36.8; O2SAT 93–100
[2021-11-15 06:02] LABS: Glucose Point of Care 178 mg/dl (65-105)
[2021-11-15 06:21] LABS: Hematocrit 30.2 % (42.0-52.0); Hemoglobin 9.2 g/dL (14.0-18.0); Mean Corpuscular HGB Conc 30.5 g/dl (32-36); Mean Corpuscular Hemoglobin 25.6 pg (26-34); Mean Corpuscular Volume 84.1 fl (80-100); Mean Platelet Volume 9.3 fl (7.4-10.4); Platelet Count Result 132 k/mm3 (150-375); Red Blood Count 3.59 M/mm3 (4.6-6.20); White Blood Count 2.1 K/mm3 (4.5-10.0)
[2021-11-15] MEDS: ACETAMINOPHEN 325 MG TABLET 650 MG PO ×2 (06:21→16:46)
[2021-11-15 06:40] LABS: Anion Gap 2 mmol/L (8-16); Blood Urea Nitrogen 27 mg/dL (9-20); Calcium 8.2 mg/dL (8.4-10.2); Carbon Dioxide 35 mmol/L (22-30); Chloride 98 mmol/L (98-107); Estimated CRCL calculation 111 ml/min; Estimated Glomerular Filt Rate > 60; Glucose 124 mg/dL (65-110); Potassium 3.5 mmol/L (3.4-5.0); Sodium 135 mmol/L (137-145)
[2021-11-15] MEDS: FLUTICASONE/SALMETEROL 115-21 MCG INHALER 1 PUFF 2 PUFF INHALATION ×2 (07:56→20:27)
[2021-11-15] MEDS: UMECLIDINIUM BROMIDE 62.5 MCG ELLIPTA 1 PUFF INHALATION (07:56)
[2021-11-15] MEDS: ALBUTEROL SULFATE (*SP) AEROSOL 1 PUFF 2 PUFF INHALATION ×4 (07:56→20:27)
[2021-11-15 08:09] LABS: Glucose Point of Care 284 mg/dl (65-105)
[2021-11-15] MEDS: MAGNESIUM OXIDE 400 MG TABLET PO (08:26)
[2021-11-15] MEDS: cefTRIAXone 2 GM in SODIUM CHLORIDE 0.9% IV 100 ML 200 ML IVPB (08:26)
[2021-11-15] MEDS: BUMETANIDE 1 MG TABLET 4 MG PO (08:26)
[2021-11-15] MEDS: METOPROLOL SUCCINATE EXT REL 50 MG TABCR PO (08:27)
[2021-11-15] MEDS: INSULIN ASPART (*BKC) 100 UNITS/ML SUB-Q ×2 (08:27→11:44)
[2021-11-15] MEDS: SILVERGEL (ELTA) 45 ML 1 APPLIC TOPICAL (08:27)
[2021-11-15] MEDS: ENOXAPARIN 40 MG/0.4 ML SYRINGE SUB-Q (08:27)
--- NOTE | 2021-11-15 11:25 | PM.IMPN ---
Progress Note: A&P Assessment and Plan (1) Acute combined systolic and diastolic congestive heart failure: Code(s): I50.41 - Acute combined systolic (congestive) and diastolic (congestive) heart failure Status: Acute Assessment and Plan: aggressive diuresis daily intake and output fluid restriction continue to monitor supportive care 11/13/2021 interval history: patient with history of lower extremity lymphadenopathy and wound patient is seen by wound service and dressing is changed as well as john wrap will be applied to lower extremities, patient is currently somnolent and poor historian unable to get significant history, upon arrival patient had a CT scan of the abdomen and chest and showed multiple nodules concerning for malignancy seen by oncologist and recommended biopsy of the nodule however radiologist re-evaluated CT scan apparently is nodules are present for last 6 year without any significant and radiologist does not suspect any malignancy and canceled the biopsy, and added addendum to the CT scan result, will have a PT OT evaluate the patient, will continue wound treatment, continue bronchodilator. 11/14/2021 interval history: patient with history of lower extremity lymphadenopathy and wound patient is seen by wound service and dressing was changed as well as john wrap applied to lower extremities for lymphadenopathy, today patient is more alert and oriented, upon arrival patient had a CT scan of the abdomen and chest and showed multiple nodules concerning for malignancy seen by oncologist and recommended biopsy of the nodule however radiologist re-evaluated CT scan apparently these nodules are present for last 6 year without any significant change is size and radiologist does not suspect any malignancy and canceled the biopsy, and added addendum to the CT scan result, patient with history of COPD will continue bronchodilator, with lower extremity edema will continue to diurese the patient and change wound dressing, will have a PT OT evaluate the patient, will continue wound treatment, continue bronchodilator. 11/15/2021 interval history: patient with history of lower extremity lymphadenopathy and wound patient is seen by wound service and dressing was changed as well as john wrap applied to lower extremities for lymphadenopathy, his rt 3rd Toe wound is growing proteus mirabilis, sensitive to ceftriaxone will 2g daily, patient is being diuresed and lower extremities edema is improving, today patient is more alert and oriented, upon arrival patient had a CT scan of the abdomen and chest and showed multiple nodules concerning for malignancy seen by oncologist and recommended biopsy of the nodule however radiologist re-evaluated CT scan apparently these nodules are present for last 6 year without any significant change is size and radiologist does not suspect any malignancy and canceled the biopsy, and added addendum to the CT scan result, patient with history of COPD will continue bronchodilator, with lower extremity edema will continue to diurese the patient and change wound dressing, will have a PT OT evaluate the patient, will continue wound treatment, continue bronchodilator (2) Atrial fibrillation: Code(s): I48.91 - Unspecified atrial fibrillation Status: Acute Assessment and Plan: rate controlled on no anticoagulation (3) Malignancy: Code(s): C80.1 - Malignant (primary) neoplasm, unspecified Status: Acute Assessment and Plan: CT of abdomen and pelvis with multiple lesions of his used for malignancy. unknown primary (4) COPD (chronic obstructive pulmonary disease): Qualifiers: COPD type: unspecified COPD Qualified Code(s): J44.9 - Chronic obstructive pulmonary disease, unspecified Code(s): J44.9 - Chronic obstructive pulmonary disease, unspecified Status: Chronic Assessment and Plan: not actively wheezing continue home meds continue t
[2021-11-15 11:44] LABS: Glucose Point of Care 230 mg/dl (65-105)
[2021-11-15 16:52] LABS: Glucose Point of Care 135 mg/dl (65-105)
[2021-11-15 23:12] LABS: Glucose Point of Care 222 mg/dl (65-105)
[2021-11-16] VITALS (9 sets, daily range): BP systolic 121–129; BP diastolic 64–69; PULSE 60–76; RESP 17–18; TEMP 36.4–36.9; O2SAT 95–98
[2021-11-16 06:29] LABS: Hemoglobin 9.4 g/dL (14.0-18.0); Mean Corpuscular HGB Conc 30.3 g/dl (32-36); Mean Corpuscular Hemoglobin 25.9 pg (26-34); Mean Corpuscular Volume 85.4 fl (80-100); Mean Platelet Volume 9.4 fl (7.4-10.4); Platelet Count Result 121 k/mm3 (150-375); Red Blood Count 3.63 M/mm3 (4.6-6.20); Red Cell Distribution Width 16.5 % (11.5-14.5)
[2021-11-16 06:38] LABS: Anion Gap 3 mmol/L (8-16); Blood Urea Nitrogen 23 mg/dL (9-20); Calcium 8.7 mg/dL (8.4-10.2); Carbon Dioxide 37 mmol/L (22-30); Chloride 96 mmol/L (98-107); Estimated CRCL calculation 111 ml/min; Estimated Glomerular Filt Rate > 60; Glucose 147 mg/dL (65-110); Potassium 3.6 mmol/L (3.4-5.0); Sodium 136 mmol/L (137-145)
[2021-11-16 06:40] LABS: White Blood Count 1.8 K/mm3 (4.5-10.0)
[2021-11-16 07:28] LABS: Glucose Point of Care 173 mg/dl (65-105)
[2021-11-16] MEDS: ALBUTEROL SULFATE (*SP) AEROSOL 1 PUFF 2 PUFF INHALATION ×2 (08:02→21:28)
[2021-11-16] MEDS: FLUTICASONE/SALMETEROL 115-21 MCG INHALER 1 PUFF 2 PUFF INHALATION ×2 (08:02→21:28)
[2021-11-16] MEDS: UMECLIDINIUM BROMIDE 62.5 MCG ELLIPTA 1 PUFF INHALATION (08:03)
[2021-11-16] MEDS: MAGNESIUM OXIDE 400 MG TABLET PO (08:36)
[2021-11-16] MEDS: ENOXAPARIN 40 MG/0.4 ML SYRINGE SUB-Q (08:36)
[2021-11-16] MEDS: ACETAMINOPHEN 325 MG TABLET 650 MG PO ×2 (08:36→20:14)
[2021-11-16] MEDS: BUMETANIDE 1 MG TABLET 4 MG PO (08:37)
[2021-11-16] MEDS: cefTRIAXone 2 GM in SODIUM CHLORIDE 0.9% IV 100 ML 200 ML IVPB (08:37)
[2021-11-16] MEDS: SILVERGEL (ELTA) 45 ML 1 APPLIC TOPICAL (08:37)
[2021-11-16] MEDS: METOPROLOL SUCCINATE EXT REL 50 MG TABCR PO (08:37)
[2021-11-16 11:16] LABS: Glucose Point of Care 269 mg/dl (65-105)
[2021-11-16] MEDS: INSULIN ASPART (*BKC) 100 UNITS/ML SUB-Q (11:39)
[2021-11-16] MEDS: TUBERCULIN, PPD INJ 5 TU/0.1 ML INTRADERM (11:54)
--- NOTE | 2021-11-16 13:14 | PM.IMPN ---
Progress Note: A&P Assessment and Plan (1) Acute combined systolic and diastolic congestive heart failure: Code(s): I50.41 - Acute combined systolic (congestive) and diastolic (congestive) heart failure Status: Acute Assessment and Plan: - Continue diuresis - Continue intake and output - fluid restriction - continue to monitor (2) Atrial fibrillation: Code(s): I48.91 - Unspecified atrial fibrillation Status: Acute Assessment and Plan: - rate controlled - on no anticoagulation - Continue Metoprolol Succinate. (3) Malignancy: Code(s): C80.1 - Malignant (primary) neoplasm, unspecified Status: Acute Assessment and Plan: -initial read of CT of abdomen and pelvis and chest suggested multiple metastatic lesions. -biopsy was ordered, however after reread the original CT scan and was found out abnormalities identified with air in 2016 and are stable. Therefore the biopsy was canceled. -white blood cells continue to drop. Today they are 1.8. Will again consult Oncology. (4) COPD (chronic obstructive pulmonary disease): Qualifiers: COPD type: unspecified COPD Qualified Code(s): J44.9 - Chronic obstructive pulmonary disease, unspecified Code(s): J44.9 - Chronic obstructive pulmonary disease, unspecified Status: Chronic Assessment and Plan: - Continue home meds and monitor. - Not currently in exacerbation. (5) Pancytopenia: Code(s): D61.818 - Other pancytopenia Status: Acute Assessment and Plan: -Etiology uncertain, WBC's today are 1.8. - Will re-consult Oncology and monitor. (6) Type 2 diabetes mellitus: Code(s): E11.9 - Type 2 diabetes mellitus without complications Status: Acute Assessment and Plan: -continue sliding scale insulin and Accu-Cheks AC and HS. -diabetic diet (7) Diabetic foot ulcer associated with type 2 diabetes mellitus: Qualifiers: Diabetic foot ulcer location: toe Laterality: right Non-pressure ulcer stage: with necrosis of bone Qualified Code(s): E11.621 - Type 2 diabetes mellitus with foot ulcer; L97.514 - Non-pressure chronic ulcer of other part of right foot with necrosis of bone Code(s): E11.621 - Type 2 diabetes mellitus with foot ulcer; L97.509 - Non-pressure chronic ulcer of other part of unspecified foot with unspecified severity Status: Acute Assessment and Plan: -wound consult -continue IV antibiotics Rocephin for the growth of Proteus. Is day 2 of Antibiotic therapy -if worsening, do MRI to rule out osteomyelitis (8) Lymphedema due to venous insufficiency: Code(s): I89.0 - Lymphedema, not elsewhere classified; I87.2 - Venous insufficiency (chronic) (peripheral) Status: Acute Assessment and Plan: -venous Doppler negative for any DVT. -Gonzalo wraps ordered to bilateral lower extremities, however patient refuses to wear. Time Spent With Patient Time with patient: 15 - 25 minutes Subjective Date/time seen: 11/16/21 1187 This pt. is examined at the bedside this morning in interval assessment of being admitted to the hospital with complaints of having edema to the BLE, citing that he had not had Bumex in four days because his meds were swollen. In addition, he cites having a wound on the tip of the right second toe and he has recently had a right third toe amputation. He was admitted to the hospital for continued diuresis as well as wound care. He is currently growing Proteus out of his wound culture and this is day #2 on Rocephin. There were concerns that the pt's chest imaging was significant for a potential Oncological process and Oncology was consulted who ordered a biopsy. After that was ordered, Radiologist then re-read the original read and came to the conculsion that the findings were unchanged from 2016, and there was no evidence of malignancy. The biopsy was therefore canceled, however, there was mentioned in the a
[2021-11-16 16:36] LABS: Glucose Point of Care 168 mg/dl (65-105)
[2021-11-16 20:13] LABS: Glucose Point of Care 190 mg/dl (65-105)
[2021-11-17] VITALS (9 sets, daily range): BP systolic 103–154; BP diastolic 65–83; PULSE 63–119; RESP 16–20; TEMP 36.2–36.4; O2SAT 93–97
[2021-11-17 07:06] LABS: Hematocrit 32.7 % (42.0-52.0); Mean Corpuscular HGB Conc 30.6 g/dl (32-36); Mean Corpuscular Hemoglobin 26.2 pg (26-34); Mean Corpuscular Volume 85.8 fl (80-100); Mean Platelet Volume 9.6 fl (7.4-10.4); Platelet Count Result 124 k/mm3 (150-375); Red Blood Count 3.81 M/mm3 (4.6-6.20); Red Cell Distribution Width 16.5 % (11.5-14.5); White Blood Count 2.1 K/mm3 (4.5-10.0)
[2021-11-17 07:17] LABS: Blood Urea Nitrogen 17 mg/dL (9-20); Calcium 8.8 mg/dL (8.4-10.2); Carbon Dioxide > 40 mmol/L (22-30); Chloride 94 mmol/L (98-107); Estimated CRCL calculation 111 ml/min; Estimated Glomerular Filt Rate > 60; Glucose 175 mg/dL (65-110); Magnesium 1.4 mg/dL (1.6-2.3); Potassium 4.3 mmol/L (3.4-5.0); Sodium 140 mmol/L (137-145)
[2021-11-17 07:48] LABS: Glucose Point of Care 152 mg/dl (65-105)
[2021-11-17] MEDS: UMECLIDINIUM BROMIDE 62.5 MCG ELLIPTA 1 PUFF INHALATION (08:27)
[2021-11-17] MEDS: ALBUTEROL SULFATE (*SP) AEROSOL 1 PUFF 2 PUFF INHALATION ×4 (08:27→20:33)
[2021-11-17] MEDS: FLUTICASONE/SALMETEROL 115-21 MCG INHALER 1 PUFF 2 PUFF INHALATION ×2 (08:27→20:33)
[2021-11-17] MEDS: SILVERGEL (ELTA) 45 ML 1 APPLIC TOPICAL (08:29)
[2021-11-17] MEDS: ACETAMINOPHEN 325 MG TABLET 650 MG PO (08:29)
[2021-11-17] MEDS: ENOXAPARIN 40 MG/0.4 ML SYRINGE SUB-Q (08:31)
[2021-11-17] MEDS: BUMETANIDE 1 MG TABLET 4 MG PO (08:31)
[2021-11-17] MEDS: MAGNESIUM OXIDE 400 MG TABLET PO (08:31)
[2021-11-17] MEDS: MAGNESIUM SULF 1 GM/D5W 100 ML 1 GM/100 ML BAG IVPB (08:32)
[2021-11-17] MEDS: METOPROLOL SUCCINATE EXT REL 50 MG TABCR PO (08:34)
[2021-11-17] MEDS: cefTRIAXone 2 GM in SODIUM CHLORIDE 0.9% IV 100 ML 200 ML IVPB (09:40)
[2021-11-17] MEDS: traMADol HCL (*CRX) 50 MG TABLET PO ×2 (10:37→19:23)
[2021-11-17 11:44] LABS: Glucose Point of Care 351 mg/dl (65-105)
[2021-11-17] MEDS: INSULIN ASPART (*BKC) 100 UNITS/ML SUB-Q (12:10)
--- NOTE | 2021-11-17 12:28 | PM.IMPN ---
Progress Note: A&P Assessment and Plan (1) Acute combined systolic and diastolic congestive heart failure: Code(s): I50.41 - Acute combined systolic (congestive) and diastolic (congestive) heart failure Status: Acute Assessment and Plan: - Continue diuresis - Continue intake and output - fluid restriction - continue to monitor (2) Atrial fibrillation: Code(s): I48.91 - Unspecified atrial fibrillation Status: Acute Assessment and Plan: - rate controlled - Not currently anti-coagulated and is currently in NSR. - Continue Metoprolol Succinate. (3) Malignancy: Code(s): C80.1 - Malignant (primary) neoplasm, unspecified Status: Acute Assessment and Plan: -initial read of CT of abdomen and pelvis and chest suggested multiple metastatic lesions. -biopsy was ordered, however after reread the original CT scan and was found out abnormalities identified with air in 2016 and are stable. Therefore the biopsy was canceled. -white blood cells continue to drop. Today they are 1.8. Will again consult Oncology. - Awaiting Oncology consult. His WBC count today increased to 2.1. Oncology was notified of consult last evening (4) COPD (chronic obstructive pulmonary disease): Qualifiers: COPD type: unspecified COPD Qualified Code(s): J44.9 - Chronic obstructive pulmonary disease, unspecified Code(s): J44.9 - Chronic obstructive pulmonary disease, unspecified Status: Chronic Assessment and Plan: - Continue home meds and monitor. - Not currently in exacerbation. (5) Pancytopenia: Code(s): D61.818 - Other pancytopenia Status: Acute Assessment and Plan: -Etiology uncertain, WBC's today are 2.1. - Awaiting oncology consult. (6) Type 2 diabetes mellitus: Code(s): E11.9 - Type 2 diabetes mellitus without complications Status: Acute Assessment and Plan: -continue sliding scale insulin and Accu-Cheks AC and HS. -diabetic diet (7) Diabetic foot ulcer associated with type 2 diabetes mellitus: Qualifiers: Diabetic foot ulcer location: toe Laterality: right Non-pressure ulcer stage: with necrosis of bone Qualified Code(s): E11.621 - Type 2 diabetes mellitus with foot ulcer; L97.514 - Non-pressure chronic ulcer of other part of right foot with necrosis of bone Code(s): E11.621 - Type 2 diabetes mellitus with foot ulcer; L97.509 - Non-pressure chronic ulcer of other part of unspecified foot with unspecified severity Status: Acute Assessment and Plan: -wound consult -continue IV antibiotics Rocephin for the growth of Proteus. Is day 2 of Antibiotic therapy -if worsening, do MRI to rule out osteomyelitis - PRN pain medications. (8) Lymphedema due to venous insufficiency: Code(s): I89.0 - Lymphedema, not elsewhere classified; I87.2 - Venous insufficiency (chronic) (peripheral) Status: Acute Assessment and Plan: -venous Doppler negative for any DVT. -Gonzalo wraps ordered to bilateral lower extremities, however patient refuses to wear. Time Spent With Patient Time with patient: 15 - 25 minutes Subjective Date/time seen: 11/17/21 1150 This pt. was examined today in interval assessment. He continues to receive treatment with IV abx for his right toe. Pt. has an appropriate abx that he can transition to at discharge, but currently does not have any place to discharge to. He complains of pain and his pain med is increased today to Tramadol. Care coordination has been consulted on the patient and they are attempting to find him someplace to go at discharge. He has no new complaints overnight. PPD was placed yesterday and at this point, preliminarily appears negative. We are also still awaiting an Oncology consult as the pt. has had persistent Leukopenia. Review of Systems Review of Systems: All systems reviewed & are unremarkable except as noted in HPI and below Exam Con
--- NOTE | 2021-11-17 16:17 | PDONCCONNOTE ---
Impression pancytopenia : he was found to have pancytopenia on admission. differential diagnosis can be from infectious vs substance abuse which can cause the bone marrow suppression vs underling hematological malignancy. patient has underlying hepatitis C and it can be the cause of chronic leukopenia and thrombocytopenia. if we can get the baseline cbc from one or two years ago and if his leukopenia and thrombocytopenia is chronic in nature , he can be followed up with us at outpatient. can give neupogen 480mcg three time per day if ANC is less than 1.5 for better control of infection. He was consulted last week for ? lung mass . after the reviewing and comparing the scan from 2016 , the lung nodules and mediastinal lymph nodes are stable. biopsy was cancelled. Plan : work up with flow cytometry peripheral smear review hepatitis B , C and HIV retic count B12 Folate level iron study ferritin level Follow up with Dr Cali at outpatient [facility] - Date/Time Seen 11/17/21 16:17 - History of Present Illness hematology consult for thrombocytopenia he is poor historian and not willing to coordinate with the history taking and physical exam. he has history of hepatitis C - Medical History Medical History (Last Updated 10/09/21 @ 11:12 by Zheng Fernandez MD) Acute combined systolic and diastolic congestive heart failure Acute exacerbation of congestive heart failure Atrial fibrillation Cirrhosis of liver COPD (chronic obstructive pulmonary disease) Diabetes type 2, controlled Diabetic foot ulcer associated with type 2 diabetes mellitus Esophageal varices Fracture of thumb, left, closed Hepatitis C Osteomyelitis Pancytopenia Thrombocytopenia Type 2 diabetes mellitus - Surgical History Surgical History (Last Reviewed 10/07/21 @ 16:20 by Zheng Fernandez MD) H/O cardiac catheterization H/O hernia repair History of esophagogastroduodenoscopy (EGD) - Family History Family History (Last Reviewed 11/12/21 @ 20:43 by Jennifer Cortés RN) Father Family history of pancreatic cancer Hypertension Sibling Diabetes mellitus - Social History Social History (Last Reviewed 10/07/21 @ 16:20 by Zheng Fernandez MD) Gender Identity: Gender identity (if verbalized by the patient): Male Alcohol Use: Alcohol intake: never Substance Use: Substance use: current Substance use type: methamphetamine Last use: 09/22/2021 Others: Spiritual care concerns: No Smoking Status: Smoking status: Current every day smoker Tobacco type: cigarettes Second hand tobacco smoke exposure: Yes - Medications Active Medications Generic Name Dose Route Start Last Admin Trade Name Neymarq PRN Reason Stop Dose Admin Acetaminophen 650 mg 11/12/21 21:38 11/17/21 08:29 Acetaminophen 325 Mg Tablet PO 650 mg Q6H PRN Administration Pain rated (1-3) Or Fever Albuterol 2 puff 11/12/21 21:45 11/17/21 15:26 Albuterol Sulfate (*Sp) Aerosol 1 Puff INHALATION 2 puff QIDRT WILTON Administration Bumetanide 4 mg 11/13/21 09:00 11/17/21 08:31 Bumetanide 1 Mg Tablet PO 4 mg DAILY WILTON Administration Dextrose 12.5 gm 11/14/21 07:58 Dextrose 50% 25 Gm/50 Ml Syringe IV PUSH PRN PRN Hypoglycemia Protocol Enoxaparin Sodium 40 mg 11/13/21 09:00 11/17/21 08:31 Enoxaparin 40 Mg/0.4 Ml Syringe SUB-Q 40 mg DAILY WILTON Administration Glucagon 1 mg 11/14/21 07:58 Glucagon For Inj 1 Mg Vial IM PRN PRN Hypoglycemia Protocol Glucose 15 gm 11/14/21 07:58 Glucose Oral Gel 15 Gm Of Glucse In 37.5 Gm Tube PO PRN PRN Hypoglycemia Protocol Dextrose 1,000 mls @ 100 mls/hr 11/14/21 07:58 Dextrose 5% 1,000 Ml IVPB PRN PRN Hypoglycemia Protocol Ceftriaxone Sodium 2 gm/ 100 mls @ 200 mls/hr 11/15/21 09:00 11/17/21 09:40 Sodium Chloride
[2021-11-17 16:35] LABS: Glucose Point of Care 109 mg/dl (65-105)
[2021-11-17 19:19] LABS: Glucose Point of Care 205 mg/dl (65-105)
[2021-11-18] VITALS (9 sets, daily range): BP systolic 112–130; BP diastolic 66–80; PULSE 55–66; RESP 18–20; TEMP 36.1–36.6; O2SAT 95–100
[2021-11-18] MEDS: traMADol HCL (*CRX) 50 MG TABLET PO ×3 (01:47→18:28)
[2021-11-18 07:17] LABS: Hematocrit 34.7 % (42.0-52.0); Hemoglobin 10.6 g/dL (14.0-18.0); Mean Corpuscular HGB Conc 30.5 g/dl (32-36); Mean Corpuscular Hemoglobin 26.1 pg (26-34); Mean Corpuscular Volume 85.5 fl (80-100); Mean Platelet Volume 8.7 fl (7.4-10.4); Platelet Count Result 113 k/mm3 (150-375); Red Blood Count 4.06 M/mm3 (4.6-6.20); Red Cell Distribution Width 16.1 % (11.5-14.5); White Blood Count 2.2 K/mm3 (4.5-10.0)
[2021-11-18 07:43] LABS: Blood Urea Nitrogen 17 mg/dL (9-20); Carbon Dioxide > 40 mmol/L (22-30); Chloride 93 mmol/L (98-107); Estimated CRCL calculation 111 ml/min; Estimated Glomerular Filt Rate > 60; Glucose 134 mg/dL (65-110); Magnesium 1.6 mg/dL (1.6-2.3); Potassium 4.4 mmol/L (3.4-5.0); Sodium 135 mmol/L (137-145)
[2021-11-18 08:14] LABS: Glucose Point of Care 123 mg/dl (65-105)
[2021-11-18] MEDS: cefTRIAXone 2 GM in SODIUM CHLORIDE 0.9% IV 100 ML 200 ML IVPB (08:20)
[2021-11-18] MEDS: ENOXAPARIN 40 MG/0.4 ML SYRINGE SUB-Q (08:21)
[2021-11-18] MEDS: METOPROLOL SUCCINATE EXT REL 50 MG TABCR PO (08:21)
[2021-11-18] MEDS: MAGNESIUM OXIDE 400 MG TABLET PO (08:21)
[2021-11-18] MEDS: BUMETANIDE 1 MG TABLET 4 MG PO (08:22)
[2021-11-18] MEDS: SILVERGEL (ELTA) 45 ML 1 APPLIC TOPICAL (08:23)
[2021-11-18] MEDS: UMECLIDINIUM BROMIDE 62.5 MCG ELLIPTA 1 PUFF INHALATION (08:40)
[2021-11-18] MEDS: FLUTICASONE/SALMETEROL 115-21 MCG INHALER 1 PUFF 2 PUFF INHALATION ×2 (08:40→20:23)
[2021-11-18] MEDS: ALBUTEROL SULFATE (*SP) AEROSOL 1 PUFF 2 PUFF INHALATION ×2 (08:40→20:22)
[2021-11-18 09:04] LABS: Hepatitis B Surface Antigen Negative (Negative)
[2021-11-18 09:10] LABS: HAV RESULT Negative (Negative); Hepatitis B Core IgM Result Negative (Negative)
[2021-11-18 09:14] LABS: HIV 1/2 Ab P24 Ag Result Negative (Negative)
[2021-11-18 09:44] LABS: Folic Acid 7.4 ng/mL (2.76->20)
[2021-11-18 09:47] LABS: Hepatitis C Virus Antibody Reactive (Negative)
[2021-11-18 09:54] LABS: Free T4 Free Thyroxine 1.11 ng/mL (0.78-2.19)
--- NOTE | 2021-11-18 10:02 | PM.IMPN ---
Progress Note: A&P Assessment and Plan (1) Acute combined systolic and diastolic congestive heart failure: Code(s): I50.41 - Acute combined systolic (congestive) and diastolic (congestive) heart failure Status: Acute Assessment and Plan: - Continue diuresis With Bumex. - Continue intake and output - There is interval improvement In the appearance of patient's peripheral edema - patient's last echocardiogram is from September of 2021 that demonstrated a normal left ventricular size with moderate hypertrophy with good systolic function and EF of 55-60%. Grade 2 diastolic dysfunction was present. There was no noted pulmonary hypertension and minimal aortic valve stenosis present. - continue to monitor (2) Atrial fibrillation: Code(s): I48.91 - Unspecified atrial fibrillation Status: Acute Assessment and Plan: - rate controlled And currently in normal sinus rhythm. - Not currently anti-coagulated In the outpatient setting. Receiving Lovenox here. - Continue Metoprolol Succinate. (3) Malignancy: Code(s): C80.1 - Malignant (primary) neoplasm, unspecified Status: Acute Assessment and Plan: -initial read of CT of abdomen and pelvis and chest suggested multiple metastatic lesions. -biopsy was ordered, however after reread the original CT scan and was found out abnormalities identified with air in 2016 and are stable. Therefore the biopsy was canceled. -white blood cells continue to drop. Today they are 1.8. Will again consult Oncology. - He has had marginal interval increase in his white blood cell count up to 2.2 today. I spoke with oncologist, Dr. Vasquez, who is covering for Dr. Cali last evening. She indicated that her concern was possibly that his hepatitis-C that was reactive on previous testing was never appropriately treated. Patient does not know if he ever received treatment for his hepatitis-C. Her suggestions were to order a B12, folate, TSH, T4, hepatitis panel and HIV screen and then she indicated she would be happy to follow up with him as an outpatient on the results of these tests. These tests have been ordered and are starting to results. B12 is normal at 493, folate is normal at 7.4, T4 is normal at 1.11 his HIV screen is negative and his hepatitis panel does show reactive hepatitis-C. TSH is still pending. As patient cannot remember if he was ever treated for his hepatitis-C we will have him follow-up with Dr. Vasquez on discharge. She indicated that she has less suspicious for a malignancy at this time. His PPD was examined by this provider on this date and appears to be negative. (4) COPD (chronic obstructive pulmonary disease): Qualifiers: COPD type: unspecified COPD Qualified Code(s): J44.9 - Chronic obstructive pulmonary disease, unspecified Code(s): J44.9 - Chronic obstructive pulmonary disease, unspecified Status: Chronic Assessment and Plan: - Continue home meds and monitor. - Not currently in exacerbation. (5) Pancytopenia: Code(s): D61.818 - Other pancytopenia Status: Acute Assessment and Plan: -Etiology uncertain, WBC's today are - See problem #3 above. (6) Type 2 diabetes mellitus: Code(s): E11.9 - Type 2 diabetes mellitus without complications Status: Acute Assessment and Plan: -continue sliding scale insulin and Accu-Cheks AC and HS. 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
[2021-11-18 12:16] LABS: Glucose Point of Care 192 mg/dl (65-105)
[2021-11-18 13:38] LABS: Free T4 Free Thyroxine Reflex 1.11 ng/dL (0.78-2.19)
[2021-11-18 14:20] LABS: Total Triiodothyronine (T3) 1.29 NG/ML (0.97-1.69)
[2021-11-18 16:51] LABS: Glucose Point of Care 124 mg/dl (65-105)
[2021-11-18 21:17] LABS: Glucose Point of Care 190 mg/dl (65-105)
[2021-11-18] MEDS: ACETAMINOPHEN 325 MG TABLET 650 MG PO (23:13)
[2021-11-19 06:00] VITALS: BP 128/74; PULSE 57; RESP 18; TEMP 36.6; O2SAT 98
[2021-11-19 06:56] LABS: Hematocrit 34.9 % (42.0-52.0); Hemoglobin 10.7 g/dL (14.0-18.0); Mean Corpuscular HGB Conc 30.7 g/dl (32-36); Mean Corpuscular Hemoglobin 25.8 pg (26-34); Mean Corpuscular Volume 84.3 fl (80-100); Mean Platelet Volume 9.5 fl (7.4-10.4); Platelet Count Result 131 k/mm3 (150-375); Red Blood Count 4.14 M/mm3 (4.6-6.20); White Blood Count 2.9 K/mm3 (4.5-10.0)
[2021-11-19 07:09] LABS: Blood Urea Nitrogen 23 mg/dL (9-20); Calcium 8.7 mg/dL (8.4-10.2); Carbon Dioxide > 40 mmol/L (22-30); Chloride 93 mmol/L (98-107); Estimated CRCL calculation 100 ml/min; Estimated Glomerular Filt Rate > 60; Glucose 111 mg/dL (65-110); Magnesium 1.6 mg/dL (1.6-2.3); Potassium 4.5 mmol/L (3.4-5.0); Sodium 136 mmol/L (137-145)
[2021-11-19 07:56] LABS: Glucose Point of Care 108 mg/dl (65-105)
[2021-11-19] MEDS: ALBUTEROL SULFATE (*SP) AEROSOL 1 PUFF 2 PUFF INHALATION ×2 (08:23→20:29)
[2021-11-19] MEDS: FLUTICASONE/SALMETEROL 115-21 MCG INHALER 1 PUFF 2 PUFF INHALATION ×2 (08:26→20:30)
[2021-11-19 08:31] VITALS: O2SAT 95
[2021-11-19 08:57] VITALS: PULSE 60
[2021-11-19] MEDS: MAGNESIUM OXIDE 400 MG TABLET PO (08:57)
[2021-11-19] MEDS: ENOXAPARIN 40 MG/0.4 ML SYRINGE SUB-Q (08:57)
[2021-11-19] MEDS: BUMETANIDE 1 MG TABLET 4 MG PO (08:57)
[2021-11-19] MEDS: METOPROLOL SUCCINATE EXT REL 50 MG TABCR PO (08:57)
[2021-11-19] MEDS: cefTRIAXone 2 GM in SODIUM CHLORIDE 0.9% IV 100 ML 200 ML IVPB (08:58)
[2021-11-19] MEDS: UMECLIDINIUM BROMIDE 62.5 MCG ELLIPTA 1 PUFF INHALATION (09:19)
[2021-11-19] MEDS: MAGNESIUM SULF 2 GM/WATER 50ML 2 GM/50 ML BAG IVPB (09:34)
[2021-11-19] MEDS: SILVERGEL (ELTA) 45 ML 1 APPLIC TOPICAL (09:36)
--- NOTE | 2021-11-19 11:00 | PM.IMPN ---
Progress Note: A&P Assessment and Plan (1) Acute combined systolic and diastolic congestive heart failure: Code(s): I50.41 - Acute combined systolic (congestive) and diastolic (congestive) heart failure Status: Acute Assessment and Plan: - Continue diuresis With Bumex. - Continue intake and output - There is interval improvement In the appearance of patient's peripheral edema - Appears to be in acute exacerbation of diastolic dysfunction, however seems to be resolving - Patient's last echocardiogram is from September of 2021 that demonstrated a normal left ventricular size with moderate hypertrophy with good systolic function and EF of 55-60%. Grade 2 diastolic dysfunction was present. There was no noted pulmonary hypertension and minimal aortic valve stenosis present. - continue to monitor (2) Atrial fibrillation: Code(s): I48.91 - Unspecified atrial fibrillation Status: Acute Assessment and Plan: - rate controlled And currently in normal sinus rhythm. - Not currently anti-coagulated In the outpatient setting. Receiving Lovenox here. - Continue Metoprolol Succinate. (3) Malignancy: Code(s): C80.1 - Malignant (primary) neoplasm, unspecified Status: Acute Assessment and Plan: -initial read of CT of abdomen and pelvis and chest suggested multiple metastatic lesions. -biopsy was ordered, however after reread the original CT scan and was found out abnormalities identified with air in 2016 and are stable. Therefore the biopsy was canceled. -white blood cells remains stable is currently 2.9 -Oncology consulted thank you for your help - He has had marginal interval increase in his white blood cell count up to 2.2 today. I spoke with oncologist, Dr. Vasquez, who is covering for Dr. Cali last evening. She indicated that her concern was possibly that his hepatitis-C that was reactive on previous testing was never appropriately treated. Patient does not know if he ever received treatment for his hepatitis-C. Her suggestions were to order a B12, folate, TSH, T4, hepatitis panel and HIV screen and then she indicated she would be happy to follow up with him as an outpatient on the results of these tests. These tests have been ordered and are starting to results. B12 is normal at 493, folate is normal at 7.4, T4 is normal at 1.11 his HIV screen is negative and his hepatitis panel does show reactive hepatitis-C. TSH is still pending. As patient cannot remember if he was ever treated for his hepatitis-C we will have him follow-up with Dr. Vasquez on discharge. She indicated that she has less suspicious for a malignancy at this time. His PPD was examined by this provider on this date and appears to be negative. (4) COPD (chronic obstructive pulmonary disease): Qualifiers: COPD type: unspecified COPD Qualified Code(s): J44.9 - Chronic obstructive pulmonary disease, unspecified Code(s): J44.9 - Chronic obstructive pulmonary disease, unspecified Status: Chronic Assessment and Plan: - Continue home meds and monitor. - Not currently in exacerbation. (5) Pancytopenia: Code(s): D61.818 - Other pancytopenia Status: Acute Assessment and Plan: -Etiology uncertain, WBC's today are 2.9 -See problem #3 above. (6) Type 2 diabetes mellitus: Code(s): E11.9 - Type 2 diabetes mellitus without complications Status: Acute Assessment and Plan: -Current glucose 111 -continue sliding scale insulin -Accu-Cheks AC and HS. -diabetic diet (7) Diabetic foot ulcer associated with type 2 diabetes mellitus: Qualifiers: Diabetic foot ulcer location: toe Laterality: right Non-pressure ulcer stage: with necrosis of bone Qualified Code(s): E11.621 - Type 2 diabetes mellitus with foot ulcer; L97.514 - Non-pressure chronic ulcer of other part of right foot with necrosis of bone Co
--- NOTE | 2021-11-19 11:41 | PCRCNOTE ---
Pt is refusing Albuterol MDI for 1200 and 1600 tx. Pt is stating he would like to not be bothered. Nurse is aware of situation. RT informed RN if SOB will come give inhaler.
[2021-11-19 11:50] LABS: Glucose Point of Care 290 mg/dl (65-105)
[2021-11-19] MEDS: INSULIN ASPART (*BKC) 100 UNITS/ML SUB-Q (12:34)
[2021-11-19 14:00] VITALS: BP 104/59; PULSE 74; RESP 14; TEMP 36.1; O2SAT 96
[2021-11-19] MEDS: traMADol HCL (*CRX) 50 MG TABLET PO ×2 (14:29→20:16)
[2021-11-19 16:51] LABS: Glucose Point of Care 134 mg/dl (65-105)
--- NOTE | 2021-11-19 17:31 | PCDIET ---
pt more cooperative today than what was read in previous nurse notes but is still resistant to some care. Today at 1430 Abiel [employer] called this nurse and asked if I would watch him walk in room. I told pt that I got an order from Abiel to walk him. He vehemently refused to get up. I asked him if he would just stand and hold himself up with a walker. He refused. I educated pt in the order from Abiel and he states, I don't care, I cannot get up.
[2021-11-19 20:30] VITALS: O2SAT 96
[2021-11-19 22:00] VITALS: BP 128/77; PULSE 63; RESP 20; TEMP 36.6; O2SAT 100
[2021-11-19 23:45] LABS: Glucose Point of Care 170 mg/dl (65-105)
[2021-11-20 06:00] VITALS: BP 132/70; PULSE 67; RESP 20; TEMP 36.1; O2SAT 100
[2021-11-20 07:31] LABS: Hematocrit 35.2 % (42.0-52.0); Hemoglobin 10.8 g/dL (14.0-18.0); Mean Corpuscular HGB Conc 30.7 g/dl (32-36); Mean Corpuscular Hemoglobin 25.8 pg (26-34); Mean Corpuscular Volume 84.2 fl (80-100); Platelet Count Result 142 k/mm3 (150-375); Red Blood Count 4.18 M/mm3 (4.6-6.20)
[2021-11-20 07:52] LABS: Anion Gap 2 mmol/L (8-16); Blood Urea Nitrogen 29 mg/dL (9-20); Calcium 8.8 mg/dL (8.4-10.2); Carbon Dioxide 39 mmol/L (22-30); Chloride 94 mmol/L (98-107); Estimated CRCL calculation 100 ml/min; Estimated Glomerular Filt Rate > 60; Glucose 120 mg/dL (65-110); Potassium 4.3 mmol/L (3.4-5.0); Sodium 135 mmol/L (137-145)
[2021-11-20 07:58] LABS: Glucose Point of Care 118 mg/dl (65-105)
[2021-11-20] MEDS: ALBUTEROL SULFATE (*SP) AEROSOL 1 PUFF 2 PUFF INHALATION (08:25)
[2021-11-20] MEDS: FLUTICASONE/SALMETEROL 115-21 MCG INHALER 1 PUFF 2 PUFF INHALATION (08:25)
[2021-11-20] MEDS: UMECLIDINIUM BROMIDE 62.5 MCG ELLIPTA 1 PUFF INHALATION (08:25)
[2021-11-20 08:44] VITALS: PULSE 60
[2021-11-20] MEDS: METOPROLOL SUCCINATE EXT REL 50 MG TABCR PO (08:44)
[2021-11-20] MEDS: MAGNESIUM OXIDE 400 MG TABLET PO (08:44)
[2021-11-20] MEDS: cefTRIAXone 2 GM in SODIUM CHLORIDE 0.9% IV 100 ML IVPB (08:45)
[2021-11-20] MEDS: ENOXAPARIN 40 MG/0.4 ML SYRINGE SUB-Q (08:45)
[2021-11-20] MEDS: BUMETANIDE 1 MG TABLET 4 MG PO (08:46)
--- NOTE | 2021-11-20 09:23 | PCNWS ---
Weekly nutritional screen. Patient is tolerating current heart healthy diet with 100% adequate intake. No weight loss reported. Pt mentioned meals have been cold. No nutritional needs at this time.
--- NOTE | 2021-11-20 11:30 | PM.DS ---
DS: Admitting Diagnosis Discharge Date 11/20/21 1130 Admitting Diagnosis CHF exacerbation DS: Discharge Diagnosis Discharge Diagnosis (1) Acute combined systolic and diastolic congestive heart failure: Code(s): I50.41 - Acute combined systolic (congestive) and diastolic (congestive) heart failure Status: Acute Assessment and Plan: - Continue diuresis With Bumex. - Continue intake and output - There is interval improvement In the appearance of patient's peripheral edema - Appears to be in acute exacerbation of diastolic dysfunction, however seems to be resolving - Patient's last echocardiogram is from September of 2021 that demonstrated a normal left ventricular size with moderate hypertrophy with good systolic function and EF of 55-60%. Grade 2 diastolic dysfunction was present. There was no noted pulmonary hypertension and minimal aortic valve stenosis present. - continue to monitor (2) Atrial fibrillation: Code(s): I48.91 - Unspecified atrial fibrillation Status: Acute Assessment and Plan: - rate controlled And currently in normal sinus rhythm. - Not currently anti-coagulated In the outpatient setting. Receiving Lovenox here. - Continue Metoprolol Succinate. (3) Malignancy: Code(s): C80.1 - Malignant (primary) neoplasm, unspecified Status: Acute Assessment and Plan: -initial read of CT of abdomen and pelvis and chest suggested multiple metastatic lesions. -biopsy was ordered, however after reread the original CT scan and was found out abnormalities identified with air in 2016 and are stable. Therefore the biopsy was canceled. -white blood cells remains stable is currently 2.9 -Oncology consulted thank you for your help - He has had marginal interval increase in his white blood cell count up to 2.2 today. I spoke with oncologist, Dr. Vasquez, who is covering for Dr. Cali last evening. She indicated that her concern was possibly that his hepatitis-C that was reactive on previous testing was never appropriately treated. Patient does not know if he ever received treatment for his hepatitis-C. Her suggestions were to order a B12, folate, TSH, T4, hepatitis panel and HIV screen and then she indicated she would be happy to follow up with him as an outpatient on the results of these tests. These tests have been ordered and are starting to results. B12 is normal at 493, folate is normal at 7.4, T4 is normal at 1.11 his HIV screen is negative and his hepatitis panel does show reactive hepatitis-C. TSH is still pending. As patient cannot remember if he was ever treated for his hepatitis-C we will have him follow-up with Dr. Vasquez on discharge. She indicated that she has less suspicious for a malignancy at this time. His PPD was examined by this provider on this date and appears to be negative. (4) COPD (chronic obstructive pulmonary disease): Qualifiers: COPD type: unspecified COPD Qualified Code(s): J44.9 - Chronic obstructive pulmonary disease, unspecified Code(s): J44.9 - Chronic obstructive pulmonary disease, unspecified Status: Chronic Assessment and Plan: - Continue home meds and monitor. - Not currently in exacerbation. (5) Pancytopenia: Code(s): D61.818 - Other pancytopenia Status: Acute Assessment and Plan: -Etiology uncertain, WBC's today are 3.0 -See problem #3 above. (6) Type 2 diabetes mellitus: Code(s): E11.9 - Type 2 diabetes mellitus without complications Status: Acute Assessment and Plan: -Current glucose 111 -continue sliding scale insulin -Accu-Cheks AC and HS. -diabetic diet (7) Diabetic foot ulcer associated with type 2 diabetes mellitus: Qualifiers: Diabetic foot ulcer location: toe Laterality: right Non-pressure ulcer stage: with necrosis of bone Qualified Code(s): E11.621 - Type 2 diabetes mellitus with
[2021-11-20 11:50] LABS: Glucose Point of Care 179 mg/dl (65-105)
--- NOTE | 2021-11-20 12:17 | PCNSR ---
On 11/20/21, the student, Keshia Martino, provided care and completed [facility] documentation on this patient. I have reviewed the student's documentation and agree with the findings.
[2021-11-20 14:00] VITALS: BP 135/72; PULSE 60; RESP 18; TEMP 36.4; O2SAT 98
[2021-11-20 16:54] LABS: Glucose Point of Care 91 mg/dl (65-105)
[2021-11-23 15:01] LABS: Hepatitis C RNA, Quant PCR <15 IU/mL
== END 2021-11-20 18:00 | disposition home or self-care (01) | DRG 194 ==
LOC: ANHED 16:25 → ANH3MEDSUR 20:01
PROVIDERS: Family Medicine; Nurse Practitioner Adult Health; Admitting Provider Internal Medicine; Emergency Provider General Practice; Visit Provider Nurse Practitioner
DX: I50.41 Acute combined systolic (congestive) and diastolic (congestive) heart failure (principal); E87.6 Hypokalemia; F17.210 Nicotine dependence, cigarettes, uncomplicated; J43.9 Emphysema, unspecified; I48.91 Unspecified atrial fibrillation; C80.1 Malignant (primary) neoplasm, unspecified; D61.818 Other pancytopenia; E11.621 Type 2 diabetes mellitus with foot ulcer; L97.514 Non-pressure chronic ulcer of other part of right foot with necrosis of bone; I87.2 Venous insufficiency (chronic) (peripheral); I89.0 Lymphedema, not elsewhere classified; K74.60 Unspecified cirrhosis of liver; K76.6 Portal hypertension; R16.1 Splenomegaly, not elsewhere classified; B19.20 Unspecified viral hepatitis C without hepatic coma; F15.90 Other stimulant use, unspecified, uncomplicated; Z20.822 Contact with and (suspected) exposure to COVID-19; Z59.02 Unsheltered homelessness; Z79.84 Long term (current) use of oral hypoglycemic drugs; Z79.899 Other long term (current) drug therapy
CPT/HCPCS: 36415; 71046; 71260; 73630; 74177; 80048; 80053; 80074; 82607; 82746; 82948; 83036; 83735; 83880; 84439; 84443; 84480; 84484; 85025; 85027; 85610; 85730; 86703; 87522; 93005; 93970; 94640; 96365; 96372; 96375; 97161; 97165; 99285; A9270; C9803; G0378; G0379; G0432; J0696; J1650; J1815; J1940; J3475; Q9967; U0003; U0005

== ENCOUNTER 2021-12-10 21:36 | Inpatient (IN) | payer OTHER, SELFPAY ==
--- NOTE | ~2021-12-10 | XR_ITS ---
XR chest 1V portable DATE: 12/12/2021 09:02 INDICATION: Fever TECHNIQUE: Portable AP chest on 12/12/2021 at 0906 hours COMPARISON: 12/10/2021 portable AP chest 11/08/2021 CT chest 09/21/2021 AP and lateral chest FINDINGS: Normal heart size. Chronic bilateral small nodular infiltrates; diffusion diagnosis include s tuberculosis, sarcoidosis, silicosis. No superimposed new pulmonary infiltrate or consolidation is evident. No pleural effusion or pulmonary congestion or pneumothorax. IMPRESSION: Chronic nodular infiltrates Reviewed, dictated and finalized at location A. IMPRESSION: Chronic nodular infiltrates
--- NOTE | ~2021-12-10 | CT_ITS ---
EXAMINATION: CT LE LT wo con, CT LE RT wo con DATE: 12/12/2021 10:15 INDICATION: Foot ulcer. Assess for osteomyelitis. TECHNIQUE: 1. High resolution computed tomography (CT) of the left lower leg from the knee to the foot was perfo rmed without intravenous contrast. Additional sagittal and coronal reconstructions were performed. Au tomated exposure control and iterative reconstruction technique were employed. The dose-length produc t was 1303.48 mGy-cm. 2. High resolution computed tomography (CT) of the right lower leg from the knee to the foot was perf ormed without intravenous contrast. Additional sagittal and coronal reconstructions were performed. A utomated exposure control and iterative reconstruction technique were employed. The dose-length produ ct was 1350.88 mGy-cm. COMPARISON: None FINDINGS: Right lower leg: Again seen is amputation of the left third toe with osteotomy extending across the base of the middle phalanx. Bone alignment is normal. Mild tricompartmental osteoarthritis. Physiologic amount of fluid in the right knee joint. Small Herrera's cyst. Prominent subcutaneous varicosities at the posterior as pect of the knee extending caudally primarily along the posterior and medial aspect of the calf. Ther e is also progressively increasing subcutaneous edema at the lower leg and more prominently at the ri ght foot. There are multiple articular and juxta articular erosions in the right foot including at th e lateral malleolus at the ankle, anteriorly along both sides of the subtalar joint, the calcaneocubo id and several talonavicular joints. Nondisplaced fractures at the sustentaculum cesar, at the anterio r process of the calcaneus, compatible underlying the distal articular surface of the medial cuneifor m and across the base of the second-fifth metatarsals. These fractures are all associated with erosio ns suggesting pathologic/insufficiency fractures secondary to compromise of the structural integrity of the bone resulting from the erosions and underlying osteopenia. There is some callus formation abo ut the fractures at the base of metatarsal suggesting the fractures are subacute. The erosions or dis proportionate to the relatively mild joint space narrowing at many of the joints at the right foot an d ankle consistent with mild polyarticular osteoarthritis. No evident deeper skin ulcerations, soft t issue gas or abscess. Left lower leg: Evaluation the left forefoot is somewhat limited by some motion artifact. Similar mild tricompartment al osteoarthritis at the left knee with no joint effusion. Moderate-sized Herrera cyst at the right pop liteal fossa. Similar large subcutaneous varicosities beginning posteromedially at the left knee and extending caudally to the ankle. Bone alignment is normal. Similar reticular and juxta articular eros ions in the left foot at the navicular cuneiform and at the second-fifth tarsal metatarsal joints. Th ere is some associated fragmentation of the bone along the margins of several erosions but no larger fractures as at the right foot. Mild polyarticular osteoarthritis at the left foot is disproportionat e to the size of the erosions. No deep or skin ulcerations, soft tissue gas or evident abscess. IMPRESSION: 1. Large articular and juxta articular erosions at the bilateral feet as detailed above, disproportio compa to otherwise mild appearing polyarticular osteoarthritis and with some secondary fragmentation a long the margins of the erosions and at the right foot with nondisplaced subacute likely pathologic f ractures at the sustentaculum cesar, distal articular cortex of the medial cuneiform and at the base o f the second-fifth metatarsals. Constellation of findings would be most consistent with Charcot joint related to chronic diabetic neuropathy potentially with superimposed gout. Although osteomyelitis co uld not be excluded at the site of any given erosion, this wou
--- NOTE | ~2021-12-10 | CT_ITS ---
EXAMINATION: CT brain wo con DATE: 12/12/2021 10:14 INDICATION: Psychiatric behavior TECHNIQUE: Computed tomography (CT) of the head was performed without intravenous contrast. The mA wa s adjusted according to patient size. Iterative reconstruction technique was employed. Exam dose: 60 5.33 mGy-cm total exam DLP. COMPARISON: 02/01/2021 CT brain FINDINGS: Bilateral frontal lobe chronic encephalomalacia No intracranial mass lesion or hemorrhage, midline shift or mass effect effect. Normal ventricular si ze. Bilateral carotid siphon internal carotid artery calcifications. Nonspecific diminished attenuation c erebral white matter is likely due to chronic small vessel ischemic changes. No subdural or epidural hematoma. Posterior right ethmoid air cell opacification. Minimal soft tissue thickening of the left ethmoid ai r cells. Included paranasal sinuses and mastoid air cells are otherwise unremarkable. No fracture or bone destruction of the cranial vault. IMPRESSION: Chronic bilateral frontal lobe encephalomalacia Cerebral atherosclerosis and chronic small vessel ischemic changes of cerebral white matter No acute intracranial finding or significant change since 02/01/2021 Reviewed, dictated and finalized at [facility]. Reviewed, dictated and finalized at [facility].
--- NOTE | ~2021-12-10 | XR_ITS ---
EXAMINATION: XR chest 1V portable DATE: 12/10/2021 22:08 INDICATION: Peripheral edema and shortness of breath TECHNIQUE: frontal view of the chest was obtained. COMPARISON: Chest radiograph and CT dated 11/12/2021 FINDINGS: Again seen are numerous small pulmonary nodules throughout both lungs with a couple larger nodular op acities in the right mid and right lower lung zone, both which appear to been present at the time of the prior study but appear denser on the current study. No pulmonary edema, pleural effusion or pneum othorax. The cardiomediastinal silhouette is normal. IMPRESSION: 1. Chronic lung disease with no significant change in numerous small nodules scattered throughout bot h lungs with increased density of a couple larger nodules in the right mid and lower lung zone. Based upon appearance on prior CT would favor a chronic granulomatous disease such as sarcoidosis, pneumoc oniosis such as silicosis or atypical infection including tuberculosis. Reviewed, dictated and finalized at [facility]. IMPRESSION: 1. Chronic lung disease with no significant change in numerous small nodules sc attered throughout both lungs with increased density of a couple larger nodules in the right mid and lower lung zone. Based upon appearance on prior CT would favor a chronic granulomatous disease such as sarcoidosis, pneumoconiosis such as silicosis or atypical infection including tuberculosis.
[2021-12-10 21:56] VITALS: BP 142/74; PULSE 91; RESP 16; TEMP 36.6; O2SAT 100
[2021-12-10 22:18] LABS: Hematocrit 29.8 % (40.0-54.0); Hemoglobin 9.3 g/dL (14.0-18.0); Mean Corpuscular HGB Conc 31.2 g/dL (32.0-36.0); Mean Corpuscular Hemoglobin 26.9 pg (27.0-31.0); Mean Corpuscular Volume 86.1 fL (78.0-102.0); Platelet Count Result 113 K/mm3 (150-420); Red Blood Count 3.46 M/mm3 (4.70-6.10); Red Cell Distribution Width 16.4 % (11.6-14.4); White Blood Count 2.1 K/mm3 (4.8-10.8)
--- NOTE | 2021-12-10 22:32 | PC.NURSE ---
Pt up to bedside commode to have a BM. Pt able to get himself out of bed and up to commode without assistance.
[2021-12-10 22:40] LABS: Lactic Acid Reflex 1.4 mmol/L (0.4-2.0)
[2021-12-10 22:43] LABS: Alanine Aminotransferase 20 U/L (16-63); Albumin Level 2.4 g/dL (3.4-5.0); Alkaline Phosphatase 133 U/L (46-116); Anion Gap 7 mmol/L (8-16); Aspartate Amino Transferase 22 U/L (15-37); Bilirubin,Total 0.7 mg/dL (0.00-1.00); Blood Urea Nitrogen 32 mg/dL (7-18); Calcium 7.9 mg/dL (8.5-10.1); Carbon Dioxide 28 mmol/L (21-32); Chloride 104 mmol/L (98-108); Estimated CRCL calculation 81 ml/min; Estimated Glomerular Filt Rate > 60; Glucose 198 mg/dL (70-99); NT Pro B Type Natriuretic Pept 1016 pg/mL (0-125); Osmolality Calculated 300 mOsm/kg (285-295); Potassium 3.2 mmol/L (3.5-5.1); Sodium 139 mmol/L (136-145); Thyroid Stimulating Hormone 0.81 uIU/mL (0.36-3.74); Total Protein 6.6 g/dL (6.4-8.2)
--- NOTE | 2021-12-10 22:49 | PC.NURSE ---
RN back in room to check on pt and found him back in bed, sleeping. There was liquid stool all over the commode and floor. Housekeeping to room to clean floor.
[2021-12-10 22:57] LABS: Band Neutrophils Percent 0 % (0-6); Basophils Percent Manual 0 % (0-1); Eosinophils Absolute Manual 0.23 K/mm3 (0.02-0.5); Eosinophils Percent Manual 11 % (1-6); Lymphocytes Absolute Manual 0.21 K/mm3 (1.1-4.5); Lymphocytes Percent Manual 10 % (18-44); Monocytes Absolute Manual 0.14 K/mm3 (0.1-0.90); Monocytes Percent Manual 7 % (3-9); Neutrophils Absolute Manual 1.51 K/mm3 (1.3-6.7); Neutrophils Percent Manual 72 % (46-73); SARS-CoV-2 RNA PCR Negative (Negative)
[2021-12-10 22:58] LABS: Ethanol < 3 mg/dL (0-6); Platelet Estimate Adequate (Adequate)
[2021-12-10 23:00] LABS: Amphetamine Screen Urine Positive (Negative); Barbiturate Screen Urine Negative (Negative); Benzodiazepines Screen Urine Negative (Negative); Cannabinoid Screen Urine Negative (Negative); Cocaine Screen Urine Negative (Negative); Methadone Screen Urine Negative (Negative); Opiate Screen Urine Negative (Negative); Phencyclidine Screen Urine Negative (Negative)
[2021-12-10 23:06] LABS: Ammonia 36 umol/L (11-32)
--- NOTE | 2021-12-10 23:57 | PC.NURSE ---
patient eating supper, VS stable. CHF uncontrolled, potential for seizures from drugs
[2021-12-11] VITALS (13 sets, daily range): BP systolic 110–175; BP diastolic 68–93; PULSE 62–108; RESP 17–22; TEMP 36.6–39.4; O2SAT 94–99; BMI 29.9
[2021-12-11] MEDS: POTASSIUM BICARBONATE 25 MEQ TABEF 50 MEQ PO ×2 (00:22→05:11)
[2021-12-11] MEDS: MAG HYDROX/AL HYDROX/SIMETH 30 ML UDC PO (00:32)
--- NOTE | 2021-12-11 00:35 | PC.NURSE ---
monitor & suction equipment cont at bedside with RN at bedside. monitoring for suicidal ideations & seizures. ate 100% of box lunch
--- NOTE | 2021-12-11 01:42 | PC.NURSE ---
behavior health arrived, patient took off gown refused to put back on, states my right to sleep naked
--- NOTE | 2021-12-11 01:54 | PC.NURSE ---
[facility] states he is to high to access.patient moans every time she ask a question, prior to arrival patient answers all questions, eating and managing TV. MD notified of mental health findings
--- NOTE | 2021-12-11 02:16 | ED.PSYCH ---
HPI - Psych General Chief Complaint: Psychiatric Symptoms Stated Complaint: L leg swelling Source: patient and EMS Mode of arrival: EMS Limitations: altered mental status and physical limitation History of Present Illness HPI Narrative: This is a 61 year gentleman that presents via EMS after he was being verbally abusive to patient's, and was asked by medical records receptionist if he needed any attention or help her to be seen by a physician in the ER and he said no, was belligerent police was called and they pulled him over a down the road off hospital property. EMS brought him to the emergency department, patient has a history of hepatitis C as liver cirrhosis has some chronic lymphedema with a history of CHF, with his chronic lymphedema cause a little area on his right lower extremity small wound with erythema. Otherwise the patient voiced that he was suicidal but had no clear plan and otherwise patient lives out of his truck. Currently he is awake alert but seems to not want to respond to questions he feels that questioning is redundant. No fever chills his vitals are stable there is no nausea vomiting no abdominal pain no diarrhea constipation. complaint: suicidal ideation Onset (ago): hour(s) Duration: changing over time Context: recent drug abuse Associated symptoms: confusion Related Data Allergies Allergy/AdvReac Type Severity Reaction Status Date / Time No Known Allergies Allergy Verified 12/10/21 21:54 Review of Systems Review of Systems: All systems reviewed & are unremarkable except as noted in HPI and below PMFSH Past Medical History Medical History Acute combined systolic and diastolic congestive heart failure Acute exacerbation of congestive heart failure Atrial fibrillation Cirrhosis of liver COPD (chronic obstructive pulmonary disease) Diabetes type 2, controlled Diabetic foot ulcer associated with type 2 diabetes mellitus Esophageal varices Fracture of thumb, left, closed Hepatitis C Osteomyelitis Pancytopenia Thrombocytopenia Type 2 diabetes mellitus Surgical History Surgical History H/O cardiac catheterization H/O hernia repair History of esophagogastroduodenoscopy (EGD) Family History Family History Father Family history of pancreatic cancer Hypertension Sibling Diabetes mellitus Social History Social History Social History: The patient is homeless and states that he lives in his truck. The patient stated he has raised 7 children. The patient is a recovering alcoholic Smoking status: Former smoker Tobacco type: cigarettes Second hand tobacco smoke exposure: No Alcohol intake: unknown Substance use: current Substance use type: amphetamines Last use: last week Gender identity (if verbalized by the patient): Male Spiritual care concerns: No Exam Const: General: healthy appearing and no acute distress Limitations: no limitations HENMT: Head: normal to inspection Ears: external ears normal General nose exam: Normal external nose present Face and sinus: normal facial exam Eyes: Conjunctivae: conjunctivae normal Pupils: Equal, round and reactive pupils present EOM: EOMs intact bilaterally Neck: Neck: normal visual inspection, no lymphadenopathy and no meningeal signs Chest: Chest palpation & inspection: normal inspection of the chest Resp: Effort & Inspection: normal respiratory effort Auscultation: clear to auscultation bilaterally Cardio: Rate: regular rate Rhythm: regular rhythm GI: GI Palp: Yes Soft to palpation Auscultation: normal bowel sounds Back/Spine/Pelvis: Back: no CVA tenderness Skin: General skin exam: normal color Rashes: no rashes Wounds: wounds noted Other: Right lower extremity with some little area of erythema Neuro:
--- NOTE | 2021-12-11 02:21 | PC.NURSE ---
patient refuses to wear a gown, keeps exposing self to mental health worker. refuses to talk to counselor, will only moan and put a pillow over face.
[2021-12-11] MEDS: cefTRIAXone 1 GM, LIDOCAINE HCL 1% LOCAL INJ 2.1 ML IM (02:48)
[2021-12-11] MEDS: FUROSEMIDE 40 MG TABLET (02:49)
--- NOTE | 2021-12-11 03:59 | PC.NURSE ---
patient up to bedside commode had large liquid BM
--- NOTE | 2021-12-11 04:10 | PC.NURSE ---
waiting on sitter to be available
--- NOTE | 2021-12-11 04:54 | PC.NURSE ---
Patient admitted to room 207 per wheelchair from the ER. Patient is alert and restless, moaning frequently, oriented to room and surroundings.
--- NOTE | 2021-12-11 05:54 | PM.IMHP ---
H&P: HPI History of Present Illness Date/Time: 12/11/21 05:54 Chief Complaint: Psychiatric symptoms Narrative: This is a 61-year-old male that presented to the emergency department with suicidal ideations and aggressive behavior. Patient has a past medical history of congestive heart failure, cirrhosis of the liver, COPD, type 2 diabetes, hepatitis C, pancytopenia, and thrombocytopenia. Patient is in bed and currently incontinent of stool with stool over him and his bed , sitter at bedside due to suicidal ideation. During this assessment patient tells me to get away from him, unable to complete an assessment. according to notes, EMS brought patient to our emergency department after being pulled over by a local police. According to ER doctor patient is being admitted for hypokalemia, uncompensated congestive heart failure and cellulitis that requires IV antibiotic treatment. According to nursing notes at approximately 1:00 AM mental health came to assess the patient and was unable to get any answers from patient's due to patient being to High patient was unable to be evaluated for placement. At some point it was determined by the ER doctor that patient was too unstable to be transferred to behavioral health due to his hypokalemia ,congestive heart failure and cellulitis. Patient's vital signs 139/70, 90, 20, 98, satting 98% on room air with no complaints of shortness of breath, WBCs 2.1, hemoglobin 9.3, hematocrit 29.8, platelets 113, sodium 129, potassium 3.2, BUN 32, creatinine 0.95, glucose 198, lactic acid 1.4, total bilirubin 0.7, AST 22, ALT 20, ammonia 36, BNP 1016 TSH 0.81 positive for amphetamines x-ray does not indicate pulmonary edema does indicate small nodules which is not new ,EKG sinus rhythm with a heart rate of 97. Had a discussion with the ER doctor and informed him that behavioral health will be most appropriate for patient due to his suicidal ideation and aggresive behavior. ER doctor seem to think that patient was too unstable to be transferred to a behavioral health. Agreed to admit the patient only if he required IV antibiotic therapy due to cellulitis . We will attempt to place patient in behavioral health today due to suicidal ideation and aggressive behavior. He does not appear to be in any distress no noticeable shortness of breath or cellulitis. Call to [facility] for evaluation for placement. At [address] [facility]. is here to assess patient will attempt to place patient in behavioral health facility involuntary Review of Systems Review of Systems: ROS unobtainable: Yes unobtainable due to mental status PMFSH Past Medical History Medical History Acute combined systolic and diastolic congestive heart failure Acute exacerbation of congestive heart failure Atrial fibrillation Cirrhosis of liver COPD (chronic obstructive pulmonary disease) Diabetes type 2, controlled Diabetic foot ulcer associated with type 2 diabetes mellitus Esophageal varices Fracture of thumb, left, closed Hepatitis C Osteomyelitis Pancytopenia Thrombocytopenia Type 2 diabetes mellitus Surgical History Surgical History H/O cardiac catheterization H/O hernia repair History of esophagogastroduodenoscopy (EGD) Family History Family History Father Family history of pancreatic cancer Hypertension Sibling Diabetes mellitus Social History Social History Social History: The patient is homeless and states that he lives in his truck. The patient stated he has raised 7 children. The patient is a recovering alcoholic Smoking status: Former smoker Tobacco type: cigarettes Second hand tobacco smoke exposure: No Alcohol intake: unknown Substance use: current Substance use type: amphetamines Last use: last w
[2021-12-11] MEDS: BUDESONIDE/FORMOTEROL (*SP) 160-4.5 MCG 6 GM INH 2 PUFF INHALATION ×2 (06:18→17:33)
[2021-12-11] MEDS: UMECLIDINIUM BROMIDE 62.5 MCG ELLIPTA 1 PUFF INHALATION (08:12)
[2021-12-11] MEDS: metFORMIN HCL 500 MG TABLET 1000 MG PO ×2 (08:12→16:36)
[2021-12-11] MEDS: ENOXAPARIN 40 MG/0.4 ML SYRINGE SUB-Q (08:13)
[2021-12-11] MEDS: MAGNESIUM OXIDE 400 MG TABLET PO (08:13)
[2021-12-11] MEDS: METOPROLOL SUCCINATE EXT REL 50 MG TABCR PO (08:13)
[2021-12-11] MEDS: BUMETANIDE 1 MG TABLET 4 MG PO (08:23)
--- NOTE | 2021-12-11 08:41 | PC.NURSE ---
Patient continues on 15 min checks for suicidal ideations. Patient is restless, but cooperative at this time. Appetite good. Patient has been drinking large amounts of water and functional tester typewriters has limited his water due to history of CHF. Patient encouraged to get some rest. Will continue to closely monitor.
[2021-12-11] MEDS: CEFDINIR 300 MG CAPSULE PO ×2 (10:10→20:46)
[2021-12-11 12:15] LABS: Glucose Point of Care > 450 mg/dl (65-105)
[2021-12-11] MEDS: IBUPROFEN 400 MG TABLET PO ×2 (12:40→20:48)
--- NOTE | 2021-12-11 12:40 | PC.NURSE ---
Patient has developed a fever. Ibuprofen administered. T 102.1. Will continue to monitor.
[2021-12-11] MEDS: ACETAMINOPHEN 325 MG TABLET 650 MG PO ×2 (13:41→21:01)
--- NOTE | 2021-12-11 13:47 | PC.NURSE ---
Patient's fever continues and has increased to 103.4 using PO thermometer. Tylenol administered.
--- NOTE | 2021-12-11 14:56 | PC.NURSE ---
Sammie from [facility] called and spoke with check writer and asked to speak with patient. Phone was set up in patient's room and check writer was present for phone conversation due to suicide threats and the phone has cords. Patient spoke about suicide ideations to Sammie at [facility] and reiterated the idea that patient would hang himself. Patient stated that everyone at this hospital hates him and that we are a [facility] hospital and do not know how to help him . Center Director reassessed patient's temperature and found it to be 98.0 at this time.
[2021-12-11 16:41] LABS: Glucose Point of Care 114 mg/dl (65-105)
--- NOTE | 2021-12-11 16:45 | PC.NURSE ---
Melissa from [facility] called with update about facilitating transfer for patient to at psychiatric unit. States that the units at reporting patient at Not medically clear due to him having cellulitis/fever and on antibiotics. Melissa states a worker from [facility] will be in touch tomorrow morning to check on patient status and attempt to facilitate transfer for patient again.
[2021-12-11] MEDS: FUROSEMIDE INJ 100 MG/10 ML VIAL 80 MG IV PUSH (17:34)
--- NOTE | 2021-12-11 17:48 | PC.NURSE ---
Patient started stating that his IV site was burning as junior copywriter was flushing post lasix administration. Pulley Man stopped and assessed site, and found no s/s complications. Pulley Man attempted to continue flushing site, and patient complained again, stating, get a doctor in here , repeatedly. Pulley Man stopped flushing again and got charge nurse to come and assess site. Charge nurse found no s/s complications, however, patient was being belligerant and charge nurse instructed junior copywriter to discontinue IV access and notified ARCHITECTURE TECHNICIAN of problem. Pulley Man removed access.
[2021-12-11 20:42] LABS: Glucose Point of Care 123 mg/dl (65-105)
[2021-12-11] MEDS: traZODone HCL 25 MG TABLET PO (20:46)
[2021-12-11] MEDS: LORazepam (*CRX) 0.5 MG TABLET PO (20:50)
[2021-12-12 05:28] LABS: Hematocrit 26.1 % (40.0-54.0); Hemoglobin 8.2 g/dL (14.0-18.0); Immature Platelet Fraction Pct 1.6 % (1.0-7.0); Mean Corpuscular HGB Conc 31.4 g/dL (32.0-36.0); Mean Corpuscular Hemoglobin 26.5 pg (27.0-31.0); Mean Corpuscular Volume 84.2 fL (78.0-102.0); Mean Platelet Volume 9.5 fl (8.7-11.0); Platelet Count Result 92 K/mm3 (150-420); Red Cell Distribution Width 15.9 % (11.6-14.4)
[2021-12-12] MEDS: ACETAMINOPHEN 325 MG TABLET 650 MG PO ×3 (05:32→21:00)
[2021-12-12 05:33] LABS: White Blood Count 1.5 K/mm3 (4.8-10.8)
[2021-12-12] MEDS: BUDESONIDE/FORMOTEROL (*SP) 160-4.5 MCG 6 GM INH 2 PUFF INHALATION ×2 (05:33→18:15)
--- NOTE | 2021-12-12 05:33 | PC.NURSE ---
Pt used inhaler w/spacer very well independently. However, pt did refuse to rinse/spit w/water after use. Pt was aware of the risk of developing thrush and still refused to rinse/spit after encouragement.
--- NOTE | 2021-12-12 05:35 | PC.NURSE ---
Lab called and reported a critical WBC of 1.5.
[2021-12-12 05:44] LABS: Alanine Aminotransferase 19 U/L (16-63); Albumin Level 2.1 g/dL (3.4-5.0); Alkaline Phosphatase 115 U/L (46-116); Anion Gap 6 mmol/L (8-16); Aspartate Amino Transferase 22 U/L (15-37); Bilirubin,Total 0.7 mg/dL (0.00-1.00); Blood Urea Nitrogen 23 mg/dL (7-18); Calcium 7.6 mg/dL (8.5-10.1); Carbon Dioxide 27 mmol/L (21-32); Chloride 103 mmol/L (98-108); Estimated CRCL calculation 79 ml/min; Estimated Glomerular Filt Rate > 60; Glucose 97 mg/dL (70-99); Osmolality Calculated 285 mOsm/kg (285-295); Potassium 3.3 mmol/L (3.5-5.1); Sodium 136 mmol/L (136-145)
--- NOTE | 2021-12-12 06:07 | PC.NURSE ---
Rosie Rodarte NP, notified of critical WBC results. No new orders at this time.
[2021-12-12 07:47] LABS: Glucose Point of Care 133 mg/dl (65-105)
[2021-12-12 08:00] VITALS: BP 123/70; PULSE 76; RESP 14; TEMP 36.4; O2SAT 97
[2021-12-12] MEDS: POTASSIUM CHLORIDE 20 MEQ TABLET 40 MEQ PO (08:00)
[2021-12-12] MEDS: metFORMIN HCL 500 MG TABLET 1000 MG PO ×2 (08:01→16:39)
--- NOTE | 2021-12-12 08:26 | P.PN_ITS ---
Progress Note: A&P Assessment and Plan (1) Acute hypokalemia: Code(s): E87.6 - Hypokalemia Status: Acute Assessment and Plan: * Potassium 3.2>3.3 * Replaced in ER with supplement (2) Cellulitis and abscess of left lower extremity: Code(s): L03.116 - Cellulitis of left lower limb; L02.416 - Cutaneous abscess of left lower limb Status: Acute Assessment and Plan: * Patient has old scabed over foot ulcers no erythema noted * WBCs are not elevated ,lactic acid within normal limits * Will stop ceddinir, c-diff result indicate potential carrier and his ulcer are heal and no cellulitis noted . Refer to c-diff * ct of his italo LE pending to r/o an abscess or osteomyelitis * Blood culture pending * Lower extremity CT pending (3) Depression with suicidal ideation: Code(s): F32.A - Depression, unspecified; R45.851 - Suicidal ideations Status: Acute Assessment and Plan: * Patient admitted for suicidal ideations * started patient on Seroquel due to paranoid behavior * (4) Lymphedema due to venous insufficiency: Code(s): I89.0 - Lymphedema, not elsewhere classified; I87.2 - Venous insufficiency (chronic) (peripheral) Status: Acute Assessment and Plan: * appears to be chronic, bilateral lower extremity edema has been reported as for back as 2020 * Continue bumetanide * ct of italo LE pending (5) Malignancy: Code(s): C80.1 - Malignant (primary) neoplasm, unspecified Status: Acute Assessment and Plan: * Chronic * Chest x-ray indicate chronic lung disease with no significant change in numerous small nodules scattered throughout both lungs.repeat CXR indicate Chronic nodular infiltrates? * Oncology consulted last hospital admission and it was determined that they were not suspicious of malignancy. (6) Pancytopenia: Code(s): D61.818 - Other pancytopenia Status: Acute Assessment and Plan: * Secondary to cirrhosis * WBC 2.1>1.5 baseline 2, RBC3.46>3.10 baseline 3.00-4.00, PLT 113>92 baseline 130 * Oncology consulted patient's last admission, will call oncology on Tuesday for any recommendation. Patient was to follow up with oncology. Possible cause of pancytopenia is untreated cirrhosis. (7) Atrial fibrillation: Code(s): I48.91 - Unspecified atrial fibrillation Status: Acute Assessment and Plan: * Controlled rate * Sinus rhythm with occasional PVC heart rate of 97 * Continue metoprolol * It was determined at patient's last hospital admission that he did not require any anticoagulant (8) Type 2 diabetes mellitus: Code(s): E11.9 - Type 2 diabetes mellitus without complications Status: Acute Assessment and Plan: * Glucose 133 * Continue ss with hypoglycemic protocol and accuchecks * A1c on 11/14/2021 7.1 (9) Diabetic foot ulcer associated with type 2 diabetes mellitus: Qualifiers: Diabetic foot ulcer location: toe Laterality: right Non-pressure ulcer stage: with necrosis of bone Qualified Code(s): E11.621 - Type 2 diabetes mellitus with foot ulcer; L97.514 - Non-pressure chronic ulcer of other part of right foot with necrosis of bone Code(s): E11.621 - Type 2 diabetes mellitus with foot ulcer; L97.509 - Non-pressure chronic ulcer of other part of unspecified foot with unspecified severity Status: Acute Assessment and Plan: * ABX not needed ulcer healed * Foot ulcer healing continue wound care * crp 5.2 (10) Hepatitis C: Code(s): B19.20 - Unspecified viral hep
--- NOTE | 2021-12-12 08:26 | WPDPN ---
Progress Note: A&P Assessment and Plan (1) Acute hypokalemia: Code(s): E87.6 - Hypokalemia Status: Acute Assessment and Plan: Potassium 3.2>3.3 Replaced in ER with supplement (2) Cellulitis and abscess of left lower extremity: Code(s): L03.116 - Cellulitis of left lower limb; L02.416 - Cutaneous abscess of left lower limb Status: Acute Assessment and Plan: Patient has old scabed over foot ulcers no erythema noted WBCs are not elevated ,lactic acid within normal limits Will stop ceddinir, c-diff result indicate potential carrier and his ulcer are heal and no cellulitis noted . Refer to c-diff ct of his italo LE pending to r/o an abscess or osteomyelitis Blood culture pending Lower extremity CT pending (3) Depression with suicidal ideation: Code(s): F32.A - Depression, unspecified; R45.851 - Suicidal ideations Status: Acute Assessment and Plan: Patient admitted for suicidal ideations started patient on Seroquel due to paranoid behavior (4) Lymphedema due to venous insufficiency: Code(s): I89.0 - Lymphedema, not elsewhere classified; I87.2 - Venous insufficiency (chronic) (peripheral) Status: Acute Assessment and Plan: appears to be chronic, bilateral lower extremity edema has been reported as for back as [address] of italo LE pending (5) Malignancy: Code(s): C80.1 - Malignant (primary) neoplasm, unspecified Status: Acute Assessment and Plan: Chronic Chest x-ray indicate chronic lung disease with no significant change in numerous small nodules scattered throughout both lungs.repeat CXR indicate Chronic nodular infiltrates? Oncology consulted last hospital admission and it was determined that they were not suspicious of malignancy. (6) Pancytopenia: Code(s): D61.818 - Other pancytopenia Status: Acute Assessment and Plan: Secondary to cirrhosis WBC 2.1>1.5 baseline 2, RBC3.46>3.10 baseline 3.00-4.00, PLT 113>92 baseline 130 Oncology consulted patient's last admission, will call oncology on Tuesday for any recommendation. Patient was to follow up with oncology. Possible cause of pancytopenia is untreated cirrhosis. (7) Atrial fibrillation: Code(s): I48.91 - Unspecified atrial fibrillation Status: Acute Assessment and Plan: Controlled rate Sinus rhythm with occasional PVC heart rate of 97 Continue metoprolol It was determined at patient's last hospital admission that he did not require any anticoagulant (8) Type 2 diabetes mellitus: Code(s): E11.9 - Type 2 diabetes mellitus without complications Status: Acute Assessment and Plan: Glucose 133 Continue ss with hypoglycemic protocol and accuchecks A1c on 11/14/2021 7.1 (9) Diabetic foot ulcer associated with type 2 diabetes mellitus: Qualifiers: Diabetic foot ulcer location: toe Laterality: right Non-pressure ulcer stage: with necrosis of bone Qualified Code(s): E11.621 - Type 2 diabetes mellitus with foot ulcer; L97.514 - Non-pressure chronic ulcer of other part of right foot with necrosis of bone Code(s): E11.621 - Type 2 diabetes mellitus with foot ulcer; L97.509 - Non-pressure chronic ulcer of other part of unspecified foot with unspecified severity Status: Acute Assessment and Plan: ABX not needed ulcer healed Foot ulcer healing continue wound care crp 5.2 (10) Hepatitis C: Code(s): B19.20 - Unspecified viral hepatitis C without hepatic coma Status: Acute Assessment and Plan: on 11/18/2021 Hep C Ab reactive oncology consulted last hospital visit 11/16/2021 ,patient couldn't remember if he was ever treated for his hepatitis-C . He was to follow-up with Dr. Vasquez on discharge.? She indicated per notes that she had less suspicious for a malignancy at this time.? His PPD was examined by provider at last admission and it appears
[2021-12-12] MEDS: UMECLIDINIUM BROMIDE 62.5 MCG ELLIPTA 1 PUFF INHALATION (09:14)
[2021-12-12] MEDS: MAGNESIUM OXIDE 400 MG TABLET PO (09:14)
[2021-12-12] MEDS: BUMETANIDE 1 MG TABLET 4 MG PO (09:14)
[2021-12-12 09:15] VITALS: PULSE 72
[2021-12-12] MEDS: QUEtiapine FUMARATE 25 MG TABLET PO ×2 (09:15→20:36)
[2021-12-12] MEDS: METOPROLOL SUCCINATE EXT REL 50 MG TABCR PO (09:15)
[2021-12-12] MEDS: CEFDINIR 300 MG CAPSULE PO ×2 (09:15→20:36)
--- NOTE | 2021-12-12 09:23 | PC.NURSE ---
c diff positive, patient placed on contact precautions
[2021-12-12 09:44] LABS: HIV 1 P24 AG Negative (Negative); HIV 1/2 AB Negative (Negative)
--- NOTE | 2021-12-12 09:55 | PC.NURSE ---
Reviewed C diff report with nurse practitioner, due to frequent diarrhea stools, it is best to put/keep patient on contact isolation, patient reported as a carrier on report
[2021-12-12 10:00] LABS: Free T4 Free Thyroxine 1.17 ng/dL (0.76-1.46); Thyroid Stimulating Hormone 0.76 uIU/mL (0.36-3.74); Vitamin B12 460 pg/mL (193-986)
[2021-12-12 10:15] LABS: CRP 5.2 mg/dL (0.0-0.9)
[2021-12-12 11:56] LABS: Glucose Point of Care 154 mg/dl (65-105)
[2021-12-12] MEDS: VANCOMYCIN HCL 125 MG CAPSULE PO ×3 (13:36→20:36)
[2021-12-12 16:00] VITALS: BP 98/71; PULSE 77; RESP 16; TEMP 36.6; O2SAT 98
[2021-12-12 16:40] LABS: Glucose Point of Care 166 mg/dl (65-105)
--- NOTE | 2021-12-12 19:29 | PC.NURSE ---
Pt was given 2 cups of ice cream per request. Pt stated he was not happy and wanted to go to [place]. Pt was educated that this facility is attempting to transfer him, but [place] has declined the pt due to being too medically unstable. Pt verbalized understanding of the circumstances.
[2021-12-12 20:01] LABS: SARS-CoV-2 Ag Negative (Negative)
[2021-12-12] MEDS: traZODone HCL 25 MG TABLET PO (20:36)
[2021-12-12] MEDS: LORazepam (*CRX) 0.5 MG TABLET PO (20:40)
[2021-12-12 20:45] LABS: Glucose Point of Care 143 mg/dl (65-105)
[2021-12-12 23:03] VITALS: BP 120/71; PULSE 79; RESP 17; TEMP 36.8; O2SAT 97
[2021-12-13] MEDS: ACETAMINOPHEN 325 MG TABLET 650 MG PO (05:12)
[2021-12-13 05:30] LABS: Hematocrit 29.4 % (40.0-54.0); Hemoglobin 9.1 g/dL (14.0-18.0); Mean Corpuscular Hemoglobin 26.3 pg (27.0-31.0); Mean Platelet Volume 9.6 fl (8.7-11.0); Platelet Count Result 101 K/mm3 (150-420); Red Blood Count 3.46 M/mm3 (4.70-6.10); Red Cell Distribution Width 15.9 % (11.6-14.4); White Blood Count 1.6 K/mm3 (4.8-10.8)
[2021-12-13] MEDS: BUDESONIDE/FORMOTEROL (*SP) 160-4.5 MCG 6 GM INH 2 PUFF INHALATION (05:45)
[2021-12-13 05:50] LABS: Alanine Aminotransferase 22 U/L (16-63); Albumin Level 2.2 g/dL (3.4-5.0); Alkaline Phosphatase 142 U/L (46-116); Ammonia 35 umol/L (11-32); Anion Gap 5 mmol/L (8-16); Aspartate Amino Transferase 28 U/L (15-37); Bilirubin,Total 0.4 mg/dL (0.00-1.00); Blood Urea Nitrogen 24 mg/dL (7-18); Calcium 8.1 mg/dL (8.5-10.1); Carbon Dioxide 31 mmol/L (21-32); Chloride 104 mmol/L (98-108); Estimated CRCL calculation 79 ml/min; Estimated Glomerular Filt Rate > 60; Glucose 111 mg/dL (70-99); Magnesium 1.4 mg/dL (1.8-2.4); Osmolality Calculated 295 mOsm/kg (285-295); Sodium 140 mmol/L (136-145); Total Protein 6.4 g/dL (6.4-8.2)
--- NOTE | 2021-12-13 07:49 | P.PN_ITS ---
Progress Note: A&P Assessment and Plan (1) Acute hypokalemia: Code(s): E87.6 - Hypokalemia Status: Acute Assessment and Plan: * Potassium 3.2>3.3>4.0 * Replaced in ER with supplement (2) Cellulitis and abscess of left lower extremity: Code(s): L03.116 - Cellulitis of left lower limb; L02.416 - Cutaneous abscess of left lower limb Status: Acute Assessment and Plan: * Patient has old scabed on right 2nd toe no erythema noted * WBCs are not elevated ,lactic acid within normal limits * Will stop cefdinir, no s/s of infection noted * ct of his italo LE pending to r/o an abscess or osteomyelitis * Blood culture pendingpreliminary no growth * Lower extremity CT pending (3) Depression with suicidal ideation: Code(s): F32.A - Depression, unspecified; R45.851 - Suicidal ideations Status: Acute Assessment and Plan: * Patient admitted for suicidal ideations * started patient on Seroquel due to paranoid behavior * (4) Lymphedema due to venous insufficiency: Code(s): I89.0 - Lymphedema, not elsewhere classified; I87.2 - Venous insufficiency (chronic) (peripheral) Status: Acute Assessment and Plan: * appears to be chronic, bilateral lower extremity edema has been reported as for back as 2020 * Continue bumetanide * ct of italo LE pending (5) Malignancy: Code(s): C80.1 - Malignant (primary) neoplasm, unspecified Status: Acute Assessment and Plan: * Chronic * Chest x-ray indicate chronic lung disease with no significant change in numerous small nodules scattered throughout both lungs.repeat CXR indicate Chronic nodular infiltrates? * Oncology consulted last hospital admission and it was determined that they were not suspicious of malignancy. (6) Pancytopenia: Code(s): D61.818 - Other pancytopenia Status: Acute Assessment and Plan: * Secondary to cirrhosis * WBC 2.1>1.5>1.6 baseline 2, RBC3.46>3.10>3.46 baseline 3.00-4.00, PLT 113 >92>101 baseline 130 * Oncology consulted patient's last admission, will call oncology on Tuesday for any recommendation. Patient was to follow up with oncology. Possible cause of pancytopenia is untreated hep c. (7) Atrial fibrillation: Code(s): I48.91 - Unspecified atrial fibrillation Status: Acute Assessment and Plan: * Controlled rate * Sinus rhythm with occasional PVC heart rate of 97 * Continue metoprolol * It was determined at patient's last hospital admission that he did not require any anticoagulant (8) Type 2 diabetes mellitus: Code(s): E11.9 - Type 2 diabetes mellitus without complications Status: Acute Assessment and Plan: * Glucose 111 * Continue ss with hypoglycemic protocol and accuchecks * A1c on 11/14/2021 7.1 (9) Diabetic foot ulcer associated with type 2 diabetes mellitus: Qualifiers: Diabetic foot ulcer location: toe Laterality: right Non-pressure ulcer stage: with necrosis of bone Qualified Code(s): E11.621 - Type 2 diabetes mellitus with foot ulcer; L97.514 - Non-pressure chronic ulcer of other part of right foot with necrosis of bone Code(s): E11.621 - Type 2 diabetes mellitus with foot ulcer; L97.509 - Non-pressure chronic ulcer of other part of unspecified foot with unspecified severity Status: Acute Assessment and Plan: * ABX not needed ulcer healed * Foot ulcer healing continue wound care * crp 5.2 (10) Hepatitis C: Code(s): B19.20 - Unspecified viral hepatitis C without hepatic coma Status: A
--- NOTE | 2021-12-13 07:49 | WPDPN ---
Progress Note: A&P Assessment and Plan (1) Acute hypokalemia: Code(s): E87.6 - Hypokalemia Status: Acute Assessment and Plan: Potassium 3.2>3.3>4.0 Replaced in ER with supplement (2) Cellulitis and abscess of left lower extremity: Code(s): L03.116 - Cellulitis of left lower limb; L02.416 - Cutaneous abscess of left lower limb Status: Acute Assessment and Plan: Patient has old scabed on right 2nd toe no erythema noted WBCs are not elevated ,lactic acid within normal limits Will stop cefdinir, no s/s of infection noted ct of his italo LE pending to r/o an abscess or osteomyelitis Blood culture pendingpreliminary no growth Lower extremity CT pending (3) Depression with suicidal ideation: Code(s): F32.A - Depression, unspecified; R45.851 - Suicidal ideations Status: Acute Assessment and Plan: Patient admitted for suicidal ideations started patient on Seroquel due to paranoid behavior (4) Lymphedema due to venous insufficiency: Code(s): I89.0 - Lymphedema, not elsewhere classified; I87.2 - Venous insufficiency (chronic) (peripheral) Status: Acute Assessment and Plan: appears to be chronic, bilateral lower extremity edema has been reported as for back as [address] of italo LE pending (5) Malignancy: Code(s): C80.1 - Malignant (primary) neoplasm, unspecified Status: Acute Assessment and Plan: Chronic Chest x-ray indicate chronic lung disease with no significant change in numerous small nodules scattered throughout both lungs.repeat CXR indicate Chronic nodular infiltrates? Oncology consulted last hospital admission and it was determined that they were not suspicious of malignancy. (6) Pancytopenia: Code(s): D61.818 - Other pancytopenia Status: Acute Assessment and Plan: Secondary to cirrhosis WBC 2.1>1.5>1.6 baseline 2, RBC3.46>3.10>3.46 baseline 3.00-4.00, PLT 113>92>101 baseline 130 Oncology consulted patient's last admission, will call oncology on Tuesday for any recommendation. Patient was to follow up with oncology. Possible cause of pancytopenia is untreated hep c. (7) Atrial fibrillation: Code(s): I48.91 - Unspecified atrial fibrillation Status: Acute Assessment and Plan: Controlled rate Sinus rhythm with occasional PVC heart rate of 97 Continue metoprolol It was determined at patient's last hospital admission that he did not require any anticoagulant (8) Type 2 diabetes mellitus: Code(s): E11.9 - Type 2 diabetes mellitus without complications Status: Acute Assessment and Plan: Glucose 111 Continue ss with hypoglycemic protocol and accuchecks A1c on 11/14/2021 7.1 (9) Diabetic foot ulcer associated with type 2 diabetes mellitus: Qualifiers: Diabetic foot ulcer location: toe Laterality: right Non-pressure ulcer stage: with necrosis of bone Qualified Code(s): E11.621 - Type 2 diabetes mellitus with foot ulcer; L97.514 - Non-pressure chronic ulcer of other part of right foot with necrosis of bone Code(s): E11.621 - Type 2 diabetes mellitus with foot ulcer; L97.509 - Non-pressure chronic ulcer of other part of unspecified foot with unspecified severity Status: Acute Assessment and Plan: ABX not needed ulcer healed Foot ulcer healing continue wound care crp 5.2 (10) Hepatitis C: Code(s): B19.20 - Unspecified viral hepatitis C without hepatic coma Status: Acute Assessment and Plan: on 11/18/2021 Hep C Ab reactive oncology consulted last hospital visit 11/16/2021 ,patient couldn't remember if he was ever treated for his hepatitis-C . He was to follow-up with Dr. Vasquez on discharge.? She indicated per notes that she had less suspicious for a malignancy at this time.? His PPD was examined by provider at last admission and it appears to be negative. Liver function test withi
[2021-12-13 07:57] LABS: Glucose Point of Care 141 mg/dl (65-105)
[2021-12-13 08:00] VITALS: BP 132/70; PULSE 78; RESP 16; TEMP 36.4; O2SAT 97
[2021-12-13] MEDS: POTASSIUM CHLORIDE 20 MEQ TABLET 40 MEQ PO (08:14)
[2021-12-13] MEDS: metFORMIN HCL 500 MG TABLET 1000 MG PO ×2 (08:15→17:04)
--- NOTE | 2021-12-13 08:43 | PC.NURSE ---
Attempt to obtain medical records from [facility], awaiting call back
[2021-12-13] MEDS: VANCOMYCIN HCL 125 MG CAPSULE PO ×4 (09:13→20:28)
[2021-12-13] MEDS: BUMETANIDE 1 MG TABLET 4 MG PO (09:13)
[2021-12-13] MEDS: MAGNESIUM OXIDE 400 MG TABLET PO ×2 (09:14→17:05)
[2021-12-13 09:15] VITALS: PULSE 78
[2021-12-13] MEDS: GABAPENTIN 100 MG CAPSULE PO ×3 (09:15→17:04)
[2021-12-13] MEDS: METOPROLOL SUCCINATE EXT REL 50 MG TABCR PO (09:15)
[2021-12-13] MEDS: QUEtiapine FUMARATE 25 MG TABLET PO ×2 (09:15→20:28)
[2021-12-13] MEDS: UMECLIDINIUM BROMIDE 62.5 MCG ELLIPTA 1 PUFF INHALATION (09:16)
[2021-12-13] MEDS: LORazepam (*CRX) 0.5 MG TABLET PO ×2 (09:24→20:30)
[2021-12-13 09:35] LABS: Add Urine Microscopic? YES; Appearance Urine Clear (Clear); Bilirubin Urine Negative (Negative); Blood Urine Negative (Negative); Color Urine Light Yellow (Yellow); Glucose Urine UA Negative (Negative); Ketones Urine Negative (Negative); Leukocyte Esterase Ur Negative LEU/UL (Negative); Nitrate Urine Negative (Negative); Protein Urine Trace (Negative); Urobilinogen Urine 0.2 mg/dL (0.2-1.0); pH Urine 6.5 (5.0-8.0)
[2021-12-13 09:41] LABS: RBC Urine None seen /hpf (0-2); Squamous Epithelial Cell Urine None seen /hpf (Few); WBC Urine None seen /hpf (0-3)
[2021-12-13 11:49] LABS: Glucose Point of Care 142 mg/dl (65-105)
[2021-12-13 16:00] VITALS: BP 135/72; PULSE 78; RESP 16; TEMP 36.6; O2SAT 98
[2021-12-13 16:41] LABS: Glucose Point of Care 168 mg/dl (65-105)
[2021-12-13] MEDS: traZODone HCL 25 MG TABLET PO (20:28)
[2021-12-13 20:38] LABS: Glucose Point of Care 186 mg/dl (65-105)
[2021-12-13 23:01] VITALS: BP 128/80; PULSE 87; RESP 16; TEMP 37.1; O2SAT 97
[2021-12-14 05:19] LABS: Hematocrit 29.2 % (40.0-54.0); Hemoglobin 9.2 g/dL (14.0-18.0); Mean Corpuscular HGB Conc 31.5 g/dL (32.0-36.0); Mean Corpuscular Hemoglobin 26.5 pg (27.0-31.0); Mean Corpuscular Volume 84.1 fL (78.0-102.0); Mean Platelet Volume 10.2 fl (8.7-11.0); Platelet Count Result 110 K/mm3 (150-420); Red Blood Count 3.47 M/mm3 (4.70-6.10); Red Cell Distribution Width 15.7 % (11.6-14.4); White Blood Count 1.8 K/mm3 (4.8-10.8)
[2021-12-14] MEDS: BUDESONIDE/FORMOTEROL (*SP) 160-4.5 MCG 6 GM INH 2 PUFF INHALATION ×2 (05:31→19:04)
[2021-12-14 05:36] LABS: Alanine Aminotransferase 32 U/L (16-63); Albumin Level 2.2 g/dL (3.4-5.0); Alkaline Phosphatase 177 U/L (46-116); Anion Gap 5 mmol/L (8-16); Aspartate Amino Transferase 37 U/L (15-37); Bilirubin,Total 0.3 mg/dL (0.00-1.00); Blood Urea Nitrogen 26 mg/dL (7-18); Calcium 8.3 mg/dL (8.5-10.1); Carbon Dioxide 31 mmol/L (21-32); Chloride 102 mmol/L (98-108); Estimated CRCL calculation 84 ml/min; Estimated Glomerular Filt Rate > 60; Glucose 149 mg/dL (70-99); Osmolality Calculated 293 mOsm/kg (285-295); Potassium 4.2 mmol/L (3.5-5.1); Sodium 138 mmol/L (136-145); Total Protein 6.4 g/dL (6.4-8.2)
[2021-12-14 08:00] VITALS: BP 137/79; PULSE 80; RESP 16; TEMP 36.8; O2SAT 97
--- NOTE | 2021-12-14 08:27 | P.PN_ITS ---
Progress Note: A&P Assessment and Plan (1) Acute hypokalemia: Code(s): E87.6 - Hypokalemia Status: Acute Assessment and Plan: * Potassium 3.2>3.3>4.0>4.2 * Replaced in ER with supplement (2) Cellulitis and abscess of left lower extremity: Code(s): L03.116 - Cellulitis of left lower limb; L02.416 - Cutaneous abscess of left lower limb Status: Acute Assessment and Plan: * Patient has old scabed on right 2nd toe no erythema noted * WBCs are not elevated ,lactic acid within normal limits * Will stop cefdinir, no s/s of infection noted * Blood culture pendingpreliminary no growth * italo Lower extremity CT does not indicate any deep ulceration soft tissue gas or evidence of abscess or infection/osteomyelitis * CT of the lower extremity indicates diabetic neuropathy with gout and osteoarthritis (3) Depression with suicidal ideation: Code(s): F32.A - Depression, unspecified; R45.851 - Suicidal ideations Status: Acute Assessment and Plan: * Patient more cooperative and does not appear to be paranoid * Patient admitted for suicidal ideations * started patient on Seroquel due to paranoid behavior (4) Lymphedema due to venous insufficiency: Code(s): I89.0 - Lymphedema, not elsewhere classified; I87.2 - Venous insufficiency (chronic) (peripheral) Status: Acute Assessment and Plan: * appears to be chronic, bilateral lower extremity edema has been reported as for back as 2019 * Continue bumetanide * ct of italo LE pending (5) Malignancy: Code(s): C80.1 - Malignant (primary) neoplasm, unspecified Status: Acute Assessment and Plan: * Chronic * Chest x-ray indicate chronic lung disease with no significant change in numerous small nodules scattered throughout both lungs.repeat CXR indicate Chronic nodular infiltrates? * Oncology consulted last hospital admission and it was determined that they were not suspicious of malignancy. (6) Pancytopenia: Code(s): D61.818 - Other pancytopenia Status: Acute Assessment and Plan: * Secondary to hepatitis * WBC 2.1>1.5>1.6 >1.8 baseline 2, RBC3.46>3.10>3.46>3.47 baseline 3.00-4.00, PLT 113>92>101>110 baseline 130 * Oncology consulted patient's last admission, will call oncology on Tuesday for any recommendation. Patient was to follow up with oncology. Possible cause of pancytopenia is untreated hep c. (7) Atrial fibrillation: Code(s): I48.91 - Unspecified atrial fibrillation Status: Acute Assessment and Plan: * Controlled rate * Sinus rhythm with occasional PVC heart rate of 97 * Continue metoprolol * It was determined at patient's last hospital admission that he did not require any anticoagulant (8) Type 2 diabetes mellitus: Code(s): E11.9 - Type 2 diabetes mellitus without complications Status: Acute Assessment and Plan: * Stable * Continue ss with hypoglycemic protocol and accuchecks * A1c on 11/14/2021 7.1 (9) Diabetic foot ulcer associated with type 2 diabetes mellitus: Qualifiers: Diabetic foot ulcer location: toe Laterality: right Non-pressure ulcer stage: with necrosis of bone Qualified Code(s): E11.621 - Type 2 diabetes mellitus with foot ulcer; L97.514 - Non-pressure chronic ulcer of other part of right foot with necrosis of bone Code(s): E11.621 - Type 2 diabetes mellitus with foot ulcer; L97.509 - Non-pressure chronic ulcer of other part of unspecified foot with unspecified severity Status: Acute Assessment and Plan: * ABX
--- NOTE | 2021-12-14 08:27 | WPDPN ---
Progress Note: A&P Assessment and Plan (1) Acute hypokalemia: Code(s): E87.6 - Hypokalemia Status: Acute Assessment and Plan: Potassium 3.2>3.3>4.0>4.2 Replaced in ER with supplement (2) Cellulitis and abscess of left lower extremity: Code(s): L03.116 - Cellulitis of left lower limb; L02.416 - Cutaneous abscess of left lower limb Status: Acute Assessment and Plan: Patient has old scabed on right 2nd toe no erythema noted WBCs are not elevated ,lactic acid within normal limits Will stop cefdinir, no s/s of infection noted Blood culture pendingpreliminary no growth italo Lower extremity CT does not indicate any deep ulceration soft tissue gas or evidence of abscess or infection/osteomyelitis CT of the lower extremity indicates diabetic neuropathy with gout and osteoarthritis (3) Depression with suicidal ideation: Code(s): F32.A - Depression, unspecified; R45.851 - Suicidal ideations Status: Acute Assessment and Plan: Patient more cooperative and does not appear to be paranoid Patient admitted for suicidal ideations started patient on Seroquel due to paranoid behavior (4) Lymphedema due to venous insufficiency: Code(s): I89.0 - Lymphedema, not elsewhere classified; I87.2 - Venous insufficiency (chronic) (peripheral) Status: Acute Assessment and Plan: appears to be chronic, bilateral lower extremity edema has been reported as for back as [address] of italo LE pending (5) Malignancy: Code(s): C80.1 - Malignant (primary) neoplasm, unspecified Status: Acute Assessment and Plan: Chronic Chest x-ray indicate chronic lung disease with no significant change in numerous small nodules scattered throughout both lungs.repeat CXR indicate Chronic nodular infiltrates? Oncology consulted last hospital admission and it was determined that they were not suspicious of malignancy. (6) Pancytopenia: Code(s): D61.818 - Other pancytopenia Status: Acute Assessment and Plan: Secondary to hepatitis WBC 2.1>1.5>1.6 >1.8 baseline 2, RBC3.46>3.10>3.46>3.47 baseline 3.00-4.00, PLT 113>92>101>110 baseline 130 Oncology consulted patient's last admission, will call oncology on Tuesday for any recommendation. Patient was to follow up with oncology. Possible cause of pancytopenia is untreated hep c. (7) Atrial fibrillation: Code(s): I48.91 - Unspecified atrial fibrillation Status: Acute Assessment and Plan: Controlled rate Sinus rhythm with occasional PVC heart rate of 97 Continue metoprolol It was determined at patient's last hospital admission that he did not require any anticoagulant (8) Type 2 diabetes mellitus: Code(s): E11.9 - Type 2 diabetes mellitus without complications Status: Acute Assessment and Plan: Stable Continue ss with hypoglycemic protocol and accuchecks A1c on 11/14/2021 7.1 (9) Diabetic foot ulcer associated with type 2 diabetes mellitus: Qualifiers: Diabetic foot ulcer location: toe Laterality: right Non-pressure ulcer stage: with necrosis of bone Qualified Code(s): E11.621 - Type 2 diabetes mellitus with foot ulcer; L97.514 - Non-pressure chronic ulcer of other part of right foot with necrosis of bone Code(s): E11.621 - Type 2 diabetes mellitus with foot ulcer; L97.509 - Non-pressure chronic ulcer of other part of unspecified foot with unspecified severity Status: Acute Assessment and Plan: ABX not needed ulcer healed Foot ulcer healing continue wound care crp 5.2 (10) Hepatitis C: Code(s): B19.20 - Unspecified viral hepatitis C without hepatic coma Status: Acute Assessment and Plan: on 11/18/2021 Hep C Ab reactive oncology consulted last hospital visit 11/16/2021 ,patient couldn't remember if he was ever treated for his hepatitis-C . He was to follow-up with Dr. Vasquez on discharge.? S
[2021-12-14] MEDS: metFORMIN HCL 500 MG TABLET 1000 MG PO ×2 (08:40→16:38)
[2021-12-14 08:41] LABS: Uric Acid 8.2 mg/dL (3.5-7.2)
[2021-12-14] MEDS: POTASSIUM CHLORIDE 20 MEQ TABLET 40 MEQ PO (08:41)
[2021-12-14] MEDS: BUMETANIDE 1 MG TABLET 4 MG PO (08:41)
[2021-12-14] MEDS: UMECLIDINIUM BROMIDE 62.5 MCG ELLIPTA 1 PUFF INHALATION (08:41)
[2021-12-14] MEDS: VANCOMYCIN HCL 125 MG CAPSULE PO (08:41)
[2021-12-14 08:42] VITALS: PULSE 80
[2021-12-14] MEDS: METOPROLOL SUCCINATE EXT REL 50 MG TABCR PO (08:42)
[2021-12-14] MEDS: ACETAMINOPHEN 325 MG TABLET 650 MG PO (08:43)
[2021-12-14] MEDS: QUEtiapine FUMARATE 25 MG TABLET PO ×2 (08:44→20:45)
[2021-12-14] MEDS: MAGNESIUM OXIDE 400 MG TABLET PO ×2 (08:55→16:37)
[2021-12-14] MEDS: GABAPENTIN 400 MG CAPSULE PO ×3 (08:56→16:36)
--- NOTE | 2021-12-14 08:57 | IDPHARM ---
[facility] was consulted by Ruel Rodarte regarding infectious diseases for Maxim Babb. Maxim Babb is a 61 year old M with concerns regarding potential Clostridioides Difficile Infection Diagnosis. Background The patient is currently receiving oral vancomycin therapy. Per the provider, the patient had one episode of watery diarrhea which prompted CDI GDH antigen and Toxin A/B test. While I am unable to find these results, the provider was able to read them to me showing a positive GDH and negative antigen. Assessment/Recommendation/Discussion With the results provided to me by the provider and compounded with the low amount of stools / day and the rationale for testing being only one episode being watery (not meeting 3 stools/24hours as well) the likelihood that this is true CDI is low. Per diagonstic recommendations from treatment guidelines, an NAAT test can be performed to mill operator helper the decision in treating. Provider to look into NAAT testing. Likely may be able to discontinue this oral vancomycin if patient is just carrier and not undergoing active infection. Thank you for the interesting consult. Gamal Jain, PharmD Infectious Disease/Antimicrobial Stewardship Pharmacist 12/14/21; 0726
[2021-12-14 10:07] LABS: Band Neutrophils Percent 0 % (0-6); Eosinophils Absolute Manual 0.07 K/mm3 (0.02-0.5); Eosinophils Percent Manual 4 % (1-6); Lymphocytes Absolute Manual 0.39 K/mm3 (1.1-4.5); Lymphocytes Percent Manual 22 % (18-44); Monocytes Absolute Manual 0.19 K/mm3 (0.1-0.90); Monocytes Percent Manual 11 % (3-9); Neutrophils Absolute Manual 1.13 K/mm3 (1.3-6.7); Neutrophils Percent Manual 63 % (46-73); Total Cells Counted 100
[2021-12-14 11:45] LABS: Glucose Point of Care 151 mg/dl (65-105)
[2021-12-14] MEDS: INDOMETHACIN 25 MG CAPSULE PO ×2 (11:52→16:36)
--- NOTE | 2021-12-14 12:26 | PC.NURSE ---
patient speaking with [facility] via phone
[2021-12-14 16:00] VITALS: BP 136/80; PULSE 77; RESP 16; TEMP 36.9; O2SAT 98
[2021-12-14] MEDS: SACCHAROMYCES BOULARDII 250 MG CAPSULE PO (16:37)
[2021-12-14 16:41] LABS: Glucose Point of Care 136 mg/dl (65-105)
--- NOTE | 2021-12-14 19:15 | PC.NURSE ---
Pt requesting ice cream for a snack, teaching given on high sugar content of ice cream and ice cream not being on pt current diet order, pt became angry, states I get it every night , manual writer offered other snacks, pt refused any snacks.
[2021-12-14 19:37] LABS: Glucose Point of Care 212 mg/dl (65-105)
[2021-12-14 20:00] VITALS: PULSE 77; RESP 16; O2SAT 98
--- NOTE | 2021-12-14 20:15 | PC.NURSE ---
pt assisted to shower and shave, pt independent with ADLs with set up and observation.
[2021-12-14] MEDS: traZODone HCL 25 MG TABLET PO (20:45)
[2021-12-14] MEDS: LORazepam (*CRX) 0.5 MG TABLET PO (20:45)
[2021-12-15] VITALS: BP 143/90; PULSE 82; RESP 16; TEMP 36.9; O2SAT 98
[2021-12-15] MEDS: BUDESONIDE/FORMOTEROL (*SP) 160-4.5 MCG 6 GM INH 2 PUFF INHALATION ×2 (06:02→18:45)
--- NOTE | 2021-12-15 07:25 | P.PN_ITS ---
Progress Note: A&P Assessment and Plan (1) Acute hypokalemia: Code(s): E87.6 - Hypokalemia Status: Acute Assessment and Plan: * Potassium 3.2>3.3>4.0>4.2 * Replaced in ER with supplement (2) Cellulitis and abscess of left lower extremity: Code(s): L03.116 - Cellulitis of left lower limb; L02.416 - Cutaneous abscess of left lower limb Status: Acute Assessment and Plan: * Patient has old scabed on right 2nd toe no erythema noted * WBCs are not elevated ,lactic acid within normal limits * Will stop cefdinir, no s/s of infection noted * Blood culture pendingpreliminary no growth * italo Lower extremity CT does not indicate any deep ulceration soft tissue gas or evidence of abscess or infection/osteomyelitis * CT of the lower extremity indicates diabetic neuropathy with gout and osteoarthritis (3) Depression with suicidal ideation: Code(s): F32.A - Depression, unspecified; R45.851 - Suicidal ideations Status: Acute Assessment and Plan: * Patient more cooperative and does not appear to be paranoid * Patient admitted for suicidal ideations * contniue patient on Seroquel due to paranoid behavior (4) Lymphedema due to venous insufficiency: Code(s): I89.0 - Lymphedema, not elsewhere classified; I87.2 - Venous insufficiency (chronic) (peripheral) Status: Acute Assessment and Plan: * appears to be chronic, bilateral lower extremity edema has been reported as for back as 2020 * Continue bumetanide * (5) Malignancy: Code(s): C80.1 - Malignant (primary) neoplasm, unspecified Status: Acute Assessment and Plan: * Chronic * Chest x-ray indicate chronic lung disease with no significant change in numerous small nodules scattered throughout both lungs.repeat CXR indicate Chronic nodular infiltrates? * Oncology consulted last hospital admission and it was determined that they were not suspicious of malignancy. (6) Pancytopenia: Code(s): D61.818 - Other pancytopenia Status: Acute Assessment and Plan: * Secondary to hepatitis * WBC 2.1>1.5>1.6 >1.8>2.0 baseline 2, RBC3.46>3.10>3.46>3.47>3.80 baseline 3.00-4.00, PLT 113>92>101>110>111 baseline 130 * Oncology consulted patient's last admission, will call oncology on Tuesday for any recommendation. Patient was to follow up with oncology. Possible cause of pancytopenia is untreated hep c. (7) Atrial fibrillation: Code(s): I48.91 - Unspecified atrial fibrillation Status: Acute Assessment and Plan: * Controlled rate * Sinus rhythm with occasional PVC heart rate of 97 * Continue metoprolol * It was determined at patient's last hospital admission that he did not require any anticoagulant (8) Type 2 diabetes mellitus: Code(s): E11.9 - Type 2 diabetes mellitus without complications Status: Acute Assessment and Plan: * Stable * Continue ss with hypoglycemic protocol and accuchecks * A1c on 11/14/2021 7.1 (9) Diabetic foot ulcer associated with type 2 diabetes mellitus: Qualifiers: Diabetic foot ulcer location: toe Laterality: right Non-pressure ulcer stage: with necrosis of bone Qualified Code(s): E11.621 - Type 2 diabetes mellitus with foot ulcer; L97.514 - Non-pressure chronic ulcer of other part of right foot with necrosis of bone Code(s): E11.621 - Type 2 diabetes mellitus with foot ulcer; L97.509 - Non-pressure chronic ulcer of other part of unspecified foot with unspecified severity Status: Acute Assessment and Plan: * ABX not ne
--- NOTE | 2021-12-15 07:25 | WPDPN ---
Progress Note: A&P Assessment and Plan (1) Acute hypokalemia: Code(s): E87.6 - Hypokalemia Status: Acute Assessment and Plan: Potassium 3.2>3.3>4.0>4.2 Replaced in ER with supplement (2) Cellulitis and abscess of left lower extremity: Code(s): L03.116 - Cellulitis of left lower limb; L02.416 - Cutaneous abscess of left lower limb Status: Acute Assessment and Plan: Patient has old scabed on right 2nd toe no erythema noted WBCs are not elevated ,lactic acid within normal limits Will stop cefdinir, no s/s of infection noted Blood culture pendingpreliminary no growth italo Lower extremity CT does not indicate any deep ulceration soft tissue gas or evidence of abscess or infection/osteomyelitis CT of the lower extremity indicates diabetic neuropathy with gout and osteoarthritis (3) Depression with suicidal ideation: Code(s): F32.A - Depression, unspecified; R45.851 - Suicidal ideations Status: Acute Assessment and Plan: Patient more cooperative and does not appear to be paranoid Patient admitted for suicidal ideations contniue patient on Seroquel due to paranoid behavior (4) Lymphedema due to venous insufficiency: Code(s): I89.0 - Lymphedema, not elsewhere classified; I87.2 - Venous insufficiency (chronic) (peripheral) Status: Acute Assessment and Plan: appears to be chronic, bilateral lower extremity edema has been reported as for back as 2019 Continue bumetanide (5) Malignancy: Code(s): C80.1 - Malignant (primary) neoplasm, unspecified Status: Acute Assessment and Plan: Chronic Chest x-ray indicate chronic lung disease with no significant change in numerous small nodules scattered throughout both lungs.repeat CXR indicate Chronic nodular infiltrates? Oncology consulted last hospital admission and it was determined that they were not suspicious of malignancy. (6) Pancytopenia: Code(s): D61.818 - Other pancytopenia Status: Acute Assessment and Plan: Secondary to hepatitis WBC 2.1>1.5>1.6 >1.8>2.0 baseline 2, RBC3.46>3.10>3.46>3.47>3.80 baseline 3.00-4.00, PLT 113>92>101>110>111 baseline 130 Oncology consulted patient's last admission, will call oncology on Tuesday for any recommendation. Patient was to follow up with oncology. Possible cause of pancytopenia is untreated hep c. (7) Atrial fibrillation: Code(s): I48.91 - Unspecified atrial fibrillation Status: Acute Assessment and Plan: Controlled rate Sinus rhythm with occasional PVC heart rate of 97 Continue metoprolol It was determined at patient's last hospital admission that he did not require any anticoagulant (8) Type 2 diabetes mellitus: Code(s): E11.9 - Type 2 diabetes mellitus without complications Status: Acute Assessment and Plan: Stable Continue ss with hypoglycemic protocol and accuchecks A1c on 11/14/2021 7.1 (9) Diabetic foot ulcer associated with type 2 diabetes mellitus: Qualifiers: Diabetic foot ulcer location: toe Laterality: right Non-pressure ulcer stage: with necrosis of bone Qualified Code(s): E11.621 - Type 2 diabetes mellitus with foot ulcer; L97.514 - Non-pressure chronic ulcer of other part of right foot with necrosis of bone Code(s): E11.621 - Type 2 diabetes mellitus with foot ulcer; L97.509 - Non-pressure chronic ulcer of other part of unspecified foot with unspecified severity Status: Acute Assessment and Plan: ABX not needed ulcer healed Foot ulcer healing continue wound care (10) Hepatitis C: Code(s): B19.20 - Unspecified viral hepatitis C without hepatic coma Status: Acute Assessment and Plan: on 11/18/2021 Hep C Ab reactive oncology consulted last hospital visit 11/16/2021 ,patient couldn't remember if he was ever treated for his hepatitis-C . He was to follow-up with Dr. Vasquez on discharge.? She indicated
[2021-12-15 07:30] VITALS: BP 132/81; PULSE 73; RESP 16; TEMP 36.8; O2SAT 95
[2021-12-15 07:33] LABS: Glucose Point of Care 144 mg/dl (65-105)
[2021-12-15] MEDS: BUMETANIDE 1 MG TABLET 4 MG PO (08:19)
[2021-12-15] MEDS: QUEtiapine FUMARATE 25 MG TABLET PO ×2 (08:21→20:08)
[2021-12-15] MEDS: metFORMIN HCL 500 MG TABLET 1000 MG PO ×2 (08:21→16:43)
[2021-12-15] MEDS: INDOMETHACIN 25 MG CAPSULE PO ×3 (08:21→16:42)
[2021-12-15] MEDS: POTASSIUM CHLORIDE 20 MEQ TABLET 40 MEQ PO (08:22)
[2021-12-15 08:23] VITALS: PULSE 77
[2021-12-15] MEDS: METOPROLOL SUCCINATE EXT REL 50 MG TABCR PO (08:23)
[2021-12-15] MEDS: GABAPENTIN 400 MG CAPSULE PO ×3 (08:23→16:42)
[2021-12-15] MEDS: MAGNESIUM OXIDE 400 MG TABLET PO (08:23)
[2021-12-15] MEDS: SACCHAROMYCES BOULARDII 250 MG CAPSULE PO ×3 (08:24→16:42)
[2021-12-15] MEDS: UMECLIDINIUM BROMIDE 62.5 MCG ELLIPTA 1 PUFF INHALATION (08:24)
[2021-12-15 08:29] LABS: Hemoglobin 10.1 g/dL (14.0-18.0); Mean Corpuscular HGB Conc 31.6 g/dL (32.0-36.0); Mean Corpuscular Hemoglobin 26.6 pg (27.0-31.0); Mean Corpuscular Volume 84.2 fL (78.0-102.0); Mean Platelet Volume 10.1 fl (8.7-11.0); Platelet Count Result 111 K/mm3 (150-420); Red Cell Distribution Width 15.6 % (11.6-14.4)
[2021-12-15 08:46] LABS: Alanine Aminotransferase 26 U/L (16-63); Albumin Level 2.4 g/dL (3.4-5.0); Alkaline Phosphatase 193 U/L (46-116); Anion Gap 2 mmol/L (8-16); Aspartate Amino Transferase 36 U/L (15-37); Bilirubin,Total 0.4 mg/dL (0.00-1.00); Blood Urea Nitrogen 28 mg/dL (7-18); Calcium 8.7 mg/dL (8.5-10.1); Carbon Dioxide 32 mmol/L (21-32); Chloride 101 mmol/L (98-108); Estimated CRCL calculation 82 ml/min; Estimated Glomerular Filt Rate > 60; Glucose 178 mg/dL (70-99); Osmolality Calculated 289 mOsm/kg (285-295); Potassium 4.8 mmol/L (3.5-5.1); Sodium 135 mmol/L (136-145); Total Protein 6.8 g/dL (6.4-8.2)
[2021-12-15 11:54] LABS: Glucose Point of Care 150 mg/dl (65-105)
[2021-12-15] MEDS: LORazepam (*CRX) 0.5 MG TABLET PO ×2 (15:02→21:14)
[2021-12-15 15:17] LABS: NIL 0.07 IU/mL; Quantiferon TB Plus, 1T NEGATIVE (NEGATIVE); TB1-NIL 0.01 IU/mL; TB2-NIL 0.01 IU/mL
[2021-12-15 16:00] VITALS: BP 130/87; PULSE 76; RESP 16; TEMP 37.1; O2SAT 95
[2021-12-15 16:40] LABS: Glucose Point of Care 138 mg/dl (65-105)
[2021-12-15] MEDS: traZODone HCL 25 MG TABLET PO (20:08)
[2021-12-15 20:11] LABS: Glucose Point of Care 176 mg/dl (65-105)
[2021-12-15 23:57] VITALS: BP 148/93; PULSE 64; TEMP 36.1; O2SAT 98
[2021-12-16 05:29] LABS: Hematocrit 29.7 % (40.0-54.0); Hemoglobin 9.3 g/dL (14.0-18.0); Mean Corpuscular HGB Conc 31.3 g/dL (32.0-36.0); Mean Corpuscular Hemoglobin 26.2 pg (27.0-31.0); Mean Corpuscular Volume 83.7 fL (78.0-102.0); Mean Platelet Volume 10.4 fl (8.7-11.0); Platelet Count Result 111 K/mm3 (150-420); Red Blood Count 3.55 M/mm3 (4.70-6.10); Red Cell Distribution Width 15.2 % (11.6-14.4); White Blood Count 1.9 K/mm3 (4.8-10.8)
[2021-12-16 05:43] LABS: Alanine Aminotransferase 40 U/L (16-63); Albumin Level 2.2 g/dL (3.4-5.0); Alkaline Phosphatase 186 U/L (46-116); Anion Gap 2 mmol/L (8-16); Aspartate Amino Transferase 36 U/L (15-37); Bilirubin,Total 0.3 mg/dL (0.00-1.00); Blood Urea Nitrogen 31 mg/dL (7-18); Calcium 8.5 mg/dL (8.5-10.1); Carbon Dioxide 33 mmol/L (21-32); Chloride 100 mmol/L (98-108); Estimated CRCL calculation 88 ml/min; Estimated Glomerular Filt Rate > 60; Glucose 138 mg/dL (70-99); Osmolality Calculated 288 mOsm/kg (285-295); Potassium 4.2 mmol/L (3.5-5.1); Sodium 135 mmol/L (136-145); Total Protein 6.4 g/dL (6.4-8.2)
[2021-12-16] MEDS: BUDESONIDE/FORMOTEROL (*SP) 160-4.5 MCG 6 GM INH 2 PUFF INHALATION ×2 (06:14→18:15)
[2021-12-16 07:26] LABS: Glucose Point of Care 141 mg/dl (65-105)
[2021-12-16 08:00] VITALS: BP 136/88; PULSE 58; RESP 14; TEMP 36.5; O2SAT 94
[2021-12-16] MEDS: POTASSIUM CHLORIDE 20 MEQ TABLET 40 MEQ PO (08:44)
[2021-12-16] MEDS: INDOMETHACIN 25 MG CAPSULE PO ×3 (08:44→16:15)
[2021-12-16] MEDS: metFORMIN HCL 500 MG TABLET 1000 MG PO ×2 (08:45→16:14)
[2021-12-16 08:46] VITALS: PULSE 58
[2021-12-16] MEDS: METOPROLOL SUCCINATE EXT REL 50 MG TABCR PO (08:46)
[2021-12-16] MEDS: SACCHAROMYCES BOULARDII 250 MG CAPSULE PO ×3 (08:46→16:15)
[2021-12-16] MEDS: QUEtiapine FUMARATE 25 MG TABLET PO ×2 (08:46→20:07)
[2021-12-16] MEDS: ACETAMINOPHEN 325 MG TABLET 650 MG PO (08:47)
[2021-12-16] MEDS: GABAPENTIN 400 MG CAPSULE PO ×3 (08:47→16:15)
[2021-12-16] MEDS: LORazepam (*CRX) 0.5 MG TABLET PO ×2 (08:49→20:11)
[2021-12-16] MEDS: BUMETANIDE 1 MG TABLET 4 MG PO (08:49)
[2021-12-16] MEDS: MAGNESIUM OXIDE 400 MG TABLET PO (08:49)
[2021-12-16] MEDS: UMECLIDINIUM BROMIDE 62.5 MCG ELLIPTA 1 PUFF INHALATION (08:51)
--- NOTE | 2021-12-16 11:34 | P.PNIM_ITS ---
Progress Note: A&P Assessment and Plan (1) Acute hypokalemia: Code(s): E87.6 - Hypokalemia Status: Acute Assessment and Plan: * Potassium 3.2>3.3>4.0>4.2 * Replaced in ER with supplement (2) Cellulitis and abscess of left lower extremity: Code(s): L03.116 - Cellulitis of left lower limb; L02.416 - Cutaneous abscess of left lower limb Status: Acute Assessment and Plan: * Patient has old scabed on right 2nd toe no erythema noted * WBCs are not elevated ,lactic acid within normal limits * Will stop cefdinir, no s/s of infection noted * Blood culture pendingpreliminary no growth * italo Lower extremity CT does not indicate any deep ulceration soft tissue gas or evidence of abscess or infection/osteomyelitis * CT of the lower extremity indicates diabetic neuropathy with gout and osteoarthritis * Cellulities ruled out (3) Depression with suicidal ideation: Code(s): F32.A - Depression, unspecified; R45.851 - Suicidal ideations Status: Acute Assessment and Plan: * Patient more cooperative and does not appear to be paranoid * Patient admitted for suicidal ideations * contniue patient on Seroquel due to paranoid behavior * Awaiting on a bed [facility] declined today d/t medical issues they have no specialities (4) Lymphedema due to venous insufficiency: Code(s): I89.0 - Lymphedema, not elsewhere classified; I87.2 - Venous insufficiency (chronic) (peripheral) Status: Acute Assessment and Plan: * appears to be chronic, bilateral lower extremity edema has been reported as for back as 2019 * Continue bumetanide * (5) Malignancy: Code(s): C80.1 - Malignant (primary) neoplasm, unspecified Status: Acute Assessment and Plan: * Chronic * Chest x-ray indicate chronic lung disease with no significant change in numerous small nodules scattered throughout both lungs.repeat CXR indicate Chronic nodular infiltrates? * Oncology consulted last hospital admission and it was determined that they were not suspicious of malignancy. (6) Pancytopenia: Code(s): D61.818 - Other pancytopenia Status: Acute Assessment and Plan: * Secondary to hepatitis * WBC 2.1>1.5>1.6 >1.8>2.0 baseline 2, RBC3.46>3.10>3.46>3.47>3.80 baseline 3.00-4.00, PLT 113>92>101>110>111 baseline 130 * Oncology consulted patient's last admission, will call oncology on Tuesday for any recommendation. Patient was to follow up with oncology. Possible cause of pancytopenia is untreated hep c. (7) Atrial fibrillation: Code(s): I48.91 - Unspecified atrial fibrillation Status: Acute Assessment and Plan: * Controlled rate * Sinus rhythm with occasional PVC heart rate of 97 * Continue metoprolol * It was determined at patient's last hospital admission that he did not require any anticoagulant (8) Type 2 diabetes mellitus: Code(s): E11.9 - Type 2 diabetes mellitus without complications Status: Acute Assessment and Plan: * Stable * Continue ss with hypoglycemic protocol and accuchecks * A1c on 11/14/2021 7.1 (9) Diabetic foot ulcer associated with type 2 diabetes mellitus: Qualifiers: Diabetic foot ulcer location: toe Laterality: right Non-pressure ulcer stage: with necrosis of bone Qualified Code(s): E11.621 - Type 2 diabetes mellitus with foot ulcer; L97.514 - Non-pressure chronic ulcer of other part of right foot with necrosis of bone Code(s): E11.621 - Type 2 diabetes mellitus with foot ulcer; L97.509 - Non-pressure chronic ulcer of
--- NOTE | 2021-12-16 11:34 | PM.IMPN ---
Progress Note: A&P Assessment and Plan (1) Acute hypokalemia: Code(s): E87.6 - Hypokalemia Status: Acute Assessment and Plan: Potassium 3.2>3.3>4.0>4.2 Replaced in ER with supplement (2) Cellulitis and abscess of left lower extremity: Code(s): L03.116 - Cellulitis of left lower limb; L02.416 - Cutaneous abscess of left lower limb Status: Acute Assessment and Plan: Patient has old scabed on right 2nd toe no erythema noted WBCs are not elevated ,lactic acid within normal limits Will stop cefdinir, no s/s of infection noted Blood culture pendingpreliminary no growth italo Lower extremity CT does not indicate any deep ulceration soft tissue gas or evidence of abscess or infection/osteomyelitis CT of the lower extremity indicates diabetic neuropathy with gout and osteoarthritis Cellulities ruled out (3) Depression with suicidal ideation: Code(s): F32.A - Depression, unspecified; R45.851 - Suicidal ideations Status: Acute Assessment and Plan: Patient more cooperative and does not appear to be paranoid Patient admitted for suicidal ideations contniue patient on Seroquel due to paranoid behavior Awaiting on a bed [facility] declined today d/t medical issues they have no specialities (4) Lymphedema due to venous insufficiency: Code(s): I89.0 - Lymphedema, not elsewhere classified; I87.2 - Venous insufficiency (chronic) (peripheral) Status: Acute Assessment and Plan: appears to be chronic, bilateral lower extremity edema has been reported as for back as 2020 Continue bumetanide (5) Malignancy: Code(s): C80.1 - Malignant (primary) neoplasm, unspecified Status: Acute Assessment and Plan: Chronic Chest x-ray indicate chronic lung disease with no significant change in numerous small nodules scattered throughout both lungs.repeat CXR indicate Chronic nodular infiltrates? Oncology consulted last hospital admission and it was determined that they were not suspicious of malignancy. (6) Pancytopenia: Code(s): D61.818 - Other pancytopenia Status: Acute Assessment and Plan: Secondary to hepatitis WBC 2.1>1.5>1.6 >1.8>2.0 baseline 2, RBC3.46>3.10>3.46>3.47>3.80 baseline 3.00-4.00, PLT 113>92>101>110>111 baseline 130 Oncology consulted patient's last admission, will call oncology on Tuesday for any recommendation. Patient was to follow up with oncology. Possible cause of pancytopenia is untreated hep c. (7) Atrial fibrillation: Code(s): I48.91 - Unspecified atrial fibrillation Status: Acute Assessment and Plan: Controlled rate Sinus rhythm with occasional PVC heart rate of 97 Continue metoprolol It was determined at patient's last hospital admission that he did not require any anticoagulant (8) Type 2 diabetes mellitus: Code(s): E11.9 - Type 2 diabetes mellitus without complications Status: Acute Assessment and Plan: Stable Continue ss with hypoglycemic protocol and accuchecks A1c on 11/14/2021 7.1 (9) Diabetic foot ulcer associated with type 2 diabetes mellitus: Qualifiers: Diabetic foot ulcer location: toe Laterality: right Non-pressure ulcer stage: with necrosis of bone Qualified Code(s): E11.621 - Type 2 diabetes mellitus with foot ulcer; L97.514 - Non-pressure chronic ulcer of other part of right foot with necrosis of bone Code(s): E11.621 - Type 2 diabetes mellitus with foot ulcer; L97.509 - Non-pressure chronic ulcer of other part of unspecified foot with unspecified severity Status: Acute Assessment and Plan: ABX not needed ulcer healed Foot ulcer healing continue wound care no treatment needed at this time (10) Hepatitis C: Code(s): B19.20 - Unspecified viral hepatitis C without hepatic coma Status: Acute Assessment and Plan: on 11/18/2021 Hep C Ab reactive oncology consulted last hospital vis
[2021-12-16 11:42] LABS: Glucose Point of Care 197 mg/dl (65-105)
[2021-12-16 16:00] VITALS: BP 114/86; PULSE 86; RESP 14; TEMP 36.6; O2SAT 97
[2021-12-16 16:21] LABS: Glucose Point of Care 137 mg/dl (65-105)
[2021-12-16] MEDS: traZODone HCL 25 MG TABLET PO (20:07)
[2021-12-16 20:10] LABS: Glucose Point of Care 187 mg/dl (65-105)
[2021-12-17] VITALS: BP 125/75; PULSE 74; RESP 18; TEMP 36.4; O2SAT 98
[2021-12-17] MEDS: BUDESONIDE/FORMOTEROL (*SP) 160-4.5 MCG 6 GM INH 2 PUFF INHALATION ×2 (06:12→18:09)
[2021-12-17 07:55] LABS: Glucose Point of Care 139 mg/dl (65-105)
[2021-12-17 07:58] VITALS: BP 137/85; PULSE 75; RESP 14; TEMP 36.8; O2SAT 97
[2021-12-17] MEDS: INDOMETHACIN 25 MG CAPSULE PO ×3 (08:49→16:41)
[2021-12-17] MEDS: BUMETANIDE 1 MG TABLET 4 MG PO (08:49)
[2021-12-17] MEDS: metFORMIN HCL 500 MG TABLET 1000 MG PO ×2 (08:49→16:41)
[2021-12-17] MEDS: UMECLIDINIUM BROMIDE 62.5 MCG ELLIPTA 1 PUFF INHALATION (08:49)
[2021-12-17 08:50] VITALS: PULSE 78
[2021-12-17] MEDS: METOPROLOL SUCCINATE EXT REL 50 MG TABCR PO (08:50)
[2021-12-17] MEDS: POTASSIUM CHLORIDE 20 MEQ TABLET 40 MEQ PO (08:50)
[2021-12-17] MEDS: MAGNESIUM OXIDE 400 MG TABLET PO (08:50)
[2021-12-17] MEDS: SACCHAROMYCES BOULARDII 250 MG CAPSULE PO ×3 (08:50→16:42)
[2021-12-17] MEDS: GABAPENTIN 400 MG CAPSULE PO ×3 (08:50→16:41)
[2021-12-17] MEDS: QUEtiapine FUMARATE 25 MG TABLET PO ×2 (09:10→20:21)
[2021-12-17 11:45] LABS: Glucose Point of Care 194 mg/dl (65-105)
[2021-12-17] MEDS: LORazepam (*CRX) 0.5 MG TABLET PO ×2 (13:10→20:21)
[2021-12-17 16:00] VITALS: BP 136/81; PULSE 66; RESP 18; TEMP 36.2; O2SAT 100
[2021-12-17 16:18] LABS: Glucose Point of Care 140 mg/dl (65-105)
[2021-12-17] MEDS: traZODone HCL 25 MG TABLET PO (20:21)
[2021-12-17 20:25] LABS: Glucose Point of Care 171 mg/dl (65-105)
--- NOTE | 2021-12-17 22:50 | PC.NURSE ---
Given 4 cups of ice this shift. 1 ice cream, 1 soda and 1 pudding and jaqueline crackers.
[2021-12-17 23:48] VITALS: BP 140/79; PULSE 69; RESP 20; TEMP 36.7; O2SAT 98
--- NOTE | 2021-12-18 03:57 | PC.NURSE ---
pt c/o difficulty sleeping, states it is d/t anxiety about leaving tomorrow, snack and drink given, typewriter operator automatic asked if pt would like to discuss anxiety, pt declines, no distress noted.
[2021-12-18] MEDS: BUDESONIDE/FORMOTEROL (*SP) 160-4.5 MCG 6 GM INH 2 PUFF INHALATION (06:07)
--- NOTE | 2021-12-18 07:15 | PM.DS ---
DS: Admitting Diagnosis Discharge Date 12/18/2021 Admitting Diagnosis Suicidal ideation, Cellulitis DS: Discharge Diagnosis Discharge Diagnosis (1) Substance abuse: Code(s): F19.10 - Other psychoactive substance abuse, uncomplicated Status: Acute Assessment and Plan: (2) Diabetic neuropathy: Code(s): E11.40 - Type 2 diabetes mellitus with diabetic neuropathy, unspecified Status: Acute Assessment and Plan: history of neuropathy will restart gabapentin 400 mg 3 times daily (3) Psychiatric symptoms: Code(s): F99 - Mental disorder, not otherwise specified Status: Acute Assessment and Plan: Patient presents with suicidal ideations Denies SI at this time agreement signed with housekeeping laundry worker Evaluated by Bill Morton determined the patient will need to be admitted to [facility] involuntarily Patient with paranoid started Seroquel CT of the head no acute findings DS: Summary Hospital Course Reason for hospitalization: Suicidal ideation Hospital Course: This is a 61-year-old male that presented to the emergency room with suicidal ideations as well as urinary tract infection. Patient has a history of drug abuse and has been seen in [facility] before. Patient has a past medical history of congestive heart failure, COPD, type 2 diabetes, cirrhosis of the liver, hepatitis C, pancytopenia, thrombocytopenia. Patient initially was aggressive towards staff and incontinent of urine and stool this is since changed she was treated for some cellulitis and then was determined that he does not have cellulitis. Patient does have diabetic neuropathy and is receiving medication for that during his stay and he stayed was evaluated a few times by [facility] as a last exam determined that he was stable for discharge and a sign agreement was obtained as patient at this time is not suicidal and wanting to go home where his plan is to going to rehab which he already has scheduled at the end of this month. All patient's medication has been reordered and confirmed that his insurance is paying for. Time Spent with Patient Time attestation: Total time spent providing and/or coordinating discharge services: Exam Narrative: GENERAL: This is a well-nourished, well-developed patient, in no apparent distress. HEAD: normocephalic, atraumatic. EYES: PERRL. Sclera clear/white. EARS: External ears normal, Hearing grossly intact. NOSE: External nose normal with no obvious nasal discharge, nares without redness, no rhinorrhea. THROAT: Mucous membranes moist NECK: Neck supple, CARDIOVASCULAR: Regular rate and rhythm RESPIRATORY: Equal rise and fall of chest wall and no respiratory distress pt able to have a conversation without shortness of breath GASTROINTESTINAL: Abdomen soft, non-tender, nondistended.. SKIN: scab on tip of right 2nd digit no s/s of infection noted NEURO: awake, alert, and oriented to person, place and time. There were no obvious focal neurologic abnormalities. EXTREMITIES: Normal range of motion. 2+ edema. No calf tenderness. right 3rd toe digit amputation. DS: Data Data Completed and Pending Labs on day of discharge: Labs from last 24 hours 12/17/21 12/17/21 12/17/21 20:20 16:17 11:40 POC Capillary Glucose 171 H 140 H 194 H 12/17/21 07:50 POC Capillary Glucose 139 H Discharge Plan Discharge Attending physician on discharge: Vance Rivera Consulting providers: Houston Rodarte ; Cory Miguel ; Oral Harrington ; Awais Ann Discharging Clinician: Cory Miguel Anticipated Discharge Date/Time: 12/14/21 10:32 Patient Disposition: Other Activity: as tolerated Diet: diabetic Discharge Instructions: 1. Follow up with your provider within 1-2 weeks 2. Take prescription medication as ordered Notify your provider of any signs and symptoms of infection: Fever Foul Odor Discharge Heat
[2021-12-18 07:43] LABS: Glucose Point of Care 149 mg/dl (65-105)
[2021-12-18 07:44] VITALS: BP 148/84; PULSE 77; RESP 14; TEMP 36.5; O2SAT 96
[2021-12-18] MEDS: metFORMIN HCL 500 MG TABLET 1000 MG PO (08:10)
[2021-12-18] MEDS: INDOMETHACIN 25 MG CAPSULE PO (08:21)
[2021-12-18] MEDS: POTASSIUM CHLORIDE 20 MEQ TABLET 40 MEQ PO (08:21)
[2021-12-18] MEDS: SACCHAROMYCES BOULARDII 250 MG CAPSULE PO (08:21)
[2021-12-18] MEDS: BUMETANIDE 1 MG TABLET 4 MG PO (08:21)
[2021-12-18 08:22] VITALS: PULSE 77
[2021-12-18] MEDS: QUEtiapine FUMARATE 25 MG TABLET PO (08:22)
[2021-12-18] MEDS: METOPROLOL SUCCINATE EXT REL 50 MG TABCR PO (08:22)
[2021-12-18] MEDS: GABAPENTIN 400 MG CAPSULE PO (08:23)
--- NOTE | 2021-12-18 09:01 | PC.NURSE ---
Pt discharged to [facility]. VIVIAN, RN did instruct pt regarding his daily medications : times, doses, and SE. Medications sent to [facility] in [facility]. Pt educated regarding his diabetes: What it is , how is it treated, blood glucose monitoring, nutrition and S/S of high or low blood sugar and how to treat it. Reviewed the need for FU appointments and the need to get a PCP. Pt has a rehab bed in [facility]. He needs to be there on 12/28/21 @ 1230. Pt did verbalize understanding of all instructions and stated he would comply.
--- NOTE | 2021-12-21 11:21 | PC.NURSE ---
Invalid phone number for discharge call back.
== END 2021-12-18 08:45 | disposition other institution (70) | DRG 756 ==
LOC: CHSED 12-11 03:39 → CHS2ND 12-11 07:16
PROVIDERS: Nurse Practitioner; Admitting Provider Internal Medicine; Emergency Provider Emergency Medicine; Visit Provider Internal Medicine
DX: R45.851 Suicidal ideations (principal); D61.818 Other pancytopenia; D69.6 Thrombocytopenia, unspecified; I48.20 Chronic atrial fibrillation, unspecified; E11.621 Type 2 diabetes mellitus with foot ulcer; E11.40 Type 2 diabetes mellitus with diabetic neuropathy, unspecified; I50.9 Heart failure, unspecified; I50.42 Chronic combined systolic (congestive) and diastolic (congestive) heart failure; F32.A Depression, unspecified; E87.6 Hypokalemia; L97.419 Non-pressure chronic ulcer of right heel and midfoot with unspecified severity; L97.519 Non-pressure chronic ulcer of other part of right foot with unspecified severity; K74.60 Unspecified cirrhosis of liver; B19.20 Unspecified viral hepatitis C without hepatic coma; J44.9 Chronic obstructive pulmonary disease, unspecified; I89.0 Lymphedema, not elsewhere classified; I87.2 Venous insufficiency (chronic) (peripheral); M10.9 Gout, unspecified; R93.89 Abnormal findings on diagnostic imaging of other specified body structures; R19.7 Diarrhea, unspecified; F19.10 Other psychoactive substance abuse, uncomplicated
CPT/HCPCS: 36415; 70450; 71045; 73700; 80053; 80307; 81001; 82140; 82607; 82948; 83605; 83735; 83880; 84439; 84443; 84550; 85025; 85027; 85055; 86140; 86480; 86703; 87040; 87324; 87426; 96372; 96374; 99285; A9270; C9803; G0378; G0379; J0696; J1650; J1815; J1940; U0003; U0005

== ENCOUNTER 2021-12-23 00:39 | Emergency (ER) | payer OTHER, SELFPAY ==
[2021-12-23] VITALS (14 sets, daily range): BP systolic 113–149; BP diastolic 70–91; PULSE 87–96; RESP 15–28; TEMP 36.7; O2SAT 93–100
--- NOTE | ~2021-12-23 | XR_ITS ---
EXAMINATION: XR chest 2V DATE: 12/23/2021 01:54 INDICATION: Shortness of breath. TECHNIQUE: Frontal and lateral views of the chest were obtained. COMPARISON: Chest single view 12/12/2021, chest CT 11/12/2021 FINDINGS: Again seen are widespread nodules in the lungs with a peripheral predominance that were in a perilymphatic distribution on the prior chest CT. No pleural effusion or pneumothorax. The heart si ze is normal. Surgical clips in the right upper quadrant are likely from cholecystectomy. IMPRESSION: 1. Lung nodules again seen. The differential diagnosis includes silicosis, sarcoidosis, and tuberculo sis. Reviewed, dictated and finalized at location A. IMPRESSION: 1. Lung nodules again seen. The differential diagnosis includes silicosis, sarc oidosis, and tuberculosis.
--- NOTE | 2021-12-23 01:15 | ECG_ITS ---
Measurements Intervals [place] Rate: 0 P: [place]: 0 QRS: QRSD: 0 T: QT: 0 QTc: 0 Interpretive Statements SINUS RHYTHM ATRIAL PREMATURE COMPLEX RIGHT BUNDLE BRANCH BLOCK LEFT ANTERIOR FASCICULAR BLOCK BASELINE ARTIFACT- I, II, III ABNORMAL ECG COMPARED TO ECG 11/12/2021 16:07:27 NO SIGNIFICANT CHANGES Electronically Signed On 12-23-2021 7:49:35 CDT by Shahid Mcginnis D.O.
[2021-12-23 02:07] LABS: Basophils Absolute Auto 0.1 K/mm3 (0.0-0.1); Basophils Percent Auto 1.1 % (0.2-1.2); Eosinophils Absolute Auto 0.2 K/mm3 (0-0.3); Eosinophils Percent Auto 3.2 % (0-4.4); Hematocrit 31.9 % (42.0-52.0); Hemoglobin 9.9 g/dL (14.0-18.0); Immature Granulocyte Absolute 0.02 K/mm3 (0.00-0.031); Immature Granulocyte Percent A 0.4 % (0-0.5); Lymphocytes Absolute Auto 0.57 K/mm3 (0.9-3.2); Lymphocytes Percent Auto 12.2 % (18.3-44.2); Mean Corpuscular Hemoglobin 26.1 pg (26-34); Mean Corpuscular Volume 83.9 fl (80-100); Mean Platelet Volume 9.7 fl (7.4-10.4); Monocytes Absolute Auto 0.5 K/mm3 (0.1-0.6); Monocytes Percent Auto 11.3 % (2.6-8.5); Neutrophils Absolute Auto 3.4 K/mm3 (1.3-6.7); Neutrophils Percent Auto 71.8 % (45.5-73.1); Platelet Count Result 174 k/mm3 (150-375); Red Cell Distribution Width 16.1 % (11.5-14.5); White Blood Count 4.7 K/mm3 (4.5-10.0)
[2021-12-23 02:16] LABS: Anion Gap 12 mmol/L (8-16); Blood Urea Nitrogen 57 mg/dL (9-20); Calcium 8.2 mg/dL (8.4-10.2); Carbon Dioxide 26 mmol/L (22-30); Chloride 98 mmol/L (98-107); Estimated CRCL calculation 56 ml/min; Estimated Glomerular Filt Rate 52; Glucose 169 mg/dL (65-110); Potassium 4.1 mmol/L (3.4-5.0); Sodium 136 mmol/L (137-145)
[2021-12-23 02:25] LABS: NT Pro B Type Natriuretic Pept 521 pg/mL (5-100)
--- NOTE | 2021-12-23 03:39 | ED.GENADULT ---
HPI - General Adult General Chief complaint: Unspecified Stated complaint: hurting all over, homeless Time Seen by Provider: 12/23/21 00:57 Source: patient, RN notes reviewed and old records reviewed Mode of arrival: EMS Limitations: other (poor historian) History of Present Illness HPI narrative: This is a 61 year old male with history of CHF, afib, cirrhosis who presents for evaluation bilateral feet pain . Patient has chronic bilateral leg swelling. Patient lives out of his car and he was told to move it tonight. He walked over 1 [address] a [address] station. He called EMS for bilateral feet and leg pain after walking so much. He denies chest pain or sob. Related Data Allergies Allergy/AdvReac Type Severity Reaction Status Date / Time No Known Allergies Allergy Verified 12/23/21 00:48 Review of Systems Review of Systems: All systems reviewed & are unremarkable except as noted in HPI and below PMFSH Past Medical History Medical History Acute combined systolic and diastolic congestive heart failure Acute exacerbation of congestive heart failure Atrial fibrillation Cirrhosis of liver COPD (chronic obstructive pulmonary disease) Diabetes type 2, controlled Diabetic foot ulcer associated with type 2 diabetes mellitus Esophageal varices Fracture of thumb, left, closed Hepatitis C Osteomyelitis Pancytopenia Suicidal ideations Thrombocytopenia Type 2 diabetes mellitus Surgical History Surgical History H/O cardiac catheterization H/O hernia repair History of esophagogastroduodenoscopy (EGD) Family History Family History Father Family history of pancreatic cancer Hypertension Sibling Diabetes mellitus Social History Social History Social History: The patient is homeless and states that he lives in his truck. The patient stated he has raised 7 children. The patient is a recovering alcoholic Smoking status: Former smoker Tobacco type: cigarettes Second hand tobacco smoke exposure: No Alcohol intake: unknown Substance use: current Substance use type: amphetamines Last use: last week Gender identity (if verbalized by the patient): Male Spiritual care concerns: No Exam Const: General: no acute distress Orientation/consciousness: patient oriented x3 HENMT: Head: normal to inspection, normocephalic and atraumatic Mouth: Yes Normal oral and palatal mucosa present and Yes oropharynx normal Eyes: General: appearance normal, both eyes and all related structures EOM: EOMs intact bilaterally Resp: Effort & Inspection: normal respiratory effort Auscultation: clear to auscultation bilaterally Cardio: Jugular venous distension: no JVD Rate: regular rate Rhythm: regular rhythm GI: GI Palp: Yes Soft to palpation, No Tenderness to palpation present (GI) and No Guarding due to palpation present (GI) Skin: Other: right 3 toe with small wound with scab, no drainage, no erythema Neuro: General: patient oriented x3 Cranial nerves: Yes CN's II-XII intact bilaterally Extrem: General: capillary refill normal and edema bilateral (leg edema, pedal) Course Reevaluation(s) Reevaluation #1: PAtient is sleeping. He states he is homeless and would like something to ER. BNP has improved and he does not have appear to have chf on chest xray. He is not requiring oxygen. He has increased in CR. This may be due to his diuretic or indomethacin. WIll hold his indomethacin and diuretic for a couple of days. His legs are chronically swollen and no sign of infection to them. Date: 12/23/21 Time: 04:12 Vital Signs Vital signs: Vital Signs Pulse Rate 92 12/23/21 00:43 Respiratory Rate 18 12/23/21 00:43 Blood Pressure 148/82 H 12/23/21 00:43 Pulse Oximetry 97 12/23/21 00
--- NOTE | 2021-12-23 04:13 | PC.NURSE ---
[place] sandwich and chips with water given to pt per request and okay with Dr. Burgos at this time. Pt tolerating PO food at this time and needs no assistance in diet.
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
--- NOTE | 2021-12-23 07:34 | PC.NURSE ---
Report given to SANJEEV Mace.
--- NOTE | 2021-12-23 07:46 | PC.NURSE ---
pt resting in stretcher with equal chest rise and fall. ordered pt breakfast tray. Care coordination aware of pt and will be down to speak with him.
--- NOTE | 2021-12-23 09:19 | PCCCNOTE ---
Met with pt regarding discharge plans and multiple needs has expressed to nursing. Pt shook his head, giggled and denied wanting to self harm when I asked him the question. Pt states he is unhoused and lives in his pickup truck. He states he plans to return to his truck at discharge and needs transportation to his vehicle at [address] [place] [address] in [place], [place]. Pt has his cell phone provided by [employer] [facility] with him and he verified the address and a cab voucher was provided for transportation to that stated address. 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 Patient confirms he has an appointment [facility] [place], [place] on 12/28/21 for evaluation for services. Pt provided with some clothing prior to discharge.
--- NOTE | 2021-12-23 09:22 | PC.NURSE ---
Cary from Care Coordination spoke w/ pt. pt given resources and a cab voucher. pt taken to waiting area in stable condition.
== END 2021-12-23 09:27 | disposition home or self-care (01) ==
PROVIDERS: Emergency Provider General Practice
DX: I89.0 Lymphedema, not elsewhere classified (principal); Z59.02 Unsheltered homelessness; I50.40 Unspecified combined systolic (congestive) and diastolic (congestive) heart failure; I48.91 Unspecified atrial fibrillation; K74.60 Unspecified cirrhosis of liver; J44.9 Chronic obstructive pulmonary disease, unspecified; E11.9 Type 2 diabetes mellitus without complications; B19.20 Unspecified viral hepatitis C without hepatic coma; Z87.891 Personal history of nicotine dependence; F15.90 Other stimulant use, unspecified, uncomplicated; F10.21 Alcohol dependence, in remission; Z79.51 Long term (current) use of inhaled steroids; Z79.84 Long term (current) use of oral hypoglycemic drugs
CPT/HCPCS: 36415; 71046; 80048; 83880; 85025; 93005; 99283

== ENCOUNTER 2022-03-09 12:13 | Inpatient (IN) | payer OTHER, SELFPAY ==
[2022-03-09] VITALS (36 sets, daily range): BP systolic 93–147; BP diastolic 45–79; PULSE 97–135; RESP 17–34; TEMP 36.9–37.3; O2SAT 87–99; BMI 35.1
--- NOTE | ~2022-03-09 | CT_ITS ---
EXAMINATION: CTA chest abdomen pelvis DATE: 03/09/2022 18:30 INDICATION: Chest, abdomen and back pain TECHNIQUE: Computed tomography angiography (CTA) of the chest, abdomen and pelvis was performed with 100 mL Omnipaque-350 intravenous contrast timed to evaluate the pulmonary arteries. Coronal maximum i ntensity projection 3D-reconstructions were created by the technologist. Automated exposure control a nd iterative reconstruction technique were employed. Exam dose: 3292.95 mGy-cm total exam DLP. COMPARISON: 03/09/2022 2 view chest 11/12/2021 CT chest abdomen FINDINGS: There are occasional bilateral calcified pleural plaques and nodular appearing pleural thickening sca ttered throughout both sides of the chest. Prior asbestos exposure is suspected. Numerous shotty superior mediastinal, prevascular, right paratracheal and subcarinal lymph nodes are noted. No thoracic aortic aneurysm or dissection. There are bilateral calcified hilar nodes and calci fied aortopulmonary window nodes. There is patchy infiltrate or atelectasis involving the posterior segment of the right upper lobe. There is tree-in-bud infiltrate at the left upper lobe. There is more prominent patchy consolidating infiltrate with air bronchograms of the left lower lobe Borderline heart size. No pericardial effusion. There is mild left pleural effusion. Prominent surface nodularity of the liver consistent with cirrhosis. There is splenomegaly. Varices a re noted. Findings consistent with portal hypertension. There is heterogeneous hepatic density. Possible peripherally enhancing 3 cm right hepatic mass lesio n. Or hepatocellular carcinoma is not excluded. Consider further evaluation with hepatic MR examinati on. Status post cholecystectomy. No bile duct or pancreatic duct dilatation. No pancreatic mass lesion is noted. Adrenal glands and kidneys are unremarkable. No urinary tract calculus or hydroureteronephrosis. There is prostate enlargement and calcification. There is diffuse thickening of urinary bladder wall, likely due to the prostatomegaly. Bilateral vas deferens calcifications suggesting diabetes. Bilateral inguinal hernias, containing fat and a lateral left, fat and fluid on the right. Normal caliber of the abdominal aorta. There are nonspecific shotty periaortic and aortocaval lymph n odes. No intraperitoneal or retroperitoneal or pelvic mass lesion or adenopathy is noted otherwise. Prominent degenerative disc disease in the lower cervical spine. Degenerative spurring of the thoraci c spine. Prominent degenerative disc disease at L1 to and L5-S1. No suspicious osteolytic or osteobla stic lesions are noted. IMPRESSION: Cirrhosis, splenomegaly, portal hypertension Slight perihepatic ascites Possible peripherally enhancing at least 3 cm hepatic mass; hepatic MRI examination is recommended fo r evaluation for possible hepatocellular carcinoma Bilateral vas deferens calcifications suggesting diabetes Bilateral inguinal hernias Status post cholecystectomy Indication bilateral calcified pleural plaques and extensive nodular appearing pleural thickening thr oughout both sides of the chest, suggesting prior asbestos exposure Nonspecific shotty mediastinal lymph nodes Calcified bilateral hilar and mediastinal nodes suggesting old granulomatous disease Bilateral pulmonary infiltrates, most prominent in the left lower lobe with consolidation and air bro nchograms Mild left pleural effusion No thoracic or abdominal aortic aneurysm Reviewed, dictated and finalized at [facility]. Reviewed, dictated and finalized at location B. AULIC JACK MECHANIC
--- NOTE | ~2022-03-09 | XR_ITS ---
XR hip LT 2V w AP pelvis 03/10/2022 15:10 Indication: Hip pain Procedure: AP pelvis and 2 views left hip Comparison: No prior studies for comparison. Findings: Mild osteoarthritis of the hips. Pelvic rings are intact. No fracture, subluxation or dislo cation. No soft tissue abnormality. There are surgical clips in the left inguinal region. Impression: 1: Mild osteoarthritis of the hips. Reviewed, dictated and finalized at location A. E RESEARCH Impression: 1: Mild osteoarthritis of the hips.
--- NOTE | ~2022-03-09 | XR_ITS ---
EXAMINATION: XR lumbar spine 2-3V DATE: 03/22/2022 08:16 INDICATION: Low back pain. TECHNIQUE: 2 views of lumbar spine were obtained. COMPARISON: Lumbar spine radiographs 11/07/2018 FINDINGS: There is 4 mm anterolisthesis of L4 on L5. There is 4 degrees dextrocurvature of lumbar spi ne. There is mild chronic anterior wedging of L1 vertebral body. There is mildly decreased disc heigh t at T12-L1 and L1-L2 and severely decreased disc height at L5-S1. There is severe facet joint osteoa rthritis in lower lumbar spine. Surgical clips in the right upper quadrant are likely from cholecyste ctomy. IMPRESSION: 1. Severe lower lumbar spondylosis. Reviewed, dictated and finalized at location A. ATIONS INTELLIGENCE SUPERINTENDENT
--- NOTE | ~2022-03-09 | MR_ITS ---
EXAMINATION: MR abdomen wo/w con INDICATION: Liver mass TECHNIQUE: Coronal SSFSE ARC, WATER:coronal LAVA-FLEX, Coronal 2D FIESTA FatSat, Axial SSFSE BH ARC, Axial 3D DualEcho BH, Axial SSFSE-IR, Axial DWI b=500, Axial 2D FIESTA FatSat, WATER:Axial LAVA FLEX, FAT:Axial LAVA FLEX, FAT:Coronal LAVA FLEX COMPARISON: CT, 03/09/2022 CONTRAST: None FINDINGS: Contrast was not administered due to patient's inability to breath-hold. Absence of intrave nous contrast and respiratory motion artifact limits the examination. The liver mass described on CT is difficult to identify. There is a 2.9 x 1.8 cm mass in liver segment V with slight increased centr al T2 signal intensity. Seen on the SSFSE-IR series (image 14). There is nodularity of the liver surf john. Splenomegaly is noted. There is a small volume of ascites. There are airspace opacities of the l abran bases, left greater than right. Small pleural effusions are present. The heart size is normal. Th e pancreas, adrenal glands, and kidneys appear normal. The gallbladder is surgically absent. No patho logically enlarged abdominal lymph nodes are identified. IMPRESSION: 1. Cirrhosis with portal hypertension and splenomegaly. Liver mass described on CT remains indetermin ate due to respiratory motion artifact and the absence of intravenous contrast. Reviewed, dictated and finalized at location A. CLE BODY SANDER IMPRESSION: 1. Cirrhosis with portal hypertension and splenomegaly. Liver mass described on CT remains indeterminate due to respiratory motion artifact and the absence of intravenous contrast.
--- NOTE | ~2022-03-09 | US_ITS ---
EXAMINATION: US soft tissue LE LT DATE: 03/15/2022 22:42 INDICATION: Left thigh focal swelling. TECHNIQUE: Multiple grayscale and Doppler ultrasound images of the left lower limb were obtained. COMPARISON: Ultrasound 03/09/2022 FINDINGS: In the distal medial left thigh, there is a thrombosed superficial vein. There is edema of the subcutaneous fat in this area. IMPRESSION: 1. Thrombosed superficial vein in distal medial left thigh. Reviewed, dictated and finalized at location A. TRICIAN JOURNEYMAN WIREMAN
--- NOTE | ~2022-03-09 | US_ITS ---
EXAMINATION: US renal BI DATE: 03/09/2022 23:23 INDICATION: Acute kidney injury TECHNIQUE: Multiple ultrasound grayscale images of the kidneys were obtained. COMPARISON: None. FINDINGS: The right kidney measures 11.8 x 5.6 x 6.6 cm. The left kidney measures 13.0 x 4.5 x 6.1 cm. The kidn eys demonstrate normal echogenicity. There is no hydronephrosis in either kidney. No stones identifi ed. The region of the bladder which is likely decompressed with a Bailey catheter reportedly in place is obscured by shadowing bowel gas. IMPRESSION: 1. Normal kidneys without hydronephrosis. Reviewed, dictated and finalized at location A. IGN POLICY OFFICER
--- NOTE | ~2022-03-09 | XR_ITS ---
XR chest 2V 03/09/2022 13:02 Indication: Shortness of breath and weakness Procedure: AP and lateral views of the chest Comparison: Shortness of breath. Weakness. Peel-away edema. Findings: Stable bilateral pulmonary nodules with peripheral prevalence. Interval development of left lower lobe airspace disease, compatible with pneumonia. Heart size normal. Mediastinal contour is st able. No pneumothorax. Possible small left effusion. Impression: 1: Interval development of left lower lobe airspace disease, consistent with pneumonia. 2: Stable bilateral lung nodules. Reviewed, dictated and finalized at location A. R POLISHER Impression: 1: Interval development of left lower lobe airspace disease, consistent with pn eumonia. 2: Stable bilateral lung nodules.
--- NOTE | ~2022-03-09 | XR_ITS ---
EXAM: XR ankle LT 2V DATE: 03/10/2022 15:10 HISTORY: pain, poor historian . COMPARISON: X-ray left foot 01/22/2016, CT lower extremity left 12/12/2021. FINDINGS: Normal mineralization. No fracture or dislocation. No lytic or blastic lesion. Mild degene rative change at the tibiotalar joint. Achilles and plantar enthesopathy. Severe midfoot arthropathy. No erosion or periosteal change. Subcutaneous edema and soft tissue swelling. IMPRESSION: Mild degenerative changes in the ankle joint, without acute fracture or dislocation. Paz re midfoot neuropathic arthropathy (Charcot joint). Reviewed, dictated and finalized at location K. L INSPECTOR IMPRESSION: Mild degenerative changes in the ankle joint, without acute fractur e or dislocation. Severe midfoot neuropathic arthropathy (Charcot joint).
--- NOTE | ~2022-03-09 | XR_ITS ---
XR knee LT 3V 03/10/2022 15:10 Indication: Left knee pain Procedure: 3 views left knee Comparison: No prior studies for comparison. Findings: There is mild tricompartmental osteoarthritis. No acute fracture, subluxation or dislocatio n. No joint effusion. Moderate diffuse subcutaneous edema. Impression: 1: Mild tricompartment osteoarthritis of the left knee. Reviewed, dictated and finalized at location A. NESS BANKING MANAGER Impression: 1: Mild tricompartment osteoarthritis of the left knee.
--- NOTE | ~2022-03-09 | US_ITS ---
EXAMINATION: US venous doppler [facility] DATE: 03/09/2022 22:53 INDICATION: Lower limb pain and swelling TECHNIQUE: Grayscale ultrasound images without and with compression and Doppler ultrasound images of the bilateral lower extremity veins were obtained. COMPARISON: None. FINDINGS: The visualized portions of right common femoral vein, profunda (deep) femoral vein, femoral vein, pop liteal vein, posterior tibial veins, peroneal veins, gastrocnemius vein and greater saphenous vein ou tflow are patent. Subcutaneous edema at the right calf. The visualized portions of left common femoral vein, profunda femoral vein, femoral vein, popliteal v ein, posterior tibial veins, peroneal veins, gastrocnemius vein and greater saphenous vein outflow ar e patent. Subcutaneous edema at the left calf. IMPRESSION: 1. No deep venous thrombosis in either lower limb. Reviewed, dictated and finalized at location A. EL CHARRER
--- NOTE | 2022-03-09 12:25 | ECG_ITS ---
Measurements Intervals [place] Rate: 111 P: 61 ME: 174 QRS: -81 QRSD: 166 T: 68 QT: 344 QTc: 468 Interpretive Statements SINUS TACHYCARDIA RIGHT BUNDLE BRANCH BLOCK [120+ ms QRS DURATION, UPRIGHT V1, 40+ ms S IN I/aVL/V4/V5/V6] COMPARED TO ECG 12/23/2021 01:42:29 SINUS TACHYCARDIA NOW PRESENT Electronically Signed On 03-09-2022 15:33:52 GEOCHEMISTRY TEACHER by Michela Jain M.D.
[2022-03-09 12:56] LABS: Hematocrit 37.4 % (42.0-52.0); Hemoglobin 12.1 g/dL (14.0-18.0); Mean Corpuscular HGB Conc 32.4 g/dl (32-36); Mean Corpuscular Hemoglobin 26.6 pg (26-34); Mean Corpuscular Volume 82.2 fl (80-100); Mean Platelet Volume 10.7 fl (7.4-10.4); Platelet Count Result 140 k/mm3 (150-375); Red Blood Count 4.55 M/mm3 (4.6-6.20); Red Cell Distribution Width 17.2 % (11.5-14.5); White Blood Count 9.2 K/mm3 (4.5-10.0)
[2022-03-09 13:16] LABS: Band Neutrophils Percent 6 % (0-6); Lymphocytes Absolute Manual 0.46 K/mm3 (1.1-4.5); Neutrophils Absolute Manual 8.74 K/mm3 (1.3-6.7); Neutrophils Percent Manual 89 % (46-73); Total Cells Counted 100
[2022-03-09 13:17] LABS: Ovalocytes 1+ (NORMAL); Schistocytes None Seen (NORMAL)
[2022-03-09 13:18] LABS: Alanine Aminotransferase 43 U/L (6-50); Albumin Level 3.3 g/dL (3.5-5.1); Alkaline Phosphatase 120 U/L (38-126); Anion Gap 9 mmol/L (8-16); Aspartate Amino Transferase 54 U/L (17-59); Bilirubin,Total 2.2 mg/dL (0.2-1.3); Blood Urea Nitrogen 49 mg/dL (9-20); Calcium 7.9 mg/dL (8.4-10.2); Carbon Dioxide 24 mmol/L (22-30); Chloride 91 mmol/L (98-107); Estimated CRCL calculation 41 ml/min; Estimated Glomerular Filt Rate 31; Glucose 184 mg/dL (65-110); Potassium 4.7 mmol/L (3.4-5.0); Sodium 124 mmol/L (137-145)
--- NOTE | 2022-03-09 14:29 | ED.GENADULT ---
HPI - General Adult General Chief complaint: Shortness of Breath/Dyspnea Stated complaint: dyspnea Time Seen by Provider: 03/09/22 14:14 History of Present Illness HPI narrative: This is a 61-year-old male history of CHF presenting ED with shortness of breath. He has been getting steadily worse over the last 3 days. Patient lives out of his truck. He notes that he has chronic lower extremity edema but that it is better than it typically is. States he has been taking his medication as directed. Patient also notes A substernal heaviness in the center of his chest that is nonradiating. Patient is felt this multiple times in the past whenever he has difficulty breathing.Patient denies fever, chills. productive cough. patient denies fevers chills or productive cough. Related Data Allergies Allergy/AdvReac Type Severity Reaction Status Date / Time No Known Allergies Allergy Verified 12/23/21 00:48 Review of Systems Review of Systems: CONSTITUTIONAL: Denies night sweats. EYES: No eye pain ENT: Denies rhinorrhea CARDIOVASCULAR: Denies palpitations RESPIRATORY: Denies hemoptysis GASTROINTESTINAL: Denies hematemesis GENITOURINARY: Denies hematuria. SKIN: Denies rash MUSCULOSKELETAL: Denies myalgia. NEUROLOGIC: Denies weakness. PSYCHIATRIC: Denies delusions PMFSH Past Medical History Medical History Acute combined systolic and diastolic congestive heart failure Acute exacerbation of congestive heart failure Atrial fibrillation Cirrhosis of liver COPD (chronic obstructive pulmonary disease) Diabetes type 2, controlled Diabetic foot ulcer associated with type 2 diabetes mellitus Esophageal varices Fracture of thumb, left, closed Hepatitis C Osteomyelitis Pancytopenia Suicidal ideations Thrombocytopenia Type 2 diabetes mellitus Surgical History Surgical History H/O cardiac catheterization H/O hernia repair History of esophagogastroduodenoscopy (EGD) Family History Family History Father Family history of pancreatic cancer Hypertension Sibling Diabetes mellitus Social History Social History Social History: The patient is homeless and states that he lives in his truck. The patient stated he has raised 7 children. The patient is a recovering alcoholic Smoking status: Former smoker Tobacco type: cigarettes Second hand tobacco smoke exposure: No Alcohol intake: unknown Substance use: current Substance use type: amphetamines Last use: last week Gender identity (if verbalized by the patient): Male Spiritual care concerns: No Exam Narrative: APPEARANCE: Patient appears uncomfortable, he is asking for water Head: atraumatic. EYES: EOMI, NOSE: Atraumatic NECK: Trachea midline RESPIRATORY: increased respiratory rate, bibasilar rales CARDIOVASCULAR: tachycardic, pitting edema of lower extremities, appears chronic ABDOMINAL: Non-distended MUSCULOSKELETAl: No obvious deformities NEURO: Alert. Moving 4/4 extremities SKIN:: Warm, dry. Normal color PSYCHIATRIC: Normal affect Course Vital Signs Vital signs: Vital Signs Temperature 99.1 F 03/09/22 12:20 Pulse Rate 97 03/09/22 12:20 Respiratory Rate 24 H 03/09/22 12:20 Blood Pressure 102/60 03/09/22 12:20 Pulse Oximetry 90 03/09/22 12:20 Oxygen Delivery Room Air 03/09/22 12:20 Temperature 99.1 F 03/09/22 12:20 Pulse Rate 118 H 03/09/22 16:16 Respiratory Rate 28 H 03/09/22 16:16 Blood Pressure 99/45 L 03/09/22 16:16 Pulse Oximetry 89 L 03/09/22 16:16 Oxygen Delivery Nasal Cannula 03/09/22 14:59 Oxygen Flow Rate 2 03/09/22 14:59 Medical Decision Making MDM Narrative Medical decision making narrative: this is a 61-year-old male with history of CHF and COPD presenting E
[2022-03-09] MEDS: ALBUTEROL SULFATE NEB 2.5 MG/3 ML INH 5 MG INHALATION (14:56)
[2022-03-09] MEDS: IPRATROPIUM BR 0.02% INH SOLN 0.5 MG/2.5 ML VIAL INHALATION (14:56)
[2022-03-09 15:08] LABS: Magnesium 1.5 mg/dL (1.6-2.3)
[2022-03-09 15:11] LABS: NT Pro B Type Natriuretic Pept 9940 pg/mL (5-100)
[2022-03-09 15:28] LABS: Influenza A QL RT-PCR Negative (Negative); Influenza B QL RT-PCR Negative (Negative); SARS-CoV-2 RNA PCR Negative
[2022-03-09] MEDS: SODIUM CHLORIDE 0.9% IV 500 ML 999 ML IV CONT (15:40)
--- NOTE | 2022-03-09 15:40 | ECG_ITS ---
Measurements Intervals [place] Rate: 142 P: SD: 0 QRS: -81 QRSD: 146 T: 78 QT: 300 QTc: 461 Interpretive Statements UNCERTAIN atrial tachycardia RIGHT BUNDLE BRANCH BLOCK [120+ ms QRS DURATION, UPRIGHT V1, 40+ ms S IN I/aVL/V4/V5/V6] RIGHT BUNDLE BRANCH BLOCK WITH LEFTWARD AXIS. COMPARED TO ECG 03/09/2022 12:46:18 PATIENT WAS PREVIOUSLY IN SINUS RHYTHM NOW APPEARS TO BE ATRIAL TACHYCARDIA POSSIBLY ATRIAL FLUTTER WITH 2-1 CONDUCTION. QRS MORPHOLOGY IS UNCHANGED FROM THAT SEEN ON PREVIOUS ECG Electronically Signed On 03-12-2022 17:08:41 CERTIFIED PATHOLOGY ASSISTANT by Bernabe Funes M.D.
[2022-03-09] MEDS: ADENOSINE IV SOLN 6 MG/2 ML VIAL 18 MG (15:42)
--- NOTE | 2022-03-09 15:45 | PC.NURSE ---
adenocard 12 mg given per order. hr remains 140
[2022-03-09] MEDS: HYDROmorphone HCL INJ (*CRX) 1 MG/ML SYR (15:50)
[2022-03-09] MEDS: ADENOSINE IV SOLN 6 MG/2 ML VIAL 12 MG (15:52)
[2022-03-09] MEDS: dilTIAZem HCl INJ 25 MG/5 ML VIAL (15:56)
--- NOTE | 2022-03-09 16:02 | PC.NURSE ---
cardizem 2nd 10mg IVP push given per VO Dr. Robison
[2022-03-09] MEDS: dilTIAZem 100 MG/100 ML 100 MG/100 ML BAG (16:05)
--- NOTE | 2022-03-09 16:06 | ECG_ITS ---
Measurements Intervals [place] Rate: 121 P: 40 [place]: 171 QRS: -85 QRSD: 158 T: 71 QT: 330 QTc: 469 Interpretive Statements SINUS TACHYCARDIA WITH OCCASIONAL SUPRAVENTRICULAR PREMATURE COMPLEXES RIGHT BUNDLE BRANCH BLOCK [120+ ms QRS DURATION, UPRIGHT V1, 40+ ms S IN I/aVL/V4/V5/V6] LEFT ANTERIOR FASCICULAR BLOCK [QRS AXIS <= -45, QR IN I, RS IN II] COMPARED TO ECG 03/09/2022 15:40:25 HEART RATE HAS REDUCED AND PATIENT IS CLEARLY NOW IN SINUS RHYTHM Electronically Signed On 03-12-2022 17:09:16 PIPE FITTER AMMONIA by Bernabe Funes M.D.
[2022-03-09] MEDS: MAGNESIUM SULF 2 GM/WATER 50ML 2 GM/50 ML BAG IVPB (16:32)
[2022-03-09 16:35] LABS: Troponin I 0.042 ng/mL (0.000-0.034)
[2022-03-09] MEDS: SODIUM CHLORIDE 0.9% IV 1,000 ML 999 ML IV CONT (16:50)
--- NOTE | 2022-03-09 16:50 | PC.NURSE ---
infused 1000ml NS of 1st bag ordered per VO Dr. Robison
--- NOTE | 2022-03-09 17:00 | PM.IMHP ---
H&P: HPI History of Present Illness Date/Time: 03/09/22 17:00 Chief Complaint: Multiple complaints. Narrative: This is a 61-year-old male smoker with multiple medical problems including heart failure with preserved ejection fraction, insulin-dependent diabetes, hyperlipidemia, hypertension, chronic obstructive pulmonary disease, untreated obstructive sleep apnea, cirrhosis with history of esophageal varices, hepatitis-C, depression, chronic pain, and chronic lymphedema who presented to the ED for evaluation of multiple complaints. He is homeless, lives in his truck, and is not always compliant with his medications. He admits that he is not very active however over the last several days he has been increasingly weak and he has really not been able to get up due to weakness and chronic pain in his feet and legs due to diabetic neuropathy. He has chronic edema and lymphedema though he remarks that the legs are much smaller than usual. Additionally he has a poor appetite with poor oral intake, ongoing nausea, epigastric burning, diarrhea, dysuria, and subjective fever. He has no known sick contacts and denies headache, sinus congestion, sore throat, productive, and vomiting. He has not had any exertional chest pain, orthopnea, or paroxysmal nocturnal dyspnea. He was afebrile on arrival to the ED with a pulse of 115, and blood pressure of 93/56. Labs were significant for sodium of 124, chloride 91, BUN 49, creatinine 2.20, magnesium 1.5, bilirubin 2.2, proBNP 9940. Chest x-ray showed interval development of left lower lobe airspace disease consistent with pneumonia and stable bilateral lung nodules. CTA of the chest, abdomen, and pelvis showed findings the left lower lobe pneumonia and a possible peripheral enhancing 3 centimeter hepatic mass but no other acute findings. He was given IV fluid boluses in the emergency department after bedside cardiac ultrasound per ED physician showed flat IVC indicating dehydration. He is being admitted to the hospital in the setting for cautious IV fluid rehydration. Review of Systems Review of Systems: Twelve systems were reviewed and are negative except for as per HPI. [facility] Past Medical History Medical History (Updated 03/09/22 @ 21:51 by Mellisa Reynoso PA-C) Chronic obstructive pulmonary disease Cirrhosis of liver Diabetic neuropathy Esophageal varices Gout Heart failure with preserved ejection fraction Hepatitis C Insulin dependent type 2 diabetes mellitus Obstructive sleep apnea Noncompliant with CPAP. Osteomyelitis Right 3rd toe status post amputation. Paroxysmal atrial fibrillation Polysubstance abuse Psychiatric illness Including depression, anxiety, and history of suicide attempt. Suicidal ideations Surgical History Surgical History (Updated 03/09/22 @ 21:43 by Mellisa Reynoso PA-C) History of amputation of toe (10/2021) Right 3rd toe amputation for osteomyelitis. History of cardiac catheterization History of cholecystectomy History of esophagogastroduodenoscopy (EGD) History of hernia repair Family History Family History Father Family history of pancreatic cancer Hypertension Sibling Diabetes mellitus Social History Social History (Updated 03/09/22 @ 21:45 by Mellisa Reynoso PA-C) Social History: Surrogate medical decision maker: Declines to nominate a surrogate decision maker. Code status: Full code. Smoking status: Current some day smoker Tobacco type: cigarettes Second hand tobacco smoke exposure: No Alcohol intake: former Substance use: current Substance use type: amphetamines Last use: last week Lack of Transportation: YES Lack of Food: Sometimes True Current Housing: I Do Not Have Housing Concerned About Future Housing: YES Difficulty Paying Gas/Electric Bills: YES Difficulty Paying for Meds: YES Currently Unemployed: YES Education: Decline to Answer Difficulty w/
[2022-03-09 19:14] LABS: Lipase 58 U/L (23-300)
[2022-03-09] MEDS: LACTATED RINGERS 1,000 ML 125 ML IV CONT (19:45)
--- NOTE | 2022-03-09 19:46 | ADMGEN ---
This patient, Maxim Babb, was admitted to IMU Room 214-01 at 1947. Patient/family oriented to hospital policies and general routines including ID bracelet, bed and alarms, visiting hours, pain management, procedures, bathroom and other care routines, personal items, smoking policy, room service/diet, and visiting hours. Information on how to activate the Rapid Response Team has been discussed. Patient/Family are encouraged to report perceived risks to care and to ask questions if they do not understand what they are told or what they should do.
--- NOTE | 2022-03-09 20:16 | PC.NURSE ---
LR started before transport to floor, didn't hit save on EMAR had to manually enter
[2022-03-09 21:36] LABS: Anion Gap 7 mmol/L (8-16); Blood Urea Nitrogen 59 mg/dL (9-20); Calcium 7.1 mg/dL (8.4-10.2); Carbon Dioxide 23 mmol/L (22-30); Chloride 93 mmol/L (98-107); Creatine Kinase 48 U/L (55-170); Estimated CRCL calculation 43 ml/min; Estimated Glomerular Filt Rate 32; Glucose 184 mg/dL (65-110); Magnesium 1.7 mg/dL (1.6-2.3); Potassium 4.6 mmol/L (3.4-5.0); Sodium 123 mmol/L (137-145)
[2022-03-09 21:51] LABS: CRP 22.1 mg/dL (<1.0); Troponin I 0.055 ng/mL (0.000-0.034)
[2022-03-09 21:53] LABS: Hemoglobin A1C 8.1 % (<5.7)
[2022-03-09 22:10] LABS: Procalcitonin 16.7 ng/mL
[2022-03-09 22:37] LABS: Appearance Urine Clear (Clear); Bilirubin Urine 1+ (Negative); Blood Urine Trace-lysed (Negative); Glucose Urine UA Negative (Negative); Ketones Urine Trace mg/dL (Negative); Leukocyte Esterase Ur Negative LEU/UL (Negative); Nitrate Urine Negative (Negative); Protein Urine 2+ mg/dL (Negative)
[2022-03-09 22:41] LABS: Add Urine Microscopic? YES; Bacteria Urine Trace /hpf; Color Urine Dark Yellow (Yellow); Hyaline Casts Urine 20-29 /lpf; Mucus Urine Rare /lpf; RBC Urine 0-2 /hpf (0-2); WBC Urine 0-3 /hpf
[2022-03-09] MEDS: SODIUM CHLORIDE 0.9% IV 1,000 ML 100 ML IV CONT (22:49)
[2022-03-09] MEDS: traMADol HCL (*CRX) 50 MG TABLET PO (22:49)
[2022-03-10] VITALS (16 sets, daily range): BP systolic 85–106; BP diastolic 49–67; PULSE 86–110; RESP 14–28; TEMP 36.2–36.9; O2SAT 93–99
[2022-03-10] MEDS: HYDROmorphone HCL INJ (*CRX) 1 MG/ML SYR IV PUSH (02:07)
[2022-03-10 04:50] LABS: Hemoglobin 8.9 g/dL (14.0-18.0); Immature Platelet Fraction Pct 4.9 % (0.9-11.2); Mean Corpuscular HGB Conc 31.8 g/dl (32-36); Mean Corpuscular Hemoglobin 25.5 pg (26-34); Mean Corpuscular Volume 80.2 fl (80-100); Mean Platelet Volume 10.6 fl (7.4-10.4); Platelet Count Result 77 k/mm3 (150-375); Red Blood Count 3.49 M/mm3 (4.6-6.20); Red Cell Distribution Width 16.7 % (11.5-14.5)
[2022-03-10 05:10] LABS: Alanine Aminotransferase 33 U/L (6-50); Albumin Level 2.2 g/dL (3.5-5.1); Alkaline Phosphatase 76 U/L (38-126); Aspartate Amino Transferase 45 U/L (17-59); Bilirubin,Total 1.2 mg/dL (0.2-1.3); Blood Urea Nitrogen 63 mg/dL (9-20); Carbon Dioxide 26 mmol/L (22-30); Chloride 96 mmol/L (98-107); Estimated CRCL calculation 44 ml/min; Estimated Glomerular Filt Rate 31; Glucose 162 mg/dL (65-110); Magnesium 1.9 mg/dL (1.6-2.3); Potassium 4.2 mmol/L (3.4-5.0)
[2022-03-10 05:36] LABS: Anion Gap 1 mmol/L (8-16); Sodium 123 mmol/L (137-145)
[2022-03-10 08:52] LABS: Glucose Point of Care 130 mg/dl (65-105)
[2022-03-10] MEDS: ALBUTEROL SULFATE (*SP) AEROSOL 1 PUFF 2 PUFF INHALATION ×4 (09:12→20:40)
[2022-03-10] MEDS: UMECLIDINIUM BROMIDE 62.5 MCG ELLIPTA 1 PUFF INHALATION (09:14)
[2022-03-10] MEDS: ATORVASTATIN 10 MG TABLET PO (09:20)
[2022-03-10] MEDS: INDOMETHACIN 25 MG CAPSULE PO (09:20)
[2022-03-10] MEDS: ENOXAPARIN 40 MG/0.4 ML SYRINGE SUB-Q (09:24)
[2022-03-10] MEDS: MAGNESIUM OXIDE 400 MG TABLET PO (09:25)
[2022-03-10] MEDS: SODIUM CHLORIDE 0.9% IV 1,000 ML 100 ML IV CONT ×2 (09:32→21:22)
[2022-03-10] MEDS: traMADol HCL (*CRX) 50 MG TABLET PO (09:32)
[2022-03-10 10:59] LABS: Creatinine Urine 143.6 mg/dL
[2022-03-10 11:02] LABS: Sodium Urine Random 12 meq/L
--- NOTE | 2022-03-10 12:26 | PM.IMPN ---
Progress Note: A&P Assessment and Plan (1) Left lower lobe pneumonia: Code(s): J18.9 - Pneumonia, unspecified organism Status: Acute Assessment and Plan: CT chest showing Patchy infiltrate in the right upper lobe, infiltrate in the left upper lobe, and a consolidation with air bronchograms in left lower lobe. He has been started on azithromycin and ceftriaxone. Sputum to be attempted for culture. Urinary antigens ordered. (2) Acute kidney injury: Code(s): N17.9 - Acute kidney failure, unspecified Status: Acute Assessment and Plan: Normal baseline Cr. Cr 2.2 on admission. Exact etiology not clear but most likely multifactorial to include hypovolemia from dehydration with over-diuresis, hypoperfusion from relative hypotension, NSAIDs and possibly a component of urine outlet obstruction given findings on CT. Bailey placed. Renal US normal. He is being cautiously rehydrated. Urine output noted. Cr unchanged. Hold NSAIDs. Avoid nephrotoxic agents. (3) Dehydration: Code(s): E86.0 - Dehydration Status: Acute Assessment and Plan: Plan is as detailed above. (4) Hyponatremia: Code(s): E87.1 - Hypo-osmolality and hyponatremia Status: Acute Assessment and Plan: Presumably secondary to dehydration. Continue cautious IV fluid rehydration. TSH normal. Urine sodium 12 and UCr 144 and FENa 0.15%. No change with IV fluids. Add NaCl tabs. Check Urine eos. (5) Liver mass: Code(s): R16.0 - Hepatomegaly, not elsewhere classified Status: Acute Assessment and Plan: CT shows suggestions of at least a 3 centimeter hepatic mass. Will proceed with MRI. Check CEA and CA19-9. (6) Paroxysmal atrial fibrillation: Code(s): I48.0 - Paroxysmal atrial fibrillation Status: Acute Assessment and Plan: He was in sinus tachycardia on arrival to the ER. HR better. Continue metoprolol. He is not currently on anticoagulation for unclear reasons. 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 The patient's blood glucose was reviewed on 03/10 Glucose remains well controlled. Continue AccuCheks covering with sliding scale. Hypoglycemia protocol available as needed. Continue to monitor (8) Heart failure with preserved ejection fraction: Code(s): I50.30 - Unspecified diastolic (congestive) heart failure Status: Acute Assessment and Plan: Echo in September with EF 55-60% and Grade 2 diastolic dysfunction. Clinically felt to be dehydrated. Volume status will be monitored closely while he is being cautiously hydrated. (9) Chronic obstructive pulmonary disease: Code(s): J44.9 - Chronic obstructive pulmonary disease, unspecified Status: Acute Assessment and Plan: No evidence of acute exacerbation. Continue inhalers and albuterol. (10) Psychiatric illness: Code(s): F99 - Mental disorder, not otherwise specified Status: Acute Assessment and Plan: Patient reportedly suffers from depression anxiety, complicated by homelessness. Not actively suicidal or homicidal. (11) Polysubstance abuse: Code(s): F19.10 - Other psychoactive substance abuse, uncomplicated Status: Acute Assessment and Plan: Including tobacco and methamphetamine use which he apparently used last week. Check UDS. Could be contributing to his above problems. (12) Leg pain: Code(s): M79.606 - Pain in leg, unspecified Status: Acute Assessment and Plan: Exam incomplete. Concern for possible left ankle gout. Will check LLE xrays. Consider steroids if no obvious issues. Subjective Date/time seen: 03/10/22 12:26 Interval history: 61yo male with pAFib, DM, CHF, COPD and cirrhosis here for dyspnea
[2022-03-10 12:29] LABS: Glucose Point of Care 184 mg/dl (65-105)
[2022-03-10 13:37] LABS: Sodium 127 mmol/L (137-145)
[2022-03-10 14:14] LABS: Carcinoembryonic Antigen 6.2 ng/mL (0.0-3.0)
[2022-03-10 14:16] LABS: Iron < 10 ug/dL (49-181)
[2022-03-10 15:31] LABS: Barbiturate Screen Urine Negative (Negative); Benzodiazepines Screen Urine Negative (Negative)
[2022-03-10 15:36] LABS: Percent Iron Saturation < 4 % (20-50)
[2022-03-10 15:45] LABS: Cannabinoid Screen Urine Negative (Negative); Cocaine Screen Urine Negative (Negative); Methadone Screen Urine Negative (Negative); Opiate Screen Urine Positive (Negative); Phencyclidine Screen Urine Negative (Negative)
[2022-03-10 16:01] LABS: Amphetamine Screen Urine Positive (Negative)
[2022-03-10 16:12] LABS: Eosinophil Urine None Seen % (None Seen)
[2022-03-10 16:38] LABS: Glucose Point of Care 211 mg/dl (65-105)
[2022-03-10] MEDS: SODIUM CHLORIDE 1 GM TABLET PO (17:34)
[2022-03-10] MEDS: INSULIN ASPART (*BKC) 100 UNITS/ML SUB-Q (17:36)
[2022-03-10 21:07] LABS: Glucose Point of Care 244 mg/dl (65-105)
[2022-03-11] VITALS (15 sets, daily range): BP systolic 98–130; BP diastolic 54–98; PULSE 99–110; RESP 16–36; TEMP 36.2–36.9; O2SAT 91–100; BMI 35.7
[2022-03-11 01:22] LABS: Sodium 123 mmol/L (137-145)
[2022-03-11] MEDS: GABAPENTIN 300 MG CAPSULE 600 MG PO (03:04)
[2022-03-11 05:18] LABS: Albumin Level 2.2 g/dL (3.5-5.1); Anion Gap 4 mmol/L (8-16); Blood Urea Nitrogen 68 mg/dL (9-20); Carbon Dioxide 24 mmol/L (22-30); Chloride 96 mmol/L (98-107); Estimated CRCL calculation 57 ml/min; Estimated Glomerular Filt Rate 41; Glucose 172 mg/dL (65-110); Phosphorus 2.8 mg/dL (2.5-4.5); Potassium 4.2 mmol/L (3.4-5.0); Sodium 124 mmol/L (137-145)
[2022-03-11 05:19] LABS: Hematocrit 27.5 % (42.0-52.0); Hemoglobin 8.7 g/dL (14.0-18.0); Immature Platelet Fraction Pct 5.6 % (0.9-11.2); Mean Corpuscular HGB Conc 31.6 g/dl (32-36); Mean Corpuscular Hemoglobin 25.4 pg (26-34); Mean Corpuscular Volume 80.4 fl (80-100); Mean Platelet Volume 10.8 fl (7.4-10.4); Platelet Count Result 59 k/mm3 (150-375); Red Blood Count 3.42 M/mm3 (4.6-6.20); Red Cell Distribution Width 16.6 % (11.5-14.5); White Blood Count 2.6 K/mm3 (4.5-10.0)
[2022-03-11 06:13] LABS: Band Neutrophils Percent 12 % (0-6); Eosinophils Absolute Manual 0.05 K/mm3 (0.02-0.5); Eosinophils Percent Manual 2 % (0-4); Lymphocytes Absolute Manual 0.13 K/mm3 (1.1-4.5); Metamyelocytes Percent 3 %; Monocytes Percent Manual 4 % (3-9); Myelocytes Percent 1 %; Neutrophils Absolute Manual 2.21 K/mm3 (1.3-6.7); Neutrophils Percent Manual 73 % (46-73); Total Cells Counted 100
[2022-03-11 06:14] LABS: Anisocytosis 1+ (NORMAL); Hypochromasia 1+ (NORMAL); Microcytosis 1+ (NORMAL); Platelet Estimate Decreased (Adequate); Schistocytes None Seen (NORMAL)
[2022-03-11 06:15] LABS: Burr Cells 1+ (NORMAL)
[2022-03-11 08:35] LABS: Glucose Point of Care 178 mg/dl (65-105)
[2022-03-11] MEDS: METOPROLOL SUCCINATE EXT REL 50 MG TABCR PO (09:41)
[2022-03-11] MEDS: SODIUM CHLORIDE 1 GM TABLET PO ×2 (09:41→17:27)
[2022-03-11] MEDS: ENOXAPARIN 40 MG/0.4 ML SYRINGE SUB-Q (09:41)
[2022-03-11] MEDS: ATORVASTATIN 10 MG TABLET PO (09:41)
[2022-03-11] MEDS: traMADol HCL (*CRX) 50 MG TABLET PO (09:41)
[2022-03-11] MEDS: MAGNESIUM OXIDE 400 MG TABLET PO (09:41)
[2022-03-11] MEDS: SODIUM CHLORIDE 0.9% IV 1,000 ML 100 ML IV CONT (09:47)
[2022-03-11 12:55] LABS: Glucose Point of Care 232 mg/dl (65-105)
[2022-03-11] MEDS: ALBUTEROL SULFATE (*SP) AEROSOL 1 PUFF 2 PUFF INHALATION ×2 (13:55→21:28)
--- NOTE | 2022-03-11 16:32 | PM.IMPN ---
Progress Note: A&P Assessment and Plan (1) Sepsis: Code(s): A41.9 - Sepsis, unspecified organism Status: Acute Assessment and Plan: Present on admission with tachycardia, MIKEY and leukopenia. Now with bandemia. Renal function better. Related to PNA and probable with cellulitis. BCx growing Strep pneumonia. Continue IV abx. Repeat BCx. (2) Left lower lobe pneumonia: Code(s): J18.9 - Pneumonia, unspecified organism Status: Acute Assessment and Plan: CT chest showing patchy infiltrate in the right upper lobe, infiltrate in the left upper lobe, and a consolidation with air bronchograms in left lower lobe. He was started on azithromycin and ceftriaxone but Vanco added when BCx returned positive. Sputum to be attempted for culture. Urinary antigens ordered. Narrow abx once sensitivites are back. Rocephin increased to 2gm. (3) Acute kidney injury: Code(s): N17.9 - Acute kidney failure, unspecified Status: Acute Assessment and Plan: Normal baseline Cr. Cr 2.2 on admission. Exact etiology not clear but most likely multifactorial to include hypovolemia from dehydration with over-diuresis, hypoperfusion from relative hypotension, NSAIDs, ATN from sepsis and/or possibly a component of urine outlet obstruction given findings on CT. Bailey placed. Renal US normal. He is being cautiously rehydrated. Urine output noted. Cr better. Hold NSAIDs. Avoid nephrotoxic agents. (4) Hyponatremia: Code(s): E87.1 - Hypo-osmolality and hyponatremia Status: Acute Assessment and Plan: Presumably secondary to dehydration. Continue cautious IV fluid rehydration. TSH normal. Cortisol mildly elevated but probably stress response. Urine sodium 12 and UCr 144 and FENa 0.15%. Patient eating better. Continue NaCl tabs. (5) Dehydration: Code(s): E86.0 - Dehydration Status: Acute Assessment and Plan: Plan is as detailed above. (6) Liver mass: Code(s): R16.0 - Hepatomegaly, not elsewhere classified Status: Acute Assessment and Plan: CT shows suggestions of at least a 3 centimeter hepatic mass. MRI unhelpful due to motion artifact. CEA 6.2; CA19-9 pending. Repeat MRI when able. (7) Paroxysmal atrial fibrillation: Code(s): I48.0 - Paroxysmal atrial fibrillation Status: Acute Assessment and Plan: He was in sinus tachycardia on arrival to the ER. HR better. Continue metoprolol. He is not currently on anticoagulation for unclear reasons. Monitor on tele. (8) Insulin dependent type 2 diabetes mellitus: Code(s): E11.9 - Type 2 diabetes mellitus without complications; Z79.4 - correction (current) use of insulin Status: Acute Assessment and Plan: A1c 8.6. The patient's blood glucose was reviewed on 03/11 Glucose higher today possibly related to improved oral intake. Continue AccuCheks covering with sliding scale. Hypoglycemia protocol available as needed. Continue to monitor (9) Heart failure with preserved ejection fraction: Code(s): I50.30 - Unspecified diastolic (congestive) heart failure Status: Acute Assessment and Plan: Echo in September with EF 55-60% and Grade 2 diastolic dysfunction. Clinically felt to be dehydrated. Volume status will be monitored closely while he is being cautiously hydrated. (10) Chronic obstructive pulmonary disease: Code(s): J44.9 - Chronic obstructive pulmonary disease, unspecified Status: Acute Assessment and Plan: Stable. Continue inhalers and albuterol. (11) Psychiatric illness: Code(s): F99 - Mental disorder, not otherwise specified Status: Acute Assessment and Plan: Patient reportedly suffers from depression anxiety, complicated by homelessness. Not actively suicidal or homicidal. (12) Polysubstance abuse: Code(s): F19.10 - Other psychoactive substance abuse, uncomplicated Status: Acute
[2022-03-11] MEDS: cefTRIAXone 2 GM in SODIUM CHLORIDE 0.9% IV 100 ML 200 ML IVPB (17:26)
[2022-03-11] MEDS: INSULIN ASPART (*BKC) 100 UNITS/ML SUB-Q (17:30)
[2022-03-11 17:32] LABS: Glucose Point of Care 229 mg/dl (65-105)
[2022-03-11 20:57] LABS: Glucose Point of Care 240 mg/dl (65-105)
[2022-03-11 23:11] LABS: Sodium 127 mmol/L (137-145)
[2022-03-12] VITALS (11 sets, daily range): BP systolic 94–123; BP diastolic 60–78; PULSE 78–106; RESP 18–36; TEMP 36.1–36.7; O2SAT 92–96
[2022-03-12] MEDS: traMADol HCL (*CRX) 50 MG TABLET PO ×3 (03:43→18:03)
[2022-03-12] MEDS: SODIUM CHLORIDE 0.9% IV 1,000 ML 100 ML IV CONT (03:44)
[2022-03-12 05:17] LABS: Basophils Percent Auto 0.7 % (0.2-1.2); Eosinophils Percent Auto 0.7 % (0-4.4); Hematocrit 27.9 % (42.0-52.0); Hemoglobin 8.4 g/dL (14.0-18.0); Immature Granulocyte Absolute 0.15 K/mm3 (0.00-0.031); Immature Platelet Fraction Pct 6.1 % (0.9-11.2); Lymphocytes Absolute Auto 0.21 K/mm3 (0.9-3.2); Mean Corpuscular HGB Conc 30.1 g/dl (32-36); Mean Corpuscular Hemoglobin 25.8 pg (26-34); Mean Corpuscular Volume 85.8 fl (80-100); Mean Platelet Volume 11.1 fl (7.4-10.4); Monocytes Absolute Auto 0.6 K/mm3 (0.1-0.6); Monocytes Percent Auto 20.9 % (2.6-8.5); Neutrophils Percent Auto 65.7 % (45.5-73.1); Platelet Count Result 55 k/mm3 (150-375); Red Blood Count 3.25 M/mm3 (4.6-6.20); Red Cell Distribution Width 16.9 % (11.5-14.5)
[2022-03-12 05:29] LABS: Albumin Level 2.1 g/dL (3.5-5.1); Anion Gap 5 mmol/L (8-16); Blood Urea Nitrogen 63 mg/dL (9-20); Carbon Dioxide 21 mmol/L (22-30); Chloride 97 mmol/L (98-107); Estimated CRCL calculation 79 ml/min; Estimated Glomerular Filt Rate > 60; Glucose 208 mg/dL (65-110); Magnesium 2.3 mg/dL (1.6-2.3); Phosphorus 2.8 mg/dL (2.5-4.5); Potassium 4.1 mmol/L (3.4-5.0); Sodium 123 mmol/L (137-145)
[2022-03-12 06:51] LABS: Platelet Estimate Decreased (Adequate)
[2022-03-12 06:52] LABS: Crenated RBC 2+ (NORMAL); Hypochromasia 2+ (NORMAL); Ovalocytes 2+ (NORMAL); Schistocytes 1+ (NORMAL)
[2022-03-12] MEDS: UMECLIDINIUM BROMIDE 62.5 MCG ELLIPTA 1 PUFF INHALATION (08:13)
[2022-03-12] MEDS: ALBUTEROL SULFATE (*SP) AEROSOL 1 PUFF 2 PUFF INHALATION ×3 (08:13→21:15)
[2022-03-12 08:55] LABS: Glucose Point of Care 222 mg/dl (65-105)
[2022-03-12] MEDS: INSULIN ASPART (*BKC) 100 UNITS/ML SUB-Q ×3 (10:11→18:03)
[2022-03-12] MEDS: METOPROLOL SUCCINATE EXT REL 50 MG TABCR PO (10:21)
[2022-03-12] MEDS: SODIUM CHLORIDE 1 GM TABLET PO ×2 (10:22→18:03)
[2022-03-12] MEDS: ATORVASTATIN 10 MG TABLET PO (10:22)
[2022-03-12] MEDS: ENOXAPARIN 40 MG/0.4 ML SYRINGE SUB-Q (10:22)
[2022-03-12] MEDS: MAGNESIUM OXIDE 400 MG TABLET PO (10:22)
[2022-03-12 11:12] LABS: Sodium 125 mmol/L (137-145)
[2022-03-12 11:56] LABS: Glucose Point of Care 211 mg/dl (65-105)
--- NOTE | 2022-03-12 15:36 | PC.NURSE ---
Pt transfer from [facility] @ 1120.
--- NOTE | 2022-03-12 15:37 | PC.NURSE ---
Pt is verbally aggressive, and yelling at staff and roommate. Patient complaining of staff and care being given this hospital stay. Tech caught patient messing with the IV pump. Education was given with time to decompress feeling, lock was placed on IV pump.
[2022-03-12 16:19] LABS: Glucose Point of Care 218 mg/dl (65-105)
--- NOTE | 2022-03-12 16:27 | PM.IMPN ---
Progress Note: A&P Assessment and Plan (1) Sepsis: Code(s): A41.9 - Sepsis, unspecified organism Status: Acute Assessment and Plan: Present on admission with tachycardia, MIKEY and leukopenia. Now with bandemia. Renal function better. Related to PNA and probable with cellulitis. BCx growing Strep pneumonia. Repeat BCx NGTD. Continue IV abx. (2) Left lower lobe pneumonia: Code(s): J18.9 - Pneumonia, unspecified organism Status: Acute Assessment and Plan: CT chest showing patchy infiltrate in the right upper lobe, infiltrate in the left upper lobe, and a consolidation with air bronchograms in left lower lobe. He was started on azithromycin and ceftriaxone and Vanco added when BCx returned positive; Rocephin increased to 2gm. Urinary antigens ordered. Narrow abx once sensitivites are back. (3) Acute kidney injury: Code(s): N17.9 - Acute kidney failure, unspecified Status: Acute Assessment and Plan: Normal baseline Cr. Cr 2.2 on admission. Exact etiology not clear but most likely multifactorial to include hypovolemia from dehydration with over-diuresis, hypoperfusion from relative hypotension, NSAIDs, ATN from sepsis, methamphetamine use and/or possibly a component of urine outlet obstruction given findings on CT. Bailey placed. Renal US normal. He is being cautiously rehydrated. Urine output noted. Cr better. Hold NSAIDs. Avoid nephrotoxic agents. Stop IV fluids. Trial of lasix to improve LE edema. (4) Hyponatremia: Code(s): E87.1 - Hypo-osmolality and hyponatremia Status: Acute Assessment and Plan: Presumably secondary to dehydration. Continue cautious IV fluid rehydration. TSH normal. Cortisol mildly elevated but probably stress response. Urine sodium 12 and UCr 144 and FENa 0.15%. Patient eating better. Continue NaCl tabs. Follow Na off IV fluids. (5) Dehydration: Code(s): E86.0 - Dehydration Status: Acute Assessment and Plan: Plan is as detailed above. (6) Liver mass: Code(s): R16.0 - Hepatomegaly, not elsewhere classified Status: Acute Assessment and Plan: CT shows suggestions of at least a 3 centimeter hepatic mass. MRI unhelpful due to motion artifact. CEA 6.2; CA19-9 pending. Repeat MRI when able. (7) Paroxysmal atrial fibrillation: Code(s): I48.0 - Paroxysmal atrial fibrillation Status: Acute Assessment and Plan: He was in sinus tachycardia on arrival to the ER. HR better. Continue metoprolol. He is not currently on anticoagulation for unclear reasons. Monitor on tele. (8) Insulin dependent type 2 diabetes mellitus: Code(s): E11.9 - Type 2 diabetes mellitus without complications; Z79.4 - retirement (current) use of insulin Status: Acute Assessment and Plan: A1c 8.6. The patient's blood glucose was reviewed on 03/12 Glucose higher today possibly related to improved oral intake. Continue AccuCheks covering with sliding scale. Hypoglycemia protocol available as needed. Continue to monitor. Add Lantus (9) Heart failure with preserved ejection fraction: Code(s): I50.30 - Unspecified diastolic (congestive) heart failure Status: Acute Assessment and Plan: Echo in September with EF 55-60% and Grade 2 diastolic dysfunction. Clinically felt to be dehydrated. Volume status will be monitored closely while he is being cautiously hydrated. (10) Chronic obstructive pulmonary disease: Code(s): J44.9 - Chronic obstructive pulmonary disease, unspecified Status: Acute Assessment and Plan: Stable. Continue inhalers and albuterol. (11) Psychiatric illness: Code(s): F99 - Mental disorder, not otherwise specified Status: Acute Assessment and Plan: Patient reportedly suffers from depression anxiety, complicated by homelessness. Not actively suicidal or homicidal. (12) Polysubstance abuse: Code(s):
[2022-03-12 17:15] LABS: Sodium 125 mmol/L (137-145)
[2022-03-12] MEDS: cefTRIAXone 2 GM in SODIUM CHLORIDE 0.9% IV 100 ML 200 ML IVPB (18:02)
--- NOTE | 2022-03-12 18:29 | PC.NURSE ---
Called pharmacy for Lasix and Azithromycin
[2022-03-12] MEDS: FUROSEMIDE INJ 40 MG/4 ML VIAL 20 MG IV PUSH (20:23)
[2022-03-12] MEDS: INSULIN GLARGINE (*BKC) 100 UNITS/ML 14 UNITS SUB-Q (20:23)
[2022-03-13] VITALS (9 sets, daily range): BP systolic 110–140; BP diastolic 64–82; PULSE 64–98; RESP 20; TEMP 36.4–37.2; O2SAT 94–100
[2022-03-13 01:23] LABS: Sodium 122 mmol/L (137-145)
[2022-03-13 02:53] LABS: Vancomycin Trough 13.5 ug/mL (10.0-20.0)
[2022-03-13 04:43] LABS: Glucose Point of Care 256 mg/dl (65-105)
[2022-03-13 08:18] LABS: Glucose Point of Care 176 mg/dl (65-105)
[2022-03-13 08:46] LABS: Alanine Aminotransferase 29 U/L (6-50); Albumin Level 2.5 g/dL (3.5-5.1); Alkaline Phosphatase 181 U/L (38-126); Anion Gap 3 mmol/L (8-16); Aspartate Amino Transferase 35 U/L (17-59); Bilirubin,Total 1.4 mg/dL (0.2-1.3); Blood Urea Nitrogen 51 mg/dL (9-20); Calcium 7.4 mg/dL (8.4-10.2); Carbon Dioxide 25 mmol/L (22-30); Chloride 101 mmol/L (98-107); Estimated CRCL calculation 107 ml/min; Estimated Glomerular Filt Rate > 60; Glucose 163 mg/dL (65-110); Potassium 4.5 mmol/L (3.4-5.0); Sodium 129 mmol/L (137-145)
[2022-03-13] MEDS: METOPROLOL SUCCINATE EXT REL 50 MG TABCR PO (09:23)
[2022-03-13] MEDS: SODIUM CHLORIDE 1 GM TABLET PO ×2 (09:23→18:00)
[2022-03-13] MEDS: MAGNESIUM OXIDE 400 MG TABLET PO (09:24)
[2022-03-13] MEDS: FUROSEMIDE INJ 40 MG/4 ML VIAL 20 MG IV PUSH ×2 (09:24→18:00)
[2022-03-13] MEDS: ATORVASTATIN 10 MG TABLET PO (09:24)
[2022-03-13 09:31] LABS: Basophils Absolute Auto 0.1 K/mm3 (0.0-0.1); Eosinophils Absolute Auto 0.1 K/mm3 (0-0.3); Eosinophils Percent Auto 1.7 % (0-4.4); Hematocrit 31.8 % (42.0-52.0); Hemoglobin 9.9 g/dL (14.0-18.0); Immature Granulocyte Absolute 0.31 K/mm3 (0.00-0.031); Immature Granulocyte Percent A 5.3 % (0-0.5); Immature Platelet Fraction Pct 9.3 % (0.9-11.2); Lymphocytes Absolute Auto 0.35 K/mm3 (0.9-3.2); Mean Corpuscular HGB Conc 31.1 g/dl (32-36); Mean Corpuscular Hemoglobin 25.8 pg (26-34); Mean Corpuscular Volume 82.8 fl (80-100); Monocytes Absolute Auto 0.8 K/mm3 (0.1-0.6); Monocytes Percent Auto 13.5 % (2.6-8.5); Neutrophils Absolute Auto 4.3 K/mm3 (1.3-6.7); Neutrophils Percent Auto 72.5 % (45.5-73.1); Platelet Count Result 80 k/mm3 (150-375); Red Blood Count 3.84 M/mm3 (4.6-6.20); Red Cell Distribution Width 17.1 % (11.5-14.5); White Blood Count 5.9 K/mm3 (4.5-10.0)
[2022-03-13] MEDS: ALBUTEROL SULFATE (*SP) AEROSOL 1 PUFF 2 PUFF INHALATION (09:31)
[2022-03-13 10:14] LABS: Crenated RBC 1+ (NORMAL); Ovalocytes 2+ (NORMAL); Platelet Estimate Decreased (Adequate)
[2022-03-13 10:15] LABS: Schistocytes None Seen (NORMAL)
[2022-03-13 11:21] LABS: Glucose Point of Care 225 mg/dl (65-105)
--- NOTE | 2022-03-13 11:38 | PCOTNOTE ---
Attempted OT evaluation; pt. refused due to pain at 9:00am; attempted again at 11:00after RN gave pain medication and pt. was sleeping and did not wake to participate.
[2022-03-13] MEDS: INSULIN ASPART (*BKC) 100 UNITS/ML SUB-Q (13:24)
[2022-03-13 16:41] LABS: Glucose Point of Care 188 mg/dl (65-105)
[2022-03-13] MEDS: cefTRIAXone 2 GM in SODIUM CHLORIDE 0.9% IV 100 ML 200 ML IVPB (18:00)
[2022-03-13] MEDS: traMADol HCL (*CRX) 50 MG TABLET PO (18:06)
--- NOTE | 2022-03-13 18:10 | PCRCNOTE ---
Window of time for administration has passed. See next scheduled administration.
[2022-03-13 18:13] LABS: Mycoplasma IgM Antibody Titer 515 U/mL (<770)
--- NOTE | 2022-03-13 18:37 | PM.IMPN ---
Progress Note: A&P Assessment and Plan (1) Sepsis: Code(s): A41.9 - Sepsis, unspecified organism Status: Acute Assessment and Plan: Present on admission with tachycardia, MIKEY and leukopenia with bandemia. Now with bacteremia. Renal function better. Related to PNA and probable with cellulitis. BCx growing Strep pneumonia. Repeat BCx now positive (but could be contaminate). Continue IV abx. Stop Azithromycin after today. May need KINGS if pesistent bacteremia. (2) Left lower lobe pneumonia: Code(s): J18.9 - Pneumonia, unspecified organism Status: Acute Assessment and Plan: CT chest showing patchy infiltrate in the right upper lobe, infiltrate in the left upper lobe, and a consolidation with air bronchograms in left lower lobe. He was started on azithromycin and ceftriaxone and Vanco added when BCx returned positive; Rocephin increased to 2gm. Urinary antigens ordered. Narrow abx once sensitivites are back. (3) Acute kidney injury: Code(s): N17.9 - Acute kidney failure, unspecified Status: Acute Assessment and Plan: Normal baseline Cr. Cr was 2.2 on admission. Etiology most likely multifactorial to include hypovolemia from dehydration with over-diuresis, hypoperfusion from relative hypotension, NSAIDs, ATN from sepsis, methamphetamine use and/or possibly a component of urine outlet obstruction given findings on CT. Bailey placed. Renal US normal. He was cautiously rehydrated but now off IV fluids since Cr normal now. Hold NSAIDs. Avoid nephrotoxic agents. Trial of lasix started. (4) Hyponatremia: Code(s): E87.1 - Hypo-osmolality and hyponatremia Status: Acute Assessment and Plan: Presumably secondary to dehydration. Was on IV fluid for rehydration. TSH normal. Cortisol mildly elevated but probably stress response. Urine sodium 12 and UCr 144 and FENa 0.15%. NaCl tabs started. Patient is eating better. Na better today since starting the Lasix. Continue NaCl tabs. Follow Na (5) Dehydration: Code(s): E86.0 - Dehydration Status: Acute Assessment and Plan: Resolved. Related to above. Plan is as detailed above. (6) Liver mass: Code(s): R16.0 - Hepatomegaly, not elsewhere classified Status: Acute Assessment and Plan: CT shows suggestions of at least a 3 centimeter hepatic mass. MRI unhelpful due to motion artifact. CEA 6.2; CA19-9 pending. Repeat MRI when able. (7) Paroxysmal atrial fibrillation: Code(s): I48.0 - Paroxysmal atrial fibrillation Status: Acute Assessment and Plan: He was in sinus tachycardia on arrival to the ER. HR better now. Continue metoprolol. He is not currently on anticoagulation for unclear reasons. Okay to stop tele. (8) Insulin dependent type 2 diabetes mellitus: Code(s): E11.9 - Type 2 diabetes mellitus without complications; Z79.4 - intermediate (current) use of insulin Status: Acute Assessment and Plan: A1c 8.6. The patient's blood glucose was reviewed on 03/13 Glucose higher today possibly related to improved oral intake. Continue AccuCheks covering with sliding scale. Hypoglycemia protocol available as needed. Continue to monitor. Continue Lantus (9) Heart failure with preserved ejection fraction: Code(s): I50.30 - Unspecified diastolic (congestive) heart failure Status: Acute Assessment and Plan: Echo in September with EF 55-60% and Grade 2 diastolic dysfunction. Clinically felt to be dehydrated and was rehydrated. As above (10) Chronic obstructive pulmonary disease: Code(s): J44.9 - Chronic obstructive pulmonary disease, unspecified Status: Acute Assessment and Plan: Stable. Continue inhalers and albuterol. (11) Psychiatric illness: Code(s): F99 - Mental disorder, not otherwise specified Status: Acute Assessment and Plan: Patient reportedly suffers from depression anxiety,
[2022-03-13] MEDS: INSULIN GLARGINE (*BKC) 100 UNITS/ML 14 UNITS SUB-Q (20:47)
[2022-03-13] MEDS: EUCERIN CREAM 120 GM JAR 1 APPLIC TOPICAL (20:48)
[2022-03-13 21:13] LABS: Glucose Point of Care 228 mg/dl (65-105)
[2022-03-13] MEDS: LORazepam INJ (*CRX) 2 MG/ML VIAL 0.5 MG IV PUSH (23:50)
--- NOTE | 2022-03-13 23:58 | PC.NURSE ---
Pt. called nursing staff into the room with demands for a medical professional to come look at this catheter . Pt. had removed the max collection bag from catheter itself and was draining the catheter into his water cup. He demanded the max catheter be taken out so he can pee like a man and continued to attempt to pull it out. Attempted to educate on the need for strict intake and output observation but pt. refused education. Lashawn Niko was notified of the situation and orders were obtained to remove his max catheter. Pt. provided with two urinals to measure urine output upon removal.
[2022-03-14 01:31] LABS: Legionella pneumophila Ag Ur Not Detected (Not Detected)
[2022-03-14] MEDS: traMADol HCL (*CRX) 50 MG TABLET PO ×2 (01:47→10:54)
[2022-03-14 05:17] LABS: CA 19-9 39 U/mL (<34)
[2022-03-14 06:00] VITALS: BP 150/88; PULSE 89; RESP 17; TEMP 36.5; O2SAT 97
--- NOTE | 2022-03-14 06:23 | PC.NURSE ---
Pt had pulled out his two IV catheters when nurse walked into room, had thrown his blankets on the IV pole and was attempting to pull the IV pole into his bed. Urinals thrown across the room. When questioned about why he pulled out his IV catheters, he stated the machine was beeping . Education was provided on the need for IV access site while in the hospital, the need to not touch medical equipment, and the importance of receiving his scheduled IV medications. Call light was within the reach of the patient during this time. Access was attempted to be obtained x2 from primary nurse but not obtained at this time. Pt. stated to the nurse to get the hell out of my room . Bed alarms on and charge nurse notified.
[2022-03-14 07:49] LABS: Basophils Absolute Auto 0.1 K/mm3 (0.0-0.1); Basophils Percent Auto 0.8 % (0.2-1.2); Eosinophils Absolute Auto 0.1 K/mm3 (0-0.3); Eosinophils Percent Auto 1.2 % (0-4.4); Hematocrit 32.4 % (42.0-52.0); Hemoglobin 10.3 g/dL (14.0-18.0); Immature Granulocyte Absolute 1.21 K/mm3 (0.00-0.031); Immature Granulocyte Percent A 12.1 % (0-0.5); Mean Corpuscular HGB Conc 31.8 g/dl (32-36); Mean Corpuscular Hemoglobin 26.1 pg (26-34); Mean Platelet Volume 10.6 fl (7.4-10.4); Monocytes Absolute Auto 0.9 K/mm3 (0.1-0.6); Monocytes Percent Auto 9.3 % (2.6-8.5); Neutrophils Absolute Auto 6.9 K/mm3 (1.3-6.7); Neutrophils Percent Auto 69.6 % (45.5-73.1); Platelet Count Result 117 k/mm3 (150-375); Red Blood Count 3.95 M/mm3 (4.6-6.20)
[2022-03-14 08:03] LABS: Alanine Aminotransferase 25 U/L (6-50); Albumin Level 2.4 g/dL (3.5-5.1); Alkaline Phosphatase 234 U/L (38-126); Anion Gap 2 mmol/L (8-16); Aspartate Amino Transferase 31 U/L (17-59); Bilirubin,Total 1.3 mg/dL (0.2-1.3); Blood Urea Nitrogen 34 mg/dL (9-20); Calcium 7.7 mg/dL (8.4-10.2); Carbon Dioxide 27 mmol/L (22-30); Chloride 96 mmol/L (98-107); Estimated CRCL calculation 118 ml/min; Estimated Glomerular Filt Rate > 60; Glucose 151 mg/dL (65-110); Magnesium 1.7 mg/dL (1.6-2.3); Phosphorus 2.6 mg/dL (2.5-4.5); Potassium 4.5 mmol/L (3.4-5.0); Sodium 125 mmol/L (137-145)
[2022-03-14] MEDS: UMECLIDINIUM BROMIDE 62.5 MCG ELLIPTA 1 PUFF INHALATION (08:17)
[2022-03-14] MEDS: ALBUTEROL SULFATE (*SP) AEROSOL 1 PUFF 2 PUFF INHALATION ×3 (08:17→22:10)
[2022-03-14 08:18] VITALS: O2SAT 96
[2022-03-14 08:54] LABS: Glucose Point of Care 156 mg/dl (65-105)
[2022-03-14 09:28] LABS: Ovalocytes 2+ (NORMAL)
[2022-03-14 09:29] LABS: Polychromasia 1+ (NORMAL); Schistocytes Rare (NORMAL); Tear Drop Cells 1+ (NORMAL)
[2022-03-14] MEDS: ATORVASTATIN 10 MG TABLET PO (10:54)
[2022-03-14] MEDS: METOPROLOL SUCCINATE EXT REL 50 MG TABCR PO (10:54)
[2022-03-14] MEDS: SODIUM CHLORIDE 1 GM TABLET PO ×2 (10:54→17:50)
[2022-03-14] MEDS: MAGNESIUM OXIDE 400 MG TABLET PO (10:54)
[2022-03-14] MEDS: ENOXAPARIN 40 MG/0.4 ML SYRINGE SUB-Q (10:55)
[2022-03-14] MEDS: FUROSEMIDE INJ 40 MG/4 ML VIAL 20 MG IV PUSH ×2 (10:55→17:50)
[2022-03-14] MEDS: EUCERIN CREAM 120 GM JAR 1 APPLIC TOPICAL ×2 (10:56→20:53)
--- NOTE | 2022-03-14 11:38 | PM.IMPN ---
Progress Note: A&P Assessment and Plan (1) Sepsis: Code(s): A41.9 - Sepsis, unspecified organism Status: Acute Assessment and Plan: Present on admission with tachycardia, MIKEY and leukopenia with bandemia. Now with bacteremia. Renal function better. Related to PNA and probable with cellulitis. BCx growing Strep pneumonia. Repeat BCx now positive (but felt to be contaminate since growing Staph epi). [facility]oke [facility]; [facility] state that Strep pneumoniae is sensitive to Rocephin. Continue IV Rocephin. Stop Azithromycin. Will stop Vanco. (2) Left lower lobe pneumonia: Code(s): J18.9 - Pneumonia, unspecified organism Status: Acute Assessment and Plan: CT chest showing patchy infiltrate in the right upper lobe, infiltrate in the left upper lobe, and a consolidation with air bronchograms in left lower lobe. He was started on azithromycin and ceftriaxone and Vanco added when BCx returned positive; Rocephin increased to 2gm. Urinary antigens ordered. Narrow abx as above. (3) Cellulitis of left leg: Code(s): L03.116 - Cellulitis of left lower limb Status: Acute Assessment and Plan: Mild erythema to the left LE more consistent with cellulitis. Doubt septic arthritis. LLE xrays do not reveal acute osseous changes. Abx as above. PT/OT. Elevate LLE (4) Acute kidney injury: Code(s): N17.9 - Acute kidney failure, unspecified Status: Acute Assessment and Plan: Normal baseline Cr. Cr was 2.2 on admission. Etiology most likely multifactorial to include hypovolemia from dehydration with over-diuresis, hypoperfusion from relative hypotension, NSAIDs, ATN from sepsis, methamphetamine use and/or possibly a component of urine outlet obstruction given findings on CT. Bailey placed. Renal US normal. He was cautiously rehydrated but now off IV fluids since Cr normal now. Hold NSAIDs. Avoid nephrotoxic agents. Cr remaining stable (5) Hyponatremia: Code(s): E87.1 - Hypo-osmolality and hyponatremia Status: Acute Assessment and Plan: Presumably secondary to dehydration. Was on IV fluid for rehydration. TSH normal. Cortisol mildly elevated but probably stress response. Urine sodium 12 and UCr 144 and FENa 0.15%. NaCl tabs started. Patient is eating better. Na 125. Continue NaCl tabs. Follow Na (6) Dehydration: Code(s): E86.0 - Dehydration Status: Acute Assessment and Plan: Resolved. Related to above. Plan is as detailed above. (7) Liver mass: Code(s): R16.0 - Hepatomegaly, not elsewhere classified Status: Acute Assessment and Plan: CT shows suggestions of at least a 3 centimeter hepatic mass. MRI unhelpful due to motion artifact. CEA 6.2; CA19-9 39. Repeat MRI when able. (8) Paroxysmal atrial fibrillation: Code(s): I48.0 - Paroxysmal atrial fibrillation Status: Acute Assessment and Plan: He was in sinus tachycardia on arrival to the ER. EKG felt to be sinus tachycardia. HR better now. Continue metoprolol. He is not currently on anticoagulation for unclear reasons. (9) Insulin dependent type 2 diabetes mellitus: Code(s): E11.9 - Type 2 diabetes mellitus without complications; Z79.4 - manager terminal (current) use of insulin Status: Acute Assessment and Plan: A1c 8.6. The patient's blood glucose was reviewed on 03/14 Glucose better controlled Continue AccuCheks covering with sliding scale. Hypoglycemia protocol available as needed. Continue to monitor. Continue Lantus (10) Heart failure with preserved ejection fraction: Code(s): I50.30 - Unspecified diastolic (congestive) heart failure Status: Acute Assessment and Plan: Echo in September with EF 55-60% and Grade 2 diastolic dysfunction. Clinically euvolemic. (11) Chronic obstructive pulmonary disease: Code(s): J44.9 - Chronic obstructive pulmonary disease, unspecified Status: Acute A
[2022-03-14 12:13] LABS: Glucose Point of Care 177 mg/dl (65-105)
[2022-03-14 17:09] LABS: Glucose Point of Care 167 mg/dl (65-105)
[2022-03-14] MEDS: cefTRIAXone 2 GM in SODIUM CHLORIDE 0.9% IV 100 ML 200 ML IVPB (17:51)
[2022-03-14] MEDS: INSULIN GLARGINE (*BKC) 100 UNITS/ML 14 UNITS SUB-Q (20:52)
[2022-03-14 20:58] LABS: Glucose Point of Care 205 mg/dl (65-105)
[2022-03-14 21:42] VITALS: BP 130/78; PULSE 91; RESP 20; TEMP 36.8; O2SAT 99
[2022-03-14 22:18] VITALS: O2SAT 93
[2022-03-15] VITALS (7 sets, daily range): BP systolic 137–151; BP diastolic 68–84; PULSE 70–88; RESP 16–20; TEMP 36.4–37.2; O2SAT 96–99
[2022-03-15] MEDS: traMADol HCL (*CRX) 50 MG TABLET PO ×3 (03:11→18:23)
[2022-03-15 07:14] LABS: Anion Gap 2 mmol/L (8-16); Blood Urea Nitrogen 25 mg/dL (9-20); Calcium 7.5 mg/dL (8.4-10.2); Carbon Dioxide 29 mmol/L (22-30); Chloride 99 mmol/L (98-107); Estimated CRCL calculation 133 ml/min; Estimated Glomerular Filt Rate > 60; Glucose 176 mg/dL (65-110); Magnesium 1.6 mg/dL (1.6-2.3); Sodium 130 mmol/L (137-145)
[2022-03-15 08:31] LABS: Glucose Point of Care 199 mg/dl (65-105)
[2022-03-15] MEDS: EUCERIN CREAM 120 GM JAR 1 APPLIC TOPICAL ×2 (09:34→20:30)
[2022-03-15] MEDS: FUROSEMIDE INJ 40 MG/4 ML VIAL 20 MG IV PUSH (09:36)
[2022-03-15] MEDS: ATORVASTATIN 10 MG TABLET PO (09:37)
[2022-03-15] MEDS: ENOXAPARIN 40 MG/0.4 ML SYRINGE SUB-Q (09:37)
[2022-03-15] MEDS: METOPROLOL SUCCINATE EXT REL 50 MG TABCR PO (09:37)
[2022-03-15] MEDS: MAGNESIUM OXIDE 400 MG TABLET PO (09:37)
[2022-03-15] MEDS: SODIUM CHLORIDE 1 GM TABLET PO ×2 (09:40→17:33)
[2022-03-15 12:01] LABS: Glucose Point of Care 208 mg/dl (65-105)
[2022-03-15] MEDS: UMECLIDINIUM BROMIDE 62.5 MCG ELLIPTA 1 PUFF INHALATION (12:09)
[2022-03-15] MEDS: ALBUTEROL SULFATE (*SP) AEROSOL 1 PUFF 2 PUFF INHALATION ×3 (12:09→21:37)
[2022-03-15] MEDS: INSULIN ASPART (*BKC) 100 UNITS/ML SUB-Q ×2 (12:22→17:29)
--- NOTE | 2022-03-15 14:44 | PM.IMPN ---
Progress Note: A&P Assessment and Plan (1) Sepsis: Code(s): A41.9 - Sepsis, unspecified organism Status: Acute Assessment and Plan: Present on admission with tachycardia, MIKEY and leukopenia with bandemia. Now with bacteremia. Renal function better. Related to PNA and cellulitis. BCx growing Strep pneumonia sensitive to Rocephin. Repeat BCx positive but felt to be contaminate since growing Staph epi. Continue IV Rocephin. (2) Left lower lobe pneumonia: Code(s): J18.9 - Pneumonia, unspecified organism Status: Acute Assessment and Plan: CT chest showing patchy infiltrate in the right upper lobe, infiltrate in the left upper lobe, and a consolidation with air bronchograms in left lower lobe. He was started on azithromycin and ceftriaxone; Vanco added when BCx returned positive; Rocephin increased to 2gm. Urinary antigens ordered. Narrow abx as above. (3) Cellulitis of left leg: Code(s): L03.116 - Cellulitis of left lower limb Status: Acute Assessment and Plan: Erythema to the left LE consistent with cellulitis. Doubt septic arthritis. LLE xrays do not reveal acute osseous changes. Abx as above. Elevate LLE. With the diuresis, a firm, well demarcated nodule noted which could be abscess so diana check US. Contineu PT/OT (4) Acute kidney injury: Code(s): N17.9 - Acute kidney failure, unspecified Status: Acute Assessment and Plan: Normal baseline Cr. Cr was 2.2 on admission. Etiology most likely multifactorial to include hypovolemia from dehydration with over-diuresis, hypoperfusion from relative hypotension, NSAIDs, ATN from sepsis, methamphetamine use and/or possibly a component of urine outlet obstruction given findings on CT. Bailey placed. Renal US normal. He was cautiously rehydrated but now off IV fluids since Cr normal now. Hold NSAIDs. Avoid nephrotoxic agents. Diuretics able to be started and Cr remaining stable. MIKEY resolved. (5) Hyponatremia: Code(s): E87.1 - Hypo-osmolality and hyponatremia Status: Acute Assessment and Plan: Presumably secondary to dehydration. TSH normal. Cortisol mildly elevated but probably stress response. Urine sodium 12 and UCr 144 and FENa 0.15%. NaCl tabs started. Was on IV fluids but now on diuretics. Patient is eating better. Na 130 now. Continue NaCl tabs. Follow Na (6) Dehydration: Code(s): E86.0 - Dehydration Status: Acute Assessment and Plan: Resolved. Related to above. Plan is as detailed above. (7) Liver mass: Code(s): R16.0 - Hepatomegaly, not elsewhere classified Status: Acute Assessment and Plan: CT shows suggestions of at least a 3 centimeter hepatic mass. MRI unhelpful due to motion artifact. CEA 6.2; CA19-9 39. Repeat MRI when able. (8) Paroxysmal atrial fibrillation: Code(s): I48.0 - Paroxysmal atrial fibrillation Status: Acute Assessment and Plan: He was in sinus tachycardia on arrival to the ER. EKG felt to be sinus tachycardia. HR better now. Continue metoprolol. He is not currently on anticoagulation for unclear reasons. (9) Insulin dependent type 2 diabetes mellitus: Code(s): E11.9 - Type 2 diabetes mellitus without complications; Z79.4 - detention (current) use of insulin Status: Acute Assessment and Plan: A1c 8.6. The patient's blood glucose was reviewed on 03/15 Glucose better controlled Continue AccuCheks covering with sliding scale. Hypoglycemia protocol available as needed. Continue to monitor. Advance Lantus (10) Heart failure with preserved ejection fraction: Code(s): I50.30 - Unspecified diastolic (congestive) heart failure Status: Acute Assessment and Plan: Echo in September with EF 55-60% and Grade 2 diastolic dysfunction. Clinically euvolemic. (11) Chronic obstructive pulmonary disease: Code(s): J44.9 - Chronic obstructive pulmonary disease
[2022-03-15] MEDS: LORazepam (*CRX) 0.5 MG TABLET PO ×2 (15:18→21:13)
[2022-03-15 17:07] LABS: Glucose Point of Care 204 mg/dl (65-105)
[2022-03-15] MEDS: cefTRIAXone 2 GM in SODIUM CHLORIDE 0.9% IV 100 ML 200 ML IVPB (17:32)
[2022-03-15] MEDS: DOCOSANOL 10% CREAM 2 GM 1 APPLIC TOPICAL ×2 (17:33→20:25)
[2022-03-15] MEDS: FUROSEMIDE INJ 40 MG/4 ML VIAL IV PUSH (17:34)
[2022-03-15 20:11] LABS: Osmolality, Urine 363 mOsm/kg (50-1200)
[2022-03-15] MEDS: BENZOCAINE/MENTHOL (*BKC) 18 EA LOZENGE 1 LOZENGE PO (20:21)
[2022-03-15] MEDS: busPIRone HCL 5 MG TABLET PO (20:24)
[2022-03-15] MEDS: INSULIN GLARGINE (*BKC) 100 UNITS/ML 18 UNITS SUB-Q (20:35)
[2022-03-15 21:59] LABS: Glucose Point of Care 200 mg/dl (65-105)
[2022-03-15] MEDS: ACETAMINOPHEN 325 MG TABLET 650 MG PO (22:24)
[2022-03-16] MEDS: traMADol HCL (*CRX) 50 MG TABLET PO ×4 (00:20→22:06)
[2022-03-16] MEDS: LORazepam (*CRX) 0.5 MG TABLET PO (04:52)
[2022-03-16 05:51] VITALS: BP 125/67; PULSE 81; RESP 20; TEMP 36.4; O2SAT 99
[2022-03-16 06:44] LABS: Basophils Absolute Auto 0.1 K/mm3 (0.0-0.1); Basophils Percent Auto 0.7 % (0.2-1.2); Eosinophils Absolute Auto 0.2 K/mm3 (0-0.3); Eosinophils Percent Auto 2.3 % (0-4.4); Hematocrit 31.6 % (42.0-52.0); Hemoglobin 9.8 g/dL (14.0-18.0); Immature Granulocyte Absolute 0.97 K/mm3 (0.00-0.031); Immature Granulocyte Percent A 12.7 % (0-0.5); Lymphocytes Absolute Auto 0.44 K/mm3 (0.9-3.2); Lymphocytes Percent Auto 5.7 % (18.3-44.2); Mean Corpuscular Hemoglobin 25.8 pg (26-34); Mean Corpuscular Volume 83.2 fl (80-100); Mean Platelet Volume 11.3 fl (7.4-10.4); Monocytes Absolute Auto 0.6 K/mm3 (0.1-0.6); Monocytes Percent Auto 7.8 % (2.6-8.5); Neutrophils Absolute Auto 5.4 K/mm3 (1.3-6.7); Neutrophils Percent Auto 70.8 % (45.5-73.1); Platelet Count Result 134 k/mm3 (150-375); Red Cell Distribution Width 17.2 % (11.5-14.5); White Blood Count 7.7 K/mm3 (4.5-10.0)
[2022-03-16 06:56] LABS: Alanine Aminotransferase 25 U/L (6-50); Albumin Level 2.3 g/dL (3.5-5.1); Alkaline Phosphatase 339 U/L (38-126); Anion Gap 1 mmol/L (8-16); Aspartate Amino Transferase 39 U/L (17-59); Blood Urea Nitrogen 18 mg/dL (9-20); Calcium 7.5 mg/dL (8.4-10.2); Carbon Dioxide 31 mmol/L (22-30); Chloride 96 mmol/L (98-107); Estimated CRCL calculation 134 ml/min; Estimated Glomerular Filt Rate > 60; Glucose 160 mg/dL (65-110); Magnesium 1.4 mg/dL (1.6-2.3); Phosphorus 3.9 mg/dL (2.5-4.5); Potassium 3.7 mmol/L (3.4-5.0); Sodium 128 mmol/L (137-145)
[2022-03-16] MEDS: ALBUTEROL SULFATE (*SP) AEROSOL 1 PUFF 2 PUFF INHALATION (08:18)
[2022-03-16] MEDS: UMECLIDINIUM BROMIDE 62.5 MCG ELLIPTA 1 PUFF INHALATION (08:20)
[2022-03-16 08:34] LABS: Glucose Point of Care 180 mg/dl (65-105)
[2022-03-16 08:44] LABS: Anisocytosis 1+ (NORMAL); Ovalocytes 2+ (NORMAL); Platelet Estimate Decreased (Adequate)
[2022-03-16 08:50] LABS: Schistocytes None Seen (NORMAL)
[2022-03-16] MEDS: MAGNESIUM SULF 2 GM/WATER 50ML 2 GM/50 ML BAG IVPB (09:19)
[2022-03-16] MEDS: MAGNESIUM OXIDE 400 MG TABLET PO (09:20)
[2022-03-16] MEDS: DOCOSANOL 10% CREAM 2 GM 1 APPLIC TOPICAL ×2 (09:20→15:47)
[2022-03-16] MEDS: FUROSEMIDE INJ 40 MG/4 ML VIAL IV PUSH ×2 (09:20→16:21)
[2022-03-16] MEDS: ENOXAPARIN 40 MG/0.4 ML SYRINGE SUB-Q (09:20)
[2022-03-16] MEDS: ATORVASTATIN 10 MG TABLET PO (09:20)
[2022-03-16] MEDS: busPIRone HCL 5 MG TABLET PO (09:20)
[2022-03-16 09:21] VITALS: PULSE 70
[2022-03-16] MEDS: METOPROLOL SUCCINATE EXT REL 50 MG TABCR PO (09:21)
[2022-03-16] MEDS: SODIUM CHLORIDE 1 GM TABLET PO ×2 (09:21→16:21)
[2022-03-16] MEDS: EUCERIN CREAM 120 GM JAR 1 APPLIC TOPICAL ×2 (09:21→20:59)
--- NOTE | 2022-03-16 10:09 | PCNWS ---
Weekly nutritional screen. Patient is tolerating current diabetic consistent carb diet with adequate intake at 75-100% of meals. No weight loss reported. No nutritional needs at this time.
[2022-03-16 12:09] LABS: Glucose Point of Care 225 mg/dl (65-105)
[2022-03-16] MEDS: INSULIN ASPART (*BKC) 100 UNITS/ML SUB-Q (12:15)
--- NOTE | 2022-03-16 13:03 | PM.IMPN ---
Progress Note: A&P Assessment and Plan (1) Sepsis: Code(s): A41.9 - Sepsis, unspecified organism Status: Acute Assessment and Plan: Present on admission with tachycardia, MIKEY and leukopenia with bandemia. Now with bacteremia. Renal function better. Related to PNA and cellulitis. BCx growing Strep pneumonia sensitive to Rocephin. Repeat BCx positive but felt to be contaminate since growing Staph epi. Continue IV Rocephin. (2) Left lower lobe pneumonia: Code(s): J18.9 - Pneumonia, unspecified organism Status: Acute Assessment and Plan: CT chest showing patchy infiltrate in the right upper lobe, infiltrate in the left upper lobe, and a consolidation with air bronchograms in left lower lobe. He was started on azithromycin and ceftriaxone; Vanco added when BCx returned positive; Rocephin increased to 2gm. Urinary legionella antigen negative. Completed Azithro x 5 days. Vanco stopped b/c repeat BCx felt to be contamiant. Contineu Rocephin (3) Cellulitis of left leg: Code(s): L03.116 - Cellulitis of left lower limb Status: Acute Assessment and Plan: Erythema to the left LE consistent with cellulitis. Doubt septic arthritis. LLE xrays do not reveal acute osseous changes. Abx as above. Elevate LLE. With the diuresis, a firm, well demarcated nodule noted felt to be thrombosed superficial vein by US. Continue PT/OT. Patient was encouraged to participate. (4) Acute kidney injury: Code(s): N17.9 - Acute kidney failure, unspecified Status: Acute Assessment and Plan: Normal baseline Cr. Cr was 2.2 on admission. Etiology most likely multifactorial to include hypovolemia from dehydration with over-diuresis, hypoperfusion from relative hypotension, NSAIDs, ATN from sepsis, methamphetamine use and/or possibly a component of urine outlet obstruction given findings on CT. Bailey placed. Renal US normal. He was cautiously rehydrated but now off IV fluids since Cr normal now. Bailey out now. Hold NSAIDs. Avoid nephrotoxic agents. Diuretics able to be started and Cr remaining stable. MIKEY resolved. (5) Hyponatremia: Code(s): E87.1 - Hypo-osmolality and hyponatremia Status: Acute Assessment and Plan: Presumably secondary to dehydration. TSH normal. Cortisol mildly elevated but probably stress response. Urine sodium 12 and UCr 144 and FENa 0.15%. NaCl tabs started. Was on IV fluids but now on diuretics. Patient is eating better. Na 128 now. Continue NaCl tabs. Follow Na (6) Dehydration: Code(s): E86.0 - Dehydration Status: Acute Assessment and Plan: Resolved. Related to above. Plan is as detailed above. (7) Liver mass: Code(s): R16.0 - Hepatomegaly, not elsewhere classified Status: Acute Assessment and Plan: CT shows suggestions of at least a 3 centimeter hepatic mass. MRI unhelpful due to motion artifact. CEA 6.2; CA19-9 39. Repeat MRI when able. (8) Paroxysmal atrial fibrillation: Code(s): I48.0 - Paroxysmal atrial fibrillation Status: Acute Assessment and Plan: He was in sinus tachycardia on arrival to the ER. EKG felt to be sinus tachycardia. HR better now. Continue metoprolol. He is not currently on anticoagulation for unclear reasons. (9) Insulin dependent type 2 diabetes mellitus: Code(s): E11.9 - Type 2 diabetes mellitus without complications; Z79.4 - [facility] (current) use of insulin Status: Acute Assessment and Plan: A1c 8.6. The patient's blood glucose was reviewed on 03/16 Glucose reasonable Continue AccuCheks covering with sliding scale. Hypoglycemia protocol available as needed. Continue to monitor. Continue Lantus (10) Heart failure with preserved ejection fraction: Code(s): I50.30 - Unspecified diastolic (congestive) heart failure Status: Acute Assessment and Plan: Echo in September with EF 55-60% and Grade 2 diastolic dysfunc
[2022-03-16 14:00] VITALS: BP 134/90; PULSE 87; RESP 16; TEMP 37.1; O2SAT 97
--- NOTE | 2022-03-16 14:10 | PCOTNOTE ---
Unable to rouse patient to participate in OT. [employer] sitting in room, reports patient has refused any activity. Patient not seen for OT.
[2022-03-16] MEDS: cefTRIAXone 2 GM in SODIUM CHLORIDE 0.9% IV 100 ML IVPB (16:20)
[2022-03-16 16:30] LABS: Glucose Point of Care 199 mg/dl (65-105)
[2022-03-16 21:07] LABS: Glucose Point of Care 167 mg/dl (65-105)
[2022-03-16 22:00] VITALS: BP 133/86; PULSE 90; RESP 17; TEMP 36.9; O2SAT 98
[2022-03-16] MEDS: INSULIN GLARGINE (*BKC) 100 UNITS/ML 18 UNITS SUB-Q (22:04)
[2022-03-17] MEDS: traMADol HCL (*CRX) 50 MG TABLET PO ×3 (05:31→22:38)
[2022-03-17 06:00] VITALS: BP 136/88; PULSE 93; RESP 18; TEMP 36.6; O2SAT 99
[2022-03-17 06:45] LABS: Hematocrit 30.4 % (42.0-52.0); Hemoglobin 9.5 g/dL (14.0-18.0); Mean Corpuscular HGB Conc 31.3 g/dl (32-36); Mean Corpuscular Volume 83.3 fl (80-100); Mean Platelet Volume 10.6 fl (7.4-10.4); Platelet Count Result 152 k/mm3 (150-375); Red Blood Count 3.65 M/mm3 (4.6-6.20); Red Cell Distribution Width 17.1 % (11.5-14.5); White Blood Count 7.4 K/mm3 (4.5-10.0)
[2022-03-17 06:53] LABS: Albumin Level 2.3 g/dL (3.5-5.1); Anion Gap 2 mmol/L (8-16); Blood Urea Nitrogen 17 mg/dL (9-20); Calcium 7.4 mg/dL (8.4-10.2); Carbon Dioxide 31 mmol/L (22-30); Chloride 98 mmol/L (98-107); Estimated CRCL calculation 154 ml/min; Estimated Glomerular Filt Rate > 60; Glucose 109 mg/dL (65-110); Magnesium 1.5 mg/dL (1.6-2.3); Phosphorus 3.3 mg/dL (2.5-4.5); Potassium 3.7 mmol/L (3.4-5.0); Sodium 131 mmol/L (137-145)
[2022-03-17 07:57] LABS: Glucose Point of Care 130 mg/dl (65-105)
[2022-03-17] MEDS: MAGNESIUM SULF 2 GM/WATER 50ML 2 GM/50 ML BAG IVPB (09:18)
[2022-03-17] MEDS: FUROSEMIDE INJ 40 MG/4 ML VIAL IV PUSH (09:18)
[2022-03-17] MEDS: ATORVASTATIN 10 MG TABLET PO (09:19)
[2022-03-17] MEDS: ALBUTEROL SULFATE (*SP) AEROSOL 1 PUFF 2 PUFF INHALATION ×2 (09:19→12:17)
[2022-03-17] MEDS: UMECLIDINIUM BROMIDE 62.5 MCG ELLIPTA 1 PUFF INHALATION (09:19)
[2022-03-17] MEDS: METOPROLOL SUCCINATE EXT REL 50 MG TABCR PO (09:19)
[2022-03-17] MEDS: MAGNESIUM OXIDE 400 MG TABLET PO (09:19)
[2022-03-17] MEDS: SODIUM CHLORIDE 1 GM TABLET PO (09:19)
[2022-03-17] MEDS: DOCOSANOL 10% CREAM 2 GM 1 APPLIC TOPICAL ×5 (09:19→20:10)
[2022-03-17] MEDS: ENOXAPARIN 40 MG/0.4 ML SYRINGE SUB-Q (09:19)
[2022-03-17] MEDS: EUCERIN CREAM 120 GM JAR 1 APPLIC TOPICAL ×2 (09:20→20:10)
--- NOTE | 2022-03-17 11:12 | PCOTNOTE ---
Attempted to see patient this am, however patient sleeping upon entering and declined stating, Can you come back after lunch? I already sat up and did some exercises this morning. Pt then fell back asleep.
[2022-03-17 11:45] LABS: Glucose Point of Care 156 mg/dl (65-105)
--- NOTE | 2022-03-17 12:53 | PCOTNOTE ---
Attempted to see patient this pm, however patient refused. Upon entering patient was sleeping and easily aroused. Pt declined shaking head and closing eyes once again.
[2022-03-17 14:00] VITALS: BP 131/79; PULSE 85; RESP 18; TEMP 36.3; O2SAT 96
--- NOTE | 2022-03-17 16:42 | PM.IMPN ---
Progress Note: A&P Assessment and Plan (1) Sepsis: Code(s): A41.9 - Sepsis, unspecified organism Status: Acute Assessment and Plan: Patient presents with dyspnea and found to be septic with bacteremia. Present on admission with tachycardia, MIKEY and leukopenia with bandemia related to PNA, cellulitis and bacteremia. Renal function better. BCx growing Strep pneumonia sensitive to Rocephin. Repeat BCx positive but felt to be contaminate since growing Staph epi. Change to Augmentin today. Anticipate discharge tomorrow. (2) Left lower lobe pneumonia: Code(s): J18.9 - Pneumonia, unspecified organism Status: Acute Assessment and Plan: CT chest showing patchy infiltrate in the right upper lobe, infiltrate in the left upper lobe, and a consolidation with air bronchograms in left lower lobe. He was started on azithromycin and ceftriaxone; Vanco added when BCx returned positive and Rocephin increased to 2gm. Urinary legionella antigen negative. Completed Azithro x 5 days. Vanco stopped b/c repeat BCx felt to be contamiant. Transition to oral regiment. (3) Cellulitis of left leg: Code(s): L03.116 - Cellulitis of left lower limb Status: Acute Assessment and Plan: Erythema to the left LE consistent with cellulitis. Doubt septic arthritis since he had normal active ROM. LLE xrays do not reveal acute osseous changes. Abx as above. Elevate LLE. With the diuresis, a firm, well demarcated nodule noted felt to be thrombosed superficial vein by US. Continue PT/OT. Patient was encouraged to participate. Change to oral abx. (4) Acute kidney injury: Code(s): N17.9 - Acute kidney failure, unspecified Status: Acute Assessment and Plan: Normal baseline Cr. Cr was 2.2 on admission. Etiology most likely multifactorial to include hypovolemia from dehydration with over-diuresis, hypoperfusion from relative hypotension, NSAIDs, ATN from sepsis, methamphetamine use and/or possibly a component of urine outlet obstruction given findings on CT. Bailey placed. Renal US normal. He was cautiously rehydrated but now off IV fluids since Cr normal now. Bailey out now. Hold NSAIDs. Avoid nephrotoxic agents. Diuretics able to be started and Cr remaining stable. MIKEY resolved. (5) Hyponatremia: Code(s): E87.1 - Hypo-osmolality and hyponatremia Status: Acute Assessment and Plan: Presumably secondary to dehydration. TSH normal. Cortisol mildly elevated but probably stress response. Urine sodium 12 and UCr 144 and FENa 0.15%. NaCl tabs started. Was on IV fluids but now on diuretics. Patient is eating better. Na 131 now. Continue NaCl tabs. Follow Na (6) Dehydration: Code(s): E86.0 - Dehydration Status: Acute Assessment and Plan: Resolved. Related to above. Plan is as detailed above. (7) Liver mass: Code(s): R16.0 - Hepatomegaly, not elsewhere classified Status: Acute Assessment and Plan: CT shows suggestions of at least a 3 centimeter hepatic mass. MRI unhelpful due to motion artifact. CEA 6.2; CA19-9 39. Repeat MRI now that he is stable. (8) Paroxysmal atrial fibrillation: Code(s): I48.0 - Paroxysmal atrial fibrillation Status: Acute Assessment and Plan: He was in sinus tachycardia on arrival to the ER. EKG felt to be sinus tachycardia. HR better now. Continue metoprolol. He is not currently on anticoagulation for unclear reasons. (9) Insulin dependent type 2 diabetes mellitus: Code(s): E11.9 - Type 2 diabetes mellitus without complications; Z79.4 - exterminator (current) use of insulin Status: Acute Assessment and Plan: A1c 8.6. The patient's blood glucose was reviewed on 03/17 Glucose reasonable Continue AccuCheks covering with sliding scale. Hypoglycemia protocol available as needed. Continue to monitor. Continue Lantus (10) Heart failure with preserved ejection fraction: Co
[2022-03-17 16:58] LABS: Glucose Point of Care 159 mg/dl (65-105)
[2022-03-17] MEDS: BENZOCAINE/MENTHOL (*BKC) 18 EA LOZENGE 1 LOZENGE PO (20:10)
[2022-03-17] MEDS: AMOXICILLIN/CLAVULANATE K 875-125 MG TAB 1 TABLET PO (20:10)
[2022-03-17] MEDS: traZODone HCL 25 MG TABLET PO (20:10)
[2022-03-17] MEDS: INSULIN GLARGINE (*BKC) 100 UNITS/ML 18 UNITS SUB-Q (20:11)
[2022-03-17 21:24] VITALS: BP 115/57; PULSE 84; RESP 20; TEMP 37.3; O2SAT 94
[2022-03-17 22:20] LABS: Glucose Point of Care 177 mg/dl (65-105)
--- NOTE | 2022-03-17 23:35 | PC.NURSE ---
Pt is resting in bed. Pt states that his legs hurt and the pain medication does not last long enough. Provider notified and gabapentin was ordered. Pt able to participate and contribute in plan of care. Pt easily agitated. Pt expresses no other needs at this time. Will continue to monitor pt.
[2022-03-18] MEDS: BENZOCAINE/MENTHOL (*BKC) 18 EA LOZENGE 1 LOZENGE PO ×3 (00:57→10:29)
[2022-03-18 05:21] VITALS: BP 123/62; PULSE 82; RESP 18; TEMP 36.3; O2SAT 95
[2022-03-18] MEDS: traMADol HCL (*CRX) 50 MG TABLET PO ×2 (07:41→21:10)
[2022-03-18 07:44] LABS: Glucose Point of Care 139 mg/dl (65-105)
[2022-03-18 08:00] LABS: Albumin Level 2.3 g/dL (3.5-5.1); Anion Gap -3 mmol/L (8-16); Blood Urea Nitrogen 15 mg/dL (9-20); Calcium 7.4 mg/dL (8.4-10.2); Carbon Dioxide 35 mmol/L (22-30); Chloride 94 mmol/L (98-107); Estimated CRCL calculation 134 ml/min; Estimated Glomerular Filt Rate > 60; Glucose 114 mg/dL (65-110); Magnesium 1.6 mg/dL (1.6-2.3); Phosphorus 3.2 mg/dL (2.5-4.5); Sodium 126 mmol/L (137-145)
[2022-03-18] MEDS: UMECLIDINIUM BROMIDE 62.5 MCG ELLIPTA 1 PUFF INHALATION (10:20)
[2022-03-18] MEDS: ALBUTEROL SULFATE (*SP) AEROSOL 1 PUFF 2 PUFF INHALATION ×3 (10:20→21:38)
[2022-03-18] MEDS: SODIUM CHLORIDE 1 GM TABLET PO ×2 (10:28→17:22)
[2022-03-18 10:29] VITALS: PULSE 91; O2SAT 97
[2022-03-18] MEDS: MAGNESIUM OXIDE 400 MG TABLET PO (10:29)
[2022-03-18] MEDS: ATORVASTATIN 10 MG TABLET PO (10:29)
[2022-03-18] MEDS: METOPROLOL SUCCINATE EXT REL 50 MG TABCR PO (10:29)
[2022-03-18] MEDS: AMOXICILLIN/CLAVULANATE K 875-125 MG TAB 1 TABLET PO ×2 (10:30→20:47)
[2022-03-18] MEDS: FUROSEMIDE 40 MG TABLET PO (10:30)
[2022-03-18] MEDS: EUCERIN CREAM 120 GM JAR 1 APPLIC TOPICAL ×2 (10:31→20:48)
[2022-03-18] MEDS: ENOXAPARIN 40 MG/0.4 ML SYRINGE SUB-Q (10:31)
[2022-03-18] MEDS: DOCOSANOL 10% CREAM 2 GM 1 APPLIC TOPICAL ×4 (10:31→20:48)
[2022-03-18 11:16] LABS: Glucose Point of Care 172 mg/dl (65-105)
[2022-03-18 14:00] VITALS: BP 108/61; PULSE 84; RESP 20; TEMP 36.7; O2SAT 90
--- NOTE | 2022-03-18 14:06 | PCOTNOTE ---
Attempted to see patient this pm, however patient refused. Pt sleeping upon entering, kept eyes closed stated, Maybe later. Pt reported just having issue with another staff member however stated, Don't worry about it. It's not your business. Pt reported very sore throat and requested pudding and soda. Items retrieved for patient. Request discharge from services as this is patient's third consecutive day of refusal to participate in occupational therapy.
[2022-03-18 14:18] LABS: Sodium 130 mmol/L (137-145)
--- NOTE | 2022-03-18 14:34 | PM.IMPN ---
Progress Note: A&P Assessment and Plan (1) Sepsis: Code(s): A41.9 - Sepsis, unspecified organism Status: Acute Assessment and Plan: Patient presents with dyspnea and found to be septic with bacteremia. Present on admission with tachycardia, MIKEY and leukopenia with bandemia related to PNA, cellulitis and bacteremia. Renal function better. BCx growing Strep pneumonia sensitive to Rocephin. Repeat BCx positive but felt to be contaminate since growing Staph epi. Changed to Augmentin. Encouraged him to be up walking with therapy and that he will be discharged tomorrow. (2) Left lower lobe pneumonia: Code(s): J18.9 - Pneumonia, unspecified organism Status: Acute Assessment and Plan: CT chest showing patchy infiltrate in the right upper lobe, infiltrate in the left upper lobe, and a consolidation with air bronchograms in left lower lobe. He was started on azithromycin and ceftriaxone; Vanco added when BCx returned positive and Rocephin increased to 2gm. Urinary legionella antigen negative. Completed Azithro x 5 days. Vanco stopped b/c repeat BCx felt to be contaminant. Transitioned to oral regiment. (3) Cellulitis of left leg: Code(s): L03.116 - Cellulitis of left lower limb Status: Acute Assessment and Plan: Erythema to the left LE consistent with cellulitis. Doubt septic arthritis since he had normal active ROM. LLE xrays do not reveal acute osseous changes. Abx as above. Elevate LLE. With the diuresis, a firm, well demarcated nodule noted with US showing a thrombosed superficial vein. Continue PT/OT. Patient was encouraged to participate. Continue Augmentin. (4) Acute kidney injury: Code(s): N17.9 - Acute kidney failure, unspecified Status: Acute Assessment and Plan: Normal baseline Cr. Cr was 2.2 on admission. Etiology most likely multifactorial to include hypovolemia from dehydration with over-diuresis, hypoperfusion from relative hypotension, NSAIDs, ATN from sepsis, methamphetamine use and/or possibly a component of urine outlet obstruction given findings on CT. Bailey placed. Renal US normal. He was cautiously rehydrated but now off IV fluids since Cr normal now. Bailey out now. Hold NSAIDs. Avoid nephrotoxic agents. Diuretics able to be started and Cr remaining stable. MIKEY resolved. Change back to home Bumex. (5) Hyponatremia: Code(s): E87.1 - Hypo-osmolality and hyponatremia Status: Acute Assessment and Plan: Presumably secondary to dehydration. TSH normal. Cortisol mildly elevated but probably stress response. Urine sodium 12 and UCr 144 and FENa 0.15%. NaCl tabs started. Was on IV fluids but now on diuretics. Patient is eating better. Na 130 now. Continue NaCl tabs. Follow Na (6) Dehydration: Code(s): E86.0 - Dehydration Status: Acute Assessment and Plan: Resolved. Related to above. Plan is as detailed above. (7) Liver mass: Code(s): R16.0 - Hepatomegaly, not elsewhere classified Status: Acute Assessment and Plan: CT shows suggestions of at least a 3 centimeter hepatic mass. MRI unhelpful due to motion artifact. CEA 6.2; CA19-9 39. Repeat MRI ordered and pending (8) Paroxysmal atrial fibrillation: Code(s): I48.0 - Paroxysmal atrial fibrillation Status: Acute Assessment and Plan: He was in sinus tachycardia on arrival to the ER. EKG felt to be sinus tachycardia. HR better now. Continue metoprolol. He is not currently on anticoagulation for unclear reasons. 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 The patient's blood glucose was reviewed on 03/18 Glucose reasonable Continue AccuCheks covering with sliding scale. Hypoglycemia protocol available as needed. Continue to monitor. Alanna
[2022-03-18 16:16] LABS: Glucose Point of Care 173 mg/dl (65-105)
[2022-03-18] MEDS: BUMETANIDE 1 MG TABLET 2 MG PO (17:22)
[2022-03-18 20:00] VITALS: PULSE 84; RESP 20; O2SAT 93
[2022-03-18] MEDS: INSULIN GLARGINE (*BKC) 100 UNITS/ML 18 UNITS SUB-Q (20:46)
[2022-03-18] MEDS: GABAPENTIN 300 MG CAPSULE PO (20:47)
[2022-03-18] MEDS: traZODone HCL 25 MG TABLET PO (20:48)
[2022-03-18 21:40] VITALS: O2SAT 93
[2022-03-18 21:44] LABS: Glucose Point of Care 151 mg/dl (65-105)
[2022-03-18 22:00] VITALS: BP 129/77; PULSE 90; RESP 18; TEMP 37.4; O2SAT 94
[2022-03-19] VITALS (9 sets, daily range): BP systolic 126–135; BP diastolic 73–91; PULSE 87–95; RESP 18–20; TEMP 36.8–37.5; O2SAT 93–95
[2022-03-19] MEDS: traMADol HCL (*CRX) 50 MG TABLET PO ×3 (03:10→20:41)
--- NOTE | 2022-03-19 07:10 | PCOTNOTE ---
Patient has refused to participate with Occupational Therapy for x3 days in a row. Will discharge from skilled OT at this time.
[2022-03-19 08:56] LABS: Glucose Point of Care 116 mg/dl (65-105)
[2022-03-19] MEDS: ALBUTEROL SULFATE (*SP) AEROSOL 1 PUFF 2 PUFF INHALATION ×2 (10:05→14:34)
[2022-03-19] MEDS: UMECLIDINIUM BROMIDE 62.5 MCG ELLIPTA 1 PUFF INHALATION (10:05)
[2022-03-19] MEDS: METOPROLOL SUCCINATE EXT REL 50 MG TABCR PO (10:35)
[2022-03-19] MEDS: ATORVASTATIN 10 MG TABLET PO (10:35)
[2022-03-19] MEDS: BUMETANIDE 1 MG TABLET 2 MG PO ×2 (10:35→17:50)
[2022-03-19] MEDS: ENOXAPARIN 40 MG/0.4 ML SYRINGE SUB-Q (10:36)
[2022-03-19] MEDS: SODIUM CHLORIDE 1 GM TABLET PO ×2 (10:36→17:50)
[2022-03-19] MEDS: AMOXICILLIN/CLAVULANATE K 875-125 MG TAB 1 TABLET PO ×2 (10:36→20:42)
[2022-03-19] MEDS: EUCERIN CREAM 120 GM JAR 1 APPLIC TOPICAL ×2 (10:36→20:43)
[2022-03-19] MEDS: DOCOSANOL 10% CREAM 2 GM 1 APPLIC TOPICAL (10:36)
[2022-03-19] MEDS: MAGNESIUM OXIDE 400 MG TABLET PO (10:36)
[2022-03-19 11:55] LABS: Glucose Point of Care 170 mg/dl (65-105)
[2022-03-19 17:26] LABS: Glucose Point of Care 170 mg/dl (65-105)
--- NOTE | 2022-03-19 19:45 | PM.IMPN ---
Progress Note: A&P Assessment and Plan (1) Sepsis: Code(s): A41.9 - Sepsis, unspecified organism Status: Acute Assessment and Plan: Patient presents with dyspnea and found to be septic with bacteremia. Present on admission with tachycardia, MIKEY and leukopenia with bandemia related to PNA, cellulitis and bacteremia. Renal function better. BCx growing Strep pneumonia sensitive to Rocephin. Repeat BCx positive but felt to be contaminate since growing Staph epi. Changed to Augmentin. So [place] worker evaluation for discharge planning. Patient is homeless and does not have a place to go. arged tomorrow. (2) Left lower lobe pneumonia: Code(s): J18.9 - Pneumonia, unspecified organism Status: Acute Assessment and Plan: CT chest showing patchy infiltrate in the right upper lobe, infiltrate in the left upper lobe, and a consolidation with air bronchograms in left lower lobe. He was started on azithromycin and ceftriaxone; Vanco added when BCx returned positive and Rocephin increased to 2gm. Urinary legionella antigen negative. Completed Azithro x 5 days. Vanco stopped b/c repeat BCx felt to be contaminant. Transitioned to oral regiment. (3) Cellulitis of left leg: Code(s): L03.116 - Cellulitis of left lower limb Status: Acute Assessment and Plan: Erythema to the left LE consistent with cellulitis. Doubt septic arthritis since he had normal active ROM. LLE xrays do not reveal acute osseous changes. Abx as above. Elevate LLE. With the diuresis, a firm, well demarcated nodule noted with US showing a thrombosed superficial vein. Continue PT/OT. Patient was encouraged to participate. Continue Augmentin. (4) Acute kidney injury: Code(s): N17.9 - Acute kidney failure, unspecified Status: Acute Assessment and Plan: Normal baseline Cr. Cr was 2.2 on admission. Etiology most likely multifactorial to include hypovolemia from dehydration with over-diuresis, hypoperfusion from relative hypotension, NSAIDs, ATN from sepsis, methamphetamine use and/or possibly a component of urine outlet obstruction given findings on CT. Bailey placed. Renal US normal. He was cautiously rehydrated but now off IV fluids since Cr normal now. Bailey out now. Hold NSAIDs. Avoid nephrotoxic agents. Diuretics able to be started and Cr remaining stable. MIKEY resolved. Change back to home Bumex. (5) Hyponatremia: Code(s): E87.1 - Hypo-osmolality and hyponatremia Status: Acute Assessment and Plan: Presumably secondary to dehydration. TSH normal. Cortisol mildly elevated but probably stress response. Urine sodium 12 and UCr 144 and FENa 0.15%. NaCl tabs started. Was on IV fluids but now on diuretics. Patient is eating better. Na 130 now. Continue NaCl tabs. Follow Na (6) Dehydration: Code(s): E86.0 - Dehydration Status: Acute Assessment and Plan: Resolved. Related to above. Plan is as detailed above. (7) Liver mass: Code(s): R16.0 - Hepatomegaly, not elsewhere classified Status: Acute Assessment and Plan: CT shows suggestions of at least a 3 centimeter hepatic mass. MRI unhelpful due to motion artifact. CEA 6.2; CA19-9 39. Repeat MRI ordered and pending (8) Paroxysmal atrial fibrillation: Code(s): I48.0 - Paroxysmal atrial fibrillation Status: Acute Assessment and Plan: He was in sinus tachycardia on arrival to the ER. EKG felt to be sinus tachycardia. HR better now. Continue metoprolol. He is not currently on anticoagulation for unclear reasons. (9) Insulin dependent type 2 diabetes mellitus: Code(s): E11.9 - Type 2 diabetes mellitus without complications; Z79.4 - superintendent terminal (current) use of insulin Status: Acute Assessment and Plan: A1c 8.6. The patient's blood glucose was reviewed on 03/18 Glucose reasonable: 151-173. Continue AccuCheks covering with sliding scale. Hypoglycemia protocol a
[2022-03-19] MEDS: INSULIN GLARGINE (*BKC) 100 UNITS/ML 18 UNITS SUB-Q (20:42)
[2022-03-19] MEDS: GABAPENTIN 300 MG CAPSULE PO (20:42)
[2022-03-19] MEDS: traZODone HCL 25 MG TABLET PO (20:42)
[2022-03-19 22:31] LABS: Anion Gap 1 mmol/L (8-16); Blood Urea Nitrogen 21 mg/dL (9-20); Calcium 7.7 mg/dL (8.4-10.2); Carbon Dioxide 35 mmol/L (22-30); Chloride 91 mmol/L (98-107); Estimated CRCL calculation 118 ml/min; Estimated Glomerular Filt Rate > 60; Glucose 153 mg/dL (65-110); Sodium 127 mmol/L (137-145)
[2022-03-20 06:00] VITALS: BP 95/61; PULSE 93; RESP 18; TEMP 37; O2SAT 90
[2022-03-20 08:23] LABS: Glucose Point of Care 102 mg/dl (65-105)
[2022-03-20 09:11] VITALS: PULSE 76
[2022-03-20] MEDS: AMOXICILLIN/CLAVULANATE K 875-125 MG TAB 1 TABLET PO ×2 (09:11→20:59)
[2022-03-20] MEDS: ENOXAPARIN 40 MG/0.4 ML SYRINGE SUB-Q (09:11)
[2022-03-20] MEDS: SODIUM CHLORIDE 1 GM TABLET PO ×2 (09:11→16:33)
[2022-03-20] MEDS: ATORVASTATIN 10 MG TABLET PO (09:11)
[2022-03-20] MEDS: BUMETANIDE 1 MG TABLET 2 MG PO ×2 (09:11→16:33)
[2022-03-20] MEDS: DOCOSANOL 10% CREAM 2 GM 1 APPLIC TOPICAL ×4 (09:11→20:59)
[2022-03-20] MEDS: METOPROLOL SUCCINATE EXT REL 50 MG TABCR PO (09:11)
[2022-03-20] MEDS: MAGNESIUM OXIDE 400 MG TABLET PO (09:11)
[2022-03-20] MEDS: EUCERIN CREAM 120 GM JAR 1 APPLIC TOPICAL ×2 (09:12→21:00)
[2022-03-20 12:20] LABS: Glucose Point of Care 177 mg/dl (65-105)
[2022-03-20 14:00] VITALS: BP 101/82; PULSE 78; RESP 20; TEMP 36.9; O2SAT 93
[2022-03-20] MEDS: traMADol HCL (*CRX) 50 MG TABLET PO (14:19)
--- NOTE | 2022-03-20 16:26 | PM.IMPN ---
Progress Note: A&P Assessment and Plan (1) Sepsis: Code(s): A41.9 - Sepsis, unspecified organism Status: Acute Assessment and Plan: Patient presents with dyspnea and found to be septic with bacteremia. Present on admission with tachycardia, MIKEY and leukopenia with bandemia related to PNA, cellulitis and bacteremia. Renal function better. BCx growing Strep pneumonia sensitive to Rocephin. Repeat BCx positive but felt to be contaminate since growing Staph epi. Changed to Augmentin. So [place] worker evaluation for discharge planning. Patient is homeless and does not have a place to go. Care coordination to assist with discharge planning. (2) Left lower lobe pneumonia: Code(s): J18.9 - Pneumonia, unspecified organism Status: Acute Assessment and Plan: CT chest showing patchy infiltrate in the right upper lobe, infiltrate in the left upper lobe, and a consolidation with air bronchograms in left lower lobe. He was started on azithromycin and ceftriaxone; Vanco added when BCx returned positive and Rocephin increased to 2gm. Urinary legionella antigen negative. Completed Azithro x 5 days. Vanco stopped b/c repeat BCx felt to be contaminant. Transitioned to oral regiment. (3) Cellulitis of left leg: Code(s): L03.116 - Cellulitis of left lower limb Status: Acute Assessment and Plan: Erythema to the left LE consistent with cellulitis. Doubt septic arthritis since he had normal active ROM. LLE xrays do not reveal acute osseous changes. Abx as above. Elevate LLE. With the diuresis, a firm, well demarcated nodule noted with US showing a thrombosed superficial vein. Continue PT/OT. Patient was encouraged to participate. Continue Augmentin. (4) Acute kidney injury: Code(s): N17.9 - Acute kidney failure, unspecified Status: Acute Assessment and Plan: Normal baseline Cr. Cr was 2.2 on admission. Etiology most likely multifactorial to include hypovolemia from dehydration with over-diuresis, hypoperfusion from relative hypotension, NSAIDs, ATN from sepsis, methamphetamine use and/or possibly a component of urine outlet obstruction given findings on CT. Bailey placed. Renal US normal. He was cautiously rehydrated but now off IV fluids since Cr normal now. Bailey out now. Hold NSAIDs. Avoid nephrotoxic agents. Diuretics able to be started and Cr remaining stable. MIKEY resolved. Change back to home Bumex. (5) Hyponatremia: Code(s): E87.1 - Hypo-osmolality and hyponatremia Status: Acute Assessment and Plan: Presumably secondary to dehydration. TSH normal. Cortisol mildly elevated but probably stress response. Urine sodium 12 and UCr 144 and FENa 0.15%. NaCl tabs started. Was on IV fluids but now on diuretics. Patient is eating better. Na 130 now. Continue NaCl tabs. Follow Na (6) Dehydration: Code(s): E86.0 - Dehydration Status: Acute Assessment and Plan: Resolved. Related to above. Plan is as detailed above. (7) Liver mass: Code(s): R16.0 - Hepatomegaly, not elsewhere classified Status: Acute Assessment and Plan: CT shows suggestions of at least a 3 centimeter hepatic mass. MRI unhelpful due to motion artifact. CEA 6.2; CA19-9 39. Repeat MRI ordered and pending (8) Paroxysmal atrial fibrillation: Code(s): I48.0 - Paroxysmal atrial fibrillation Status: Acute Assessment and Plan: He was in sinus tachycardia on arrival to the ER. EKG felt to be sinus tachycardia. HR better now. Continue metoprolol. He is not currently on anticoagulation for unclear reasons. (9) Insulin dependent type 2 diabetes mellitus: Code(s): E11.9 - Type 2 diabetes mellitus without complications; Z79.4 - intermediate designer (current) use of insulin Status: Acute Assessment and Plan: A1c 8.6. The patient's blood glucose was reviewed on 03/18 Glucose reasonable: 151-173. Continue AccuCheks covering with sl
[2022-03-20 16:42] LABS: Glucose Point of Care 185 mg/dl (65-105)
[2022-03-20 20:26] VITALS: BP 111/52; PULSE 79; RESP 18; TEMP 36.4; O2SAT 92
[2022-03-20 20:42] VITALS: PULSE 93; RESP 18; O2SAT 95
[2022-03-20] MEDS: ALBUTEROL SULFATE (*SP) AEROSOL 1 PUFF 2 PUFF INHALATION (20:42)
[2022-03-20 20:49] VITALS: PULSE 91; RESP 18
[2022-03-20] MEDS: traZODone HCL 25 MG TABLET PO (20:59)
[2022-03-20] MEDS: GABAPENTIN 300 MG CAPSULE PO (20:59)
[2022-03-20] MEDS: INSULIN GLARGINE (*BKC) 100 UNITS/ML 18 UNITS SUB-Q (21:00)
[2022-03-20 21:21] LABS: Glucose Point of Care 149 mg/dl (65-105)
--- NOTE | 2022-03-20 22:05 | PC.NURSE ---
Pt is sleeping. Pt woke up enough to take medication and then went back to sleep. Pt whimpers in his sleep. When woke up pt was asked about pain and pt denied any pain. Pt too tired to participate and contribute in plan of care. Will continue to monitor pt.
[2022-03-21] VITALS (10 sets, daily range): BP systolic 114–125; BP diastolic 68–72; PULSE 73–93; RESP 16–20; TEMP 36.3–37.1; O2SAT 89–95
[2022-03-21 08:12] LABS: Glucose Point of Care 116 mg/dl (65-105)
[2022-03-21] MEDS: METOPROLOL SUCCINATE EXT REL 50 MG TABCR PO (08:34)
[2022-03-21] MEDS: ENOXAPARIN 40 MG/0.4 ML SYRINGE SUB-Q (08:34)
[2022-03-21] MEDS: BUMETANIDE 1 MG TABLET 2 MG PO ×2 (08:34→16:18)
[2022-03-21] MEDS: ATORVASTATIN 10 MG TABLET PO (08:34)
[2022-03-21] MEDS: MAGNESIUM OXIDE 400 MG TABLET PO (08:34)
[2022-03-21] MEDS: SODIUM CHLORIDE 1 GM TABLET PO ×2 (08:35→16:18)
[2022-03-21] MEDS: EUCERIN CREAM 120 GM JAR 1 APPLIC TOPICAL ×2 (08:35→20:46)
[2022-03-21] MEDS: DOCOSANOL 10% CREAM 2 GM 1 APPLIC TOPICAL ×5 (08:35→20:53)
[2022-03-21] MEDS: ALBUTEROL SULFATE (*SP) AEROSOL 1 PUFF 2 PUFF INHALATION ×4 (09:48→21:21)
[2022-03-21 12:02] LABS: Glucose Point of Care 173 mg/dl (65-105)
[2022-03-21] MEDS: GABAPENTIN 300 MG CAPSULE PO ×2 (12:16→16:20)
[2022-03-21] MEDS: traMADol HCL (*CRX) 50 MG TABLET PO ×2 (12:18→19:18)
[2022-03-21] MEDS: ACETAMINOPHEN 325 MG TABLET 650 MG PO (16:17)
[2022-03-21 16:50] LABS: Glucose Point of Care 237 mg/dl (65-105)
[2022-03-21] MEDS: INSULIN ASPART (*BKC) 100 UNITS/ML SUB-Q (16:51)
--- NOTE | 2022-03-21 17:28 | P.PNIM_ITS ---
Progress Note: A&P Assessment and Plan (1) Sepsis: Code(s): A41.9 - Sepsis, unspecified organism Status: Acute Assessment and Plan: Patient presents with dyspnea and found to be septic with bacteremia. Present on admission with tachycardia, MIKEY and leukopenia with bandemia related to PNA, cellulitis and bacteremia. Renal function better. BCx growing Strep pneumonia sensitive to Rocephin. Repeat BCx positive but felt to be contaminate since growing Staph epi. Changed to Augmentin. Sociall worker evaluation for discharge planning. Patient is homeless and does not have a place to go. Care coordination to assist with discharge planning. (2) Left lower lobe pneumonia: Code(s): J18.9 - Pneumonia, unspecified organism Status: Acute Assessment and Plan: CT chest showing patchy infiltrate in the right upper lobe, infiltrate in the left upper lobe, and a consolidation with air bronchograms in left lower lobe. He was started on azithromycin and ceftriaxone; Vanco added when BCx returned positive and Rocephin increased to 2gm. Urinary legionella antigen negative. Completed Azithro x 5 days. Vanco stopped b/c repeat BCx felt to be contaminant. Transitioned to oral regiment. (3) Cellulitis of left leg: Code(s): L03.116 - Cellulitis of left lower limb Status: Acute Assessment and Plan: Erythema to the left LE consistent with cellulitis. Doubt septic arthritis since he had normal active ROM. LLE xrays do not reveal acute osseous changes. Abx as above. Elevate LLE. With the diuresis, a firm, well demarcated nodule noted with US showing a thrombosed superficial vein. Continue PT/OT. Patient was encouraged to participate. Continue Augmentin. Pain management regimen already in place. (4) Acute kidney injury: Code(s): N17.9 - Acute kidney failure, unspecified Status: Acute Assessment and Plan: Normal baseline Cr. Cr was 2.2 on admission. Etiology most likely multifactorial to include hypovolemia from dehydration with over-diuresis, hypoperfusion from relative hypotension, NSAIDs, ATN from sepsis, methamphetamine use and/or possibly a component of urine outlet obstruction given findings on CT. Bailey placed. Renal US normal. He was cautiously rehydrated but now off IV fluids since Cr normal now. Bailey out now. Hold NSAIDs. Avoid nephrotoxic agents. Diuretics able to be started and Cr remaining stable. MIKEY resolved. Change back to home Bumex. Creatinine improved down to 0.8. (5) Hyponatremia: Code(s): E87.1 - Hypo-osmolality and hyponatremia Status: Acute Assessment and Plan: Presumably secondary to dehydration. TSH normal. Cortisol mildly elevated but probably stress response. Urine sodium 12 and UCr 144 and FENa 0.15%. NaCl tabs started. Was on IV fluids but now on diuretics. Patient is eating better. Na 130 now. Continue NaCl tabs. Follow Na (6) Dehydration: Code(s): E86.0 - Dehydration Status: Acute Assessment and Plan: Resolved. Related to above. Plan is as detailed above. (7) Liver mass: Code(s): R16.0 - Hepatomegaly, not elsewhere classified Status: Acute Assessment and Plan: CT shows suggestions of at least a 3 centimeter hepatic mass. MRI unhelpful due to motion artifact. CEA 6.2; CA19-9 39. Repeat MRI ordered and pending (8) Paroxysmal atrial fibrillation: Code(s): I48.0 - Paroxysmal atrial fibrillation Status: Acute Assessment and Plan: He was in sinus tachycardia on arrival to the ER. EKG felt to be sinus tachycardia. HR better now. Continue metop
[2022-03-21 18:27] LABS: Hematocrit 30.1 % (42.0-52.0); Hemoglobin 9.3 g/dL (14.0-18.0); Mean Corpuscular HGB Conc 30.9 g/dl (32-36); Mean Corpuscular Hemoglobin 26.1 pg (26-34); Mean Corpuscular Volume 84.3 fl (80-100); Mean Platelet Volume 10.2 fl (7.4-10.4); Platelet Count Result 158 k/mm3 (150-375); Red Blood Count 3.57 M/mm3 (4.6-6.20); Red Cell Distribution Width 16.6 % (11.5-14.5); White Blood Count 2.8 K/mm3 (4.5-10.0)
[2022-03-21 18:38] LABS: Anion Gap 1 mmol/L (8-16); Blood Urea Nitrogen 23 mg/dL (9-20); Calcium 7.5 mg/dL (8.4-10.2); Carbon Dioxide 37 mmol/L (22-30); Chloride 91 mmol/L (98-107); Estimated CRCL calculation 109 ml/min; Estimated Glomerular Filt Rate > 60; Glucose 201 mg/dL (65-110); Potassium 3.5 mmol/L (3.4-5.0); Sodium 129 mmol/L (137-145)
[2022-03-21] MEDS: INSULIN GLARGINE (*BKC) 100 UNITS/ML 18 UNITS SUB-Q (20:48)
[2022-03-21] MEDS: traZODone HCL 25 MG TABLET PO (20:48)
[2022-03-21 20:57] LABS: Glucose Point of Care 207 mg/dl (65-105)
[2022-03-22] VITALS (8 sets, daily range): BP systolic 112–115; BP diastolic 47–66; PULSE 77–83; RESP 16–20; TEMP 36.6–36.9; O2SAT 91–94
[2022-03-22] MEDS: traMADol HCL (*CRX) 50 MG TABLET PO ×3 (01:26→17:38)
[2022-03-22 08:32] LABS: Glucose Point of Care 151 mg/dl (65-105)
[2022-03-22] MEDS: ALBUTEROL SULFATE (*SP) AEROSOL 1 PUFF 2 PUFF INHALATION ×3 (08:49→21:55)
[2022-03-22] MEDS: BUMETANIDE 1 MG TABLET 2 MG PO ×2 (10:03→17:39)
[2022-03-22] MEDS: METOPROLOL SUCCINATE EXT REL 50 MG TABCR PO (10:04)
[2022-03-22] MEDS: MAGNESIUM OXIDE 400 MG TABLET PO (10:05)
[2022-03-22] MEDS: ATORVASTATIN 10 MG TABLET PO (10:05)
[2022-03-22] MEDS: SODIUM CHLORIDE 1 GM TABLET PO ×2 (10:05→17:39)
[2022-03-22] MEDS: ENOXAPARIN 40 MG/0.4 ML SYRINGE SUB-Q (10:05)
[2022-03-22] MEDS: GABAPENTIN 300 MG CAPSULE PO ×2 (10:05→17:39)
[2022-03-22] MEDS: EUCERIN CREAM 120 GM JAR 1 APPLIC TOPICAL ×2 (10:07→21:36)
[2022-03-22] MEDS: DOCOSANOL 10% CREAM 2 GM 1 APPLIC TOPICAL ×5 (10:07→21:38)
[2022-03-22 11:42] LABS: Glucose Point of Care 219 mg/dl (65-105)
[2022-03-22] MEDS: INSULIN ASPART (*BKC) 100 UNITS/ML SUB-Q ×2 (12:34→17:38)
--- NOTE | 2022-03-22 16:17 | PM.IMPN ---
Progress Note: A&P Assessment and Plan (1) Sepsis: Code(s): A41.9 - Sepsis, unspecified organism Status: Acute Assessment and Plan: Patient presents with dyspnea and found to be septic with bacteremia. Present on admission with tachycardia, MIKEY and leukopenia with bandemia related to PNA, cellulitis and bacteremia. Renal function better. BCx growing Strep pneumonia sensitive to Rocephin. Repeat BCx positive but felt to be contaminate since growing Staph epi. Changed to Augmentin. Sociall worker evaluation for discharge planning. Patient is homeless and does not have a place to go. Care coordination to assist with discharge planning. (2) Left lower lobe pneumonia: Code(s): J18.9 - Pneumonia, unspecified organism Status: Acute Assessment and Plan: CT chest showing patchy infiltrate in the right upper lobe, infiltrate in the left upper lobe, and a consolidation with air bronchograms in left lower lobe. He was started on azithromycin and ceftriaxone; Vanco added when BCx returned positive and Rocephin increased to 2gm. Urinary legionella antigen negative. Completed Azithro x 5 days. Vanco stopped b/c repeat BCx felt to be contaminant. Transitioned to oral regiment. (3) Cellulitis of left leg: Code(s): L03.116 - Cellulitis of left lower limb Status: Acute Assessment and Plan: Erythema to the left LE consistent with cellulitis. Doubt septic arthritis since he had normal active ROM. LLE xrays do not reveal acute osseous changes. Abx as above. Elevate LLE. With the diuresis, a firm, well demarcated nodule noted with US showing a thrombosed superficial vein. Continue PT/OT. Patient was encouraged to participate. Continue Augmentin. Pain management regimen already in place. (4) Acute kidney injury: Code(s): N17.9 - Acute kidney failure, unspecified Status: Acute Assessment and Plan: Normal baseline Cr. Cr was 2.2 on admission. Etiology most likely multifactorial to include hypovolemia from dehydration with over-diuresis, hypoperfusion from relative hypotension, NSAIDs, ATN from sepsis, methamphetamine use and/or possibly a component of urine outlet obstruction given findings on CT. Bailey placed. Renal US normal. He was cautiously rehydrated but now off IV fluids since Cr normal now. Bailey out now. Hold NSAIDs. Avoid nephrotoxic agents. Diuretics able to be started and Cr remaining stable. MIKEY resolved. Change back to home Bumex. Creatinine improved down to 0.8. (5) Hyponatremia: Code(s): E87.1 - Hypo-osmolality and hyponatremia Status: Acute Assessment and Plan: Presumably secondary to dehydration. TSH normal. Cortisol mildly elevated but probably stress response. Urine sodium 12 and UCr 144 and FENa 0.15%. NaCl tabs started. Was on IV fluids but now on diuretics. Patient is eating better. Na 130 now. Continue NaCl tabs. Follow Na (6) Dehydration: Code(s): E86.0 - Dehydration Status: Acute Assessment and Plan: Resolved. Related to above. Plan is as detailed above. (7) Liver mass: Code(s): R16.0 - Hepatomegaly, not elsewhere classified Status: Acute Assessment and Plan: CT shows suggestions of at least a 3 centimeter hepatic mass. MRI unhelpful due to motion artifact. CEA 6.2; CA19-9 39. Repeat MRI ordered and pending (8) Paroxysmal atrial fibrillation: Code(s): I48.0 - Paroxysmal atrial fibrillation Status: Acute Assessment and Plan: He was in sinus tachycardia on arrival to the ER. EKG felt to be sinus tachycardia. HR better now. Continue metoprolol. He is not currently on anticoagulation for unclear reasons. (9) Insulin dependent type 2 diabetes mellitus: Code(s): E11.9 - Type 2 diabetes mellitus without complications; Z79.4 - termite technician (current) use of insulin Status: Acute Assessment and Plan: A1c 8.6. The patient's blood glucose was reviewed
--- NOTE | 2022-03-22 16:26 | PCPTNOTE ---
Patient refused treatment this session, due to patient stating it was supper time, he wasn't told a therapy time, no one has given any pain meds, or brought him a heating pad, so NO!!
[2022-03-22 18:31] LABS: Glucose Point of Care 206 mg/dl (65-105)
[2022-03-22] MEDS: traZODone HCL 25 MG TABLET PO (21:37)
[2022-03-22] MEDS: INSULIN GLARGINE (*BKC) 100 UNITS/ML 18 UNITS SUB-Q (21:37)
[2022-03-22 23:23] LABS: Glucose Point of Care 164 mg/dl (65-105)
[2022-03-23] MEDS: traMADol HCL (*CRX) 50 MG TABLET PO ×2 (01:31→10:27)
[2022-03-23 05:51] VITALS: BP 93/60; PULSE 72; RESP 20; TEMP 37.2; O2SAT 92
[2022-03-23] MEDS: DIPHENHYDRAMINE 1%/ZINC 0.1% CREAM 30 GM TUBE 1 APPLIC TOPICAL (07:34)
[2022-03-23 07:57] LABS: Glucose Point of Care 116 mg/dl (65-105)
[2022-03-23] MEDS: ENOXAPARIN 40 MG/0.4 ML SYRINGE SUB-Q (10:26)
[2022-03-23] MEDS: GABAPENTIN 300 MG CAPSULE PO (10:27)
[2022-03-23] MEDS: BUMETANIDE 1 MG TABLET 2 MG PO (10:27)
[2022-03-23] MEDS: SODIUM CHLORIDE 1 GM TABLET PO (10:27)
[2022-03-23] MEDS: ATORVASTATIN 10 MG TABLET PO (10:27)
[2022-03-23] MEDS: METOPROLOL SUCCINATE EXT REL 50 MG TABCR PO (10:27)
[2022-03-23] MEDS: DOCOSANOL 10% CREAM 2 GM 1 APPLIC TOPICAL ×4 (10:28→20:27)
[2022-03-23] MEDS: MAGNESIUM OXIDE 400 MG TABLET PO (10:28)
[2022-03-23] MEDS: EUCERIN CREAM 120 GM JAR 1 APPLIC TOPICAL ×2 (10:28→20:27)
--- NOTE | 2022-03-23 11:12 | PCNWS ---
Weekly nutritional screen. Patient is tolerating current Diabetic diet with adequate intake at 100%. No weight loss reported. No nutritional needs at this time.
--- NOTE | 2022-03-23 11:37 | PCRCNOTE ---
window of time for tx passed for 0800 tx
[2022-03-23 11:55] LABS: Glucose Point of Care 154 mg/dl (65-105)
[2022-03-23] MEDS: ALBUTEROL SULFATE (*SP) AEROSOL 1 PUFF 2 PUFF INHALATION ×3 (12:32→22:31)
[2022-03-23 12:34] VITALS: PULSE 78; RESP 18
--- NOTE | 2022-03-23 13:10 | PM.DS ---
DS: Admitting Diagnosis Discharge Date 03/23/22 Admitting Diagnosis Pneumonia DS: Summary Hospital Course Reason for hospitalization: Sepsis Hospital Course: ?Sepsis: ?Code(s): A41.9 - Sepsis, unspecified organism ?Status:?Acute ?Assessment and Plan: Patient presents with dyspnea and found to be septic with bacteremia. Present on admission with tachycardia, MIKEY and leukopenia with bandemia related to PNA, cellulitis and bacteremia. Renal function better. BCx growing Strep pneumonia sensitive to Rocephin. Repeat BCx positive but felt to be contaminate since growing Staph epi. Changed to Augmentin. ? Sociall worker evaluation for discharge planning.? Patient lives out of [facility] and social welfare clerk noted taht patient had been discharged to long-term in the past and he left the nursing hoem to live in his truck. [facility] will [facility] and if patient refused he will go back to living in his truck. Completed Abx. (2) Left lower lobe pneumonia: ?Code(s): J18.9 - Pneumonia, unspecified organism ?Status:?Acute ?Assessment and Plan: CT chest showing patchy infiltrate in the right upper lobe, infiltrate in the left upper lobe, and a consolidation with air bronchograms in left lower lobe. He was started on azithromycin and ceftriaxone; Vanco added when BCx returned positive and Rocephin increased to 2gm. Urinary legionella antigen negative. Completed Azithro x 5 days. Vanco stopped b/c repeat BCx felt to be contaminant. Transitioned to oral regiment. Completed abx (3) Cellulitis of left leg: ?Code(s): L03.116 - Cellulitis of left lower limb ?Status:?Acute ?Assessment and Plan: Erythema to the left LE consistent with cellulitis. Doubt septic arthritis since he had normal active ROM.? LLE xrays do not reveal acute osseous changes. Abx as above. Elevate LLE. With the diuresis, a firm, well demarcated nodule noted with US showing a thrombosed superficial vein. Continue PT/OT. Patient was encouraged to participate. Continue Augmentin.? Pain management regimen already in place. Completed abx (4) Acute kidney injury: ?Code(s): N17.9 - Acute kidney failure, unspecified ?Status:?Acute ?Assessment and Plan: Normal baseline Cr. Cr was 2.2 on admission. Etiology most likely multifactorial to include hypovolemia from dehydration with over-diuresis, hypoperfusion from relative hypotension, NSAIDs, ATN from sepsis, methamphetamine use and/or possibly a component of urine outlet obstruction given findings on CT. Bailey placed. Renal US normal. He was cautiously rehydrated but now off IV fluids since Cr normal now. Bailey out now. Hold NSAIDs. Avoid nephrotoxic agents. Diuretics able to be started and Cr remaining stable. MIKEY resolved. Change back to home Bumex.? Creatinine improved down to 0.8. resolved (5) Hyponatremia: ?Code(s): E87.1 - Hypo-osmolality and hyponatremia ?Status:?Acute ?Assessment and Plan: Presumably secondary to dehydration. TSH normal. Cortisol mildly elevated but probably stress response. Urine sodium 12 and UCr 144 and FENa 0.15%. NaCl tabs started. Was on IV fluids but now on diuretics. Patient is eating better. Na 130 now. Continue NaCl tabs. Follow Nam resolved (6) Dehydration: ?Code(s): E86.0 - Dehydration ?Status:?Acute ?Assessment and Plan: Resolved. Related to above. (7) Liver mass, liver cirrhosis, compensated ?Code(s): R16.0 - Hepatomegaly, not elsewhere classified ?Status:?Acute ?Assessment and Plan: CT shows suggestions of at least a 3 centimeter hepatic mass.? MRI unhelpful due to motion artifact. CEA 6.2; CA19-9 39. MRi showed liver cirrhosis with indeterminate mass. F/u MRI outpatient, f/u with PCP in 3 -5 days. Gi referral per PCP. (8) Paroxysmal atrial fibrillation: ?Code(s): I48.0 - Paroxysmal atrial fibrillation ?Status:?Acute ?Assessment and Plan: He was in sinus tachycardia o
[2022-03-23 14:00] VITALS: BP 127/65; PULSE 111; RESP 20; TEMP 37.2; O2SAT 93
[2022-03-23 15:41] VITALS: PULSE 83; RESP 18
[2022-03-23 16:46] LABS: Glucose Point of Care 187 mg/dl (65-105)
[2022-03-23] MEDS: traZODone HCL 25 MG TABLET PO (20:26)
[2022-03-23] MEDS: INSULIN GLARGINE (*BKC) 100 UNITS/ML 18 UNITS SUB-Q (20:26)
[2022-03-23 21:51] VITALS: BP 111/70; PULSE 81; RESP 20; TEMP 37.3; O2SAT 94
[2022-03-24 06:00] VITALS: BP 117/70; PULSE 79; RESP 18; TEMP 36.3; O2SAT 93
[2022-03-24 08:13] LABS: Glucose Point of Care 117 mg/dl (65-105)
[2022-03-24] MEDS: BUMETANIDE 1 MG TABLET 2 MG PO ×2 (08:52→16:17)
[2022-03-24] MEDS: SODIUM CHLORIDE 1 GM TABLET PO ×2 (08:52→16:17)
[2022-03-24 08:53] VITALS: PULSE 80
[2022-03-24] MEDS: GABAPENTIN 300 MG CAPSULE PO ×3 (08:53→16:17)
[2022-03-24] MEDS: ATORVASTATIN 10 MG TABLET PO (08:53)
[2022-03-24] MEDS: ENOXAPARIN 40 MG/0.4 ML SYRINGE SUB-Q (08:53)
[2022-03-24] MEDS: MAGNESIUM OXIDE 400 MG TABLET PO (08:53)
[2022-03-24] MEDS: METOPROLOL SUCCINATE EXT REL 50 MG TABCR PO (08:53)
[2022-03-24] MEDS: EUCERIN CREAM 120 GM JAR 1 APPLIC TOPICAL (09:03)
[2022-03-24] MEDS: DOCOSANOL 10% CREAM 2 GM 1 APPLIC TOPICAL ×3 (09:10→15:58)
[2022-03-24] MEDS: ALBUTEROL SULFATE (*SP) AEROSOL 1 PUFF 2 PUFF INHALATION (09:17)
[2022-03-24 09:18] VITALS: RESP 18; O2SAT 93
[2022-03-24 11:47] LABS: Glucose Point of Care 158 mg/dl (65-105)
--- NOTE | 2022-03-24 13:58 | PCPTNOTE ---
Patient declined PT at this time stating he is dealing with mental issues. He states levy has a lot going on mentally and needs to deal with that first. RN aware of patient's c/o. PT will continue to follow per plan of care.
--- NOTE | 2022-03-24 14:51 | PM.DS ---
DS: Admitting Diagnosis Discharge Date 03/24/22 Admitting Diagnosis Pneumonia DS: Discharge Diagnosis Discharge Diagnosis (1) Sepsis: Code(s): A41.9 - Sepsis, unspecified organism Status: Acute (2) Left lower lobe pneumonia: Code(s): J18.9 - Pneumonia, unspecified organism Status: Acute (3) Cellulitis of left leg: Code(s): L03.116 - Cellulitis of left lower limb Status: Acute (4) Acute kidney injury: Code(s): N17.9 - Acute kidney failure, unspecified Status: Acute (5) Hyponatremia: Code(s): E87.1 - Hypo-osmolality and hyponatremia Status: Acute (6) Dehydration: Code(s): E86.0 - Dehydration Status: Acute (7) Liver mass: Code(s): R16.0 - Hepatomegaly, not elsewhere classified Status: Acute (8) Paroxysmal atrial fibrillation: Code(s): I48.0 - Paroxysmal atrial fibrillation Status: Acute (9) Insulin dependent type 2 diabetes mellitus: Code(s): E11.9 - Type 2 diabetes mellitus without complications; Z79.4 - watermaster (current) use of insulin Status: Acute (10) Heart failure with preserved ejection fraction: Code(s): I50.30 - Unspecified diastolic (congestive) heart failure Status: Acute (11) Chronic obstructive pulmonary disease: Code(s): J44.9 - Chronic obstructive pulmonary disease, unspecified Status: Acute (12) Psychiatric illness: Code(s): F99 - Mental disorder, not otherwise specified Status: Acute (13) Polysubstance abuse: Code(s): F19.10 - Other psychoactive substance abuse, uncomplicated Status: Acute (14) Pancytopenia: Code(s): D61.818 - Other pancytopenia Status: Acute DS: Summary Hospital Course Reason for hospitalization: Sepsis Hospital Course: Discharge was held because patient was feeling suicidal. Crisis was consulted. They evaluated the patient. Patient states that he was suicidal because he was unable to go to the discharge location of his preference. He states that if this could be arranged then he would not feel suicidal. It was felt that he was malingering. Crisis did clear the patient for discharge. Appropriate instructions and follow-up information was provided by crisis. Case was discussed with crisis counselor. Okay for discharge Sepsis: ?Code(s): A41.9 - Sepsis, unspecified organism ?Status:?Acute ?Assessment and Plan: Patient presents with dyspnea and found to be septic with bacteremia. Present on admission with tachycardia, MIKEY and leukopenia with bandemia related to PNA, cellulitis and bacteremia. Renal function better. BCx growing Strep pneumonia sensitive to Rocephin. Repeat BCx positive but felt to be contaminate since growing Staph epi. Changed to Augmentin. ? Sociall worker evaluation for discharge planning.? Patient lives out of [facility] and director of social media marketing noted taht patient had been discharged to residential in the past and he left the nursing hoem to live in his truck. She will try [facility] [place] [facility] and if patient refused he will go back to living in his truck. Completed Abx. (2) Left lower lobe pneumonia: ?Code(s): J18.9 - Pneumonia, unspecified organism ?Status:?Acute ?Assessment and Plan: CT chest showing patchy infiltrate in the right upper lobe, infiltrate in the left upper lobe, and a consolidation with air bronchograms in left lower lobe. He was started on azithromycin and ceftriaxone; Vanco added when BCx returned positive and Rocephin increased to 2gm. Urinary legionella antigen negative. Completed Azithro x 5 days. Vanco stopped b/c repeat BCx felt to be contaminant. Transitioned to oral regiment. Completed abx (3) Cellulitis of left leg: ?Code(s): L03.116 - Cellulitis of left lower limb ?Status:?Acute ?Assessment and Plan: Erythema to the left LE consistent with cellulitis. Doubt septic arthritis since he had normal active ROM.?
[2022-03-24 15:11] VITALS: BP 106/67; PULSE 76; RESP 16; TEMP 36.4; O2SAT 97
[2022-03-24 15:13] VITALS: BP 109/68; PULSE 80; RESP 16; O2SAT 96
[2022-03-24 15:16] VITALS: BP 94/64; PULSE 87; RESP 18; O2SAT 98
== END 2022-03-24 17:00 | disposition home or self-care (01) | DRG 720 ==
LOC: ANHED 14:39 → ANHIMU 18:25 → ANH3MEDSUR 03-12 11:19
PROVIDERS: Emergency Medicine; Internal Medicine; Physician Assistant; Admitting Provider Family Medicine; Emergency Provider Emergency Medicine; Visit Provider Internal Medicine
DX: A40.3 Sepsis due to Streptococcus pneumoniae (principal); N17.0 Acute kidney failure with tubular necrosis; D61.818 Other pancytopenia; J18.9 Pneumonia, unspecified organism; E11.40 Type 2 diabetes mellitus with diabetic neuropathy, unspecified; E87.1 Hypo-osmolality and hyponatremia; R16.0 Hepatomegaly, not elsewhere classified; I50.30 Unspecified diastolic (congestive) heart failure; I48.0 Paroxysmal atrial fibrillation; L03.116 Cellulitis of left lower limb; E86.0 Dehydration; J44.9 Chronic obstructive pulmonary disease, unspecified; F32.A Depression, unspecified; F41.9 Anxiety disorder, unspecified; Z59.00 Homelessness unspecified; F19.10 Other psychoactive substance abuse, uncomplicated; G47.33 Obstructive sleep apnea (adult) (pediatric); K74.60 Unspecified cirrhosis of liver; Z20.822 Contact with and (suspected) exposure to COVID-19; R45.851 Suicidal ideations; F17.210 Nicotine dependence, cigarettes, uncomplicated; Z79.51 Long term (current) use of inhaled steroids; Z79.84 Long term (current) use of oral hypoglycemic drugs; Z79.899 Other long term (current) drug therapy; Z79.4 Long term (current) use of insulin; Z82.49 Family history of ischemic heart disease and other diseases of the circulatory system; Z83.3 Family history of diabetes mellitus
CPT/HCPCS: 36415; 71046; 71275; 72100; 73502; 73562; 73600; 74174; 74183; 76775; 76882; 80048; 80053; 80069; 80202; 80307; 81001; 82378; 82533; 82550; 82570; 82728; 82948; 83036; 83540; 83550; 83690; 83735; 83880; 83930; 83935; 84100; 84145; 84295; 84300; 84443; 84484; 85025; 85027; 85055; 85999; 86140; 86301; 86738; 87040; 87077; 87147; 87181; 87186; 87449; 87636; 87899; 93005; 93970; 94640; 96374; 96375; 97110; 97116; 97161; 97165; 97530; 99285; A9270; J0131; J0153; J0456; J0696; J1170; J1650; J1815; J1940; J2060; J3370; J3475; J7030; J7120; Q9967

== ENCOUNTER 2022-05-13 08:09 | Outpatient (CLI) | payer OTHER, SELFPAY ==
[2022-05-13 08:23] LABS: Add Urine Microscopic? YES; Appearance Urine Clear (Clear); Bilirubin Urine Negative (Negative); Blood Urine Trace-Intact (Negative); Color Urine Light Yellow (Yellow); Glucose Urine UA Negative (Negative); Ketones Urine Negative (Negative); Leukocyte Esterase Ur Negative (Negative); Nitrate Urine Negative (Negative); Protein Urine Negative (Negative); Urobilinogen Urine 0.2 mg/dL (0.2-1.0); pH Urine 6.5 (5.0-8.0)
[2022-05-13 08:37] LABS: MALB Creatinine Ratio 440.5 mg/g (0-30); Microalbumin Urine Random 95.6 mg/L
[2022-05-13 08:51] LABS: Bacteria Urine None seen /hpf; RBC Urine None seen /hpf (0-2); WBC Urine None seen /hpf (0-3)
== END 2022-05-13 08:10 | disposition home or self-care (01) ==
PROVIDERS: PCP Family Medicine; Visit Provider Family Medicine
DX: D64.9 Anemia, unspecified (principal)
CPT/HCPCS: 81001; 82043

== ENCOUNTER 2022-05-20 10:35 | Outpatient (NON) | payer OTHER, SELFPAY ==
[2022-05-20 10:44] LABS: Occult Blood Negative (Negative)
[2022-05-20 10:44] LABS: Occult Blood Negative (Negative)
[2022-05-20 10:44] LABS: Occult Blood Negative (Negative)
== END 2022-05-20 10:36 | disposition home or self-care (01) ==
LOC: CHSLAB 10:36
PROVIDERS: Visit Provider Family Medicine
DX: D64.9 Anemia, unspecified (principal)
CPT/HCPCS: 82272